=== PATIENT | female | born 1930 | race Caucasian/White ===

== ENCOUNTER 2016-07-18 20:01 | Inpatient (IN) | payer OTHER ==
[~2016-07-18] VITALS: Ht 154.9 cm; Wt 77.8 kg
[~2016-07-18 20:01] MED LIST: ALBUAER2 INH; ALEN70TA4 PO; ALPR-411 PO; AMLO-110 PO; ASPI-435 PO; ATOR-26 PO; BENA40TA6 PO; BISA10SU38 PR; CALC1CAP36 PO; CHOLTAB3 PO; CLC100 PO; CLOB-65 TOP; CRG40 PO; EFFSR150 PO; EFFSR75 PO; FLVHFA110 INH; GARL1CAP6 PO; INSDGI SC; IPRA1AER2 INH; LEVO125T4 PO; LSX20 PO; MAGN400T6 PO; MECL1TAB42 PO; MIRT30TA3 PO; OMEGCAP2 PO; OMEP20CA9 PO; POLY1POW2 PO; ULT/50 PO; [UNRECOGNIZED DRUG - CODE] PO
[2016-07-18] MEDS ORDERED: NADOLOL 40 MG TAB PO ONE (20:30)
[2016-07-18 20:31] LABS: BASO % 0.1 %; BASO ABS # 0.01 K/uL (0-0.2); COMPLETE YES; HEMATOCRIT 38.1 % (37-47); IG% 0.2 %; LYMPH ABS # 1.41 K/uL (1.2-3.4); MEAN CELL VOLUME 90.9 fL (80-100); MEAN CORPUSCULAR HEMOGLOBIN 29.4 pg (25-34); MEAN CORPUSCULAR HGB CONC 32.3 g/dl (32-36); MEAN PLATELET VOLUME 8.8 fL (7.4-10.4); MONO % 8.1 %; NEUT % 79.6 %; PLATELET COUNT 278 K/uL (130-400); RED BLOOD COUNT 4.19 M/uL (4.2-5.4); WHITE BLOOD COUNT 11.72 K/uL (4.8-10.8)
--- NOTE | 2016-07-18 20:47 | DIAGNOSTIC IMAGING REPORT ---
CHEST ONE VIEW PORTABLE CLINICAL HISTORY: Altered mental status. Weakness. COMPARISON STUDY: Chest radiograph October 27, 2015. FINDINGS: Spinal fusion hardware is partially imaged. Mild to moderate cardiomegaly is unchanged. There is no pneumothorax or pleural effusion. A skin fold projects over the left hemithorax. There is pulmonary vascular congestion without overt pulmonary edema. No consolidation is identified to suggest pneumonia. 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 The patient is rotated. Deformity of the right humeral shaft is partially imaged and likely posttraumatic IMPRESSION: 1. Pulmonary vascular congestion. 2. No consolidation to suggest pneumonia. Electronically signed by: Stuart Haji M.D. 07/18/2016 8:46 PM Dictated Date/Time: 07/18/2016 8:43 PM
[2016-07-18 20:54] LABS: URINE APPEARANCE CLEAR (CLEAR); URINE BILIRUBIN NEG (NEG); URINE COLOR YELLOW; URINE NITRITE NEG (NEG); URINE PH 6.5 (4.5-7.5); URINE SPECIFIC GRAVITY 1.013 (1.000-1.030); UROBILINOGEN NEG (NEG); ZZUR CULT IF INDIC CLEAN CATCH NO
[2016-07-18 20:55] LABS: MANUAL MICROSCOPIC REQUIRED? NO; REVIEW REQ? NO
[2016-07-18 21:10] LABS: BUN/CREATININE RATIO 23.9 (10-20); CALCIUM 9.6 mg/dl (8.5-10.1); CKMB/CK RATIO 2.7 (0-3.0); CREATININE 1.1 mg/dl (0.60-1.20); MAGNESIUM 2.2 mg/dl (1.8-2.4); POTASSIUM 4.6 mmol/L (3.5-5.1); THYROID STIMULATING HORMONE 0.822 uIu/ml (0.300-4.500)
[2016-07-18] MEDS ORDERED: CLONIDINE HCL 0.1 MG TAB PO ONE (21:30)
[2016-07-18] MEDS ORDERED: ALBINS/ INH (21:55)
[2016-07-18] MEDS ORDERED: TRMCR130WC TOP (21:55)
[2016-07-18] MEDS ORDERED: HydrALAZINE HCL 20 MG/ML VIAL IV. STA (22:43)
[2016-07-18] MEDS ORDERED: LABETALOL HCL IV 5 MG/ML 20ML IV STA (22:56)
[2016-07-18] MEDS ORDERED: POLYETHYLENE (MIRALAX) 17 GM PACK PO PRN ×2 (23:00)
[2016-07-18] MEDS ORDERED: LABETALOL HCL IV 5 MG/ML 20ML IV PRN (23:00)
[2016-07-18] MEDS ORDERED: ONDANSETRON INJ 2 MG/ML 2 ML VIAL IV PRN (23:00)
[2016-07-18] MEDS ORDERED: NITROGLYCERIN 0.4 MG SL PER TAB CHARGE SL PRN (23:00)
[2016-07-18] MEDS ORDERED: ACETAMINOPHEN 325 MG TAB PO PRN (23:00)
[2016-07-18] MEDS ORDERED: TRAMADOL HCL 50 MG TAB PO PRN (23:00)
[2016-07-18] MEDS ORDERED: MAGNESIUM HYDROXIDE SUSP 30 ML UDC PO PRN (23:00)
[2016-07-18] MEDS ORDERED: BISACODYL 10 MG SUPP PR PRN (23:00)
[2016-07-18] MEDS ORDERED: ALUMINUM/MAGNESIUM/SIMETH (MAALOX MAX) 30 ML UDC PO PRN (23:00)
[2016-07-18] MEDS ORDERED: MECLIZINE HCL 12.5 MG TAB PO PRN (23:00)
--- NOTE | 2016-07-18 23:23 | History and Physical ---
History & Physical Date & Time of Service: Jul 18, 2016 at 23:24 Chief Complaint: Nausea, Diaphoretic Primary Care Physician: Giovanna Cote M.D. History of Present Illness Source: patient this is a 86 yo F presented to ED with complain of feeling nauseous , dizzy spell she thought her blood sugar was low , ate snack , BSG check was > 300 pt continued to feel tired , wiped out , felt dizzy lightheaded, developed transient chest tightness with SOB resolved spontaneously came to ED for evaluation , found to be in hypertensive urgency SBP > 200 pt has known hx of HTN , admits of taking her BP meds in a regular basis in the ED pt was given her home medication of Nadolol , IV Labetalol BP improved ,associated with relief of symptoms during my time of interview , denies of any chest pain or SOB no dizzy spell Past Medical/Surgical History Medical Problems: (1) 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 (2) Diab [place] Wo Compl, Type Ii Or Unspec Type, Not Uncntrld Status: Chronic (3) Diverticulosis Colon (W/O Ment Of Hemorrhage) Status: Chronic (4) Hypertension Nos Status: Chronic (5) Labyrinthine Dysfunc Nos Status: Resolved (6) Pure Hypercholesterolem Status: Chronic (7) Trans Cereb Ischemia Nos Status: Resolved (8) Urin Tract Infection Nos Status: Resolved (9) Vestibular Neuronitis Status: Resolved Family History Cancer Diabetes mellitus FH: heart disease FHx: lung disease Hypertension Social History Smoking Status: Never Smoker Drug Use: none Marital Status: Housing status: lives alone Occupational Status: retired Immunizations History of Influenza Vaccine: Yes History of Tetanus Vaccine?: Yes History of Pneumococcal: Yes History of Hepatitis B Vaccine: No Multi-Drug Resistant Organisms History of MDRO: No Allergies Coded Allergies: Warfarin (Verified Allergy, Mild, "Itchy", 07/18/16) Clopidogrel (Verified Allergy, Unknown, ITCHY, 07/18/16) Codeine (Verified Allergy, Unknown, 07/18/16) Meperidine (Verified Allergy, Unknown, 07/18/16) Home Medications Scheduled Alendronate Sodium (Fosamax), 70 MG PO WK Alprazolam (Alprazolam), 0.5 MG PO TID Amlodipine (Norvasc), 5 MG PO QAM Aspirin (Aspirin 81), 81 MG PO QAM Atorvastatin (Lipitor), 80 MG PO QAM Benazepril Hcl (Lotensin), 40 MG PO QAM Calcitriol (Calcitriol), 0.25 MCG PO DAILY Docusate Sodium (Docusate Sodium), 100 MG PO QAM Fluticasone Propionate (Flovent Hfa), 2 PUFFS INH BID Garlic (Garlic), 10 MG PO DAILY Insulin Glargine (Lantus), UNITS SC QPM Ipratropium-Albuterol (Combivent Respimat), 1 PUFF INH Q4-6HRS Levothyroxine Sodium (Levothyroxine Sodium), 62.5 MG PO QAM Magnesium Oxide (Mag-Ox), 400 MG PO BID Mirtazapine (Remeron), 45 MG PO HS Nadolol (Nadolol), 80 MG PO BID [place]-3 Fatty Acids (Fish Oil), 2 CAP PO QAM Omeprazole (Prilosec), 20 MG PO BID Triamcinolone Acet (Aristocort 0.1%), 1 APPLN TOP BID Venlafaxine Hcl (Effexor Extended Rel), 150 MG PO QAM Venlafaxine Hcl (Effexor Extended Rel), 75 MG PO QAM Vitamin E (Vitamin E Blend), 400 INTER.UNIT PO DAILY Scheduled PRN Albuterol Sulf (Proventil 0.083% 2.5MG/3ML), 2.5 MG INH Q4 PRN for Wheezing Bisacodyl (Dulcolax), 1 SUPP AR DAILY PRN for Constipation Meclizine Hcl (Meclizine Hcl), 25 MG PO TID PRN for Dizziness Polyethylene Glycol 3350 (Bulk (Polyethylene Glycol 3350), 17 GM PO DAILY PRN for Constipation Tramadol Hcl (Ultram), 50 MG PO Q6H PRN for Pain Review of Systems Constitutional: + fatigue, + weakness Respiratory: + shortness of breath Cardiovascular: + chest pain (transient chest heaviness ) Abdomen: No GI bleeding, No constipation, No diarrhea, No nausea, No pain, No problem reported, No vomiting Musculoskeletal: No calf pain, No joint pain, No muscle pain, No problem reported, No swelling Genitourinary - Female: No dysmenorrhea, No dysuria, No hematuria, No menorrhagia, No metrorrhagia, No , No problem reported, No rash, No urinary frequency, No urinary incontinence, No urinary retention, No urinary urgency, No vaginal bleeding, No vaginal discharge, No vaginal itching, No vulvodynia Neurologic: + vertigo, + weakness Psychiatric: + anxiety Endocrine: + fatigue Physical Exam Vital Signs Date Time Temp Pulse Resp B/P Pulse Ox O2 Delivery O2 Flow Rate FiO2 07/18/16 23:19 60 07/18/16 23:17 55 18 168/104 98 Room Air 07/18/16 22:48 83 18 214/127 92 07/18/16 22:25 191/89 07/18/16 21:14 205/145 07/18/16 20:15 36.5 83 18 241/105 97 Room Air General Appearance: no apparent distress Head: normocephalic, atraumatic Eyes: sclerae normal Neck: supple, no carotid bruits, trachea midline Respiratory/Chest: chest non-tender, lungs clear Cardiovascular: regular rate, rhythm Abdomen/GI: normal bowel sounds, non tender, soft Extremities/Musculoskelatal: no pedal edema Neurologic/Psych: no motor/sensory deficits, alert, oriented x 3 Diagnostics Laboratory Results Results Past 24 Hours Test 07/18/16 20:10 07/18/16 20:12 07/18/16 20:15 07/18/16 22:50 Range/Units Urine Color YELLOW Urine Appearance CLEAR CLEAR Urine pH 6.5 4.5-7.5 Urine Specific [place] 1.013 1.000-1.030 Urine Protein NEG NEG Urine Glucose (UA) 3+ NEG Urine Ketones NEG NEG Urine Occult Blood NEG NEG Urine Nitrite NEG NEG Urine Bilirubin NEG NEG Urine Urobilinogen NEG NEG Urine Leukocyte Esterase NEG NEG Urine WBC (Auto) 0 0-5 /hpf Urine RBC (Auto) 0-4 0-4 /hpf Urine Hyaline Casts (Auto) 0 0-5 /lpf Urine Epithelial Cells (Auto) 5-10 0-5 /lpf Urine Bacteria (Auto) NEG NEG Bedside Glucose 241 70-90 mg/dl White Blood Count 11.72 4.8-10.8 K/uL Red Blood Count 4.19 4.2-5.4 M/uL Hemoglobin 12.3 12.0-16.0 g/dL Hematocrit 38.1 37-47 % Mean Corpuscular Volume 90.9 80-100 fL Mean Corpuscular Hemoglobin 29.4 25-34 pg Mean Corpuscular Hemoglobin Concent 32.3 32-36 g/dl Platelet Count 278 130-400 K/uL Mean Platelet Volume 8.8 7.4-10.4 fL Neutrophils (%) (Auto) 79.6 % Lymphocytes (%) (Auto) 12.0 % Monocytes (%) (Auto) 8.1 % Eosinophils (%) (Auto) 0.0 % Basophils (%) (Auto) 0.1 % Neutrophils # (Auto) 9.33 1.4-6.5 K/uL Lymphocytes # (Auto) 1.41 1.2-3.4 K/uL Monocytes # (Auto) 0.95 0.11-0.59 K/uL Eosinophils # (Auto) 0.00 0-0.5 K/uL Basophils # (Auto) 0.01 0-0.2 K/uL RDW Standard Deviation 48.6 36.4-46.3 fL RDW Coefficient of Variation 14.6 11.5-14.5 % Immature Granulocyte % (Auto) 0.2 % Immature Granulocyte # (Auto) 0.02 0.00-0.02 K/uL Sodium Level 140 136-145 mmol/L Potassium Level 4.6 3.5-5.1 mmol/L Chloride Level 105 98-107 mmol/L Carbon Dioxide Level 24 21-32 mmol/L Anion Gap 11.0 3-11 mmol/L Blood Urea Nitrogen 26 7-18 mg/dl Creatinine 1.10 0.60-1.20 mg/dl Est Creatinine Clear Calc Drug Dose 36.7 ml/min Estimated GFR () 53.0 Estimated GFR (Non- 45.7 BUN/Creatinine Ratio 23.9 10-20 Random Glucose 263 70-99 mg/dl Calcium Level 9.6 8.5-10.1 mg/dl Magnesium Level 2.2 1.8-2.4 mg/dl Total Bilirubin 0.4 0.2-1 mg/dl Direct Bilirubin 0.1 0-0.2 mg/dl Aspartate Amino Transf (AST/SGOT) 50 15-37 U/L Alanine Aminotransferase (ALT/SGPT) 62 12-78 U/L Alkaline Phosphatase 168 45-117 U/L Total Creatine Kinase 132 26-192 U/L Creatine Kinase MB 3.5 0.5-3.6 ng/ml Creatine Kinase MB Ratio 2.7 0-3.0 Troponin I 0.020 0-0.045 ng/ml Total Protein 7.4 6.4-8.2 gm/dl Albumin 3.7 3.4-5.0 gm/dl Lipase 138 73-393 U/L Thyroid Stimulating Hormone (TSH) 0.822 0.300-4.500 uIu/ml Diagnostic Radiology CHEST ONE VIEW PORTABLE CLINICAL HISTORY: Altered mental status. Weakness. COMPARISON STUDY: Chest radiograph October 27, 2015. FINDINGS: Spinal fusion hardware is partially imaged. Mild to moderate cardiomegaly is unchanged. There is no pneumothorax or pleural effusion. A skin fold projects over the left hemithorax. There is pulmonary vascular congestion without overt pulmonary edema. No consolidation is identified to suggest pneumonia. 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 The patient is rotated. Deformity of the right humeral shaft is partially imaged and likely posttraumatic IMPRESSION: 1. Pulmonary vascular congestion. 2. No consolidation to suggest pneumonia. Impression Assessment and Plan HYPERTENSIVE URGENCY new diagnosis / presented with dizzy spell AMRIT 241/105 BP improved after multiple meds in ED : 10 IV Hydralazine , 0.2 mg of PO Clonidine nadolol 80 mg repeat SBP in 150's pt at present remains asymptomatic pt was recently seen at [facility] on 07/11/16 for hip pain Vitals shows BP well controlled 132/84 ; HR 64 pt was started on Prednisone taper for DJD of hip due to steroid induced ? 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 kidney HTN : presented with hypertensive urgency Antihypertensives adjusted as above cont monitor CHRONIC DJD OF HIP : cont Tramadol PT/OT avoid Steroids NSAID's -hypertensive urgency HYPOTHYROIDISM : cont Levothyroxine 125 mcg daily TSH wnl HYPERLIPIDEMIA : cont statin ANXIETY DISORDER cont out pt meds of Alprazolam Effexor Remeron at night FULL CODE DVT PROPHYLAXIS : sub q heparin DISPOSITION : to home when medically stable PT /OT eval prior to discharge will benefit form Home health visiting nurse for periodic monitoring of BP Social Service consulted for Discharge planning Level of Care Telemetry Resuscitation Status FULL RESUSCITATION VTE Prophylaxis VTE Risk Assessment Done? Y/N: Yes Risk Level: Moderate Given or contraindicated: Unfractionated heparin SQ
--- NOTE | 2016-07-18 23:24 | EMERGENCY ROOM VISIT NOTE ---
History Report prepared by Matheus: Tuyet Urbina Under the Supervision of: Dr. Charles Medina D.O. First contact with patient: 20:10 Chief Complaint: HYPERGLYCEMIA Stated Complaint: NAUSEA, DIAPHORETIC History of Present Illness The patient is an 86 year old female who presents to the Emergency Room via EMS with complaints of an episode of hyperglycemia with onset 3 hours. This evening , the patient states that she had just returned home from shopping when she went into room to change her clothes. While she was changing her clothes, she became very nauseous and felt a "warm" sweat come over her. Due to her history of diabetes, the patient thought that she was suffering from a bout of low blood sugar. She ate a piece of cake and some ice cream. She then took her blood sugar and noticed that her blood sugar was high. Her blood sugar was 341. The patient has had some shortness of breath recently, and she states that tonight she believes that some shortness of breath was due to being worked up about her high blood sugar. Her blood pressure was 278/121. The patient denies headaches, chest pain. Source of History: patient Onset: 3 hours ago Position: other (global ) Quality: other (hyperglycemia) Timing: other (episode ) Associated Symptoms: + SOB, + nausea, No chest pain, No headache Note: She felt a "hot" sweat come over her. Review of Systems See HPI for pertinent positives & negatives. A total of 10 systems reviewed and were otherwise negative. Past Medical & Surgical Medical Problems: (1) Coronary Atherosclerosis Of [place] Coronary Vessel (2) Diab [place] Wo Compl, Type Ii Or Unspec Type, Not Uncntrld (3) Diverticulosis Colon (W/O Ment Of Hemorrhage) (4) Hypertension Nos (5) Hypertensive urgency (6) Labyrinthine Dysfunc Nos (7) Pure Hypercholesterolem (8) Trans Cereb Ischemia Nos (9) Urin Tract Infection Nos (10) Vestibular Neuronitis Family History Cancer Diabetes mellitus FH: heart disease FHx: lung disease Hypertension Social History Smoking Status: Never Smoker Alcohol Use: none Drug Use: none Marital Status: Housing Status: lives with family Occupation Status: retired Current/Historical Medications Scheduled Alendronate Sodium (Fosamax), 70 MG PO WK Alprazolam (Alprazolam), 0.5 MG PO TID Amlodipine (Norvasc), 5 MG PO QAM Aspirin (Aspirin 81), 81 MG PO QAM Atorvastatin (Lipitor), 80 MG PO QAM Benazepril Hcl (Lotensin), 40 MG PO QAM Calcitriol (Calcitriol), 0.25 MCG PO DAILY Docusate Sodium (Docusate Sodium), 100 MG PO QAM Fluticasone Propionate (Flovent Hfa), 2 PUFFS INH BID Garlic (Garlic), 10 MG PO DAILY Insulin Glargine (Lantus), UNITS SC QPM Ipratropium-Albuterol (Combivent Respimat), 1 PUFF INH Q4-6HRS Levothyroxine Sodium (Levothyroxine Sodium), 62.5 MG PO QAM Magnesium Oxide (Mag-Ox), 400 MG PO BID Mirtazapine (Remeron), 45 MG PO HS Nadolol (Nadolol), 80 MG PO BID [place]-3 Fatty Acids (Fish Oil), 2 CAP PO QAM Omeprazole (Prilosec), 20 MG PO BID Triamcinolone Acet (Aristocort 0.1%), 1 APPLN TOP BID Venlafaxine Hcl (Effexor Extended Rel), 150 MG PO QAM Venlafaxine Hcl (Effexor Extended Rel), 75 MG PO QAM Vitamin E (Vitamin E Blend), 400 INTER.UNIT PO DAILY Scheduled PRN Albuterol Sulf (Proventil 0.083% 2.5MG/3ML), 2.5 MG INH Q4 PRN for Wheezing Bisacodyl (Dulcolax), 1 SUPP ME DAILY PRN for Constipation Meclizine Hcl (Meclizine Hcl), 25 MG PO TID PRN for Dizziness Polyethylene Glycol 3350 (Bulk (Polyethylene Glycol 3350), 17 GM PO DAILY PRN for Constipation Tramadol Hcl (Ultram), 50 MG PO Q6H PRN for Pain Allergies Coded Allergies: Warfarin (Verified Allergy, Mild, "Itchy", 07/18/16) Clopidogrel (Verified Allergy, Unknown, ITCHY, 07/18/16) Codeine (Verified Allergy, Unknown, 07/18/16) Meperidine (Verified Allergy, Unknown, 07/18/16) Physical Exam Vital Signs Date Time Temp Pulse Resp B/P Pulse Ox O2 Delivery O2 Flow Rate FiO2 07/18/16 23:19 60 07/18/16 23:17 55 18 168/104 98 Room Air 07/18/16 22:48 83 18 214/127 92 07/18/16 22:25 191/89 07/18/16 21:14 205/145 07/18/16 20:15 36.5 83 18 241/105 97 Room Air Physical Exam CONSTITUTIONAL/VITAL SIGNS: Reviewed / noted above. GENERAL: Non-toxic in appearance. INTEGUMENTARY: Warm, dry, and [place]. HEAD: Normocephalic. EYES: without scleral icterus or trauma. ENT/OROPHARYNX: clear and moist. LYMPHADENOPATHY/NECK: Is supple without lymphadenopathy or meningismus. RESPIRATORY: Lungs clear and equal. CARDIOVASCULAR: Regular rate and rhythm. GI/ABDOMEN: Soft and nontender. No organomegaly or pulsatile mass. No rebound or guarding. Normal bowel sounds. EXTREMITIES: Warm and well perfused. BACK: No CVA tenderness. NEUROLOGICAL: Intact without focal deficits. PSYCHIATRIC: normal affect. MUSCULOSKELETAL: Normally developed with good muscle tone. Medical Decision & Procedures ER Provider Diagnostic Interpretation: X ray results and stated below per my interpretation and radiology interpretation. EST ONE VIEW PORTABLE CLINICAL HISTORY: Altered mental status. Weakness. COMPARISON STUDY: Chest radiograph October 27, 2015. FINDINGS: Spinal fusion hardware is partially imaged. Mild to moderate cardiomegaly is unchanged. There is no pneumothorax or pleural effusion. A skin fold projects over the left hemithorax. There is pulmonary vascular congestion without overt pulmonary edema. No consolidation is identified to suggest pneumonia. 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 The patient is rotated. Deformity of the right humeral shaft is partially imaged and likely posttraumatic IMPRESSION: 1. Pulmonary vascular congestion. 2. No consolidation to suggest pneumonia. Electronically signed by: Stuart Haji M.D. 07/18/2016 8:46 PM Dictated Date/Time: 07/18/2016 8:43 PM Laboratory Results 07/18/16 20:15 Red Blood Count 4.19, Mean Corpuscular Volume 90.9, Mean Corpuscular Hemoglobin 29.4, Mean Corpuscular Hemoglobin Concent 32.3, Mean Platelet Volume 8.8, Neutrophils (%) (Auto) 79.6, Lymphocytes (%) (Auto) 12.0, Monocytes (%) (Auto) 8.1, Eosinophils (%) (Auto) 0.0, Basophils (%) (Auto) 0.1, Neutrophils # (Auto) 9.33, Lymphocytes # (Auto) 1.41, Monocytes # (Auto) 0.95, Eosinophils # (Auto) 0.00, Basophils # (Auto) 0.01 07/18/16 20:15 Test 07/18/16 20:10 07/18/16 20:12 07/18/16 20:15 07/18/16 22:50 Urine Color YELLOW Urine Appearance CLEAR (CLEAR) Urine pH 6.5 (4.5-7.5) Urine Specific [place] 1.013 (1.000-1.030) Urine Protein NEG (NEG) Urine Glucose (UA) 3+ (NEG) Urine Ketones NEG (NEG) Urine Occult Blood NEG (NEG) Urine Nitrite NEG (NEG) Urine Bilirubin NEG (NEG) Urine Urobilinogen NEG (NEG) Urine Leukocyte Esterase NEG (NEG) Urine WBC (Auto) 0 /hpf (0-5) Urine RBC (Auto) 0-4 /hpf (0-4) Urine Hyaline Casts (Auto) 0 /lpf (0-5) Urine Epithelial Cells (Auto) 5-10 /lpf (0-5) Urine Bacteria (Auto) NEG (NEG) Bedside Glucose 241 mg/dl (70-90) White Blood Count 11.72 K/uL (4.8-10.8) Red Blood Count 4.19 M/uL (4.2-5.4) Hemoglobin 12.3 g/dL (12.0-16.0) Hematocrit 38.1 % (37-47) Mean Corpuscular Volume 90.9 fL (80-100) Mean Corpuscular Hemoglobin 29.4 pg (25-34) Mean Corpuscular Hemoglobin Concent 32.3 g/dl (32-36) Platelet Count 278 K/uL (130-400) Mean Platelet Volume 8.8 fL (7.4-10.4) Neutrophils (%) (Auto) 79.6 % Lymphocytes (%) (Auto) 12.0 % Monocytes (%) (Auto) 8.1 % Eosinophils (%) (Auto) 0.0 % Basophils (%) (Auto) 0.1 % Neutrophils # (Auto) 9.33 K/uL (1.4-6.5) Lymphocytes # (Auto) 1.41 K/uL (1.2-3.4) Monocytes # (Auto) 0.95 K/uL (0.11-0.59) Eosinophils # (Auto) 0.00 K/uL (0-0.5) Basophils # (Auto) 0.01 K/uL (0-0.2) RDW Standard Deviation 48.6 fL (36.4-46.3) RDW Coefficient of Variation 14.6 % (11.5-14.5) Immature Granulocyte % (Auto) 0.2 % Immature Granulocyte # (Auto) 0.02 K/uL (0.00-0.02) Anion Gap 11.0 mmol/L (3-11) Est Creatinine Clear Calc Drug Dose 36.7 ml/min Estimated GFR () 53.0 Estimated GFR (Non- 45.7 BUN/Creatinine Ratio 23.9 (10-20) Calcium Level 9.6 mg/dl (8.5-10.1) Magnesium Level 2.2 mg/dl (1.8-2.4) Total Bilirubin 0.4 mg/dl (0.2-1) Direct Bilirubin 0.1 mg/dl (0-0.2) Aspartate Amino Transf (AST/SGOT) 50 U/L (15-37) Alanine Aminotransferase (ALT/SGPT) 62 U/L (12-78) Alkaline Phosphatase 168 U/L (45-117) Total Creatine Kinase 132 U/L (26-192) Creatine Kinase MB 3.5 ng/ml (0.5-3.6) Creatine Kinase MB Ratio 2.7 (0-3.0) Troponin I 0.020 ng/ml (0-0.045) Total Protein 7.4 gm/dl (6.4-8.2) Albumin 3.7 gm/dl (3.4-5.0) Lipase 138 U/L (73-393) Thyroid Stimulating Hormone (TSH) 0.822 uIu/ml (0.300-4.500) Laboratory results as stated above per my review. Medications Administered Medications (Trade) Dose Ordered Sig/Gill Route Start Time Stop Time Status Last Admin Dose Admin Nadolol (Corgard Tab) 80 mg ONE ONCE PO 07/18/16 20:30 07/18/16 20:31 DC 2/10/17 20:44 80 MG Clonidine HCl (Catapres Tab) 0.2 mg NOW ONCE PO 07/18/16 21:30 07/18/16 21:31 DC 07/18/16 21:45 0.2 MG Hydralazine HCl (HydrALAZINE INJ) 10 mg NOW STAT IV. 07/18/16 22:43 07/18/16 22:44 DC 07/18/16 22:53 10 MG ECG Indication: nausea Rate (beats per minute): 79 Rhythm: sinus rhythm Findings: 1st degree AV block, no acute ischemic change, no ectopy ED Course 2011: Previous medical records were reviewed. The patient was evaluated in room B7. A complete history and physical examination was performed. 2029: Nadolol 80 mg PO 2125: I reevaluated the patient and spoke with her family. The patient's blood pressure remains elevated. 2129: Clonidine HCl 0.2 mg PO 2239: On reevaluation, the patient is resting. I discussed the results and findings with the patient and her family. They verbalized agreement of the treatment plan. The patient will be evaluated for further management and care. 2242: Hydralazine HCl 10 mg IV 2246: I discussed the case with Dr. Mahan ([facility]); she will further evaluate the patient. Medical Decision The patient is an 86 year old female who presents to the ED with complaints of hyperglycemia. Differential diagnosis: Etiologies such as metabolic, infection, hypo/hyperglycemia, electrolyte abnormalities, cardiac sources, intracerebral event, toxicologic, neurologic, as well as others were entertained. This is an 86-year-old female who presents to the ED with a chief complaint of high blood pressure. The patient states that she developed some nausea around 5 PM. While she was attempting to vomit, she developed a warm sweat. She thought that her blood sugar might be low and ate some cake. Afterwards she checked her blood sugar and it was 270. Her [id number] came over to check on her. Her blood pressure was 278/121. The patient states that she currently feels fine. She has no symptoms. Initial blood pressure was 245/105. The patient states that she is feeling anxious. She did take her evening lorazepam just prior to coming. She is also due for blood pressure medication at this time. Exam was normal. EKG shows a sinus rhythm. Troponin was normal. CBC is unremarkable. Urine did not show infection. A chest x-ray was negative for acute disease. Radiologist reports some pulmonary vascular congestion although clinically there is no evidence of CHF. Complete metabolic panel was unremarkable. BSG was elevated as was the BUN. The patient had persistent hypertension despite the Corgard that was provided. She was given clonidine by mouth. The patient feels that her elevated blood pressure is related to the fact that she is here. She continues to remain asymptomatic. Her blood pressure was rechecked and was still over 200 systolic and 100 diastolic. She was given hydralazine 10 mg IV. At this point I spoke with the hospitalist about seeing the patient for inpatient hypertension control. Consults Time Called: 2244 Consulting Physician: Dr. Mahan ([facility]) Returned Call: [phone] I discussed the case with Dr. Mahan ([facility]); she will further evaluate the patient. Impression Primary Impression: Accelerated hypertension Scribe Attestation The scribe's documentation has been prepared under my direction and personally reviewed by me in its entirety. I confirm that the note above accurately reflects all work, treatment, procedures, and medical decision making performed by me. Departure Information Dispostion Being Evaluated By Hospitalist Referrals Giovanna Cote M.D. (PCP) Patient Instructions My [facility]
[2016-07-19] VITALS (10 sets, daily range): BP systolic 149–193; BP diastolic 60–84; PULSE 40–86; TEMP 36.4–36.8; O2SAT 92–97; Ht 154.9 cm; Wt 77.8 kg
[2016-07-19] MEDS ORDERED: ALPRAZOLAM 0.5 MG TAB PO STA (00:38)
[2016-07-19] MEDS: MIRTAZAPINE TAB 15 MG TAB PO SCH ×2 (01:02→21:14)
[2016-07-19] MEDS: IPRATROPIUM BROMIDE/ALBUTEROL respimat INH INH SCH ×7 (01:07→23:52)
[2016-07-19] MEDS ORDERED: GLUCOSE 10 TABS/TUBE PO PRN (02:00)
[2016-07-19] MEDS ORDERED: DEXTROSE 50% 50 ML SYR IV PRN (02:00)
[2016-07-19] MEDS ORDERED: GLUCOSE 40% GEL 15 GM TUBE PO PRN (02:00)
[2016-07-19] MEDS ORDERED: GLUCAGON FOR INJ 1 MG VIAL SQ PRN (02:00)
[2016-07-19] MEDS ORDERED: PHARMACY GLYCEMIC MGMT CONSULT PRN (02:07)
[2016-07-19] MEDS ORDERED: INSULIN HUMAN REGULAR SC SCH (04:00)
[2016-07-19] MEDS ORDERED: HydrALAZINE HCL 20 MG/ML VIAL IV. PRN (04:45)
[2016-07-19 04:57] LABS: HEMATOCRIT 33.7 % (37-47); MEAN CELL VOLUME 90.3 fL (80-100); PLATELET COUNT 202 K/uL (130-400); RED BLOOD COUNT 3.73 M/uL (4.2-5.4); WHITE BLOOD COUNT 7.95 K/uL (4.8-10.8)
[2016-07-19] MEDS: LEVOTHYROXINE 125 MCG TAB PO SCH (05:20)
[2016-07-19 05:22] LABS: BUN/CREATININE RATIO 24.6 (10-20); CHOLESTEROL/HDL RATIO 2.6; CKMB/CK RATIO 4.2 (0-3.0); CREATININE 0.95 mg/dl (0.60-1.20); MAGNESIUM 2.1 mg/dl (1.8-2.4)
[2016-07-19 06:42] LABS: POTASSIUM 3.5 mmol/L (3.5-5.1)
[2016-07-19] MEDS: INSULIN HUMAN REGULAR SC SCH ×4 (07:00→21:20)
--- NOTE | 2016-07-19 07:43 | DIAGNOSTIC IMAGING REPORT ---
SINGLE VIEW CHEST CLINICAL HISTORY: Follow-up CHF. FINDINGS: An AP, portable, upright chest radiograph is compared to study dated 07/18/16. Correlation is made with chest CT dated 08/15/2008. The examination is degraded by portable technique and patient rotation. The heart is enlarged and there is atherosclerotic calcification of the thoracic aorta. There is mild pulmonary basilar congestion. This has not significantly changed yesterday. No large pleural effusion is identified. There is chronic elevation of the right hemidiaphragm with associated bibasilar atelectasis. No pneumothorax is seen. The skeletal structures are osteopenic. The bony thorax is grossly intact. IMPRESSION: 1. Cardiomegaly with mild pulmonary vascular congestion. This is similar to yesterday. 2. No focal airspace consolidation or large pleural effusion is seen. Electronically signed by: Giles Veliz M.D. 07/19/2016 7:42 AM Dictated Date/Time: 07/19/2016 7:40 AM
[2016-07-19] MEDS: CALCITRIOL 0.25 MCG CAP PO SCH (07:47)
[2016-07-19] MEDS: OMEGA-3 (PURIFIED FISH OIL) 1 GM CAP PO SCH (07:47)
[2016-07-19] MEDS: TOCOPHERYL, DL-ALPHA 400 INTER.UNIT CAP PO SCH (07:48)
[2016-07-19] MEDS: VENLAFAXINE HCL XR 75 MG CAPXR PO SCH (07:48)
[2016-07-19] MEDS: DOCUSATE SODIUM 100 MG CAP PO SCH (07:49)
[2016-07-19] MEDS: PANTOprazole SOD 40 MG TAB PO SCH ×2 (07:49→21:14)
[2016-07-19] MEDS: MAGNESIUM OXIDE 400 MG TAB PO SCH ×2 (07:49→21:14)
[2016-07-19] MEDS: ASPIRIN 81 MG ECTAB PO SCH (07:49)
[2016-07-19] MEDS: ENALAPRIL MALEATE 10 MG TAB PO SCH (07:52)
[2016-07-19] MEDS: TRIAMCINOLONE ACET 0.1% CR 15 GM TUBE EXT SCH ×2 (07:53→21:13)
[2016-07-19] MEDS: FLUTICASONE HFA 110MCG INHALER INH SCH ×2 (07:53→21:12)
[2016-07-19] MEDS: AMLODIPINE BESYLATE 5 MG TAB PO SCH (07:53)
[2016-07-19] MEDS: ALPRAZOLAM 0.5 MG TAB PO SCH ×3 (08:35→21:13)
[2016-07-19] MEDS ORDERED: INSULIN GLARGINE SOLOSTAR 100 UNITS/ML 3 ML PEN SC SCH ×2 (09:00)
[2016-07-19] MEDS ORDERED: GARLIC PO SCH (09:00)
[2016-07-19] MEDS ORDERED: NADOLOL 40 MG TAB PO SCH (09:00)
[2016-07-19] MEDS ORDERED: VENLAFAXINE HCL XR 150 MG CAPXR PO SCH (09:00)
[2016-07-19] MEDS ORDERED: AMLODIPINE BESYLATE 5 MG TAB PO SCH (09:00)
[2016-07-19] MEDS ORDERED: ATORVASTATIN 40 MG TAB PO SCH (09:00)
--- NOTE | 2016-07-19 10:08 | CARDIOLOGY CONSULTATION ---
DATE OF CONSULTATION: 07/19/2016 DATE OF CONSULTATION: 07/19/2016. REASON FOR CONSULTATION: Bradycardia. HISTORY OF PRESENT ILLNESS: This is an 86-year-old female who was admitted through the Emergency Department with a history of nausea and not feeling well. The patient is a diabetic and thought that she was hypoglycemic at home and ate cake and ice cream and then took her blood sugar which at that point was 341. She then decided to come to the Emergency Department where she was found to be markedly hypertensive and diagnosed with hypertensive urgency. The patient is normally on Corgard 80 mg b.i.d. She was then given an intravenous bolus of labetalol, which brought her blood pressure down, but also her heart rate and through the night she has mostly been in the 30s and 40 beat per minute range. Her heart rate at this time is between 45 and 50 beats per minute. She has no complaints today. 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 She has a history of hypertension, diabetes and hyperlipidemia. 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 ALLERGIES: WARFARIN, CLOPIDOGREL, CODEINE AND MEPERIDINE. PAST MEDICAL HISTORY: As outlined above, the patient has no significant cardiac history. She is followed by her primary care who treats her for diabetes, hypertension and hyperlipidemia. SOCIAL HISTORY: She is a lifelong nonsmoker. She is and lives alone. FAMILY MEDICAL HISTORY: Significant for diabetes. REVIEW OF SYSTEMS: A 10-point review of systems is negative except for the history of chief complaint. PHYSICAL EXAMINATION: GENERAL: She is alert and oriented in no acute distress. VITAL SIGNS: Blood pressure is 180/70, pulse is regular at 50 beats per minute. She is afebrile. HEAD, EYES, EARS, NOSE, AND THROAT: She is normocephalic. Pupils are equal and reactive to light. Mucous membranes are moist. NECK: The neck veins are flat. Carotids have good upstrokes bilaterally without bruits. Thyroid is nonpalpable. RESPIRATORY: Breath sounds equal bilaterally and clear to auscultation. CARDIOVASCULAR: Heart has a regular rhythm. Normal S1, S2. No S3, S4. No cardiac rubs or murmurs. GASTROINTESTINAL: Abdomen is soft, nontender without organomegaly. EXTREMITIES: Free of edema, digit clubbing, or cyanosis. NEUROLOGIC: Grossly intact. SKIN: Warm to touch. LYMPH NODES: Negative to palpation. LABORATORY DATA: Potassium is 1.1, potassium is 4.6, creatinine is 1.1. Troponin is 0.043. TSH is 0.822. EKG reveals a sinus bradycardia with first degree AV block and no acute changes. IMPRESSION: 1. Medication induced bradycardia. 2. Hypertensive urgency. 3. Diabetes mellitus. 4. Elevated troponins due to demand ischemia from hypertension. RECOMMENDATIONS: I would continue to hold the patient's Corgard until her heart rates improve. I would also not give her any more labetalol for hypertension. As mentioned above, her minor elevation in her troponin is most likely due to demand ischemia and I did not believe any additional cardiac workup is indicated at this time. We will follow along with you during her hospital stay.
--- NOTE | 2016-07-19 11:08 | DIAGNOSTIC IMAGING REPORT ---
ULTRASOUND BILATERAL LOWER EXTREMITY VENOUS CLINICAL HISTORY: Hypertensive urgency. Clinical concern for deep venous thrombosis. COMPARISON STUDY: No priors. TECHNIQUE: Real-time, grayscale, and color Doppler sonography of the deep veins of the right and left lower extremity was performed from the inguinal crease to the calf. Compression and augmentation were utilized. FINDINGS: There is no sonographic evidence of deep venous thrombosis identified in the right or left lower extremity. The common femoral, superficial femoral, and popliteal veins are patent and normally compressible bilaterally. The greater saphenous vein and the profunda femoris vein at the junction with the common femoral vein are clear in both legs. The visualized calf veins are patent bilaterally. IMPRESSION: There is no sonographic evidence of deep venous thrombosis identified in the right or left lower extremity. Electronically signed by: Giles Veliz M.D. 07/19/2016 11:06 AM Dictated Date/Time: 07/19/2016 11:06 AM
--- NOTE | 2016-07-19 11:17 | Progress Note ---
Internal Med Progress Note Date of Service: Jul 19, 2016. Provider Documentation: SUBJECTIVE: Patient c/o feeling tired as has not been able to sleep the whole night and wants a rest a little. Denies any chest pain, headaches, SOB, cough, nausea, vomiting, localized weakness, fever, chills. No dizziness, syncope BP down to 140s Tele- HR down to high 30s-40s , asymptomatic OBJECTIVE: Vital Signs-as noted below Exam: General Appearance: no apparent distress Neck: supple, no carotid bruits Respiratory/Chest: chest non-tender, lungs clear Cardiovascular: regular rate, rhythm Abdomen/GI: normal bowel sounds, non tender, soft Extremities/Musculoskelatal: no pedal edema Neurologic/Psych: no motor/sensory deficits, alert, oriented x 3 Lab data as noted below. Diagnostic Radiology CHEST ONE VIEW PORTABLE CLINICAL HISTORY: Altered mental status. Weakness. COMPARISON STUDY: Chest radiograph October 27, 2015. FINDINGS: Spinal fusion hardware is partially imaged. Mild to moderate cardiomegaly is unchanged. There is no pneumothorax or pleural effusion. A skin fold projects over the left hemithorax. There is pulmonary vascular congestion without overt pulmonary edema. No consolidation is identified to suggest pneumonia. 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 The patient is rotated. Deformity of the right humeral shaft is partially imaged and likely posttraumatic IMPRESSION: 1. Pulmonary vascular congestion. 2. No consolidation to suggest pneumonia. ASSESSMENT & PLAN: Assessment and Plan : HYPERTENSIVE URGENCY : Presented with vague complaints of not feeling good, nausea, dizzy spell with Blood sugar fluctuations and BP as high as 241/105 BP improved after multiple meds in ED : 10 IV Hydralazine , 0.2 mg of PO Clonidine ,Nadolol 80 mg PO -BP now 140s -Discontinued Nadolol, labetalol. Continue with Benazepril --> changed to enalapril 40 mg PO daily while in hospital, Norvasc increased to 10 mg from 5 mg. -IV Hydralazine PRN -Work up- Echo ordered, Trop x 2 negative, EKG- no acute ischemic changes. -Monitor BP closely SINUS BRADYCARDIA, ASYMPTOMATIC Likely secondary to medication Secondary to Nadolol, Clonidine received in ED. -Discontinued beta blockers, Clonidine, IV Labetalol PRN -Monitor HR. Appreciate Cardiology inputs. 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 : -cont Tramadol -PT/OT -avoid Steroids , NSAID's -hypertensive urgency HYPOTHYROIDISM : -cont Levothyroxine 125 mcg daily -TSH wnl HYPERLIPIDEMIA : -cont statin ANXIETY DISORDER -cont out pt meds of Alprazolam -Effexor -Remeron at night FULL CODE DVT PROPHYLAXIS : sub q heparin DISPOSITION : Home when medically stable PT /OT eval prior to discharge will benefit form Home health visiting nurse for periodic monitoring of BP Social Service consulted for Discharge planning Vital Signs: Date Time Temp Pulse Resp B/P Pulse Ox O2 Delivery O2 Flow Rate FiO2 07/19/16 08:30 149/68 07/19/16 08:05 36.7 49 20 180/73 95 Room Air 07/19/16 08:00 Room Air 07/19/16 04:00 93 Room Air 07/19/16 03:05 36.7 41 16 151/60 93 Room Air 07/19/16 00:55 42 153/65 07/19/16 00:37 36.6 75 18 193/80 95 Room Air 07/19/16 00:00 36.5 54 18 168/104 98 07/18/16 23:19 60 07/18/16 23:17 55 18 168/104 98 Room Air 07/18/16 22:48 83 18 214/127 92 07/18/16 22:25 191/89 07/18/16 21:14 205/145 07/18/16 20:15 36.5 83 18 241/105 97 Room Air Lab Results: Results Past 24 Hours Test 07/18/16 20:10 07/18/16 20:12 07/18/16 20:15 07/19/16 03:54 Range/Units Urine Color YELLOW Urine Appearance CLEAR CLEAR Urine pH 6.5 4.5-7.5 Urine Specific [place] 1.013 1.000-1.030 Urine Protein NEG NEG Urine Glucose (UA) 3+ NEG Urine Ketones NEG NEG Urine Occult Blood NEG NEG Urine Nitrite NEG NEG Urine Bilirubin NEG NEG Urine Urobilinogen NEG NEG Urine Leukocyte Esterase NEG NEG Urine WBC (Auto) 0 0-5 /hpf Urine RBC (Auto) 0-4 0-4 /hpf Urine Hyaline Casts (Auto) 0 0-5 /lpf Urine Epithelial Cells (Auto) 5-10 0-5 /lpf Urine Bacteria (Auto) NEG NEG Bedside Glucose 241 123 70-90 mg/dl White Blood Count 11.72 4.8-10.8 K/uL Red Blood Count 4.19 4.2-5.4 M/uL Hemoglobin 12.3 12.0-16.0 g/dL Hematocrit 38.1 37-47 % Mean Corpuscular Volume 90.9 80-100 fL Mean Corpuscular Hemoglobin 29.4 25-34 pg Mean Corpuscular Hemoglobin Concent 32.3 32-36 g/dl Platelet Count 278 130-400 K/uL Mean Platelet Volume 8.8 7.4-10.4 fL Neutrophils (%) (Auto) 79.6 % Lymphocytes (%) (Auto) 12.0 % Monocytes (%) (Auto) 8.1 % Eosinophils (%) (Auto) 0.0 % Basophils (%) (Auto) 0.1 % Neutrophils # (Auto) 9.33 1.4-6.5 K/uL Lymphocytes # (Auto) 1.41 1.2-3.4 K/uL Monocytes # (Auto) 0.95 0.11-0.59 K/uL Eosinophils # (Auto) 0.00 0-0.5 K/uL Basophils # (Auto) 0.01 0-0.2 K/uL RDW Standard Deviation 48.6 36.4-46.3 fL RDW Coefficient of Variation 14.6 11.5-14.5 % Immature Granulocyte % (Auto) 0.2 % Immature Granulocyte # (Auto) 0.02 0.00-0.02 K/uL Erythrocyte Sedimentation Rate 14 0-21 mm/hr D-Dimer 720 0-500 ug/L FEU Sodium Level 140 136-145 mmol/L Potassium Level 4.6 3.5-5.1 mmol/L Chloride Level 105 98-107 mmol/L Carbon Dioxide Level 24 21-32 mmol/L Anion Gap 11.0 3-11 mmol/L Blood Urea Nitrogen 26 7-18 mg/dl Creatinine 1.10 0.60-1.20 mg/dl Est Creatinine Clear Calc Drug Dose 36.7 ml/min Estimated GFR () 53.0 Estimated GFR (Non- 45.7 BUN/Creatinine Ratio 23.9 10-20 Random Glucose 263 70-99 mg/dl Calcium Level 9.6 8.5-10.1 mg/dl Magnesium Level 2.2 1.8-2.4 mg/dl Total Bilirubin 0.4 0.2-1 mg/dl Direct Bilirubin 0.1 0-0.2 mg/dl Aspartate Amino Transf (AST/SGOT) 50 15-37 U/L Alanine Aminotransferase (ALT/SGPT) 62 12-78 U/L Alkaline Phosphatase 168 45-117 U/L Total Creatine Kinase 132 26-192 U/L Creatine Kinase MB 3.5 0.5-3.6 ng/ml Creatine Kinase MB Ratio 2.7 0-3.0 Troponin I 0.020 0-0.045 ng/ml Pro-B-Type Natriuretic Peptide 2019 0-1800 pg/ml Total Protein 7.4 6.4-8.2 gm/dl Albumin 3.7 3.4-5.0 gm/dl Lipase 138 73-393 U/L Thyroid Stimulating Hormone (TSH) 0.822 0.300-4.500 uIu/ml Test 07/19/16 04:36 07/19/16 06:44 Range/Units White Blood Count 7.95 4.8-10.8 K/uL Red Blood Count 3.73 4.2-5.4 M/uL Hemoglobin 10.8 12.0-16.0 g/dL Hematocrit 33.7 37-47 % Mean Corpuscular Volume 90.3 80-100 fL Mean Corpuscular Hemoglobin 29.0 25-34 pg Mean Corpuscular Hemoglobin Concent 32.0 32-36 g/dl RDW Standard Deviation 48.1 36.4-46.3 fL RDW Coefficient of Variation 14.6 11.5-14.5 % Platelet Count 202 130-400 K/uL Mean Platelet Volume 9.0 7.4-10.4 fL Sodium Level 144 136-145 mmol/L Potassium Level 3.5 3.5-5.1 mmol/L Chloride Level 108 98-107 mmol/L Carbon Dioxide Level 29 21-32 mmol/L Anion Gap 7.0 3-11 mmol/L Blood Urea Nitrogen 23 7-18 mg/dl Creatinine 0.95 0.60-1.20 mg/dl Est Creatinine Clear Calc Drug Dose 41.6 ml/min Estimated GFR () 63.3 Estimated GFR (Non- 54.6 BUN/Creatinine Ratio 24.6 10-20 Random Glucose 105 70-99 mg/dl Calcium Level 9.0 8.5-10.1 mg/dl Magnesium Level 2.1 1.8-2.4 mg/dl Total Creatine Kinase 62 26-192 U/L Creatine Kinase MB 2.6 0.5-3.6 ng/ml Creatine Kinase MB Ratio 4.2 0-3.0 Troponin I 0.043 0-0.045 ng/ml Triglycerides Level 107 0-150 mg/dl Cholesterol Level 119 0-200 mg/dl HDL Cholesterol 45 mg/dl LDL Cholesterol, Calculated 53 mg/dl VLDL Cholesterol, Calculated 21 mg/dl Cholesterol/HDL Ratio 2.6 Bedside Glucose 84 70-90 mg/dl
[2016-07-19 14:01] LABS: CKMB/CK RATIO 4.3 (0-3.0)
--- NOTE | 2016-07-19 14:37 | Pharmacy Progress Note ---
Glycemic Control: Progress Nt Date of Service Jul 19, 2016. Scope Glycemic Pharmacist consulted by Dr Mahan on 07/19/16 for glycemic control and to write orders per [facility] inpatient glycemic control protocol. Objective Accuchecks BSG (last 24hrs): Test 07/18/16 20:12 07/18/16 20:15 07/19/16 03:54 07/19/16 04:36 Bedside Glucose 241 mg/dl (70-90) 123 mg/dl (70-90) Random Glucose 263 mg/dl (70-99) 105 mg/dl (70-99) Test 07/19/16 06:44 07/19/16 11:14 Bedside Glucose 84 mg/dl (70-90) 106 mg/dl (70-90) Laboratory Data (last 24hrs) Test 07/18/16 20:15 07/19/16 04:36 Anion Gap 11.0 mmol/L 7.0 mmol/L BUN/Creatinine Ratio 23.9 24.6 Blood Urea Nitrogen 26 mg/dl 23 mg/dl Creatinine 1.10 mg/dl 0.95 mg/dl Potassium Level 4.6 mmol/L 3.5 mmol/L Sodium Level 140 mmol/L 144 mmol/L White Blood Count 11.72 K/uL 7.95 K/uL Red Blood Count 4.19 M/uL Hemoglobin 12.3 g/dL Hematocrit 38.1 % Mean Corpuscular Volume 90.9 fL Mean Corpuscular Hemoglobin 29.4 pg Mean Corpuscular Hemoglobin Concent 32.3 g/dl Platelet Count 278 K/uL Mean Platelet Volume 8.8 fL Neutrophils (%) (Auto) 79.6 % Lymphocytes (%) (Auto) 12.0 % Monocytes (%) (Auto) 8.1 % Eosinophils (%) (Auto) 0.0 % Basophils (%) (Auto) 0.1 % Neutrophils # (Auto) 9.33 K/uL Lymphocytes # (Auto) 1.41 K/uL Monocytes # (Auto) 0.95 K/uL Eosinophils # (Auto) 0.00 K/uL Basophils # (Auto) 0.01 K/uL Recent Pertinent Medications Outpatient Anti-diabetic Regimen: * Lantus SQ each evening per sliding scale; Service Seeking [facility] reports most recent dose 36 units Q HS, but may increase up to 38-40 units Q HS) * A1c = ? The patient is currently receiving: * Basal insulin: Lantus 18 units every 12 hours ---> currently on hold (received 18units x 1 this AM) * Correctional Insulin: Novolog Correction per scale ACHS Goal Range: Low 100 mg/dL - High 140 mg/dL Correction Factor: 30 mg/dL/unit * Prandial insulin: Per carb ratio of 1 unit per -- grams CHO consumed * Oral Agents: None currently Risk Factors for Insulin Resistance: * Diet: ordered T2DM / AHA diet Assessment & Plan ASSESSMENT: * Type 2 diabetic admitted with hypertensive urgency last evening * BSGs were reported to be up to 300 at home prior to admission, however BSG down to 84 this AM with no insulin given here per documentation * Patient states she did not give herself a dose of Lantus last evening prior to presenting * Fasting BSG 84 this AM, with no basal insulin given last evening -- will place basal insulin on hold as she already received 18 units this AM; reassess basal needs tomorrow * She consumed 100% of her breakfast this AM, pre-lunch BSG 106, not much of a rise despite consuming a meal and not receiving prandial insulin. Will avoid prandial insulin coverage for remainder of the day as I feel she is prone to hypoglycemia today PLAN FOR INPATIENT GLYCEMIC CONTROL: * Placing Lantus on hold at this time; reassess basal needs tomorrow AM * Continuing correction factor of 30 mg/dl/unit * Avoid prandial insulin coverage today; reassess tomorrow * Changing goal range to Low 120 mg/dL - High 150 mg/dL to allow for a buffer against hypoglycemia * Check A1c with next lab draw * Please note that the plan above was derived based on current level of insulin resistance and hospital stress. These recommendations are appropriate for inpatient admission only. Plan of care upon discharge will need to be reassessed to avoid potential outpatient hypo/hyperglycemia. Thank you.
[2016-07-19] MEDS: ATORVASTATIN 40 MG TAB PO SCH (21:13)
[2016-07-20] VITALS (11 sets, daily range): BP systolic 126–189; BP diastolic 47–92; PULSE 46–83; TEMP 36.4–36.9; O2SAT 91–93
[2016-07-20] MEDS: IPRATROPIUM BROMIDE/ALBUTEROL respimat INH INH SCH ×6 (03:48→23:23)
[2016-07-20] MEDS: LEVOTHYROXINE 125 MCG TAB PO SCH (05:37)
[2016-07-20 06:43] LABS: HEMATOCRIT 41.6 % (37-47); MEAN CELL VOLUME 89.5 fL (80-100); MEAN CORPUSCULAR HEMOGLOBIN 29.5 pg (25-34); MEAN CORPUSCULAR HGB CONC 32.9 g/dl (32-36); MEAN PLATELET VOLUME 8.6 fL (7.4-10.4); PLATELET COUNT 250 K/uL (130-400); RED BLOOD COUNT 4.65 M/uL (4.2-5.4); WHITE BLOOD COUNT 7.79 K/uL (4.8-10.8)
[2016-07-20] MEDS: INSULIN HUMAN REGULAR SC SCH ×4 (07:00→20:39)
[2016-07-20 07:02] LABS: BUN/CREATININE RATIO 19.4 (10-20); CALCIUM 10.1 mg/dl (8.5-10.1); MAGNESIUM 2.4 mg/dl (1.8-2.4)
[2016-07-20] MEDS: ALPRAZOLAM 0.5 MG TAB PO SCH ×3 (07:35→20:46)
[2016-07-20] MEDS: VENLAFAXINE HCL XR 75 MG CAPXR PO SCH (07:36)
[2016-07-20] MEDS: MAGNESIUM OXIDE 400 MG TAB PO SCH ×2 (07:36→20:43)
[2016-07-20] MEDS: AMLODIPINE BESYLATE 5 MG TAB PO SCH (07:37)
[2016-07-20] MEDS: ASPIRIN 81 MG ECTAB PO SCH (07:37)
[2016-07-20] MEDS: PANTOprazole SOD 40 MG TAB PO SCH ×2 (07:38→20:44)
[2016-07-20] MEDS: DOCUSATE SODIUM 100 MG CAP PO SCH (07:38)
[2016-07-20] MEDS: ENALAPRIL MALEATE 10 MG TAB PO SCH (07:38)
[2016-07-20] MEDS: CALCITRIOL 0.25 MCG CAP PO SCH (07:39)
[2016-07-20] MEDS: TOCOPHERYL, DL-ALPHA 400 INTER.UNIT CAP PO SCH (07:39)
[2016-07-20] MEDS: FLUTICASONE HFA 110MCG INHALER INH SCH ×2 (07:40→20:40)
[2016-07-20] MEDS: TRIAMCINOLONE ACET 0.1% CR 15 GM TUBE EXT SCH ×2 (07:40→20:40)
[2016-07-20] MEDS: OMEGA-3 (PURIFIED FISH OIL) 1 GM CAP PO SCH (07:59)
--- NOTE | 2016-07-20 09:05 | ECHOCARDIOGRAM REPORT ---
*NOTICE TO RECEIVING CONSTITUTION PARTY AGENCY This information is strictly Confidential and protected under [place] law. [place] law prohibits you from making any further disclosure of this information unless further disclosure is expressly permitted by the written consent of the person to whom it pertains or is authorized by law. A general authorization for the release of medical or other information is not sufficient for this purpose. Hospital accepts no responsibility if the information is made available to any other person, INCLUDING THE PATIENT. Interpretation Summary * Name: LIN THOMSON Study Date: 07/19/2016 02:54 PM BP: 151/60 mmHg * Patient Location: .2T\S\S241\S\1 HR: 73 * : 1930 (M/d/yyy) Gender: Female Height: 61 in * Age: 86 yrs Ethnicity: [place] Weight: 184 lb * Ordering Physician: Johanny Mahan * Referring Physician: Self, Referred * Performed By: Ruiz Winston RDCS * * Reason For Study: Malignant HTN * BSA: 1.8 m2 * -- Conclusions -- * The left ventricle is normal in size. * There is moderate concentric left ventricular hypertrophy. * Ejection Fraction = >70 %. * The left atrium is severely dilated. * The right ventricular systolic function is normal. * Right atrial size is normal. * There is mild mitral regurgitation. Procedure Details * A complete two-dimensional transthoracic echocardiogram was performed (2D, M-mode, Doppler and color flow Doppler). * The study was technically adequate. Left Ventricle * The left ventricle is normal in size. * There is moderate concentric left ventricular hypertrophy. * Ejection Fraction = >70 %. * The left ventricular wall motion is normal. Right Ventricle * The right ventricle is normal size. * The right ventricular systolic function is normal. Atria * The left atrium is severely dilated. * Right atrial size is normal. * The interatrial septum is intact with no evidence for an atrial septal defect. Mitral Valve * There is mild to moderate mitral annular calcification. * The mitral valve leaflets appear thickened, but open well. * There is mild mitral regurgitation. Tricuspid Valve * The tricuspid valve anatomy is normal. * Significant tricuspid regurgitation is absent. Aortic Valve * The aortic valve is tricuspid. The leaflet thickness if normal. There is no aortic stenosis, and no significant insufficiency. * The aortic valve opens well. * There is no significant aortic regurgitation. Pulmonic Valve * The pulmonic valve is not well visualized. Great Vessels * The aortic root and proximal ascending aorta are normal sized. Pericardium/Pleural * There is no pericardial effusion. MMode 2D Measurements and Calculations IVSd 2.0 cm IVSs 2.5 cm LVIDd 4.5 cm LVIDs 3.2 cm LVPWd 1.7 cm LVPWs 1.8 cm IVS/LVPW 1.2 FS 29.0 % EDV(Teich) 93.9 ml ESV(Teich) 41.4 ml EF(Teich) 55.9 % EDV(cubed) 92.9 ml ESV(cubed) 33.2 ml EF(cubed) 64.2 % % IVS thick 26.4 % % LVPW thick 9.9 % LV mass(C)d 384.4 grams LV mass(C)dI 210.8 grams/m\S\2 LV mass(C)s 337.6 grams LV mass(C)sI 185.2 grams/m\S\2 SV(Teich) 52.5 ml SI(Teich) 28.8 ml/m\S\2 SV(cubed) 59.7 ml SI(cubed) 32.7 ml/m\S\2 Ao root diam 3.4 cm Ao root area 9.0 cm\S\2 ACS 2.0 cm LA dimension 5.2 cm asc Aorta Diam 3.3 cm LA/Ao 1.6 LVOT diam 1.7 cm LVOT area 2.4 cm\S\2 LVAd ap4 20.2 cm\S\2 LVLd ap4 6.9 cm EDV(MOD-sp4) 48.0 ml LVAs ap4 9.1 cm\S\2 LVLs ap4 6.0 cm ESV(MOD-sp4) 12.0 ml EF(MOD-sp4) 75.0 % LVAd ap2 15.7 cm\S\2 LVLd ap2 6.6 cm EDV(MOD-sp2) 31.0 ml LVAs ap2 7.3 cm\S\2 LVLs ap2 5.6 cm ESV(MOD-sp2) 8.0 ml EF(MOD-sp2) 74.2 % SV(MOD-sp4) 36.0 ml SI(MOD-sp4) 19.7 ml/m\S\2 SV(MOD-sp2) 23.0 ml SI(MOD-sp2) 12.6 ml/m\S\2 Doppler Measurements and Calculations MV E max milli 126.5 cm/sec MV A max milli 97.5 cm/sec MV E/A 1.3 MV dec time 0.16 sec Ao V2 max 129.9 cm/sec Ao max PG 6.8 mmHg Ao max PG (full) 1.5 mmHg ROYA(V,A) 2.1 cm\S\2 ROYA(V,D) 2.1 cm\S\2 LV V1 max PG 5.2 mmHg LV V1 max 114.1 cm/sec PA V2 max 112.5 cm/sec PA max PG 5.1 mmHg TR max milli 314.3 cm/sec
[2016-07-20] MEDS: INSULIN GLARGINE SOLOSTAR 100 UNITS/ML 3 ML PEN SC SCH ×2 (09:34→20:47)
--- NOTE | 2016-07-20 10:55 | Progress Note ---
Internal Med Progress Note Date of Service: Jul 20, 2016. Provider Documentation: SUBJECTIVE: Patient c/o feeling tired . Rewey like food got stuck in throat today. No prior issues with it in past. Was able to finish her breakfast without issues. Denies any chest pain, headaches, SOB, cough, nausea, vomiting, localized weakness, fever, chills. No dizziness, syncope. BP still up Tele- NSR 70-80s, no more bradycardia OBJECTIVE: Vital Signs-as noted below Exam: General Appearance: no apparent distress Neck: supple, no carotid bruits Respiratory/Chest: chest non-tender, lungs clear Cardiovascular: regular rate, rhythm Abdomen/GI: normal bowel sounds, non tender, soft Extremities/Musculoskelatal: no pedal edema Neurologic/Psych: no motor/sensory deficits, alert, oriented x 3 Lab data as noted below. Diagnostic Radiology CHEST ONE VIEW PORTABLE CLINICAL HISTORY: Altered mental status. Weakness. COMPARISON STUDY: Chest radiograph October 27, 2015. FINDINGS: Spinal fusion hardware is partially imaged. Mild to moderate cardiomegaly is unchanged. There is no pneumothorax or pleural effusion. A skin fold projects over the left hemithorax. There is pulmonary vascular congestion without overt pulmonary edema. No consolidation is identified to suggest pneumonia. 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 The patient is rotated. Deformity of the right humeral shaft is partially imaged and likely posttraumatic IMPRESSION: 1. Pulmonary vascular congestion. 2. No consolidation to suggest pneumonia. ASSESSMENT & PLAN: Assessment and Plan : HYPERTENSIVE URGENCY : Improving, but BP still high Presented with vague complaints of not feeling good, nausea, dizzy spell with Blood sugar fluctuations and BP as high as 241/105 BP improved after multiple meds in ED : 10 IV Hydralazine , 0.2 mg of PO Clonidine ,Nadolol 80 mg PO -BP today 150s, but did go up to 180s -Discontinued Nadolol, labetalol. Continue with Benazepril --> changed to enalapril 40 mg PO daily while in hospital, Norvasc increased to 10 mg from 5 mg. Add Metoprolol 12.5 mg PO BID today as discontinued nadolol- per d/w Dr Ennis. -IV Hydralazine PRN -Work up- Echo - EF > 70%, Mild LVH, LA- Dilated, Trop x 2 negative, EKG - no acute ischemic changes. -Monitor BP closely SINUS BRADYCARDIA, ASYMPTOMATIC Likely secondary to medication - Resolved Secondary to Nadolol, Clonidine received in ED. -Discontinued Nadolol Clonidine, IV Labetalol PRN. Will start on Metoprolol 12.5 mg PO BID today as BP high, HR has normalized and likely was just secondary to Nadolol-high dose & clonidine received in ED. Discussed with cardiology. -Monitor HR. Appreciate Cardiology inputs. 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 : -cont Tramadol -PT/OT -avoid Steroids , NSAID's -hypertensive urgency HYPOTHYROIDISM : -cont Levothyroxine 125 mcg daily -TSH wnl HYPERLIPIDEMIA : -cont statin ANXIETY DISORDER -cont out pt meds of Alprazolam -Effexor -Remeron at night FULL CODE DVT PROPHYLAXIS : sub q heparin DISPOSITION : Home when medically stable- likely discharge tomorrow PT /OT eval pending Social Service consulted for Discharge planning Vital Signs: Date Time Temp Pulse Resp B/P Pulse Ox O2 Delivery O2 Flow Rate FiO2 07/20/16 08:15 151/84 07/20/16 08:00 Room Air 07/20/16 07:30 36.7 83 20 189/92 93 Room Air 07/20/16 05:51 178/91 07/20/16 04:00 Room Air 07/20/16 03:37 36.9 76 20 189/66 92 Room Air 07/19/16 23:59 Room Air 07/19/16 23:55 36.4 74 20 187/84 93 Room Air 07/19/16 20:00 Room Air 07/19/16 19:44 36.5 58 20 187/82 97 Room Air 07/19/16 16:00 Room Air 07/19/16 15:16 36.5 86 18 178/80 93 Room Air 07/19/16 12:00 Room Air 07/19/16 11:33 36.8 40 20 159/60 92 Room Air Lab Results: Results Past 24 Hours Test 07/19/16 11:14 07/19/16 13:01 07/19/16 15:56 07/19/16 20:31 Range/Units Bedside Glucose 106 102 153 70-90 mg/dl Total Creatine Kinase 51 26-192 U/L Creatine Kinase MB 2.2 0.5-3.6 ng/ml Creatine Kinase MB Ratio 4.3 0-3.0 Troponin I 0.033 0-0.045 ng/ml Test 07/20/16 06:00 07/20/16 06:57 Range/Units White Blood Count 7.79 4.8-10.8 K/uL Red Blood Count 4.65 4.2-5.4 M/uL Hemoglobin 13.7 12.0-16.0 g/dL Hematocrit 41.6 37-47 % Mean Corpuscular Volume 89.5 80-100 fL Mean Corpuscular Hemoglobin 29.5 25-34 pg Mean Corpuscular Hemoglobin Concent 32.9 32-36 g/dl RDW Standard Deviation 48.0 36.4-46.3 fL RDW Coefficient of Variation 14.7 11.5-14.5 % Platelet Count 250 130-400 K/uL Mean Platelet Volume 8.6 7.4-10.4 fL Sodium Level 142 136-145 mmol/L Potassium Level 4.0 3.5-5.1 mmol/L Chloride Level 104 98-107 mmol/L Carbon Dioxide Level 30 21-32 mmol/L Anion Gap 8.0 3-11 mmol/L Blood Urea Nitrogen 19 7-18 mg/dl Creatinine 1.00 0.60-1.20 mg/dl Est Creatinine Clear Calc Drug Dose 38.7 ml/min Estimated GFR () 59.5 Estimated GFR (Non- 51.3 BUN/Creatinine Ratio 19.4 10-20 Random Glucose 133 70-99 mg/dl Calcium Level 10.1 8.5-10.1 mg/dl Magnesium Level 2.4 1.8-2.4 mg/dl Bedside Glucose 128 70-90 mg/dl
[2016-07-20] MEDS: METOPROLOL TARTRATE 25 MG TAB PO SCH ×2 (11:42→20:41)
--- NOTE | 2016-07-20 12:16 | PROGRESS NOTE ---
DATE: 07/20/2016 This is a followup visit. SUBJECTIVE: The patient is an 86-year-old female admitted with hypertension and given labetalol in the Emergency Department. She had been on Corgard 80 mg b.i.d. After admission, she was bradycardic. Her Corgard was stopped and her heart rates have increased. Her hypertension is better controlled but is not optimal. She has no complaints today. OBJECTIVE: VITAL SIGNS: Blood pressure is 150/84, pulse is regular at 83 beats per minute. She is afebrile. GENERAL: She is alert and oriented. HEENT: She is normocephalic. Pupils are equal and reactive to light. Extraocular muscles are intact bilaterally. NECK: The neck veins are flat. Carotids have good upstrokes bilaterally without bruits. Thyroid is nonpalpable. RESPIRATORY: Breath sounds are equal bilaterally and clear to auscultation. CARDIAC: Heart has a regular rate and rhythm. Normal S1, S2. No S3, S4. No cardiac rubs or murmurs. GASTROINTESTINAL: Abdomen is soft, nontender, without organomegaly. EXTREMITIES: Free of edema, digital clubbing, cyanosis. NEUROLOGIC: Grossly intact. SKIN: Warm to touch. LYMPH NODES: Negative to palpation. LABORATORY DATA: Telemetry reveals a sinus rhythm with a first degree AV block. IMPRESSION: 1. Hypertensive crisis. 2. Diabetes mellitus. 3. Elevated troponins due to demand ischemia. RECOMMENDATIONS: The patient was on Corgard at a large dose for an extended period of time. I think that we should add back a beta sarbjit at low dose, so that she does not have rebound tachycardia. I would recommend we place her on Lopressor 12.5 mg b.i.d. If her heart rates remain adequate and her blood pressures improve, then I think she can be discharged to outpatient followup.
--- NOTE | 2016-07-20 15:53 | Pharmacy Progress Note ---
Glycemic Control: Progress Nt Date of Service Jul 20, 2016. Scope Glycemic Pharmacist consulted by Dr Mahan on 07/19/16 for glycemic control and to write orders per [facility] inpatient glycemic control protocol. Objective Accuchecks BSG (last 24hrs): Test 07/19/16 15:56 07/19/16 20:31 07/20/16 06:00 07/20/16 06:57 Bedside Glucose 102 mg/dl (70-90) 153 mg/dl (70-90) 128 mg/dl (70-90) Random Glucose 133 mg/dl (70-99) Test 07/20/16 11:19 Bedside Glucose 156 mg/dl (70-90) Laboratory Data (last 24hrs) Test 07/20/16 06:00 Anion Gap 8.0 mmol/L BUN/Creatinine Ratio 19.4 Blood Urea Nitrogen 19 mg/dl Creatinine 1.00 mg/dl Potassium Level 4.0 mmol/L Sodium Level 142 mmol/L White Blood Count 7.79 K/uL HbA1c: Test 07/20/16 06:00 Recent Pertinent Medications Outpatient Anti-diabetic Regimen: * Lantus SQ each evening per sliding scale; SWIIM System reports most recent dose 36 units Q HS, but may increase up to 38-40 units Q HS) * A1c = ? The patient is currently receiving: * Basal insulin: placed on hold yesterday after a dose of 18 units was given in the AM * Correctional Insulin: Novolog Correction per scale ACHS Goal Range: Low 120 mg/dL - High 150 mg/dL Correction Factor: 30 mg/dL/unit * Prandial insulin: Per carb ratio of 1 unit per -- grams CHO consumed * Oral Agents: None currently Risk Factors for Insulin Resistance: * Diet: ordered T2DM / AHA diet Assessment & Plan ASSESSMENT: 07/19/16 * Type 2 diabetic admitted with hypertensive urgency last evening * BSGs were reported to be up to 300 at home prior to admission, however BSG down to 84 this AM with no insulin given here per documentation * Patient states she did not give herself a dose of Lantus last evening prior to presenting * Fasting BSG 84 this AM, with no basal insulin given last evening -- will place basal insulin on hold as she already received 18 units this AM; reassess basal needs tomorrow * She consumed 100% of her breakfast this AM, pre-lunch BSG 106, not much of a rise despite consuming a meal and not receiving prandial insulin. Will avoid prandial insulin coverage for remainder of the day as I feel she is prone to hypoglycemia today 07/20/16 * Glycemic control remained acceptable over the last 24 hours; BSGs ranged 84- 156 * She only received 19 units of insulin yesterday, almost entirely in the form of basal insulin. * Fasting BSG 128 today w/ 18 units of Lantus on board. Will restart Lantus today in a reduced dose as I also plan to add prandial insulin. * Expect this patient's total daily insulin requirement to be 20-30 units per day when tolerating a diet. Perhaps she will require more based upon outpatient regimen (up to 40 units of basal insulin per day) * A1c result is still pending PLAN FOR INPATIENT GLYCEMIC CONTROL: * Resume Lantus in a reduced dose of 5 units SQ BID * Continuing correction factor of 30 mg/dl/unit * Adding carb ratio of 1 unit per 20 grams of carbs consumed * Continue goal range of Low 120 mg/dL - High 150 mg/dL to allow for a buffer against hypoglycemia * Please note that the plan above was derived based on current level of insulin resistance and hospital stress. These recommendations are appropriate for inpatient admission only. Plan of care upon discharge will need to be reassessed to avoid potential outpatient hypo/hyperglycemia. Thank you.
[2016-07-20] MEDS: ATORVASTATIN 40 MG TAB PO SCH (20:43)
[2016-07-20] MEDS: MIRTAZAPINE TAB 15 MG TAB PO SCH (20:43)
[2016-07-21] MEDS: IPRATROPIUM BROMIDE/ALBUTEROL respimat INH INH SCH ×3 (04:16→12:39)
[2016-07-21 04:49] VITALS: BP_SYST 196; BP_SYST 201; BP_DIAS 104; BP_DIAS 93; PULSE 78; TEMP 36.3; O2SAT 93
[2016-07-21 05:21] VITALS: BP 156/83
[2016-07-21 06:15] LABS: ESTIMATED AVERAGE GLUCOSE 140 mg/dl; HA1C FLAG Normal (Normal)
[2016-07-21] MEDS: LEVOTHYROXINE 125 MCG TAB PO SCH (06:31)
[2016-07-21 07:37] VITALS: BP 121/77; PULSE 69; TEMP 36.7; O2SAT 93
[2016-07-21] MEDS: CALCITRIOL 0.25 MCG CAP PO SCH (08:59)
[2016-07-21] MEDS: DOCUSATE SODIUM 100 MG CAP PO SCH (09:00)
[2016-07-21] MEDS: ENALAPRIL MALEATE 10 MG TAB PO SCH (09:00)
[2016-07-21] MEDS: METOPROLOL TARTRATE 25 MG TAB PO SCH (09:00)
[2016-07-21] MEDS: PANTOprazole SOD 40 MG TAB PO SCH (09:01)
[2016-07-21] MEDS: TRIAMCINOLONE ACET 0.1% CR 15 GM TUBE EXT SCH (09:01)
[2016-07-21] MEDS: AMLODIPINE BESYLATE 5 MG TAB PO SCH (09:01)
[2016-07-21] MEDS: ASPIRIN 81 MG ECTAB PO SCH (09:01)
[2016-07-21] MEDS: VENLAFAXINE HCL XR 75 MG CAPXR PO SCH (09:01)
[2016-07-21] MEDS: FLUTICASONE HFA 110MCG INHALER INH SCH (09:01)
[2016-07-21] MEDS: TOCOPHERYL, DL-ALPHA 400 INTER.UNIT CAP PO SCH (09:02)
[2016-07-21] MEDS: ALPRAZOLAM 0.5 MG TAB PO SCH ×2 (09:07→14:11)
[2016-07-21] MEDS: INSULIN HUMAN REGULAR SC SCH ×2 (09:13→12:38)
[2016-07-21] MEDS: INSULIN GLARGINE SOLOSTAR 100 UNITS/ML 3 ML PEN SC SCH (09:13)
[2016-07-21] MEDS: MAGNESIUM OXIDE 400 MG TAB PO SCH (09:29)
--- NOTE | 2016-07-21 09:44 | PROGRESS NOTE ---
DATE: 07/21/2016 FOLLOWUP VISIT SUBJECTIVE: Mrs. Manning had an uneventful night. She feels well. She is tolerating her medications and with the addition of metoprolol yesterday her blood pressure is now under control without significant bradycardia. OBJECTIVE: VITAL SIGNS: Blood pressure 120/70, pulse is regular at 70. She is afebrile. GENERAL: She is alert and oriented. HEENT: She is normocephalic. She wears corrective lenses. Mucous membranes are moist. NECK: The neck veins are flat. Carotids have good upstrokes bilaterally without bruits. Thyroid is nonpalpable. RESPIRATORY: Breath sounds equal bilaterally and clear to auscultation. CARDIOVASCULAR: Heart has a regular rhythm. Normal S1, S2. No S3, S4. No cardiac rubs or murmurs. GASTROINTESTINAL: Abdomen is soft, nontender without organomegaly. EXTREMITIES: Free of edema, digit clubbing, or cyanosis. NEUROLOGIC: Grossly intact. SKIN: Warm to touch. LYMPH NODES: Negative to palpation. LABORATORY DATA: Hemoglobin is 13.7, WBC count is 7.8. IMPRESSION: 1. Hypertensive crisis, now resolved. 2. Diabetes mellitus. 3. Elevated troponins due to demand ischemia. RECOMMENDATIONS: I believe the patient may be discharged to outpatient followup. Her primary care is Dr. Giovanna Cote, and I believe she can follow up with her after discharge. We will see her on an as needed basis.
--- NOTE | 2016-07-21 11:00 | Progress Note ---
Internal Med Progress Note Date of Service: Jul 21, 2016. Provider Documentation: SUBJECTIVE: Patient is feeling much better today and eager to be discharged. Denies any chest pain, headaches, SOB, cough, nausea, vomiting, localized weakness, fever, chills. No dizziness, syncope. BP better now Tele- NSR 70-80s, no more bradycardia OBJECTIVE: Vital Signs-as noted below Exam: General Appearance: no apparent distress Neck: supple, no carotid bruits Respiratory/Chest: chest non-tender, lungs clear Cardiovascular: regular rate, rhythm Abdomen/GI: normal bowel sounds, non tender, soft Extremities/Musculoskelatal: no pedal edema Neurologic/Psych: no motor/sensory deficits, alert, oriented x 3 Lab data as noted below. Diagnostic Radiology CHEST ONE VIEW PORTABLE CLINICAL HISTORY: Altered mental status. Weakness. COMPARISON STUDY: Chest radiograph October 27, 2015. FINDINGS: Spinal fusion hardware is partially imaged. Mild to moderate cardiomegaly is unchanged. There is no pneumothorax or pleural effusion. A skin fold projects over the left hemithorax. There is pulmonary vascular congestion without overt pulmonary edema. No consolidation is identified to suggest pneumonia. 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 The patient is rotated. Deformity of the right humeral shaft is partially imaged and likely posttraumatic IMPRESSION: 1. Pulmonary vascular congestion. 2. No consolidation to suggest pneumonia. ASSESSMENT & PLAN: Assessment and Plan : HYPERTENSIVE URGENCY : Resolved, BP improved Presented with vague complaints of not feeling good, nausea, dizzy spell with Blood sugar fluctuations and BP as high as 241/105 BP improved after multiple meds in ED : 10 IV Hydralazine , 0.2 mg of PO Clonidine ,Nadolol 80 mg PO -BP today 120s, did have some fluctuations -Discontinued Nadolol, labetalol. Continue with Benazepril --> changed to enalapril 40 mg PO daily while in hospital, Norvasc increased to 10 mg from 5 mg . Added Metoprolol 12.5 mg PO BID on 07/20/16 as discontinued nadolol- per d/w Dr Ennis. -IV Hydralazine PRN -Work up- Echo - EF > 70%, Mild LVH, LA- Dilated, Trop x 2 negative, EKG - no acute ischemic changes. -Monitor BP closely outpatient SINUS BRADYCARDIA, ASYMPTOMATIC Likely secondary to medication - Resolved Secondary to Nadolol, Clonidine received in ED. -Discontinued Nadolol Clonidine, IV Labetalol PRN. Started on Metoprolol 12.5 mg PO BID on 07/20/16 as BP high, HR has normalized and likely was just secondary to Nadolol-high dose & clonidine received in ED. Discussed with cardiology. -Monitor HR. Appreciate Cardiology inputs. 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 Cleared by cardiology as well PT /OT eval - recommends for return home Social Service consulted for Discharge planning Vital Signs: Date Time Temp Pulse Resp B/P Pulse Ox O2 Delivery O2 Flow Rate FiO2 07/21/16 08:00 Room Air 07/21/16 07:37 36.7 69 20 121/77 93 Room Air 07/21/16 05:21 156/83 07/21/16 04:49 36.3 78 18 196/93 93 Room Air 201/104 07/21/16 04:00 Room Air 07/20/16 23:59 Room Air 07/20/16 23:21 36.6 74 18 126/69 92 Room Air 07/20/16 20:41 76 07/20/16 20:00 Room Air 07/20/16 19:20 36.6 46 19 143/85 91 Room Air 07/20/16 16:00 Room Air 07/20/16 16:00 140/67 07/20/16 15:12 36.4 62 18 168/85 91 Room Air 07/20/16 14:55 62 91 07/20/16 12:30 36.7 59 20 130/47 93 Room Air 07/20/16 12:00 Room Air Lab Results: Results Past 24 Hours Test 07/20/16 11:19 07/20/16 15:40 07/20/16 20:22 07/21/16 06:46 Range/Units Bedside Glucose 156 113 148 156 70-90 mg/dl
[2016-07-21] MEDS ORDERED: LPR25 PO ×2 (11:06→14:30)
[2016-07-21] MEDS ORDERED: IPRA1AER2 INH (11:06)
[2016-07-21] MEDS ORDERED: AMLO-110 PO ×2 (11:06→14:30)
--- NOTE | 2016-07-21 11:10 | Discharge Summary ---
Discharge Summary Admission Date: Jul 18, 2016 at 22:56 Discharge Date: Jul 21, 2016 Discharge Disposition: Home Principal Diagnosis: 1. Hypertensive urgency 2. Sinus bradycardia, medication induced Secondary Diagnoses/Problems: 1. DM-2 2. CKD-3 3. Hyperlipidemia 4. Chronic DJD 5. Anxiety disorder Procedures: Tele monitoring Serial EKG Serial Troponin Echocardiogram CXR US duplex Consultations: Cardiology, Dr Ennis Pending Studies/Follow-Up: Instructions / Follow-Up Instructions / Follow-Up MEDICATION CHANGES: 1. Discontinued Nadolol 80 mg PO BID 2. New medication: Metoprolol 12.5 mg PO BID MONITOR BP outpatient due to changes in medications and fluctuations FOLLOW UP 1. Dr Giovanna Cote on 07/25/16 at 10:50 AM Medication Reconciliation New Medications: Metoprolol Tartrate (Lopressor) 25 Mg Tab 12.5 MG PO BID for 30 Days, #60 TAB Changed Medications: Amlodipine (Norvasc) 5 Mg Tab 10 MG PO QAM for 30 Days, #60 TAB (Changed from: 5 MG) Ipratropium-Albuterol (Combivent Respimat) 1 Aer Aer 1 PUFF INH Q4-6HRS PRN for sob/wheezing for 30 Days, INH (Medication details modified) Continued Medications: Albuterol Sulf (Proventil 0.083% 2.5MG/3ML) 2.5 Mg/3 Ml Nebu 2.5 MG INH Q4 PRN for Wheezing, EA Alendronate Sodium (Fosamax) 70 Mg Tab 70 MG PO WK Alprazolam (Alprazolam) 0.5 Mg Tab 0.5 MG PO TID Aspirin (Aspirin 81) 81 Mg Tab 81 MG PO QAM Atorvastatin (Lipitor) 80 Mg Tab 80 MG PO QAM Benazepril Hcl (Lotensin) 40 Mg Tab 40 MG PO QAM Bisacodyl (Dulcolax) 10 Mg Sup 1 SUPP NE DAILY PRN for Constipation, SUP DO NOT USE FOR MORE THAN ONE WEEK Calcitriol (Calcitriol) 0.25 Mcg Cap 0.25 MCG PO DAILY Docusate Sodium (Docusate Sodium) 100 Mg Cap 100 MG PO QAM Fluticasone Propionate (Flovent Hfa) 120 Puffs/15275 Mcg Aero 2 PUFFS INH BID Garlic (Garlic) 10 Mg Cap 10 MG PO DAILY Insulin Glargine (Lantus) 100 Unit/Ml Inj UNITS SC QPM SLIDING SCALE, PT TAKES PER HER SLIDING SCALE Levothyroxine Sodium (Levothyroxine Sodium) 125 Mcg Tab 62.5 MG PO QAM Magnesium Oxide (Mag-Ox) 400 Mg Tab 400 MG PO BID, TAB Meclizine Hcl (Meclizine Hcl) 25 Mg Tab 25 MG PO TID PRN for Dizziness, TAB Mirtazapine (Remeron) 30 Mg Tab 45 MG PO HS [place]-3 Fatty Acids (Fish Oil) 1 Cap Cap 2 CAP PO QAM Omeprazole (Prilosec) 20 Mg Cap 20 MG PO BID Polyethylene Glycol 3350 (Bulk (Polyethylene Glycol 3350) 1 Pow Pow 17 GM PO DAILY PRN for Constipation, GM Tramadol Hcl (Ultram) 50 Mg Tab 50 MG PO Q6H PRN for Pain Triamcinolone Acet (Aristocort 0.1%) 90 Appln/30 Gm Cr 1 APPLN TOP BID Venlafaxine Hcl (Effexor Extended Rel) 150 Mg Capcr 150 MG PO QAM Venlafaxine Hcl (Effexor Extended Rel) 75 Mg Capcr 75 MG PO QAM Vitamin E (Vitamin E Blend) 400 Unit Cap 400 INTER.UNIT PO DAILY Discontinued Medications: Nadolol (Nadolol) 40 Mg Tab 80 MG PO BID Admission Information HPI (per Admitting provider): this is a 86 yo F presented to ED with complain of feeling nauseous , dizzy spell she thought her blood sugar was low , ate snack , BSG check was > 300 pt continued to feel tired , wiped out , felt dizzy lightheaded, developed transient chest tightness with SOB resolved spontaneously came to ED for evaluation , found to be in hypertensive urgency SBP > 200 pt has known hx of HTN , admits of taking her BP meds in a regular basis in the ED pt was given her home medication of Nadolol , IV Labetalol BP improved ,associated with relief of symptoms during my time of interview , denies of any chest pain or SOB no dizzy spell Physical Exam (per Admitting): General Appearance: no apparent distress Head: normocephalic, atraumatic Eyes: sclerae normal Neck: supple, no carotid bruits, trachea midline Respiratory/Chest: chest non-tender, lungs clear Cardiovascular: regular rate, rhythm Abdomen/GI: normal bowel sounds, non tender, soft Extremities/Musculoskelatal: no pedal edema Neurologic/Psych: no motor/sensory deficits, alert, oriented x 3 Hospital Course Assessment and Plan : HYPERTENSIVE URGENCY : Resolved, BP improved Presented with vague complaints of not feeling good, nausea, dizzy spell with Blood sugar fluctuations and BP as high as 241/105 BP improved after multiple meds in ED : 10 IV Hydralazine , 0.2 mg of PO Clonidine ,Nadolol 80 mg PO -BP today 120s, did have some fluctuations -Discontinued Nadolol, labetalol. Continue with Benazepril --> changed to enalapril 40 mg PO daily while in hospital, Norvasc increased to 10 mg from 5 mg . Added Metoprolol 12.5 mg PO BID on 07/20/16 as discontinued nadolol- per d/w Dr Ennis. -IV Hydralazine PRN -Work up- Echo - EF > 70%, Mild LVH, LA- Dilated, Trop x 2 negative, EKG - no acute ischemic changes. -Monitor BP closely outpatient SINUS BRADYCARDIA, ASYMPTOMATIC Likely secondary to medication - Resolved Secondary to Nadolol, Clonidine received in ED. -Discontinued Nadolol Clonidine, IV Labetalol PRN. Started on Metoprolol 12.5 mg PO BID on 07/20/16 as BP high, HR has normalized and likely was just secondary to Nadolol-high dose & clonidine received in ED. Discussed with cardiology. -Monitor HR. Appreciate Cardiology inputs. 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 Cleared by cardiology as well PT /OT eval - recommends for return home Social Service consulted for Discharge planning Total time spent on discharge = 28 minutes This includes examination of the patient, discharge planning, medication reconciliation, and communication with other providers. Discharge Instructions Discharge Goals Goal(s): Improve disease control, Diagnostic testing, Therapeutic intervention , Prevent Disease Progression Activity Recommendations Activity Limitations: resume your previous activity (as tolerated prior to admission) . Instructions / Follow-Up Instructions / Follow-Up MEDICATION CHANGES: 1. Discontinued Nadolol 80 mg PO BID 2. New medication: Metoprolol 12.5 mg PO BID MONITOR BP outpatient due to changes in medications and fluctuations FOLLOW UP 1. Dr Giovanna Cote on 07/25/16 at 10:50 AM Current Hospital Diet Patient's current hospital diet: AHA Diet (Heart Healthy), Diabetes Type 2 Diet Discharge Diet Recommended Diet: AHA Diet (Heart Healthy), Low Sodium Diet (2gm Na), Anti diabetic diet Pending Studies Studies pending at discharge: no Laboratory Results Hemoglobin A1c Test 07/20/16 06:00 Range/Units Estimated Average Glucose 140 mg/dl Hemoglobin A1c 6.5 H 4.5-5.6 % Lipid Panel Test 07/19/16 04:36 Range/Units Triglycerides Level 107 0-150 mg/dl Cholesterol Level 119 0-200 mg/dl HDL Cholesterol 45 mg/dl Cholesterol/HDL Ratio 2.6 LDL Cholesterol, Calculated 53 mg/dl Medical Emergencies . Who to Call and When: Medical Emergencies: If at any time you feel your situation is an emergency, please call 911 immediately. . Non-Emergent Contact Non-Emergency issues call your: Primary Care Provider . . "Provider Documentation" section prepared by Tatyana Cote. VTE Core Measure Inpt VTE Proph given/why not?: Unfractionated heparin SQ
[2016-07-21 11:21] VITALS: BP 130/66; PULSE 50; TEMP 36.5; O2SAT 92
[2016-07-21] MEDS: OMEGA-3 (PURIFIED FISH OIL) 1 GM CAP PO SCH (12:38)
[2016-07-21 12:47] VITALS: BP 130/66; PULSE 50; TEMP 36.5; O2SAT 92
== END 2016-07-21 14:55 | disposition home health service (06) | DRG 305 ==
LOC: ENRESERVTM → ENRESERVDT → EDBD 20:01 → C.EDB 20:02 → C.2T 22:56
PROVIDERS: ADMIT Hospitalist; ATTEND Internal Medicine
DX: I16.0 Hypertensive urgency (principal); I24.8 Other forms of acute ischemic heart disease; Q60.0 Renal agenesis, unilateral; I25.10 Atherosclerotic heart disease of native coronary artery without angina pectoris; I12.9 Hypertensive chronic kidney disease with stage 1 through stage 4 chronic kidney disease, or unspecified chronic kidney disease; E11.22 Type 2 diabetes mellitus with diabetic chronic kidney disease; N18.3 Chronic kidney disease, stage 3 (moderate); E78.00 Pure hypercholesterolemia, unspecified; E78.5 Hyperlipidemia, unspecified; F41.9 Anxiety disorder, unspecified; E03.9 Hypothyroidism, unspecified; M16.9 Osteoarthritis of hip, unspecified; R00.1 Bradycardia, unspecified; T46.5X5A Adverse effect of other antihypertensive drugs, initial encounter; T44.7X5A Adverse effect of beta-adrenoreceptor antagonists, initial encounter; Z86.73 Personal history of transient ischemic attack (TIA), and cerebral infarction without residual deficits; Z87.440 Personal history of urinary (tract) infections; Z85.528 Personal history of other malignant neoplasm of kidney; Z90.5 Acquired absence of kidney; Z83.3 Family history of diabetes mellitus; Z82.49 Family history of ischemic heart disease and other diseases of the circulatory system; Z79.4 Long term (current) use of insulin; Z79.899 Other long term (current) drug therapy; T21.22XA Burn of second degree of abdominal wall, initial encounter; X19.XXXA Contact with other heat and hot substances, initial encounter

== ENCOUNTER → 2016-12-08 | Outpatient (CLI) | payer OTHER ==
[~2016-12-08] MED LIST changes: +ALBINS/ INH; -ALBUAER2 INH; -CHOLTAB3 PO; -CLOB-65 TOP; -CRG40 PO; +LPR25 PO; -LSX20 PO; +TRMCR130WC TOP
[2016-12-08 19:07] LABS: BLOOD UREA NITROGEN 26 mg/dl (7-18); BUN/CREATININE RATIO 19.9 (10-20)
== END | disposition home or self-care (01) ==
LOC: C.LAB 17:38
PROVIDERS: ATTEND Urology
DX: C65.9 Malignant neoplasm of unspecified renal pelvis (principal); E11.9 Type 2 diabetes mellitus without complications; R91.1 Solitary pulmonary nodule

== ENCOUNTER → 2016-12-15 | Outpatient (CLI) | payer OTHER ==
[~2016-12-15] MED LIST changes: +OPTIRAY 320 IV PRN
--- NOTE | 2016-12-15 11:36 | DIAGNOSTIC IMAGING REPORT ---
(CHEST) THORAX WITH CLINICAL HISTORY: 86 years-old Female presenting with Pulmonary nodule. TECHNIQUE: Multidetector CT angiography was performed after the administration of intravenous contrast. IV contrast: 70 mL of Optiray 320. COMPARISON: 04/10/[address] of the abdomen and pelvis from 09/08/2006. CT DOSE: The estimated cumulative dose is 529.06 mGy.cm. FINDINGS: Crozer Operator topogram: Thoracolumbar posterior spinal fusion hardware noted. On soft tissue windows, a hypodense 11 mm nodule may arise exophytically from the posterior aspect of the left thyroid lobe. An adjacent more anterior course calcification noted in the left thyroid lobe. There may also be a smaller hypoattenuating nodule at the inferior pole of the left thyroid lobe (series 2 image 11). No axillary, supraclavicular, or hilar lymphadenopathy. Scattered subcentimeter prominent mediastinal lymph nodes, the largest measuring up to 5 mm in the short axis, likely reactive. Atherosclerosis of the aortic arch. Main pulmonary artery mildly enlarged measuring 3.3 cm in maximal transverse dimension. Coronary artery calcification. Minimal aortic valve calcification. Mildly enlarged heart. No pericardial or pleural effusion. Chest wall normal. Upper abdomen demonstrates moderate parenchymal atrophy of the pancreas and few prominent portacaval lymph nodes. On lung windows, dependent opacities likely atelectasis. Few old calcified granulomas noted bilaterally. 3 mm solid nodule noted at the right apex (series 4 image 58). Airways patent. On bone windows, posterior bilateral intrapedicular jessy and screw fixation of T12 to the lumbar spine, incompletely visualized. Multilevel degenerative changes of the thoracic spine. Degenerative changes of the bilateral glenohumeral joints, severe on the right. Multiple subacute to chronic right rib fractures in various stages of healing. Benign hemangioma noted in the T4 vertebral body. IMPRESSION: 1. 3 mm solid nodule noted at the right apex. Follow-up per Fleischner Society criteria as below. 2. Multiple thyroid nodules. Dedicated nonemergent ultrasound of the thyroid to be considered. 3. Mildly enlarged main pulmonary artery can indicate pulmonary hypertension. 4. Cardiomegaly. 5. Multiple subacute to chronic right rib fractures in various stages of healing. Please refer to below summary of Fleischner criteria recommendations for follow-up of incidental CT nodules (Cholo Stinson, Guidelines for management of small pulmonary nodules detected on CT scans: A statement from the Fleischner Society, Radiology 237: [id number].) SOLID NODULES Solitary nodule size: <6 mm * Low risk patients: no follow-up needed * high risk patients: optional CT at 12 months Solitary nodule size: 6-8 mm * Low risk patients: follow-up at 6-12 months, then consider further follow-up at 18-24 months * high risk patients: initial follow-up CT at 6-12 months and then at 18-24 months if no change Solitary nodule size: >8 mm * either low or high risk patients - consider follow-up CT at 3 months, and/or CT-PET, and/or biopsy Multiple nodules size: <6 mm * Low risk patients: no routine follow-up * high risk patients: optional CT at 12 months Multiple nodules size: 6-8 mm * Low risk patients: follow-up at 3-6 months, then consider further follow-up at 18-24 months * high risk patients: follow-up at 3-6 months, then at 18-24 months if no change Multiple nodules size: >8 mm * Low risk patients: follow-up at 3-6 months, then consider further follow-up at 18-24 months * high risk patients: follow-up at 3-6 months, then at 18-24 months if no change Note: newly detected indeterminate nodule in persons 35 years of age or older. * Low risk patients: minimal or absent history of smoking and/or other known risk factors * high risk patients: history of smoking or of other known risk factors (e.g. first degree relative with lung cancer, or exposure to asbestos, radon, uranium) * if a nodule up to 8 mm is partly solid or is ground glass further follow-up is required after 24 months to exclude possible slow growing adenocarcinoma (MICHELLE) SUBSOLID NODULES Solitary pure ground-glass nodule * nodule size <6 mm - no CT follow-up required * nodule size >=6 mm - follow-up CT at 6-12 months, then every 2 years until 5 years Solitary part-solid nodule * nodule size <6 mm - no CT follow-up required * nodule size >=6 mm - follow-up CT at 3-6 months. If unchanged, and solid component remains <6 mm, then annual follow-up for 5 years Multiple subsolid nodules * nodule size <6 mm - follow-up CT at 3-6 months, consider further follow-up at 2 and 4 years if stable * nodule size >=6 mm - follow-up CT at 3-6 months, subsequent management based on the most suspicious nodule(s) Electronically signed by: Gigi Valdez 12/15/2016 11:34 AM Dictated Date/Time: 12/15/2016 11:20 AM
--- NOTE | 2016-12-15 14:04 | DIAGNOSTIC IMAGING REPORT ---
WHOLE-BODY NUCLEAR BONE SCAN CLINICAL HISTORY: Neoplasm of the renal pelvis. COMPARISON STUDY: Chest CT dated 12/15/2016. Abdominal CT dated 09/08/2016. TECHNIQUE: Three hours following the IV administration of 26.2 mCi of technetium 99m MDP, whole body nuclear bone scan was performed in the anterior and posterior projections. FINDINGS: There is intense abnormal tracer deposition identified in the right humeral shaft. This corresponds to a healing fracture when correlated with the monorail operator tomogram from today's CT scan. Underlying destructive bony lesion is not excluded. There is intense activity seen in the lower thoracic spine as well as the lower lumbar spine. This likely corresponds to degenerative change and compression fractures. No definite destructive bony lesions are seen on the recent CT scans. Activity in the lower cervical spine is also typical for degenerative change. There is intense abnormal tracer deposition identified in several anterior right-sided ribs, likely the second through fifth ribs. This likely corresponds to healing rib fractures when correlated with today's CT scan. Additional milder foci of rib activity likely correspond to older rib fractures. Typically degenerative uptake is identified shoulders, elbows, risks, ankles, and feet. There are photopenic defects identified in both knees consistent with bilateral knee arthroplasties. There is expected excreted activity within the right renal collecting system and bladder. No activity is seen in the left renal collecting system, and the left kidney is surgically absent as seen on the recent abdominal CT. IMPRESSION: 1. Extremely difficult study to interpret due to extensive degenerative, postoperative, and posttraumatic change. 2. There is intense abnormal activity identified in the right humeral shaft. There is a comminuted healing fracture at this site identified when correlated with the monorail operator tomogram from today's chest CT. The majority of the activity is likely on a posttraumatic basis. Underlying osseous lesion would be impossible to exclude. 3. Numerous foci of abnormal activity in the ribs corresponds to healing rib fractures when correlated with today's chest CT. Underlying bone lesion is considered unlikely but impossible to exclude. 4. Abnormal tracer activity within the lower cervical, lower thoracic, and lower lumbar spine is identified. This is nonspecific and likely related to degenerative, posttraumatic, and postoperative change. Again, underlying bone lesion with be impossible to entirely exclude. No concerning lesion is clearly seen on recent CT images. 5. Additional foci of typically degenerative activity as above. 6. The left kidney is surgically absent. Electronically signed by: Giles Veliz M.D. 12/15/2016 2:03 PM Dictated Date/Time: 12/15/2016 1:55 PM
== END | disposition home or self-care (01) ==
LOC: C.NUCL 09:32
PROVIDERS: ATTEND Urology
DX: C65.9 Malignant neoplasm of unspecified renal pelvis (principal); R91.1 Solitary pulmonary nodule; E04.1 Nontoxic single thyroid nodule

== ENCOUNTER → 2017-05-05 | Outpatient (CLI) | payer OTHER ==
[~2017-05-05] MED LIST changes: -LEVO125T4 PO; +LEVO125T5 PO; -OPTIRAY 320 IV PRN
--- NOTE | 2017-05-06 13:45 | MAMMOGRAPHY REPORT ---
BILATERAL DIGITAL SCREENING MAMMOGRAM WITH CAD: 05/05/2017 CLINICAL HISTORY: Routine screening. Patient has no complaints. TECHNIQUE: Bilateral CC and MLO views were obtained. Current study was also evaluated with a Compute r Aided Detection (CAD) system. COMPARISON: Comparison is made to exams dated: 03/14/2016 mammogram, 03/12/2015 mammogram, 03/09/2014 m ammogram, 03/07/2013 mammogram, 03/04/2012 mammogram, and 03/03/2011 mammogram - [facility] enter. BREAST COMPOSITION: There are scattered areas of fibroglandular density in both breasts. FINDINGS: There are mild vascular calcifications in the breasts. Scattered benign coarse calcificati ons and rodlike secretory calcifications. No new suspicious mass, architectural distortion or cluste r of microcalcifications is seen. IMPRESSION: ACR BI-RADS CATEGORY 1: NEGATIVE There is no mammographic evidence of malignancy. A 1 year screening mammogram is recommended. The pa tient will receive written notification of the results. Approximately 10% of breast cancers are not detected with mammography. A negative mammographic report should not delay biopsy if a clinically suggestive mass is present. Alayna Sams M.D. ay/:05/05/2017 15:06:17 Process Coach: Kimberley GUTHRIE(R)(Rico)(NASH), [facility] letter sent: Normal 1/2 BI-RADS Code: ACR BI-RADS Category 1: Negative
== END | disposition home or self-care (01) ==
LOC: C.MAMM 13:35
PROVIDERS: ATTEND Internal Medicine
DX: Z12.31 Encounter for screening mammogram for malignant neoplasm of breast (principal)

== ENCOUNTER 2019-01-07 14:15 | Observation (INO) ==
[2019-01-07] MEDS ORDERED: ONDANSETRON INJ 2 MG/ML 2 ML VIAL IV STA (14:43)
[2019-01-07] MEDS ORDERED: SODIUM CHLORIDE 0.9% 1000ML 1,000 ML IV SCH (14:45)
[2019-01-07 15:11] LABS: Basophils # (auto) 0.03 K/uL (0-0.2); Basophils % (auto) 0.4 %; Eosinophils # (auto) 0.12 K/uL (0-0.5); Eosinophils % (auto) 1.5 %; Hematocrit (blood only) 37.1 % (37-47); Immature Granulocytes # (auto) 0.02 K/uL (0.00-0.02); Immature Granulocytes % (auto) 0.3 %; Lymphocytes # (auto) 1.86 K/uL (1.2-3.4); Lymphocytes % (auto) 23.7 %; Mean Corpuscular Hgb Conc 32.3 g/dL (32-36); Mean Corpuscular Volume 90.5 fL (80-100); Mean Platelet Volume 8.7 fL (7.4-10.4); Monocytes # (auto) 0.72 K/uL (0.11-0.59); Monocytes % (auto) 9.2 %; Neutrophils # (auto) 5.11 K/uL (1.4-6.5); Neutrophils % (auto) 64.9 %; Platelet Count 233 K/uL (130-400); RDW Coefficient of Variation 15.2 % (11.5-14.5); RDW Standard Deviation 50.5 fL (36.4-46.3); White Blood Count 7.86 K/uL (4.8-10.8)
[2019-01-07 15:23] LABS: Appearance Urine Clear (Clear); Bilirubin Urine Negative (Negative); Blood Urine Negative (Negative); Color Urine Yellow; Glucose Urine UA Negative (Negative); Ketones Urine Negative (Negative); Leukocyte Esterase Urine Negative (Negative); Nitrite Urine Negative (Negative); Protein Urine Negative (Negative); Specific Gravity Urine 1.014 (1.000-1.030); Urobilinogen Urine Negative (Negative); pH Urine 7.5 (4.5-7.5)
[2019-01-07 15:31] LABS: Albumin Level 3.7 gm/dl (3.4-5.0); BUN Creatinine Ratio 20.4 (10-20); Calcium 9.7 mg/dl (8.5-10.1); Creatinine Clr Calc Pharmacy 32.6 ml/min; Est GFR (African American) 50.1; Est GFR (Non-African American) 43.2; Magnesium 2.5 mg/dl (1.8-2.4)
[2019-01-07 15:48] LABS: Bilirubin,Total 0.4 mg/dl (0.2-1); Globulin 3.6 gm/dl (2.5-4.0); Total Protein 7.3 gm/dl (6.4-8.2); Troponin I 0.052 ng/ml (0-0.045)
--- NOTE | 2019-01-07 17:36 | Emergency Department Note ---
Entered by Jax Carrero acting as a scribe for Giles Mcnair MD History of Present Illness General Chief complaint: Illness Time Seen by Provider: 01/07/19 14:34 Source: patient Mode of arrival: ambulatory History of Present Illness Provider complaint: Illness Onset (ago): day(s) 5 Location: head Pain Consistency: + other (better as day goes on) Maximum Pain Intensity: 0 Relieved By: + none Exacerbated By: + other (Lexapro) Associated symptoms: + loss of appetite, + nausea/vomiting, + weakness and + other (+insomnia, +shaking, +tired); no fever/chills The patient is an 88 year old female who presents to the Emergency Department via ambulance with complaints of feeling ill for the past five days after starting a new prescription of Lexapro. Per the nurse, the patient was taken off of Xanax five days ago and was put on Lexapro for anxiety. Since beginning the medication, the patient has been experiencing insomnia and has been shaking. The patient also had fallen due to weakness a few days ago. She denies any trauma from the fall. The patient denies any chills or fever. The patient takes the medication once a day and her symptoms worsen immediately after; as the day goes on she begins to feel better. Today, she did not take the medication and is s till feeling ill. The patient lives by herself. Home Medications Home Medications Medication Instructions Recorded Confirmed Type acetaminophen [Tylenol] 325 mg PO QID 06/16/18 01/07/19 History albuterol sulfate 1.25 mg INHALATION QID 06/16/18 01/07/19 History alendronate 70 mg PO WK 06/16/18 01/07/19 History amlodipine [Norvasc] 5 mg PO QAM 06/16/18 01/07/19 History aspirin [Aspir-81] 81 mg PO QAM 06/16/18 01/07/19 History atorvastatin [Lipitor] 80 mg PO PM 06/16/18 01/07/19 History benazepril [Lotensin] 40 mg PO QAM 06/16/18 01/07/19 History docusate sodium 100 mg PO BID PRN 06/16/18 01/07/19 History fluticasone propionate [Flonase 2 spray INTRANASAL QAM 06/16/18 01/07/19 History Allergy Relief] furosemide [Lasix] 20 mg PO DAILY 06/16/18 01/07/19 History garlic 10 mg PO QAM 06/16/18 01/07/19 History insulin glargine [Lantus U-100 30 unit SUBCUT DAILY MDD 40 units 06/16/18 01/07/19 History Insulin] ketoconazole 1 applic TOPICAL UD 06/16/18 01/07/19 History levothyroxine [Synthroid] 62.5 mg PO QAM 06/16/18 01/07/19 History lidocaine 1 applic TOPICAL BID PRN 06/16/18 01/07/19 History magnesium oxide 400 mg PO BID 06/16/18 01/07/19 History metoprolol tartrate 37.5 mg PO DAILY 06/16/18 01/07/19 History mirtazapine 45 mg PO HS 06/16/18 01/07/19 History omega 1-ldt-fng-fish oil [Fish Oil] 1 cap PO BID 06/16/18 01/07/19 History omeprazole 20 mg PO BID 06/16/18 01/07/19 History vitamin E 400 unit PO QAM 06/16/18 01/07/19 History fluocinonide 1 applic TOPICAL 2XWK 12/02/18 01/07/19 History venlafaxine 75 mg PO DAILY 12/02/18 01/07/19 History albuterol sulfate [Ventolin HFA] 2 puff INHALATION QID PRN 01/07/19 01/07/19 History escitalopram oxalate 10 mg PO QAM 01/07/19 01/07/19 History fluticasone propionate [Flovent 2 puff INHALATION BID 01/07/19 01/07/19 History HFA] metoprolol tartrate 25 mg PO PM 01/07/19 01/07/19 History venlafaxine 150 mg PO DAILY 01/07/19 01/07/19 History Allergies Allergy/AdvReac Type Severity Reaction Status Date / Time warfarin Allergy Mild "Itchy" Verified 01/07/19 14:56 clopidogrel Allergy Unknown ITCHY Verified 01/07/19 14:56 codeine Allergy Unknown Verified 01/07/19 14:56 meperidine Allergy Unknown Verified 01/07/19 14:56 Past Med/Surg History Medical History 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) Hypothyroidism (Chronic) GERD (gastroesophageal reflux disease) (Chronic) Dyslipidemia (Chronic) Diabetes mellitus, type II (Chronic) Renal cancer (Chronic) LVH (left ventricular hypertrophy) (Chronic) Osteoarthritis (Chronic) Chronic back pain (Chronic) Anxiety and depression (Chronic) Comminuted fracture of right humerus (Resolved) Hypertension (Chronic) Hypertensive urgency (Resolved) Surgical History History of lumbar surgery (Chronic) [facility] History of total knee arthroplasty (Chronic) bilateral - [facility] History of left nephrectomy (Chronic) Family History Other Diabetes Social History Preferred Language: Greek Current Living Situation: Alone Feels Safe at Home: Yes Smoking Status: Never smoker Hx Alcohol Use: No Hx Substance Use: No Review of Systems See HPI for pertinent positives & negatives. and A total of 10 systems reviewed and were otherwise negative Physical Exam Vital Signs Vital Signs - 24 hr 01/07/19 14:22 01/07/19 15:01 01/07/19 15:05 Temperature 36.7 C Temperature Source Oral Sepsis Recent Fever Within 48 Hours No Sepsis Action Taken by Nursing No Action Required Pulse Rate - Lying 70 Pulse Rate - Sitting 71 Pulse Rate - Standing 71 Pulse Rate 68 66 Pulse Rate from SpO2 Sensor Respiratory Rate 16 23 Blood Pressure - Lying 187/89 H Blood Pressure - Sitting 200/93 H Blood Pressure- Standing 190/68 H Blood Pressure 185/80 H 194/86 H 187/89 H Blood Pressure Mean 115 122 121 Pulse Oximetry 98 Oxygen Delivery Method Room Air 01/07/19 15:08 01/07/19 15:09 01/07/19 15:30 Temperature Temperature Source Sepsis Recent Fever Within 48 Hours Sepsis Action Taken by Nursing Pulse Rate - Lying Pulse Rate - Sitting Pulse Rate - Standing Pulse Rate 68 69 65 Pulse Rate from SpO2 Sensor 68 65 Respiratory Rate 19 21 23 Blood Pressure - Lying Blood Pressure - Sitting Blood Pressure- Standing Blood Pressure 216/93 H 190/68 H 182/71 H Blood Pressure Mean 134 108 108 Pulse Oximetry 92 94 Oxygen Delivery Method 01/07/19 16:00 01/07/19 16:30 01/07/19 17:00 Temperature Temperature Source Sepsis Recent Fever Within 48 Hours Sepsis Action Taken by Nursing Pulse Rate - Lying Pulse Rate - Sitting Pulse Rate - Standing Pulse Rate 63 64 66 Pulse Rate from SpO2 Sensor 63 65 Respiratory Rate 21 20 26 H Blood Pressure - Lying Blood Pressure - Sitting Blood Pressure- Standing Blood Pressure 157/78 H 177/71 H 181/72 H Blood Pressure Mean 104 106 108 Pulse Oximetry 96 96 Oxygen Delivery Method 01/07/19 17:30 01/07/19 18:00 Temperature Temperature Source Sepsis Recent Fever Within 48 Hours Sepsis Action Taken by Nursing Pulse Rate - Lying Pulse Rate - Sitting Pulse Rate - Standing Pulse Rate 64 66 Pulse Rate from SpO2 Sensor Respiratory Rate 21 19 Blood Pressure - Lying Blood Pressure - Sitting Blood Pressure- Standing Blood Pressure 169/73 H 171/97 H Blood Pressure Mean 105 121 Pulse Oximetry Oxygen Delivery Method GENERAL: Patient is in no acute distress. HEENT: No acute trauma, normocephalic atraumatic, mucous membranes moist, no nasal congestion, no scleral icterus. NECK: No stridor, no adenopathy, no meningismus, trachea is midline. LUNGS: Clear to auscultation bilaterally, no wheeze, no rhonchi, breath sounds equal. HEART: Without gallops or rubs, 2/6 systolic murmur, regular rate and rhythm. ABDOMEN: Soft, nontender, bowel sounds positive, no hernias, no peritonitis. EXTREMITIES: No cyanosis or edema, full range of motion of all the joints without pain or difficulty, no signs for acute trauma. NEUROLOGIC: Oriented x 3, no acute motor or sensory deficits, no focal weakness. No slurred speech, no facial droop. SKIN: No rash, no jaundice, no diaphoresis. Course 1434: Past medical records reviewed. The patient was evaluated in room C3. A complete history and physical examination was performed. 1647: Orthostatic vitals negative. 1650: I checked on the patient and she is doing fine, I spoke with her about her lab results and further arrangements are being made for her to stay overnight. 1700: The patient was hospitalized. Administered Medications Discontinued Medications Sodium Chloride (Nss 1000ml) 1,000 mls @ 999 mls/hr IV .Q1H1M MAYDA Stop: 01/07/19 15:45 Last Infusion: 01/07/19 16:07 Dose: 0 mls/hr Documented by: [id number] Admin: 01/07/19 15:02 Dose: 999 mls/hr Documented by: [id number] Ondansetron HCl (Zofran) 4 mg IV NOW STA Stop: 01/07/19 14:44 Last Admin: 01/07/19 16:07 Dose: Not Given Documented by: [id number] Medical Decision Making Differential Diagnosis Differential Diagnosis: Dehydration, medication reaction, orthostasis, anemia, electrolyte imbalance, renal failure, stroke, UTI, generalized infection. Medical Records Attestation: I reviewed the patient's medical records. Home Medications Current Medication List: was personally reviewed by me Laboratory Data Attestation: I reviewed the patient's lab results. Result diagrams: 01/07/19 14:57 01/07/19 14:57 Lab Results 01/07/19 01/07/19 01/07/19 Range/Units 14:57 14:57 15:06 WBC 7.86 (4.8-10.8) K/uL RBC 4.10 L (4.2-5.4) M/uL Hgb 12.0 (12.0-16.0) g/dL Hct 37.1 (37-47) % MCV 90.5 (80-100) fL MCH 29.3 (25-34) pg MCHC 32.3 (32-36) g/dL RDW Std Deviation 50.5 H (36.4-46.3) fL RDW Coeff of Mary 15.2 H (11.5-14.5) % Plt Count 233 (130-400) K/uL MPV 8.7 (7.4-10.4) fL Immature Gran % (Auto) 0.3 % Neut % (Auto) 64.9 % Lymph % (Auto) 23.7 % [place] % (Auto) 9.2 % Eos % (Auto) 1.5 % Baso % (Auto) 0.4 % Immature Gran # (Auto) 0.02 (0.00-0.02) K/uL Neut # (Auto) 5.11 (1.4-6.5) K/uL Lymph # (Auto) 1.86 (1.2-3.4) K/uL [place] # (Auto) 0.72 H (0.11-0.59) K/uL Eos # (Auto) 0.12 (0-0.5) K/uL Baso # (Auto) 0.03 (0-0.2) K/uL Sodium 141 (136-145) mmol/L Potassium 4.0 (3.5-5.1) mmol/L Chloride 107 (98-107) mmol/L Carbon Dioxide 28 (21-32) mmol/L Anion Gap 6.0 (3-11) BUN 23 H (7-18) mg/dl Creatinine 1.14 (0.6-1.2) mg/dl Est Cr Clr Drug Dosing 32.6 ml/min Est GFR ( Amer) 50.1 Est GFR (Non-Af Amer) 43.2 BUN/Creatinine Ratio 20.4 H (10-20) Glucose 136 H (70-99) mg/dl Calcium 9.7 (8.5-10.1) mg/dl Magnesium 2.5 H (1.8-2.4) mg/dl Total Bilirubin 0.4 (0.2-1) mg/dl AST 23 (15-37) U/L ALT 33 (12-78) U/L Alkaline Phosphatase 162 H (45-117) U/L Troponin I 0.052 H* (0-0.045) ng/ml Total Protein 7.3 (6.4-8.2) gm/dl Albumin 3.7 (3.4-5.0) gm/dl Globulin 3.6 (2.5-4.0) gm/dl Albumin/Globulin Ratio 1.0 (0.9-2) TSH 2.590 (0.300-4.500) uIu/ml Urine Color Yellow Urine Appearance Clear (Clear) Urine pH 7.5 (4.5-7.5) Ur Specific [place] 1.014 (1.000-1.030) Urine Protein Negative (Negative) Urine Glucose (UA) Negative (Negative) Urine Ketones Negative (Negative) Urine Blood Negative (Negative) Urine Nitrite Negative (Negative) Urine Bilirubin Negative (Negative) Urine Urobilinogen Negative (Negative) Ur Leukocyte Esterase Negative (Negative) ECG Data Attestation: I personally reviewed and interpreted this ECG as follows: Indication: other (illness) Rate (beats per minute): 66 Rhythm: normal sinus Findings: + 1st degree AV block; no PVC and no ST elevation Blood Pressure Blood Pressure Findings: Elevated blood pressure Blood Pressure Disposition: further management by hospitalist ARUN Narrative There is no leukocytosis or concerning anemia. No significant electrolyte abnormality or kidney failure. Alk phos slightly elevated, the bilirubin was normal. The patient was in a euthyroid state. EKG showed a sinus rhythm, no acute ischemic change. Cardiac enzyme testing x1 does show a slight elevation. This elevation could be secondary to cardiac injury or possibly mismatch. There were no signs of a urinary infection. On exam, the patient had no focal neurologic deficits. There was no speech slur. The patient presents with some weakness. She feels that her symptoms are from h er Lexapro. Certainly, the medication could be part of her issue. She has been having some dyspnea on exertion and was recently seen by cardiology. As per the patient, the cardiology team felt that her dyspnea was from her lungs, not her heart. With her presentation today, with the troponin elevation, I do think a further cardiac work-up would be warranted. I talked to the patient, I spoke with the welfare case worker. The on-call hospitalist was counseled. Patient is currently resting comfortably. Of note, during the ED stay, the patient was given IV Zofran for nausea, she received 1 L of IV saline for hydration. No additional aspirin was given as she takes this daily. Impression & Plan Weakness, SOB (shortness of breath), Elevated troponin Discharge Plan Visit Data Chief Complaint: Illness ED Provider: Giles Mcnair Discharge Problem: Weakness, SOB (shortness of breath), Elevated troponin Patient Disposition: Being Evaluated by Hospitalist Discharge Instructions Interventions: ED Discharge Assessment Last Done: 01/07/19 18:40 Forms Stand Alone Forms: My [facility] [employer] Prescriptions Prescriptions: No Action atorvastatin [Lipitor] 80 mg tablet 80 mg PO PM RF: 0 ketoconazole 2 % Shampoo 1 applic topical UD RF: 0 Lantus U-100 Insulin 100 unit/mL Solution 30 unit SUBCUT DAILY MDD 40 units RF: 0 albuterol sulfate 2.5 mg /3 mL (0.083 %) Solution For Nebulization 1.25 mg INHALATION QID RF: 0 amlodipine [Norvasc] 5 mg tablet 5 mg PO QAM RF: 0 aspirin [Aspir-81] 81 mg Tablet,Delayed Release (Dr/Ec) 81 mg PO QAM RF: 0 garlic 1,000 mg Capsule 10 mg PO QAM RF: 0 levothyroxine [Synthroid] 125 mcg tablet 62.5 mg PO QAM RF: 0 omeprazole 20 mg capsule,delayed release(DR/EC) 20 mg PO BID RF: 0 mirtazapine 45 mg tablet 45 mg PO HS RF: 0 furosemide [Lasix] 20 mg tablet 20 mg PO DAILY RF: 0 benazepril [Lotensin] 40 mg tablet 40 mg PO QAM RF: 0 fluticasone propionate [Flonase Allergy Relief] 50 mcg/actuation [place] ,Suspension 2 spray INTRANASAL QAM RF: 0 docusate sodium 100 mg Tablet 100 mg PO BID PRN (Reason: Constipation) RF: 0 vitamin E 400 unit Capsule 400 unit PO QAM RF: 0 metoprolol tartrate 25 mg tablet 37.5 mg PO DAILY RF: 0 acetaminophen [Tylenol] 325 mg Capsule 325 mg PO QID RF: 0 omega 2-hsj-vqs-fish oil [Fish Oil] 1,000 mg (120 mg-180 mg) Capsule 1 cap PO BID RF: 0 lidocaine 5 % ointment 1 applic topical BID PRN (Reason: Pain) RF: 0 magnesium oxide 400 mg Capsule 400 mg PO BID RF: 0 alendronate 70 mg Tablet, Effervescent 70 mg PO WK RF: 0 albuterol sulfate [Ventolin HFA] 90 mcg/actuation Hfa Aerosol Inhaler 2 puff inhalation QID PRN (Reason: Shortness Of Breath Or Wheezing) RF: 0 Flovent HFA 110 mcg/actuation Hfa Aerosol Inhaler 2 puff inhalation BID RF: 0 escitalopram oxalate 10 mg Tablet 10 mg PO QAM RF: 0 metoprolol tartrate 25 mg Tablet 25 mg PO PM RF: 0 venlafaxine 150 mg capsule,extended release 24hr 150 mg PO DAILY RF: 0 venlafaxine 75 mg capsule,extended release 24hr 75 mg PO DAILY RF: 0 fluocinonide 0.05 % Solution 1 applic topical 2XWK RF: 0 Referrals Referrals: Giovanna Cote MD [Primary Care Provider] - The scribe's documentation has been prepared under my direction and personally reviewed by me in its entirety. I confirm that the note above accurately reflects all work, treatment, procedures, and medical decision making performed by me.
--- NOTE | 2019-01-07 18:37 | History & Physical Report ---
Date of Service January 07, 2019 Assessment & Plan (1) Weakness: Patient presented with c/o weakness, jittery, shakiness, decreased appetite x 4 days after starting Lexapro. Of note patient is also on Effexor 225 mg daily, Remeron 45 mg at bedtime. Denies fever/chills, N/V, palpitations In ER pt afebrile, P: 68, R: 16, BP: 185/80, 169/73, 98% on RA. No leukocytosis. H/H: 12/37, glucose: 136. TSH: 2.5. UA negative. In ER given 1L NSS, zofran Probable med side effect, combination of SSRI, SNRI. DDX: Serotonin Syndrome, however no clonus noted on exam -Hold Lexapro as pt also on Effexor -Monitor QTc -Monitor CBC, BMP -PT/OT Eval (2) Fall: Pt reports mechanical fall today onto buttocks when trying to maneuver from sink. Denies dizziness, CP, LOC, hitting head, or any injury. Uses walker to ambulate. -PT/OT eval (3) Elevated troponin: Troponin: 0.05. EKG: without acute ST changes. Pt without CP or increased SOB. Hx CKD. No known CAD history Low suspicion for ACS History echo 09/2018: EF> 70%, severely concentric LVH, mild mitral regurgitation, mild tricuspid regurgitation -Monitor Vitals -Repeat EKG in am -Will repeat troponin -Continue statin, ASA & beta sarbjit -If troponin increasing consider cardiology consult (4) SOB (shortness of breath): (5) Chronic nonspecific lung disease: Reported SOB with exertion for approx 1 month, worse with humid weather and relieved with albuterol inhaler -No increased symptoms and no current SOB at rest -Continue Flovent, albuterol -Recommend out patient pulmonology follow up (6) Anxiety and depression: Has been following with psychiatry-Dr. Payne for anxiety and depression. Has been tapered off of Xanax. On Effexor to 225 mg daily, Remeron 45 mg at bedtime. Pt was also started on Lexapro 10mg by PCP which she started 4 days ago. -Hold Lexapro -Continue Effexor as pt reports felt well with stable moods -Continue Remeron -Monitor QTc (7) Hypertension: In ER BP: 185/80, 169/73 Monitor -Continue metoprolol, amlodipine, benazepril, lasix (8) Diabetes mellitus, type II: A1c: 6.7 on 09/01/2018 -Continue Lantus -NovoLog sliding scale per protocol (9) Hypothyroidism: TSH: 2.5 -Continue levothyroxine (10) CKD (chronic kidney disease), stage III: Cr: 1.14 (baseline ~1.2-1.6) -Monitor renal functions -Avoid nephrotoxic agents and possible (11) History of left nephrectomy: History renal CA S/P left nephrectomy in 2010 -Monitor renal functions (12) Dyslipidemia: -Continue atorvastatin (13) GERD (gastroesophageal reflux disease): -Continue PPI DVT Prophylaxis -Heparin SQ DNR/DNI as per discussion with pt Follows with Dr Giovanna Cote for routine care Pt was seen and care coordinated with Dr Alejo. 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 Patient reports started taking Lexapro 4 days ago and since she has started with decreased appetite, shakiness, genera lized weakness, feeling jittery. Patient states symptoms started soon after taking the Lexapro and decreased throughout the day. She reports waking up in the morning feeling well and then symptoms occur after taking Lexapro again. Of note patient is also on Effexor 225 mg daily, Remeron 45 mg at bedtime. Patient has been following with psychiatry-Dr. Payne for anxiety and depression. Last seen on 12/07/2018. Patient has been tapered off of Xanax. Patient also has been weaned off tramadol and instead has been using topical lidocaine gel for low back pain. Patient seen by PCP 12/17/2018 and Lexapro was started however patient did not start taking until 4 days ago. Patient with history of shortness of breath with exertion for approximately 1 month which improves with taking her albuterol and is worse with humid weather. Patient followed with cardiology-Adrien Jara PA-C on 12/31/2018 as he was referred for her exertional shortness of breath and severely concentric LVH. Metoprolol tartrate was increased to 37.5 mg in a.m. and 25 mg in p.m. to help with possible angina and increased diastolic filling time and help alleviate midcavity gradient. It was recommended that patient follow-up with pulmonology. Patient denies any other medication changes recently. Patient denies any increased shortness of breath. She denies any dizziness, chest pain. Patient with history of recurrent falls and reports decreased falls since being tapered off of Xanax. Reports did have a fall this morning when she was trying to move from her sink and she fell backwards onto her buttocks. Denies hitting her head. Denies any LOC, denies dizziness, SOB, CP prior to fall. Patient denies any injuries. Patient uses walker to ambulate. Reports lives by herself. Denies fever/chills, diaphoresis, N/V/D/C, CARRERA, dizziness, syncope, vision changes, neck pain, CP, SOB, orthopnea, palpitations, cough, sore throat, choking, otalgia, rhinorrhea, abdominal pain, paresthesias, increased extremity edema, rashes, urinary symptoms. History echo 09/2018: EF> 70%, severely concentric LVH, mild mitral regurgitation, mild tricuspid regurgitation Allergies Allergy/AdvReac Type Severity Reaction Status Date / Time warfarin Allergy Mild "Itchy" Verified 01/07/19 14:56 clopidogrel Allergy Unknown ITCHY Verified 01/07/19 14:56 codeine Allergy Unknown Verified 01/07/19 14:56 meperidine Allergy Unknown Verified 01/07/19 14:56 Home Medications Home Medications Medication Instructions Recorded Confirmed Type acetaminophen [Tylenol] 325 mg PO QID 06/16/18 01/07/19 History albuterol sulfate 2.5 mg INHALATION QID 06/16/18 01/07/19 History alendronate 70 mg PO WK 06/16/18 01/07/19 History amlodipine [Norvasc] 5 mg PO QAM 06/16/18 01/07/19 History aspirin [Aspir-81] 81 mg PO QAM 06/16/18 01/07/19 History atorvastatin [Lipitor] 80 mg PO PM 06/16/18 01/07/19 History benazepril [Lotensin] 40 mg PO QAM 06/16/18 01/07/19 History docusate sodium 100 mg PO BID PRN 06/16/18 01/07/19 History fluticasone propionate [Flonase 2 spray INTRANASAL QAM 06/16/18 01/07/19 History Allergy Relief] furosemide [Lasix] 20 mg PO DAILY 06/16/18 01/07/19 History garlic 10 mg PO QAM 06/16/18 01/07/19 History insulin glargine [Lantus U-100 30 unit SUBCUT DAILY MDD 40 units 06/16/18 01/07/19 History Insulin] ketoconazole 1 applic TOPICAL UD 06/16/18 01/07/19 History levothyroxine [Synthroid] 62.5 mg PO QAM 06/16/18 01/07/19 History lidocaine 1 applic TOPICAL BID PRN 06/16/18 01/07/19 History magnesium oxide 400 mg PO BID 06/16/18 01/07/19 History metoprolol tartrate 37.5 mg PO DAILY 06/16/18 01/07/19 History mirtazapine 45 mg PO HS 06/16/18 01/07/19 History omega 8-bbm-mmo-fish oil [Fish Oil] 1 cap PO BID 06/16/18 01/07/19 History omeprazole 20 mg PO BID 06/16/18 01/07/19 History vitamin E 400 unit PO QAM 06/16/18 01/07/19 History fluocinonide 1 applic TOPICAL 2XWK 12/02/18 01/07/19 History venlafaxine 75 mg PO DAILY 12/02/18 01/07/19 History albuterol sulfate [Ventolin HFA] 2 puff INHALATION QID PRN 01/07/19 01/07/19 History escitalopram oxalate 10 mg PO QAM 01/07/19 01/07/19 History fluticasone propionate [Flovent 2 puff INHALATION BID 01/07/19 01/07/19 History HFA] metoprolol tartrate 25 mg PO PM 01/07/19 01/07/19 History venlafaxine 150 mg PO DAILY 01/07/19 01/07/19 History Past Med/Surg History Medical History Chronic nonspecific lung disease (Chronic) WPW (Icsgh-Swsxmvzxh-Reqao syndrome) (Chronic) Hypothyroidism (Chronic) GERD (gastroesophageal reflux disease) (Chronic) Dyslipidemia (Chronic) Diabetes mellitus, type II (Chronic) Renal cancer (Chronic) LVH (left ventricular hypertrophy) (Chronic) Osteoarthritis (Chronic) Chronic back pain (Chronic) Anxiety and depression (Chronic) Comminuted fracture of right humerus (Resolved) Hypertension (Chronic) Hypertensive urgency (Resolved) Surgical History History of lumbar surgery (Chronic) [facility] History of total knee arthroplasty (Chronic) bilateral - [facility] History of left nephrectomy (Chronic) Family History Other Diabetes Social History Preferred Language: [place] Communication Ability: Effective Furrier Designer Required: No Beliefs That Will Affect Care: None Current Living Situation: Alone Feels Safe at Home: Yes Safety Concerns: Feels Safe At This Time Smoking Status: Never smoker Hx Alcohol Use: No Hx Substance Use: No Review of Systems Review of Systems: All systems reviewed & are unremarkable except as noted in HPI & below Physical Exam Physical Exam: General: no acute distress, WDWN Head: normocephalic, atraumatic Eyes: PERRL, EOM's intact, conjunctiva non-injected, anicteric ENT: normal inspection external ears, nose, mucous membranes moist Neck: supple, trachea midline Lungs: clear, no respiratory distress, no wheezing/rhonchi/rales CV: RRR, systolic murmur, , 1+ pretibial edema Abd: normal BS, soft, non-tender Ext: BLE with brown skin discoloration, no calf tenderness, Neuro: A&O x 3, no focal deficits noted, mildly anxious affect Skin: warm, dry Results & Data Vital Signs (Past 12 Hours) Vital Signs Temp Pulse Resp BP Pulse Ox 01/07/19 18:00 66 19 171/97 H 01/07/19 17:30 64 21 169/73 H 01/07/19 17:00 66 26 H 181/72 H 01/07/19 16:30 64 20 177/71 H 96 01/07/19 16:00 63 21 157/78 H 96 01/07/19 15:30 65 23 182/71 H 94 01/07/19 15:09 69 21 190/68 H 92 01/07/19 15:08 68 19 216/93 H 01/07/19 15:05 66 23 187/89 H 01/07/19 15:01 194/86 H 01/07/19 14:22 36.7 C 68 16 185/80 H 98 Laboratory Results Short CBC 01/07/19 Range/Units 14:57 WBC 7.86 (4.8-10.8) K/uL Hgb 12.0 (12.0-16.0) g/dL Hct 37.1 (37-47) % Plt Count 233 (130-400) K/uL BMP 01/07/19 14:57 Sodium 141 Potassium 4.0 Chloride 107 Carbon Dioxide 28 BUN 23 H Creatinine 1.14 Glucose 136 H Calcium 9.7 Cardiac Enzymes 01/07/19 Range/Units 14:57 Troponin I 0.052 H* (0-0.045) ng/ml Liver Function 01/07/19 Range/Units 14:57 Total Bilirubin 0.4 (0.2-1) mg/dl AST 23 (15-37) U/L ALT 33 (12-78) U/L Alkaline Phosphatase 162 H (45-117) U/L Albumin 3.7 (3.4-5.0) gm/dl Urine 01/07/19 Range/Units 15:06 Urine Color Yellow Urine Appearance Clear (Clear) Urine pH 7.5 (4.5-7.5) Ur Specific [place] 1.014 (1.000-1.030) Urine Protein Negative (Negative) Urine Glucose (UA) Negative (Negative) ECG Rate (beats per minute): 66 Rhythm: sinus rhythm Findings: + 1st degree AV block and + T-wave inversion (Inferior) Additional Comments: Compared to EKG 06/2018. T wave inversion noted in III, no significant change Supervising Physician Co-Signing Physician Notes I have seen and examined the patient and have discussed the case with the provider above. I agree with the assessment and plan as stated. 88 yo female with weakness and feeling poporly since starting her Lexapro (10mg) 4 days ago. She denies taking it this morning, but did change her story a couple of times, and couldn't seem to remember if she took it or not. But reports that same feeling returning around 11am. She decided to come to the ER and was found to have a mild troponin bump on labwork. She denied chest pain, shortness of breath and is not having ACS, however, will trend one more troponin to ensure nothing is evolving related to her weakness. Physical exam reveals a hypertensive female with a normal heart rate who is oxygenating well on room air. Heart and lung exam is normal. She is oriented, but having difficulty recalling her pills. Symptoms appear to be connected to a medication interaction between her Mirtazapine 30mg HS, Effexor 75mg daily and the newly added Lexapro. Agree with holding the Lexapro and monitoring her overnight. She expressed a strong desire to have a pill to help her with her anxiety. She specifically wanted to take some Xanax, which she was recently weaned off of as outpatient. We discussed waiting to see if the anxiety passed first and she agreed. PT/OT evals and expect DC to home tomorrow. Melo, DO
[2019-01-07] MEDS ORDERED: CARBOHYDRATES FOR HYPOGLYCEMIA PO PRN (19:03)
[2019-01-07] MEDS ORDERED: GLUCOSE 40% GEL 15 GM TUBE PO PRN (19:03)
[2019-01-07] MEDS ORDERED: GLUCAGON FOR INJ 1 MG VIAL SQ PRN (19:03)
[2019-01-07] MEDS ORDERED: GLUCOSE 10 TABS/TUBE PO PRN (19:03)
[2019-01-07] MEDS ORDERED: DEXTROSE 50% 50 ML SYRINGE IV PRN (19:03)
[2019-01-07] MEDS ORDERED: DOCUSATE SODIUM 100 MG CAP PO PRN (19:03)
--- NOTE | 2019-01-07 19:43 | XRay Report ---
XR chest 1V portable HISTORY: 88 years-old Female weakness, r/o infiltrate acute weakness COMPARISON: Chest CT 12/02/2018, chest radiograph 07/19/2016 TECHNIQUE: Portable AP view of the chest FINDINGS: Cardiac silhouette is moderately enlarged, unchanged. Calcified plaque of the thoracic aorta. Unchang ed right hemidiaphragm elevation. No pneumothorax, pleural effusion or overt pulmonary edema. Degener ative changes of the shoulders and spine. Fusion hardware of the lumbar spine. IMPRESSION: No acute process. The above report was generated using voice recognition software. It may contain grammatical, syntax o r spelling errors. Electronically signed by: Bijan Medina M.D. 01/07/2019 7:41 PM
[2019-01-07] MEDS ORDERED: ALBUTEROL 0.083% NEBU SOLN 3 ML VIAL INH SCH (20:00)
[2019-01-07] MEDS ORDERED: ALBUTEROL 0.083% NEBU SOLN 3 ML VIAL INH PRN (20:40)
[2019-01-07 20:55] LABS: Partial Thromboplastin Ratio 0.8; Partial Thromboplastin Time 22.5 Seconds (21.0-31.0); Prothrombin Time 10.2 Seconds (9.0-12.0)
[2019-01-07] MEDS: INSULIN ASPART 100 UNITS/ML 3 ML PEN SC SCH (20:55)
[2019-01-07] MEDS: INSULIN GLARGINE SOLOSTAR 100 UNITS/ML 3 ML PEN SC SCH (20:57)
[2019-01-07] MEDS: FLUTICASONE HFA 110MCG INHALER INH SCH (20:59)
[2019-01-07] MEDS ORDERED: METOPROLOL TARTRATE 25 MG TAB PO SCH (21:00)
[2019-01-07] MEDS ORDERED: ATORVASTATIN 40 MG TAB PO SCH (21:00)
[2019-01-07] MEDS ORDERED: MIRTAZAPINE SOLTAB 15 MG PO SCH (21:00)
[2019-01-07] MEDS: PANTOprazole 40 MG TAB PO SCH (21:04)
[2019-01-07] MEDS: ACETAMINOPHEN 325 MG TAB PO SCH (21:08)
[2019-01-07] MEDS: HEPARIN SOD 5,000 UNIT/0.5 ML VIAL SQ SCH (21:10)
[2019-01-07] MEDS ORDERED: CALCIUM CARBONATE 500 MG CHEWABLE TAB PO STA (23:45)
[2019-01-08] MEDS: HEPARIN SOD 5,000 UNIT/0.5 ML VIAL SQ SCH ×2 (05:53→14:38)
[2019-01-08 06:12] LABS: Hematocrit (blood only) 35.1 % (37-47); Mean Corpuscular Hgb Conc 31.3 g/dL (32-36); Mean Corpuscular Volume 92.1 fL (80-100); Mean Platelet Volume 8.4 fL (7.4-10.4); Platelet Count 198 K/uL (130-400); RDW Coefficient of Variation 15.2 % (11.5-14.5); RDW Standard Deviation 51.4 fL (36.4-46.3); Red Blood Count 3.81 M/uL (4.2-5.4); White Blood Count 6.33 K/uL (4.8-10.8)
[2019-01-08] MEDS ORDERED: LEVOTHYROXINE SODIUM 125 MCG TABLET PO SCH (06:30)
[2019-01-08 06:48] LABS: BUN Creatinine Ratio 16.9 (10-20); Calcium 9.5 mg/dl (8.5-10.1); Creatinine Clr Calc Pharmacy 31.2 ml/min; Est GFR (African American) 47.5; Magnesium 2.4 mg/dl (1.8-2.4); Potassium 4.1 mmol/L (3.5-5.1)
[2019-01-08] MEDS: PANTOprazole 40 MG TAB PO SCH (08:28)
[2019-01-08] MEDS: FLUTICASONE HFA 110MCG INHALER INH SCH (08:30)
[2019-01-08] MEDS: INSULIN GLARGINE SOLOSTAR 100 UNITS/ML 3 ML PEN SC SCH (08:32)
[2019-01-08] MEDS: INSULIN ASPART 100 UNITS/ML 3 ML PEN SC SCH ×2 (08:36→12:31)
[2019-01-08] MEDS: ACETAMINOPHEN 325 MG TAB PO SCH ×2 (08:37→12:31)
[2019-01-08] MEDS ORDERED: ASPIRIN 81 MG ECTAB PO SCH (09:00)
[2019-01-08] MEDS ORDERED: BENAZEPRIL HCL 10 MG TAB PO SCH (09:00)
[2019-01-08] MEDS ORDERED: METOPROLOL TARTRATE 25 MG TAB PO SCH (09:00)
[2019-01-08] MEDS ORDERED: VENLAFAXINE HCL XR 75 MG CAPXR PO SCH (09:00)
[2019-01-08] MEDS ORDERED: FUROSEMIDE 20 MG TAB PO SCH (09:00)
[2019-01-08] MEDS ORDERED: FLUTICASONE PROPIONATE NA SPR 16 GM BTL NAE SCH (09:00)
[2019-01-08] MEDS ORDERED: VENLAFAXINE HCL XR 150 MG CAPXR PO SCH (09:00)
[2019-01-08] MEDS ORDERED: AMLODIPINE BESYLATE 5 MG TAB PO SCH (09:00)
--- NOTE | 2019-01-08 12:46 | Hospitalist Progress Note ---
Date of Service January 08, 2019 Assessment & Plan (1) Weakness: Patient is an 88-year-old female who presented with c/o weakness, jittery, shakiness, decreased appetite x 4 days after starting Lexapro. She is also on Effexor 225 mg daily, Remeron 45 mg at bedtime. Generalized weakness Anorexia, shakiness/jitteriness Likely secondary to Lexapro, possible serotonin syndrome (due to combination of SSRI, SNRI) Patient clinically improved after discontinuing Lexapro PT/OT (2) Fall: Mechanical Fall Denies any head trauma, loss of consciousness Ambulates with walker at baseline PT OT eval (3) Elevated troponin: Minimal Troponin which normalized Patient denies any chest pain, shortness of breath, dizziness Mild troponin elevation in setting of CKD ACS less likely Continue ASA, statin, beta sarbjit Advised patient to follow-up with cardiology as outpatient (4) SOB (shortness of breath): (5) Chronic nonspecific lung disease: Reported SOB with exertion for approx 1 month, worse with humid weather and relieved with albuterol inhaler No acute issues Continue Flovent, albuterol Advised to follow up with pulmonology as outpatient (6) Anxiety and depression: Has been following with psychiatry-Dr. Payne for anxiety and depression. Has been tapered off of Xanax. On Effexor to 225 mg daily, Remeron 45 mg at bedtime. Pt was also started on Lexapro 10mg by PCP which she started 4 days ago. Lexapro discontinued likely due to concern for serotonin syndrome Continue Effexor, Remeron Monitor QTc (7) Hypertension: Mildly elevated Asymptomatic Continue metoprolol, amlodipine, benazepril, lasix Monitor (8) Diabetes mellitus, type II: A1c: 6.7 on 09/01/2018 Continue Lantus NovoLog sliding scale per protocol (9) Hypothyroidism: TSH: 2.5 Continue levothyroxine (10) CKD (chronic kidney disease), stage III: Baseline Cr~1.2-1.6 Creatinine at baseline Monitor renal function Avoid nephrotoxic agents as able (11) History of left nephrectomy: History renal CA S/P left nephrectomy in 2010 Monitor renal function (12) Dyslipidemia: Continue atorvastatin (13) GERD (gastroesophageal reflux disease): Continue PPI DVT Px Heparin SQ CODE STATUS DNR/DNI Follows with Dr Giovanna Cote for routine care Disposition PT OT prior to discharge Expected discharge home when stable Subjective Patient is seen and examined at bedside Doing much better today Weakness, shakiness resolved after discontinuing Lexapro Offers no complaints Denies any chest pain, shortness of breath, dizziness, nausea, abdominal pain Eager to get discharged Review of Systems Review of Systems: All systems reviewed & are unremarkable except as noted in HPI & below Physical Exam Physical Exam: Physical Exam: Vitals signs as noted above General Appearance:Moderately built and nourished, no apparent distress Head: normocephalic, Atraumatic Eyes: normal inspection, EOMI Neck: supple, Trachea midline Respiratory/Chest: Normal breath sounds, CTA Cardiovascular: S1, S2, + systolic murmur Abdomen/GI:Soft, Non tender, Bowel sounds present Extremities/Musculoskelatal:normal inspection, 1+ B/L LE edema Neurologic/Psych:AAOX3, grossly no focal neurological deficits Skin: normal color, warm Results & Data Vital Signs (Past 12 Hours) Vital Signs Temp Pulse Resp BP BP Pulse Ox 01/08/19 11:32 54 L 182/70 H 01/08/19 11:18 36.8 C 61 18 196/74 H 201/76 H 95 01/08/19 07:00 37.2 C 82 18 174/76 H 92 01/08/19 04:56 36.9 C 62 18 178/77 H 96 Laboratory Results Short CBC 01/07/19 01/08/19 Range/Units 14:57 05:46 WBC 7.86 6.33 (4.8-10.8) K/uL Hgb 12.0 11.0 L (12.0-16.0) g/dL Hct 37.1 35.1 L (37-47) % Plt Count 233 198 (130-400) K/uL BMP 01/07/19 01/08/19 14:57 05:46 Sodium 141 143 Potassium 4.0 4.1 Chloride 107 111 H Carbon Dioxide 28 29 BUN 23 H 20 H Creatinine 1.14 1.19 Glucose 136 H 97 Calcium 9.7 9.5 Cardiac Enzymes 01/07/19 01/07/19 Range/Units 14:57 21:35 Troponin I 0.052 H* 0.040 (0-0.045) ng/ml Liver Function 01/07/19 Range/Units 14:57 Total Bilirubin 0.4 (0.2-1) mg/dl AST 23 (15-37) U/L ALT 33 (12-78) U/L Alkaline Phosphatase 162 H (45-117) U/L Albumin 3.7 (3.4-5.0) gm/dl Urine 01/07/19 Range/Units 15:06 Urine Color Yellow Urine Appearance Clear (Clear) Urine pH 7.5 (4.5-7.5) Ur Specific [place] 1.014 (1.000-1.030) Urine Protein Negative (Negative) Urine Glucose (UA) Negative (Negative)
--- NOTE | 2019-01-08 14:49 | Discharge Summary ---
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 Patient reports started taking Lexapro 4 days ago and since she has started with decreased appetite, shakiness, generalized weakness, feeling jittery. Patient states symptoms started soon after taking the Lexapro and decreased throughout the day. She reports waking up in the morning feeling well and then symptoms occur after taking Lexapro again. Of note patient is also on Effexor 225 mg daily, Remeron 45 mg at bedtime. Patient has been following with psychiatry-Dr. Payne for anxiety and depression. Last seen on 12/07/2018. Patient has been tapered off of Xanax. Patient also has been weaned off tramadol and instead has been using topical lidocaine gel for low back pain. Patient seen by PCP 12/17/2018 and Lexapro was started however patient did not start taking until 4 days ago. Patient with history of shortness of breath with exertion for approximately 1 month which improves with taking her albuterol and is worse with humid weather. Patient followed with cardiology-Adrien Jara PA-C on 12/31/2018 as he was referred for her exertional shortness of breath and severely concentric LVH. Metoprolol tartrate was increased to 37.5 mg in a.m. and 25 mg in p.m. to help with possible angina and increased diastolic filling time and help alleviate midcavi ty gradient. It was recommended that patient follow-up with pulmonology. Patient denies any other medication changes recently. Patient denies any increased shortness of breath. She denies any dizziness, chest pain. Patient with history of recurrent falls and reports decreased falls since being tapered off of Xanax. Reports did have a fall this morning when she was trying to move from her sink and she fell backwards onto her buttocks. Denies hitting her head. Denies any LOC, denies dizziness, SOB, CP prior to fall. Patient denies any injuries. Patient uses walker to ambulate. Reports lives by herself. Denies fever/chills, diaphoresis, N/V/D/C, CARRERA, dizziness, syncope, vision changes, neck pain, CP, SOB, orthopnea, palpitations, cough, sore throat, choking, otalgia, rhinorrhea, abdominal pain, paresthesias, increased extremity edema, rashes, urinary symptoms. History echo 09/2018: EF> 70%, severely concentric LVH, mild mitral regurgitation, mild tricuspid regurgitation Admission Exam Per Admitting Provider General: no acute distress, WDWN Head: normocephalic, atraumatic Eyes: PERRL, EOM's intact, conjunctiva non-injected, anicteric ENT: normal inspection external ears, nose, mucous membranes moist Neck: supple, trachea midline Lungs: clear, no respiratory distress, no wheezing/rhonchi/rales CV: RRR, systolic murmur, , 1+ pretibial edema Abd: normal BS, soft, non-tender Ext: BLE with brown skin discoloration, no calf tenderness, Neuro: A&O x 3, no focal deficits noted, mildly anxious affect Skin: warm, dry Principal Diagnosis Discharge Information Discharge Diagnosis Generalized weakness Discharge Goals Decrease discomfort,Improve function,Improve disease control Discharge Activity Limitations Resume your previous activity Discharge Data Allergies Allergy/AdvReac Type Severity Reaction Status Date / Time warfarin Allergy Mild "Itchy" Verified 01/07/19 14:56 clopidogrel Allergy Unknown ITCHY Verified 01/07/19 14:56 codeine Allergy Unknown Verified 01/07/19 14:56 meperidine Allergy Unknown Verified 01/07/19 14:56 Consultations 01/07/19 17:05 ED Decision to Admit Stat 01/07/19 19:03 Consult Case Management - Discharge Planning Routine Procedures Performed CXR: No acute process. Hospital Course (1) Weakness: Patient is an 88-year-old female who presented with c/o weakness, jittery, shakiness, decreased appetite x 4 days after starting Lexapro. She is also on Effexor 225 mg daily, Remeron 45 mg at bedtime. Generalized weakness Anorexia, shakiness/jitteriness Likely secondary to Lexapro, possible serotonin syndrome (due to combination of SSRI, SNRI) Patient clinically improved after discontinuing Lexapro PT/OT (2) Fall: Mechanical Fall Denies any head trauma, loss of consciousness Ambulates with walker at baseline PT OT eval (3) Elevated troponin: Minimal Troponin which normalized Patient denies any chest pain, shortness of breath, dizziness Mild troponin elevation in setting of CKD ACS less likely Continue ASA, statin, beta sarbjit Advised patient to follow-up with cardiology as outpatient (4) SOB (shortness of breath): (5) Chronic nonspecific lung disease: Reported SOB with exertion for approx 1 month, worse with humid weather and relieved with albuterol inhaler No acute issues Continue Flovent, albuterol Advised to follow up with pulmonology as outpatient (6) Anxiety and depression: Has been following with psychiatry-Dr. Payne for anxiety and depression. Has been tapered off of Xanax. On Effexor to 225 mg daily, Remeron 45 mg at bedtime. Pt was also started on Lexapro 10mg by PCP which she started 4 days ago. Lexapro discontinued likely due to concern for serotonin syndrome Continue Effexor, Remeron Monitor QTc (7) Hypertension: Mildly elevated Asymptomatic Continue metoprolol, amlodipine, benazepril, lasix Monitor (8) Diabetes mellitus, type II: A1c: 6.7 on 09/01/2018 Continue Lantus NovoLog sliding scale per protocol (9) Hypothyroidism: TSH: 2.5 Continue levothyroxine (10) CKD (chronic kidney disease), stage III: Baseline Cr~1.2-1.6 Creatinine at baseline Monitor renal function Avoid nephrotoxic agents as able (11) History of left nephrectomy: History renal CA S/P left nephrectomy in 2010 Monitor renal function (12) Dyslipidemia: Continue atorvastatin (13) GERD (gastroesophageal reflux disease): Continue PPI DVT Px Heparin SQ CODE STATUS DNR/DNI Follows with Dr Giovanna Cote for routine care Disposition PT OT prior to discharge Expected discharge home when stable Total Time Total Time Spent Total Time Spent (In Minutes): 35 minutes Total Time Includes: Examination of the Patient, Discharge Planning, Medication Reconciliation, Communication With Other Providers and Other Discharge Plan Discharge Items Patient Disposition: Home - Home Health Services Reason For Visit: WEAKNESS Discharge Diagnosis: Generalized weakness Discharge Goals: Decrease discomfort, Improve disease control and Improve function Activity: Resume your previous activity Exercise/Sports: Gradually increase as tolerated Non-emergency contact: Primary Care Provider Call non-emergency contact if: you have any medication questions, your symptoms worsen, your pain is not controlled, your pain is worsening, your pain is unusual for you, your pain is concerning for you and you have a fever Follow-up/Referrals: Giovanna Cote MD [Primary Care Provider] - Diet: Carb Consistent or DM2 and Heart Healthy Addtl Provider Instructions: Follow-up with your primary care physician Dr. Giovanna Cote in 1 week Follow-up with your psychiatrist in 2 to 4 weeks as advised Seek immediate medical attention if your symptoms reoccur or worsen Your Lexapro (Escitalopram) is discontinued due to possible drug interaction. Discussed with your psychiatrist for further recommendations. Prescriptions: Continued atorvastatin [Lipitor] 80 mg tablet 80 mg PO PM RF: 0 ketoconazole 2 % Shampoo 1 applic topical UD RF: 0 Lantus U-100 Insulin 100 unit/mL Solution 30 unit SUBCUT DAILY MDD 40 units RF: 0 albuterol sulfate 2.5 mg /3 mL (0.083 %) Solution For Nebulization 2.5 mg INHALATION QID RF: 0 amlodipine [Norvasc] 5 mg tablet 5 mg PO QAM RF: 0 aspirin [Aspir-81] 81 mg Tablet,Delayed Release (Dr/Ec) 81 mg PO QAM RF: 0 garlic 1,000 mg Capsule 10 mg PO QAM RF: 0 levothyroxine [Synthroid] 125 mcg tablet 62.5 mg PO QAM RF: 0 omeprazole 20 mg capsule,delayed release(DR/EC) 20 mg PO BID RF: 0 mirtazapine 45 mg tablet 45 mg PO HS RF: 0 furosemide [Lasix] 20 mg tablet 20 mg PO DAILY RF: 0 benazepril [Lotensin] 40 mg tablet 40 mg PO QAM RF: 0 fluticasone propionate [Flonase Allergy Relief] 50 mcg/actuation [place],Suspens ion 2 spray INTRANASAL QAM RF: 0 docusate sodium 100 mg Tablet 100 mg PO BID PRN (Reason: Constipation) RF: 0 vitamin E 400 unit Capsule 400 unit PO QAM RF: 0 metoprolol tartrate 25 mg tablet 37.5 mg PO DAILY RF: 0 acetaminophen [Tylenol] 325 mg Capsule 325 mg PO QID RF: 0 omega [id number] oil [Fish Oil] 1,000 mg (120 mg-180 mg) Capsule 1 cap PO BID RF: 0 lidocaine 5 % ointment 1 applic topical BID PRN (Reason: Pain) RF: 0 magnesium oxide 400 mg Capsule 400 mg PO BID RF: 0 alendronate 70 mg Tablet, Effervescent 70 mg PO WK RF: 0 albuterol sulfate [Ventolin HFA] 90 mcg/actuation Hfa Aerosol Inhaler 2 puff inhalation QID PRN (Reason: Shortness Of Breath Or Wheezing) RF: 0 Flovent HFA 110 mcg/actuation Hfa Aerosol Inhaler 2 puff inhalation BID RF: 0 metoprolol tartrate 25 mg Tablet 25 mg PO PM RF: 0 venlafaxine 150 mg capsule,extended release 24hr 150 mg PO DAILY RF: 0 venlafaxine 75 mg capsule,extended release 24hr 75 mg PO DAILY RF: 0 fluocinonide 0.05 % Solution 1 applic topical 2XWK RF: 0 Discontinued escitalopram oxalate 10 mg Tablet 10 mg PO QAM RF: 0 Stand-Alone Forms: [facility] Discharge Orders: Discharge Order (Routine); Ordered 01/08/19 Ordered By: Peter Roblero Admission Data Admit Date/Time: 01/07/19 18:27 Attending Provider: Peter Roblero Admit Provider: Margy Alejo Primary Care Provider: Giovanna Cote Other Providers: Margy Alejo Service: Telemetry Medical Other Interventions: Discharge Summary Assessment (RN) Last Done: 01/08/19 15:17 Pending Studies at Discharge: No DC Date/Time DO NOT enter until pt leaves facility: 01/08/19 15:39
--- NOTE | 2019-01-19 15:19 | Coding Query ---
A supporting diagnosis is required for the test/procedure performed on this patient in order for us to be reimbursed by the patient's insurance. Please provide a supporting diagnosis for the following test/procedure listed below next to the test name along with your signature. *If there is no additional diagnosis for this patient that would support the following test/procedure please document that below next to the test/procedure. Test(s)/Procedure(s) that require a supporting diagnosis: Initial Hydration Infusion DIAGNOSIS: Dehydration Provider Signature: Giles Mcniar MD Date: 01/20/19 Thank you Linn Guerin Health Information Management Once completed, please kindly fax back to [phone] For questions please call [phone] SUJIT
== END 2019-01-08 15:39 | disposition home health service (06) ==
LOC: 2N 14:15 → ED 14:15 → 2N 18:40

== ENCOUNTER 2020-02-15 20:01 | Inpatient (IN) ==
[2020-02-15] MEDS ORDERED: CLINDAMYCIN 600 MG/54 ML BAG IV ONE (20:24)
[2020-02-15] MEDS ORDERED: PIPERACILLIN/TAZOBACTAM 4.5 GM/120 ML BAG IV ONE (20:24)
[2020-02-15] MEDS ORDERED: PIPERACILL/TAZOBAC CONSULT ACTIVE PRN (20:24)
--- NOTE | 2020-02-15 20:56 | Emergency Department Note ---
Impression & Plan Cellulitis, Falls frequently ED Provider Note NAME: LIN THOMSON AGE: 89 SEX: F : 1930 ARRIVES VIA: Walk-In INFORMANT: Patient, ED PROVIDER(S): Roddy Lomas DO CHIEF COMPLAINT: Lower extremity swelling HPI: The patient is an 89-year-old female who presented to the emergency department with a family member for an evaluation of left lower extremity swelling and pain. The patient normally lives at home and utilizes visiting nursing for care. The patient has been having falls frequently. EMS has been to her facility multiple times for evaluation and for helping the patient off the floor. She was evaluated by home health this evening and was felt to be suffering from an infection in the leg. She was referred to the emergency department for further evaluation as well as possible admission for placement. The patient denies having any pain in the leg. She denies having any nausea or vomiting. It is unclear if the patient struck her head with 1 of her falls but her family member states that she appears to be confused more than usual. There is been no reported fever. There is been no reported exposures to COVID-19. ROS: See above HPI for pertinent positives & negatives. A total of 10 systems reviewed and were otherwise negative. PAST MEDICAL HISTORY: See Below PAST SURGICAL HISTORY: See Below FAMILY HISTORY: See Below SOCIAL HISTORY: See Below HOME MEDICATIONS: See Below ALLERGIES: See Below VITALS: See Below PHYSICAL EXAMINATION: GENERAL: The patient is awake and alert. She is somewhat anxious appearing but overall comfortable. EYES: The conjunctivae are clear. The pupils are round and reactive. EARS, NOSE, MOUTH AND THROAT: The nose is without any evidence of any deformity. NECK: The neck is nontender and supple. RESPIRATORY: Normal respiratory effort is noted there is no evidence of wheezing rhonchi or rales CARDIOVASCULAR: Regular rate and rhythm was noted to auscultation. Systolic murmur was suggested. GASTROINTESTINAL: The abdomen is soft. Abdomen is nontender. MUSCULOSKELETAL/EXTREMITIES: There is no evidence of gross deformity full range of motion is noted in the hips and shoulders. SKIN: Pedal edema was noted bilaterally. There was an ulceration in the left lateral leg which appears to be associated with some purulent drainage. There is also subcutaneous air noted with palpation around the area. NEUROLOGIC: Patient is awake alert and oriented to person place and situation. MEDICAL DECISION MAKING: The patient is an 89-year-old female who presented to the emergency department with family member for frequent falls. The patient has been having problems over the last few months. She injured her left lower extremity significantly recently. She was followed by home health and was recently sent to our emergency department this evening because of frequent falls but also because now they feel her left leg may be infected. There is a purulent area on the left leg. She was treated with IV antibiotics in the emergency department. I discussed the patient's laboratory and radiographic studies with her and her family member. Because of her findings I also discussed her case with the on- call [facility] hospitalist. They have agreed to evaluate the patient in the emergency department for further management and disposition. Triage Nursing notes reviewed. Prior medical records reviewed Vital Signs: reviewed and remarkable for no significant abnormalities Differential diagnosis: Cellulitis, abscess, MRSA infection, DVT, necrotizing fasciitis, dermatitis, drug eruption, allergic reaction, as well as other pathologies. ER treatment provided: See below Diagnostics interpreted by me: ECG: none Cardiac Monitoring: An order was placed for continuous cardiac monitoring. The monitor shows a rate of 95 bpm with sinus rhythm. Laboratory studies: As stated above and show below. Imaging studies: See below Consultation(s): I discussed this case with Dr. Bender ED COURSE: Procedures: none PDMP:reviewed and no issues Past Med/Surg History Medical History Anxiety and depression Chronic back pain Chronic nonspecific lung disease Comminuted fracture of right humerus Diabetes mellitus, type II Dyslipidemia GERD (gastroesophageal reflux disease) Hypertension Hypertensive urgency Hypothyroidism LVH (left ventricular hypertrophy) Osteoarthritis Renal cancer WPW (Noold-Sjnaffcba-Enqdw syndrome) Surgical History History of left nephrectomy History of lumbar surgery [facility] History of total knee arthroplasty bilateral - [facility] Family History Other Diabetes Family history of bone cancer Family history of cancer of larynx Family history of liver cancer Family history of rectal cancer Hypertension Social History Smoking Status: Never smoker Hx Alcohol Use: No Hx Substance Use: No Preferred Language: Yoruba Communication Ability: Effective Welt Sewer Required: No Beliefs That Will Affect Care: None marital status: / Current Living Situation: Alone current occupational status: retired Feels Safe at Home: Yes Allergies Allergies Allergy/AdvReac Type Severity Reaction Status Date / Time warfarin Allergy Mild "Itchy" Verified 02/15/20 21:16 clopidogrel Allergy Unknown ITCHY Verified 02/15/20 21:16 codeine Allergy Unknown Unknown Verified 02/15/20 21:16 meperidine Allergy Unknown Unknown Verified 02/15/20 21:16 Home Meds Home Medications Medication Instructions Recorded Confirmed Lantus U-100 Insulin 30 unit SUBCUT DAILY MDD 40 units 06/16/18 02/15/20 alendronate 70 mg PO WK 06/16/18 02/15/20 amlodipine [Norvasc] 5 mg PO QAM 06/16/18 02/15/20 aspirin [Aspir-81] 81 mg PO QAM 06/16/18 02/15/20 atorvastatin [Lipitor] 80 mg PO PM 06/16/18 02/15/20 benazepril [Lotensin] 40 mg PO QAM 06/16/18 02/15/20 fluticasone propionate [Flonase 2 spray INTRANASAL QAM 06/16/18 02/15/20 Allergy Relief] furosemide [Lasix] 20 mg PO DAILY 06/16/18 02/15/20 ketoconazole 1 applic TOPICAL UD 06/16/18 02/15/20 metoprolol tartrate 37.5 mg PO BID 06/16/18 02/15/20 mirtazapine 45 mg PO HS 06/16/18 02/15/20 omega 0-lkk-xkf-fish oil [Fish Oil] 1 cap PO BID 06/16/18 02/15/20 omeprazole 20 mg PO BID 06/16/18 02/15/20 venlafaxine 75 mg PO QAM 12/02/18 02/15/20 Flovent HFA 2 puff INHALATION BID 01/07/19 02/15/20 albuterol sulfate [Ventolin HFA] 2 puff INHALATION QID PRN 01/07/19 02/15/20 venlafaxine 150 mg PO QAM 01/07/19 02/15/20 alprazolam 0.25 mg PO BID PRN 02/23/19 02/15/20 calcium citrate-vitamin D3 315 1 tab PO DAILY 09/26/19 02/15/20 mg-200 unit tablet levothyroxine 125 mcg tablet 62.5 mcg PO QAM tab 10/11/19 02/15/20 A-C-E-zinc ox-selen AA-copper 1 tab PO DAILY 02/15/20 02/15/20 [Vision Formula(K-Q-B-Zn-Se-Cu)] fluocinonide 1 applic TOPICAL 2XWK 02/15/20 02/15/20 gabapentin 200 mg PO TID 02/15/20 02/15/20 garlic 100 mg PO DAILY 02/15/20 02/15/20 magnesium oxide 400 mg PO BID 02/15/20 02/15/20 meclizine 12.5 - 25 mg PO TID PRN 02/15/20 02/15/20 vitamin E 1,000 unit PO DAILY 02/15/20 02/15/20 Results & Data (ED) Vital Signs Vital Signs - 24 hr 02/15/20 20:06 02/15/20 21:37 Temperature 36.9 C Temperature Source Oral Pulse Rate 98 H Pulse Rate [Apical] 90 Respiratory Rate 18 21 Respiratory Effort / Characteristics Non-Labored Spontaneous Respiratory Depth Normal Blood Pressure 117/70 Blood Pressure [Right Arm] 137/86 Blood Pressure Mean 85 Blood Pressure Mean [Right Arm] 103 Pulse Oximetry 96 97 Oxygen Delivery Method Room Air Room Air Sepsis Recent Fever Within 48 Hours No Sepsis New/Unexplained Change in Mental Status No Sepsis Action Taken by Nursing No Action Required Home Medications Current Medication List: was personally reviewed by me Laboratory Data Attestation: I reviewed the patient's lab results. Result diagrams: 02/15/20 20:49 02/15/20 20:49 Lab Results 02/15/20 02/15/20 02/15/20 Range/Units 20:49 20:49 20:49 WBC 10.67 (4.8-10.8) K/uL RBC 4.63 (4.2-5.4) M/uL Hgb 13.5 (12.0-16.0) g/dL Hct 42.5 (37-47) % MCV 91.8 (80-100) fL MCH 29.2 (25-34) pg MCHC 31.8 L (32-36) g/dL RDW Std Deviation 50.6 H (36.4-46.3) fL RDW Coeff of Mary 15.0 H (11.5-14.5) % Plt Count 314 (130-400) K/uL MPV 9.1 (7.4-10.4) fL Immature Gran % (Auto) 0.1 % Neut % (Auto) 66.0 % Lymph % (Auto) 18.5 % Ransom % (Auto) 14.9 % Eos % (Auto) 0.4 % Baso % (Auto) 0.1 % Neut # (Auto) 7.05 H (1.4-6.5) K/uL Lymph # (Auto) 1.97 (1.2-3.4) K/uL Ransom # (Auto) 1.59 H (0.11-0.59) K/uL Eos # (Auto) 0.04 (0-0.5) K/uL Baso # (Auto) 0.01 (0-0.2) K/uL Immature Gran # (Auto) 0.01 (0.00-0.02) K/uL ESR 32 H (0-21) mm/hr PT 10.6 (9.0-12.0) Seconds INR 1.0 (0.9-1.1) APTT 22.2 (21.0-31.0) Seconds PTT Ratio 0.8 Sodium (136-145) mmol/L Potassium (3.5-5.1) mmol/L Chloride (98-107) mmol/L Carbon Dioxide (21-32) mmol/L Anion Gap (3-11) BUN (7-18) mg/dl Creatinine (0.6-1.2) mg/dl Est Cr Clr Drug Dosing Est GFR ( Amer) Est GFR (Non-Af Amer) BUN/Creatinine Ratio (10-20) Glucose (70-99) mg/dl Lactate (0.4-2.0) mmol/L Calcium (8.5-10.1) mg/dl Magnesium (1.8-2.4) mg/dl Total Bilirubin (0.2-1) mg/dl AST (15-37) U/L ALT (12-78) U/L Alkaline Phosphatase (45-117) U/L Total Creatine Kinase (26-192) U/L C-Reactive Protein (0-0.29) mg/dl Total Protein (6.4-8.2) gm/dl Albumin (3.4-5.0) gm/dl Globulin (2.5-4.0) gm/dl Albumin/Globulin Ratio (0.9-2) Lipase (73-393) U/L Procalcitonin (0-0.5) ng/ml 02/15/20 02/15/20 02/15/20 Range/Units 20:49 20:49 20:49 WBC (4.8-10.8) K/uL RBC (4.2-5.4) M/uL Hgb (12.0-16.0) g/dL Hct (37-47) % MCV (80-100) fL MCH (25-34) pg MCHC (32-36) g/dL RDW Std Deviation (36.4-46.3) fL RDW Coeff of Mary (11.5-14.5) % Plt Count (130-400) K/uL MPV (7.4-10.4) fL Immature Gran % (Auto) % Neut % (Auto) % Lymph % (Auto) % Ransom % (Auto) % Eos % (Auto) % Baso % (Auto) % Neut # (Auto) (1.4-6.5) K/uL Lymph # (Auto) (1.2-3.4) K/uL Ransom # (Auto) (0.11-0.59) K/uL Eos # (Auto) (0-0.5) K/uL Baso # (Auto) (0-0.2) K/uL Immature Gran # (Auto) (0.00-0.02) K/uL ESR (0-21) mm/hr PT (9.0-12.0) Seconds INR (0.9-1.1) APTT (21.0-31.0) Seconds PTT Ratio Sodium 138 (136-145) mmol/L Potassium 3.9 (3.5-5.1) mmol/L Chloride 103 (98-107) mmol/L Carbon Dioxide 26 (21-32) mmol/L Anion Gap 8.0 (3-11) BUN 49 H (7-18) mg/dl Creatinine 1.63 H (0.6-1.2) mg/dl Est Cr Clr Drug Dosing Not Reportable Est GFR ( Amer) 32.0 Est GFR (Non-Af Amer) 27.6 BUN/Creatinine Ratio 30.2 H (10-20) Glucose 193 H (70-99) mg/dl Lactate 2.3 H* (0.4-2.0) mmol/L Calcium 9.7 (8.5-10.1) mg/dl Magnesium (1.8-2.4) mg/dl Total Bilirubin 0.8 (0.2-1) mg/dl AST 113 H (15-37) U/L ALT 71 (12-78) U/L Alkaline Phosphatase 201 H (45-117) U/L Total Creatine Kinase (26-192) U/L C-Reactive Protein 4.82 H (0-0.29) mg/dl Total Protein 7.2 (6.4-8.2) gm/dl Albumin 3.3 L (3.4-5.0) gm/dl Globulin 3.9 (2.5-4.0) gm/dl Albumin/Globulin Ratio 0.8 L (0.9-2) Lipase (73-393) U/L Procalcitonin 0.18 (0-0.5) ng/ml 02/15/20 02/15/20 Range/Units 20:49 20:49 WBC (4.8-10.8) K/uL RBC (4.2-5.4) M/uL Hgb (12.0-16.0) g/dL Hct (37-47) % MCV (80-100) fL MCH (25-34) pg MCHC (32-36) g/dL RDW Std Deviation (36.4-46.3) fL RDW Coeff of Mary (11.5-14.5) % Plt Count (130-400) K/uL MPV (7.4-10.4) fL Immature Gran % (Auto) % Neut % (Auto) % Lymph % (Auto) % Ransom % (Auto) % Eos % (Auto) % Baso % (Auto) % Neut # (Auto) (1.4-6.5) K/uL Lymph # (Auto) (1.2-3.4) K/uL Ransom # (Auto) (0.11-0.59) K/uL Eos # (Auto) (0-0.5) K/uL Baso # (Auto) (0-0.2) K/uL Immature Gran # (Auto) (0.00-0.02) K/uL ESR (0-21) mm/hr PT (9.0-12.0) Seconds INR (0.9-1.1) APTT (21.0-31.0) Seconds PTT Ratio Sodium (136-145) mmol/L Potassium (3.5-5.1) mmol/L Chloride (98-107) mmol/L Carbon Dioxide (21-32) mmol/L Anion Gap (3-11) BUN (7-18) mg/dl Creatinine (0.6-1.2) mg/dl Est Cr Clr Drug Dosing Est GFR ( Amer) Est GFR (Non-Af Amer) BUN/Creatinine Ratio (10-20) Glucose (70-99) mg/dl Lactate (0.4-2.0) mmol/L Calcium (8.5-10.1) mg/dl Magnesium 2.2 (1.8-2.4) mg/dl Total Bilirubin (0.2-1) mg/dl AST (15-37) U/L ALT (12-78) U/L Alkaline Phosphatase (45-117) U/L Total Creatine Kinase 3517 H (26-192) U/L C-Reactive Protein (0-0.29) mg/dl Total Protein (6.4-8.2) gm/dl Albumin (3.4-5.0) gm/dl Globulin (2.5-4.0) gm/dl Albumin/Globulin Ratio (0.9-2) Lipase 101 (73-393) U/L Procalcitonin (0-0.5) ng/ml Administered Medications Discontinued Medications Piperacillin Sod/Tazobactam Sod (Zosyn) 4.5 gm in 120 mls @ 240 mls/hr IV NOW ONE Stop: 02/15/20 20:53 Last Infusion: 02/15/20 21:42 Dose: 0 mls/hr Documented by: [id number] Admin: 02/15/20 21:05 Dose: 240 mls/hr Documented by: [id number] Clindamycin Phosphate (Cleocin) 600 mg in 54 mls @ 100 mls/hr IV ONE ONE Stop: 02/15/20 20:56 Last Infusion: 02/15/20 21:42 Dose: 0 mls/hr Documented by: [id number] Admin: 02/15/20 21:05 Dose: 100 mls/hr Documented by: [id number] Sodium Chloride (Nss 1000ml) 1,000 mls @ 999 mls/hr IV .Q1H1M ONE Stop: 02/15/20 22:27 Last Infusion: 02/15/20 22:43 Dose: 0 mls/hr Documented by: [id number] Admin: 02/15/20 21:37 Dose: 999 mls/hr Documented by: [id number] Imaging Data Attestation: I personally reviewed and interpreted this imaging study as follows: My Impression: 1 view the chest was obtained in the emergency department. My interpretation is cardiomegaly with atelectasis at both bases. There is no definite infiltrate. Small left pleural effusion was suggested. Previous surgical intervention of the thoracolumbar spine was noted. X-ray of the tib-fib was obtained in the emergency department. My interpretation is no definite fracture knee replacement was noted. No definite free air. Soft tissue swelling was appreciated. Radiologist's Impression: CT head/brain wo con CLINICAL HISTORY: 89 years-old Female with fall, confusion. Acute head injury status post fall with confusion TECHNIQUE: Multiple axial CT images of the head were obtained without contrast. A dose lowering technique was utilized adhering to the principles of ALARA. CT DOSE: 537.48 mGy.cm COMPARISON: Head CT 12/02/2018 FINDINGS: No acute intracranial hemorrhage, midline shift, intra-axial mass, hydrocephalus, territorial ischemia or abnormal extra-axial collection. Age- related involutional changes. Extensive patchy white matter hypodensities suggest chronic microvascular ischemic disease. Senescent calcifications of the lentiform nuclei. Cerebral vascular calcifications. 8 mm calcified extra-axial focus adjacent to left frontal lobe near the vertex on image 24 series 2 is suggestive of a probable meningioma. 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 The calvarium is intact. Mastoid air cells are clear. There is marked bony wall thickening of the right maxillary sinus with right maxillary volume loss diffuse mucosal thickening. Peripherally calcified 8 mm polyploid focus of mucosal thickening involves the anteromedial wall right maxillary sinus. Prior bilateral lens replacement. Small left parietal scalp contusion. IMPRESSION: Small left parietal scalp contusion without acute intracranial abnormality or calvarial fracture. ACT 112: Negative or not required by law. The above report was generated using voice recognition software. It may contain grammatical, syntax or spelling errors. Electronically signed by: Bijan Medina M.D. 02/15/2020 9:04 PM Dictated: 02/15/202100 Transcribed: 02/15/202100 Blood Pressure Blood Pressure Findings: Normal blood pressure Discharge Plan Visit Data Chief Complaint: Infection, Wound Stated Complaint: POSSIBLE OPEN WOUND INFECTION ED Provider: Roddy Lomas Discharge Problem: Cellulitis, Falls frequently Forms Stand Alone Forms: [facility] [email or web address] [email or web address] Prescriptions Prescriptions: No Action calcium citrate-vitamin D3 315-200 mg-unit tablet 1 tab PO DAILY RF: 0 atorvastatin [Lipitor] 80 mg tablet 80 mg PO PM RF: 0 ketoconazole 2 % Shampoo 1 applic topical UD RF: 0 Lantus U-100 Insulin 100 unit/mL Solution 30 unit SUBCUT DAILY MDD 40 units RF: 0 amlodipine [Norvasc] 5 mg tablet 5 mg PO QAM RF: 0 aspirin [Aspir-81] 81 mg Tablet,Delayed Release (Dr/Ec) 81 mg PO QAM RF: 0 omeprazole 20 mg capsule,delayed release(DR/EC) 20 mg PO BID RF: 0 mirtazapine 45 mg tablet 45 mg PO HS RF: 0 furosemide [Lasix] 20 mg tablet 20 mg PO DAILY RF: 0 benazepril [Lotensin] 40 mg tablet 40 mg PO QAM RF: 0 fluticasone propionate [Flonase Allergy Relief] 50 mcg/actuation [place] hebert 2 spray INTRANASAL QAM RF: 0 metoprolol tartrate 25 mg tablet 37.5 mg PO BID RF: 0 omega 1-sky-rjf-fish oil [Fish Oil] 1,000 mg (120 mg-180 mg) Capsule 1 cap PO BID RF: 0 alendronate 70 mg Tablet, Effervescent 70 mg PO WK RF: 0 levothyroxine [Synthroid] 125 mcg tablet 62.5 mcg PO QAM RF: 0 albuterol sulfate [Ventolin HFA] 90 mcg/actuation Hfa Aerosol Inhaler 2 puff inhalation QID PRN (Reason: Shortness Of Breath Or Wheezing) RF: 0 Flovent HFA 110 mcg/actuation Hfa Aerosol Inhaler 2 puff inhalation BID RF: 0 venlafaxine 150 mg capsule,extended release 24hr 150 mg PO QAM RF: 0 vitamin E 1,000 unit Capsule 1,000 unit PO DAILY RF: 0 garlic 100 mg Tablet 100 mg PO DAILY RF: 0 meclizine 25 mg Tablet 12.5 - 25 mg PO TID PRN (Reason: Dizziness) RF: 0 gabapentin 100 mg capsule 200 mg PO TID RF: 0 fluocinonide 0.05 % Solution 1 applic TOPICAL 2XWK RF: 0 Vision Formula(G-F-D-Zn-Se-Cu) 1,000 unit-60 mg-30 unit Tablet 1 tab PO DAILY RF: 0 magnesium oxide 400 mg magnesium Tablet 400 mg PO BID RF: 0 venlafaxine 75 mg capsule,extended release 24hr 75 mg PO QAM RF: 0 alprazolam 0.25 mg tablet 0.25 mg PO BID PRN (Reason: Anxiety) RF: 0 Referrals Referrals: Giovanna Cote MD [Primary Care Provider] -
[2020-02-15 21:00] LABS: Basophils # (auto) 0.01 K/uL (0-0.2); Basophils % (auto) 0.1 %; Eosinophils # (auto) 0.04 K/uL (0-0.5); Eosinophils % (auto) 0.4 %; Hematocrit (blood only) 42.5 % (37-47); Hemoglobin 13.5 g/dL (12.0-16.0); Immature Granulocytes # (auto) 0.01 K/uL (0.00-0.02); Immature Granulocytes % (auto) 0.1 %; Lymphocytes # (auto) 1.97 K/uL (1.2-3.4); Lymphocytes % (auto) 18.5 %; Mean Corpuscular Hemoglobin 29.2 pg (25-34); Mean Corpuscular Hgb Conc 31.8 g/dL (32-36); Mean Corpuscular Volume 91.8 fL (80-100); Mean Platelet Volume 9.1 fL (7.4-10.4); Monocytes # (auto) 1.59 K/uL (0.11-0.59); Monocytes % (auto) 14.9 %; Neutrophils # (auto) 7.05 K/uL (1.4-6.5); Platelet Count 314 K/uL (130-400); RDW Standard Deviation 50.6 fL (36.4-46.3); Red Blood Count 4.63 M/uL (4.2-5.4); White Blood Count 10.67 K/uL (4.8-10.8)
--- NOTE | 2020-02-15 21:05 | CT Scan Report ---
CT head/brain wo con CLINICAL HISTORY: 89 years-old Female with fall, confusion. Acute head injury status post fall with confusion TECHNIQUE: Multiple axial CT images of the head were obtained without contrast. A dose lowering tech nique was utilized adhering to the principles of ALARA. CT DOSE: 537.48 mGy.cm COMPARISON: Head CT 12/02/2018 FINDINGS: No acute intracranial hemorrhage, midline shift, intra-axial mass, hydrocephalus, territorial ischemi a or abnormal extra-axial collection. Age-related involutional changes. Extensive patchy white matter hypodensities suggest chronic microvascular ischemic disease. Senescent calcifications of the lentif orm nuclei. Cerebral vascular calcifications. 8 mm calcified extra-axial focus adjacent to left front al lobe near the vertex on image 24 series 2 is suggestive of a probable meningioma. 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 The calvarium is intact. Mastoid air cells are clear. There is marked bony wall thickening of the ri ght maxillary sinus with right maxillary volume loss diffuse mucosal thickening. Peripherally calcifi ed 8 mm polyploid focus of mucosal thickening involves the anteromedial wall right maxillary sinus. P rior bilateral lens replacement. Small left parietal scalp contusion. IMPRESSION: Small left parietal scalp contusion without acute intracranial abnormality or calvarial fracture. ACT 112: Negative or not required by law. The above report was generated using voice recognition software. It may contain grammatical, syntax o r spelling errors. Electronically signed by: Bijan Medina M.D. 02/15/2020 9:04 PM
[2020-02-15 21:17] LABS: Alanine Aminotransferase 71 U/L (12-78); Albumin Level 3.3 gm/dl (3.4-5.0); Aspartate Aminotransferase 113 U/L (15-37); BUN Creatinine Ratio 30.2 (10-20); Blood Urea Nitrogen 49 mg/dl (7-18); C Reactive Protein 4.82 mg/dl (0-0.29); Calcium 9.7 mg/dl (8.5-10.1); Carbon Dioxide 26 mmol/L (21-32); Chloride 103 mmol/L (98-107); Est GFR (Non-African American) 27.6; Glucose 193 mg/dl (70-99); Partial Thromboplastin Ratio 0.8; Partial Thromboplastin Time 22.2 Seconds (21.0-31.0); Potassium 3.9 mmol/L (3.5-5.1); Prothrombin Time 10.6 Seconds (9.0-12.0); Sodium 138 mmol/L (136-145)
[2020-02-15 21:20] LABS: Albumin Globulin Ratio 0.8 (0.9-2); Alkaline Phosphatase 201 U/L (45-117); Bilirubin,Total 0.8 mg/dl (0.2-1); Globulin 3.9 gm/dl (2.5-4.0); Total Protein 7.2 gm/dl (6.4-8.2)
[2020-02-15] MEDS ORDERED: SODIUM CHLORIDE 0.9% 1000ML 1,000 ML IV ONE (21:27)
[2020-02-15 22:55] LABS: Magnesium 2.2 mg/dl (1.8-2.4)
--- NOTE | 2020-02-15 23:09 | History & Physical Report ---
Date of Service February 15, 2020 Assessment & Plan (1) ARF (acute renal failure): ARF on CKD Rhabdomyolysis secondary to recurrent falls Home medications contributory Infected left leg wound, no overt sepsis for now Diarrhea rule out C. difficile History antibiotic Rx hypertension, stable hyperlipidemia on statin Rx hx WPW as per records hx PVD as per records DM2 insulin requiring, well-controlled as of recent outpatient hemoglobin A1c of 6.08 November 2019 RCCA L sp surgery hypothyroidism, euthyroid as of recent outpatient TSH mild cognitive impairment as per records GMF Baseline UA Monitor CPK/creatinine response to IVF Appropriate to hold home diuretics, LIZZETH inhibitor for now until creatinine back to baseline Doxycycline, Cefepime for infected left leg wound Stool C. difficile Basal insulin, ISS BG goal 196110, carb count coverage PT OT eval Social service RE discharge planning, possible placement given recurrent falls (patient currently residing alone) DVT prophylaxis. Heparin subcu Full code Patient's family requesting updates from providers. Ms. Abbi Nevarez (granddaughter/POA), contact #[phone]. Ms. Wanda Nevarez (daughter), contact #[phone]. Text document was generated using [employer] voice recognition software. It may contain grammatical or spelling errors. Kindly contact undersigned for clarification of any documentation item in question. History of Present Illness Chief Complaint: Left leg wound, falling at home Primary Care Provider: Giovanna Cote MD History obtained from patient, family, and records. History somewhat limited from patient due to marked hearing impairment. Medical history significant for hypertension, hyperlipidemia, WPW as per records, PVD as per records, DM2 insulin requiring, RCCA L sp surgery, CRI (baseline creatinine 1.1), primary hyperparathyroidism as per records, hypothyroidism, mild cognitive impairment as per records. Last confinement January 2019 for generalized weakness and mechanical falls. Last ER visit November 2019 for skin tear on the left lower leg secondary to mechanical fall. Patient discharged on Keflex course. Left leg wound healed well as per patient. Patient had another unwitnessed mechanical fall at her home a few days ago which led to a new open wound on the left lower leg. No headache, no syncope, no chest pain, no S OB. Purulent drainage noted from left leg wound by family today. No fever, no chills. Patient complaining of lower abdominal discomfort with loose stools nonbloody. Patient brought to the ER for evaluation. Medical History as above Surgical History : Nephrectomy left Family History : Hypertension Personal/Social history : Non-smoker, no EtOH intake, maloney's in her younger years, currently lives alone Allergies Allergy/AdvReac Type Severity Reaction Status Date / Time warfarin Allergy Mild "Itchy" Verified 02/15/20 21:16 clopidogrel Allergy Unknown ITCHY Verified 02/15/20 21:16 codeine Allergy Unknown Unknown Verified 02/15/20 21:16 meperidine Allergy Unknown Unknown Verified 02/15/20 21:16 Home Medications Home Medications Medication Instructions Recorded Confirmed Type Lantus U-100 Insulin 30 unit SUBCUT DAILY MDD 40 units 06/16/18 02/15/20 History alendronate 70 mg PO WK 06/16/18 02/15/20 History amlodipine [Norvasc] 5 mg PO QAM 06/16/18 02/15/20 History aspirin [Aspir-81] 81 mg PO QAM 06/16/18 02/15/20 History atorvastatin [Lipitor] 80 mg PO PM 06/16/18 02/15/20 History benazepril [Lotensin] 40 mg PO QAM 06/16/18 02/15/20 History fluticasone propionate [Flonase 2 spray INTRANASAL QAM 06/16/18 02/15/20 History Allergy Relief] furosemide [Lasix] 20 mg PO DAILY 06/16/18 02/15/20 History ketoconazole 1 applic TOPICAL UD 06/16/18 02/15/20 History metoprolol tartrate 37.5 mg PO BID 06/16/18 02/15/20 History mirtazapine 45 mg PO HS 06/16/18 02/15/20 History omega 0-uih-kjr-fish oil [Fish Oil] 1 cap PO BID 06/16/18 02/15/20 History omeprazole 20 mg PO BID 06/16/18 02/15/20 History venlafaxine 75 mg PO QAM 12/02/18 02/15/20 History Flovent HFA 2 puff INHALATION BID 01/07/19 02/15/20 History albuterol sulfate [Ventolin HFA] 2 puff INHALATION QID PRN 01/07/19 02/15/20 History venlafaxine 150 mg PO QAM 01/07/19 02/15/20 History alprazolam 0.25 mg PO BID PRN 02/23/19 02/15/20 History calcium citrate-vitamin D3 315 1 tab PO DAILY 09/26/19 02/15/20 History mg-200 unit tablet levothyroxine 125 mcg tablet 62.5 mcg PO QAM tab 10/11/19 02/15/20 History A-C-E-zinc ox-selen AA-copper 1 tab PO DAILY 02/15/20 02/15/20 History [Vision Formula(D-U-Y-Zn-Se-Cu)] fluocinonide 1 applic TOPICAL 2XWK 02/15/20 02/15/20 History gabapentin 200 mg PO TID 02/15/20 02/15/20 History garlic 100 mg PO DAILY 02/15/20 02/15/20 History magnesium oxide 400 mg PO BID 02/15/20 02/15/20 History meclizine 12.5 - 25 mg PO TID PRN 02/15/20 02/15/20 History vitamin E 1,000 unit PO DAILY 02/15/20 02/15/20 History Past Med/Surg History Medical History Anxiety and depression Chronic back pain Chronic nonspecific lung disease Comminuted fracture of right humerus Diabetes mellitus, type II Dyslipidemia GERD (gastroesophageal reflux disease) Hypertension Hypertensive urgency Hypothyroidism LVH (left ventricular hypertrophy) Osteoarthritis Renal cancer WPW (Tpzvm-Jkdzbrfar-Ihzvy syndrome) Surgical History History of left nephrectomy History of lumbar surgery [facility] History of total knee arthroplasty bilateral - [facility] Family History Other Diabetes Family history of bone cancer Family history of cancer of larynx Family history of liver cancer Family history of rectal cancer Hypertension Social History Smoking Status: Never smoker Hx Alcohol Use: No Hx Substance Use: No Preferred Language: Italian Communication Ability: Impaired Global Project Manager Required: No Beliefs That Will Affect Care: None marital status: / Current Living Situation: Alone current occupational status: retired Other Information That Helps Us Care for You: No Feels Safe at Home: Yes Safety Concerns: Feels Safe At This Time Review of Systems Review of Systems: As per HPI, all 10 systems reviewed, all other ROS negative Physical Exam Physical Exam: GENERAL: Comfortable, hard of hearing, no respiratory distress SKIN: Normal color, warm HEENT: [place] palpebral conjunctivae, no ptosis, dry buccal mucosa NECK : Supple, no tenderness CHEST : CTA, no tenderness HEART : RRR, no obvious murmurs ABDOMEN: Some distention, nontender EXTREMITIES : LE swelling/venous stasis, ulcerated wound left lower leg with scant drainage, no other conspicuous deformities noted NEUROLOGIC : Coherent, no facial asymmetry, hard of hearing, gait and stance not assessed Results & Data Results & Data ([facility]) Vital Signs (Past 12 Hours) Vital Signs Temp Pulse Pulse Resp BP BP Pulse Ox 02/15/20 21:37 90 21 137/86 97 02/15/20 20:06 36.9 C 98 H 18 117/70 96 Laboratory Results Laboratory Results WBC 10.67 K/uL (4.8-10.8) 02/15/20 20:49 RBC 4.63 M/uL (4.2-5.4) 02/15/20 20:49 Hgb 13.5 g/dL (12.0-16.0) 02/15/20 20:49 Hct 42.5 % (37-47) 02/15/20 20:49 MCV 91.8 fL (80-100) 02/15/20 20:49 MCH 29.2 pg (25-34) 02/15/20 20:49 MCHC 31.8 g/dL (32-36) L 02/15/20 20:49 RDW Std Deviation 50.6 fL (36.4-46.3) H 02/15/20 20:49 RDW Coeff of Mary 15.0 % (11.5-14.5) H 02/15/20 20:49 Plt Count 314 K/uL (130-400) 02/15/20 20:49 MPV 9.1 fL (7.4-10.4) 02/15/20 20:49 Immature Gran % (Auto) 0.1 % 02/15/20 20:49 Neut % (Auto) 66.0 % 02/15/20 20:49 Lymph % (Auto) 18.5 % 02/15/20 20:49 Bent % (Auto) 14.9 % 02/15/20 20:49 Eos % (Auto) 0.4 % 02/15/20 20:49 Baso % (Auto) 0.1 % 02/15/20 20:49 Neut # (Auto) 7.05 K/uL (1.4-6.5) H 02/15/20 20:49 Lymph # (Auto) 1.97 K/uL (1.2-3.4) 02/15/20 20:49 Bent # (Auto) 1.59 K/uL (0.11-0.59) H 02/15/20 20:49 Eos # (Auto) 0.04 K/uL (0-0.5) 02/15/20 20:49 Baso # (Auto) 0.01 K/uL (0-0.2) 02/15/20 20:49 Immature Gran # (Auto) 0.01 K/uL (0.00-0.02) 02/15/20 20:49 ESR 32 mm/hr (0-21) H 02/15/20 20:49 PT 10.6 Seconds (9.0-12.0) 02/15/20 20:49 INR 1.0 (0.9-1.1) 02/15/20 20:49 APTT 22.2 Seconds (21.0-31.0) 02/15/20 20:49 PTT Ratio 0.8 02/15/20 20:49 Sodium 138 mmol/L (136-145) 02/15/20 20:49 Potassium 3.9 mmol/L (3.5-5.1) 02/15/20 20:49 Chloride 103 mmol/L (98-107) 02/15/20 20:49 Carbon Dioxide 26 mmol/L (21-32) 02/15/20 20:49 Anion Gap 8.0 (3-11) 02/15/20 20:49 BUN 49 mg/dl (7-18) H 02/15/20 20:49 Creatinine 1.63 mg/dl (0.6-1.2) H 02/15/20 20:49 Est Cr Clr Drug Dosing Not Reportable 02/15/20 20:49 Est GFR ( Amer) 32.0 02/15/20 20:49 Est GFR (Non-Af Amer) 27.6 02/15/20 20:49 BUN/Creatinine Ratio 30.2 (10-20) H 02/15/20 20:49 Glucose 193 mg/dl (70-99) H 02/15/20 20:49 Lactate 2.3 mmol/L (0.4-2.0) H* 02/15/20 20:49 Calcium 9.7 mg/dl (8.5-10.1) 02/15/20 20:49 Magnesium 2.2 mg/dl (1.8-2.4) 02/15/20 20:49 Total Bilirubin 0.8 mg/dl (0.2-1) 02/15/20 20:49 AST 113 U/L (15-37) H 02/15/20 20:49 ALT 71 U/L (12-78) 02/15/20 20:49 Alkaline Phosphatase 201 U/L (45-117) H 02/15/20 20:49 Total Creatine Kinase 3517 U/L (26-192) H 02/15/20 20:49 C-Reactive Protein 4.82 mg/dl (0-0.29) H 02/15/20 20:49 Total Protein 7.2 gm/dl (6.4-8.2) 02/15/20 20:49 Albumin 3.3 gm/dl (3.4-5.0) L 02/15/20 20:49 Globulin 3.9 gm/dl (2.5-4.0) 02/15/20 20:49 Albumin/Globulin Ratio 0.8 (0.9-2) L 02/15/20 20: Lipase 101 U/L (73-393) 02/15/20 20:49 Procalcitonin 0.18 ng/ml (0-0.5) 02/15/20 20:[address] head: Small left parietal scalp contusion without acute intracranial abnormality or calvarial fracture. CT of abdomen pelvis initial read: Previous left nephrectomy. Right kidney unremarkable. Urinary bladder partially distended. Liver gallbladder pancreas spleen and adrenal glands appear unremarkable. Bowel loops are nondilated. No pneumoperitoneum. Calcified aorta. Extensive surgical instrumentation and fusion T12 to the sacrum. CT left lower extremity initial read: Metallic artifact left knee arthroplasty. Small knee joint effusion. Superficial defect over the anterior calf soft tissues measuring 1 cm and 2 cm deep. No abscess or signs of osteomyelitis. Mild diffuse arterial calcifications present. LLE venous Dopplers initial read: Nonspecific fluid collection left inguinal measuring 1.1 x 5.2 x 1.6 cm. No DVT. Chest x-ray as per my interpretation atelectasis, cardiomegaly Code Status & VTE Plan VTE Prophylaxis Plan VTE Prophylaxis will be ordered: Yes
[2020-02-16] MEDS ORDERED: GLUCOSE 40% GEL 15 GM TUBE PO PRN (01:43)
[2020-02-16] MEDS ORDERED: ACETAMINOPHEN 325 MG TAB PO PRN (01:43)
[2020-02-16] MEDS ORDERED: GLUCOSE 10 TABS/TUBE PO PRN (01:43)
[2020-02-16] MEDS ORDERED: PROMETHAZINE HCL 12.5 MG in SODIUM CHLORIDE 0.9% 50 ML IV PRN (01:43)
[2020-02-16] MEDS ORDERED: CARBOHYDRATES FOR HYPOGLYCEMIA PO PRN (01:43)
[2020-02-16] MEDS ORDERED: ALPRAZolam 0.25 MG TABLET PO PRN (01:43)
[2020-02-16] MEDS ORDERED: TRAMADOL HCL 50 MG TABLET PO PRN (01:43)
[2020-02-16] MEDS ORDERED: INSULIN GLARGINE SOLOSTAR 100 UNITS/ML 3 ML PEN SC STA (01:43)
[2020-02-16] MEDS ORDERED: GLUCAGON FOR INJ 1 MG VIAL SQ PRN (01:43)
[2020-02-16] MEDS ORDERED: DEXTROSE 50% 50 ML SYRINGE IV PRN (01:43)
[2020-02-16] MEDS: INSULIN ASPART 100 UNITS/ML 3 ML PEN SC SCH ×5 (02:42→21:03)
[2020-02-16] MEDS ORDERED: DOXYCYCLINE HYCLATE 100 MG in DEXTROSE 5% 100 ML IV STA (03:28)
[2020-02-16] MEDS: NSS + 20MEQ KCL 20 MEQ/1,000 ML BAG IV SCH ×3 (03:51→23:16)
[2020-02-16] MEDS: PATIENT'S WEIGHT NEEDED SCH ×3 (05:35→06:24)
[2020-02-16] MEDS: LEVOTHYROXINE SODIUM 125 MCG TABLET PO SCH (05:36)
[2020-02-16] MEDS ORDERED: CEFEPIME CONSULT ACTIVE PRN (05:59)
[2020-02-16] MEDS ORDERED: HEPARIN SOD 5,000 UNIT/0.5 ML VIAL SQ SCH (06:00)
[2020-02-16 06:35] LABS: Basophils # (auto) 0.02 K/uL (0-0.2); Basophils % (auto) 0.2 %; Eosinophils % (auto) 1.1 %; Hematocrit (blood only) 37.1 % (37-47); Hemoglobin 11.8 g/dL (12.0-16.0); Immature Granulocytes # (auto) 0.03 K/uL (0.00-0.02); Immature Granulocytes % (auto) 0.3 %; Lymphocytes # (auto) 2.27 K/uL (1.2-3.4); Lymphocytes % (auto) 25.7 %; Mean Corpuscular Hemoglobin 29.3 pg (25-34); Mean Corpuscular Hgb Conc 31.8 g/dL (32-36); Mean Corpuscular Volume 92.1 fL (80-100); Mean Platelet Volume 8.9 fL (7.4-10.4); Monocytes # (auto) 1.34 K/uL (0.11-0.59); Monocytes % (auto) 15.2 %; Neutrophils # (auto) 5.08 K/uL (1.4-6.5); Neutrophils % (auto) 57.5 %; Platelet Count 258 K/uL (130-400); RDW Coefficient of Variation 15.1 % (11.5-14.5); RDW Standard Deviation 51.2 fL (36.4-46.3); Red Blood Count 4.03 M/uL (4.2-5.4); White Blood Count 8.84 K/uL (4.8-10.8)
--- NOTE | 2020-02-16 06:50 | Ultrasound Report ---
LEFT LOWER EXTREMITY VENOUS DOPPLER CLINICAL HISTORY: Left lower extremity swelling. COMPARISON STUDY: Bilateral lower extremity venous Doppler ultrasound July 19, 2010. TECHNIQUE: Sonography of the deep venous system of the left lower extremity was performed. Compressi on and augmentation were evaluated. FINDINGS: The left common femoral, superficial femoral and popliteal veins were compressible. Augmen tation was normal. Flow was shown within the deep calf vessels. Note is made of a 5.2 x 1.6 x 1.1 cm left groin fluid collection located posterior to the femoral vessels. IMPRESSION: 1. No evidence of deep venous thrombus within the left lower extremity. 2. 5.2 x 1.6 x 1.1 cm left groin fluid collection. Although nonspecific, this is relatively simple ap pearing and does not appear to represent an abscess. This may reflect a distended iliopsoas bursa. ACT 112: Negative or not required by law. Electronically signed by: Stuart Haji M.D. 02/16/2020 6:49 AM
[2020-02-16] MEDS: CEFEPIME 2,000 MG in SYRINGE 7.5 ML IV SCH (06:51)
[2020-02-16 06:57] LABS: Albumin Level 2.7 gm/dl (3.4-5.0); BUN Creatinine Ratio 34.9 (10-20); Calcium 9.5 mg/dl (8.5-10.1); Creatinine Clr Calc Pharmacy 24.7 ml/min; Est GFR (African American) 41.7; Potassium 3.6 mmol/L (3.5-5.1)
--- NOTE | 2020-02-16 07:07 | CT Scan Report ---
CT tib/fib LT wo con CLINICAL HISTORY: leg swelling ro abscess COMPARISON STUDY: Left tibia and fibula radiographs November 27, 2019 and February 15, 2020. TECHNIQUE: Axial images of the left lower leg were performed without IV contrast. Sagittal and winche[place] l reconstructions were viewed. Automated exposure control was utilized for the study. A dose lowerin g technique was utilized adhering to the principles of ALARA. FINDINGS: Left knee arthroplasty is noted. There is a small left knee joint effusion. There is no acu te fracture within the left tibia or fibula. There is no CT evidence for osteomyelitis of the left ti luis fernando or fibula. Note is made of a wound overlying the anterior mid shaft of the left tibia that measur es approximately 1.1 cm in transverse dimension. There is subcutaneous infiltration and fluid. This s uggests cellulitis. There is no fluid collection on this unenhanced exam to suggest an abscess. Under lying musculature is unremarkable by CT. Talar dome is intact. No suspicious osseous lesion is noted. There is no soft tissue gas. IMPRESSION: 1. Wound overlying the anterior mid shaft of the left tibia. Associated fluid and infiltration extend s to the underlying tibia without CT evidence for osteomyelitis. No abscess. 2. No acute fracture of the left tibia or fibula. 3. Status post total left knee arthroplasty. Small left knee joint effusion. ACT 112: Negative or not required by law. Electronically signed by: Stuart Haji M.D. 02/16/2020 7:06 AM
[2020-02-16 07:12] LABS: Albumin Globulin Ratio 0.8 (0.9-2); Bilirubin,Total 0.5 mg/dl (0.2-1); Globulin 3.5 gm/dl (2.5-4.0); Total Protein 6.2 gm/dl (6.4-8.2)
--- NOTE | 2020-02-16 08:09 | XRay Report ---
XR tibia fibula LT 2V HISTORY: 89 years-old Female infection acute pain and swelling of the left lower leg COMPARISON: CT left tibia and fibula of same day TECHNIQUE: 2 views of the left tibia and fibula FINDINGS: Left knee total joint arthroplasty appears unremarkable. Demineralized appearance of the bones withou t acute fracture, dislocation or osseous erosion. Multifocal osteoarthritis of the ankle and hindfoot . There is mild diffuse soft tissue prominence of the lower leg. Focal soft tissue swelling of the an terior mid pretibial tissues without opaque foreign body. IMPRESSION: Soft tissue swelling without acute fracture, dislocation or opaque foreign body. ACT 112: Negative or not required by law. The above report was generated using voice recognition software. It may contain grammatical, syntax o r spelling errors. Electronically signed by: Bijan Medina M.D. 02/16/2020 8:07 AM
--- NOTE | 2020-02-16 08:20 | CT Scan Report ---
CT SCAN OF THE ABDOMEN AND PELVIS WITHOUT IV CONTRAST CLINICAL HISTORY: Generalized abdominal pain. COMPARISON STUDY: Abdominal CT dated 12/02/2018. TECHNIQUE: CT scan of the abdomen and pelvis is performed from the lung bases to the proximal femora. Images are reviewed in the axial, sagittal, and coronal planes. IV contrast was not administered for this examination as per the referring clinician. Note that the examination was performed in suboptim al fashion without oral and IV contrast. A dose lowering technique was utilized adhering to the princ ipllinh of ARUNA. The examination is degraded by streak artifact from extensive metallic spinal hardwar e. FINDINGS: Lung bases: The heart is mildly enlarged noting trace pericardial effusion. The coronary arteries are densely calcified. There is a small hiatal hernia. There is bibasilar scarring/atelectasis. No airsp chavo consolidation or pleural effusion is seen at the lung bases. Scattered calcified granulomas are o bserved. Liver: The unenhanced liver is normal in size, contour, and attenuation. There is no intrahepatic dexter iary ductal dilatation. Gallbladder: Unremarkable. Spleen: Normal in size and attenuation. Pancreas: The unenhanced pancreas is moderately atrophic and grossly unremarkable. Adrenal glands: Unremarkable. Kidneys: The left kidney is not identified and presumed surgically absent. The unenhanced right kidne y demonstrates cortical atrophy and is without hydronephrosis. There are no renal calculi identified. There is no evidence of contour deforming renal mass lesion. Abdominal vasculature: The abdominal aorta is normal in course and caliber noting advanced atheroscle rotic calcification. Bowel: There is mild colonic diverticulosis without CT evidence of acute diverticulitis. No bowel obs truction is seen. The appendix is well-visualized and normal. Peritoneum: There is no intraperitoneal free air or abdominal ascites. There is a small fat-containin g umbilical hernia. Lymphadenopathy: None. Pelvic viscera: There are calcified uterine fibroids. The bladder is normal as imaged. No adnexal les ion is seen. Skeletal structures: The skeletal structures are osteopenic. There is postoperative change from madina ectomy and posterior fusion seen from T12-S1. There are mild chronic compression deformities of T11, T12, and L2. There are healed bilateral pubic ring fractures as well as healed bilateral rib fracture s. No lytic or blastic lesions are seen. There are bilateral hip joint effusions with surrounding inf lammation and iliopsoas bursitis. There is asymmetric enlargement of the left obturator internus is c ompared to the right. This represents a change from 12/02/2018. IMPRESSION: 1. Suboptimal examination without oral and IV contrast. 2. There are bilateral hip joint effusions with surrounding inflammation and iliopsoas bursitis. Anthony tionally, there is asymmetric enlargement of the left obturator internus muscle as compared to the ri ght. These findings represent a change from 12/02/2018. This could represent posttraumatic change or p ossibly an inflammatory arthropathy. Septic arthropathy is considered unlikely in the absence of leuk ocytosis. Clinical correlation will be essential. 3. Solitary right kidney. 4. Additional findings as above. Electronically signed by: Giles Veliz M.D. 02/16/2020 8:19 AM
--- NOTE | 2020-02-16 08:39 | XRay Report ---
XR chest 1V portable HISTORY: 89 years-old Female weaknbess acute weakness COMPARISON: CT abdomen and pelvis of same day, chest radiograph 01/07/2019 TECHNIQUE: Portable AP view of the chest FINDINGS: Cardiac silhouette is enlarged, unchanged. The patient is slightly rotated. Medial right lung apex is obscured by the patient's chin. No pneumothorax, pleural effusion, overt pulmonary edema or airspace consolidation typical for pneumonia. Mild subsegmental bibasilar densities favoring atelectasis. Deg enerative changes of the shoulders and spine. Multiple healed remote right-sided rib fractures. Parti ally imaged lumbar spinal fusion hardware. IMPRESSION: Cardiomegaly without acute process. ACT 112: Negative or not required by law. The above report was generated using voice recognition software. It may contain grammatical, syntax o r spelling errors. Electronically signed by: Bijan Medina M.D. 02/16/2020 8:37 AM
[2020-02-16] MEDS ORDERED: DOXYCYCLINE HYCLATE 100 MG CAP PO SCH (09:00)
[2020-02-16] MEDS: INSULIN GLARGINE SOLOSTAR 100 UNITS/ML 3 ML PEN SC SCH (09:39)
[2020-02-16] MEDS: METOPROLOL TARTRATE 25 MG TAB PO SCH ×2 (09:43→20:13)
[2020-02-16] MEDS: AMLODIPINE BESYLATE 5 MG TAB PO SCH (09:43)
[2020-02-16] MEDS: GABAPENTIN 100 MG CAP PO SCH ×3 (09:43→20:15)
[2020-02-16] MEDS: ASPIRIN 81 MG ECTAB PO SCH (09:43)
[2020-02-16] MEDS: PANTOprazole 40 MG TAB PO SCH ×2 (09:44→20:15)
[2020-02-16] MEDS: VENLAFAXINE HCL XR 75 MG CAPXR PO SCH (09:44)
[2020-02-16] MEDS: VENLAFAXINE HCL XR 150 MG CAPXR PO SCH (09:44)
--- NOTE | 2020-02-16 18:13 | Hospitalist Progress Note ---
Date of Service February 16, 2020 Assessment & Plan (1) ARF (acute renal failure): ARF on CKD 3 Rhabdomyolysis secondary to recurrent falls Home medications contributory --Creatinine improving CPK improving --Continue gentle IV fluids Monitor renal function Infected left leg wound, no overt sepsis for now --Wound cultures pending --Continue empiric cefepime plus doxycycline Wound care consult Diarrhea rule out C. difficile History antibiotic Rx --Resolved Bilateral hip joint effusion --Denies symptoms Patient presenting with four episodes of fall within 1 month --Orthopedic service Consult PT OT hypertension, stable hyperlipidemia on statin Rx hx WPW as per records hx PVD as per records DM2 insulin requiring, well-controlled as of recent outpatient hemoglobin A1c of 6.08 November 2019 RCCA L sp surgery hypothyroidism, euthyroid as of recent outpatient TSH mild cognitive impairment as per records Social service RE discharge planning, possible placement given recurrent falls (patient currently residing alone) DVT prophylaxis. Heparin subcu Full code Plan of care discussed with patient and patient's POA detail and at length All questions were answered They are understanding, agreeable, comfortable with plan of care Admission and Anticipated Discharge Date Admission Date: February 15, 2020 Subjective Follow-up for acute renal failure, rhabdomyolysis, status post fall, left wound infection Seen with patient's granddaughter at the bedside Patient is sitting up in bedside chair, awake, alert, oriented x3 Patient's granddaughter states the patient is mostly back to baseline mental status Patient answers all questions appropriately States she feels improved compared to yesterday Minimal pain over the left lower leg No problems urination Denies headache, dizziness, chest pain, shortness of breath, palpitations, dizziness No other symptoms Review of Systems Review of Systems: All systems reviewed & are unremarkable except as noted in HPI & below Physical Exam Physical Exam: General- oriented x 2, not in distress, speaks in sentences with no effort or accessory muscle use Head-positive mild erythema over the left maxillary area, bridge of the nose Moist no other obvious injuries Eyes- PERRL, EOMI, anicteric ENT-positive erythema over the bridge of the nose oropharynx clear Neck- supple, no JVD, no adenopathy, no thyromegaly; carotids +2/2, no bruits appreciated Lungs- clear to auscultation bilaterally, no rales/wheezes Positive mild erythema/small area of hematoma on the chest wall Heart- normal rate, regular rhythm; positive grade 3 out of 6 holosystolic murmur, no gallop, no rub appreciated Abdomen- normal bowel sounds, nondistended, soft, nontender, no masses or hepatosplenomegaly Extremities- Left lower extremity: Positive open wounds on the anterior aspect-with yellow- green tinge, mouth discharge, no bleeding Positive moderate erythema, edema, warmth, mild tenderness Right lower extremity: No open wounds noted, no edema no pretibial edema, no calf tenderness; peripheral pulses intact Neuro- alert, oriented x 3; CN 2-12 grossly intact; motor 5/5 bilaterally;sensation 100% on all extremities; no other gross focal neurologic deficits Skin- warm & dry Results & Data Results & Data ([facility]) Vital Signs (Past 12 Hours) Vital Signs Temp Pulse Resp BP Pulse Ox 02/16/20 15:02 36.9 C 82 18 152/67 H 95 02/16/20 07:22 37.4 C 90 18 129/68 92
[2020-02-16] MEDS: HEPARIN SOD 5,000 UNIT/0.5 ML VIAL SQ SCH (20:13)
[2020-02-16] MEDS: MIRTAZAPINE SOLTAB 15 MG PO SCH (20:15)
[2020-02-16] MEDS: DOXYCYCLINE HYCLATE 100 MG CAP PO SCH (20:16)
[2020-02-16] MEDS ORDERED: NSS + 20MEQ KCL 20 MEQ/1,000 ML BAG IV ONE (23:15)
[2020-02-17] MEDS: LEVOTHYROXINE SODIUM 125 MCG TABLET PO SCH (05:56)
[2020-02-17] MEDS: CEFEPIME 2,000 MG in SYRINGE 7.5 ML IV SCH (05:57)
[2020-02-17] MEDS: INSULIN ASPART 100 UNITS/ML 3 ML PEN SC SCH ×4 (08:50→20:51)
[2020-02-17] MEDS: ASPIRIN 81 MG ECTAB PO SCH (09:55)
[2020-02-17] MEDS: AMLODIPINE BESYLATE 5 MG TAB PO SCH (09:56)
[2020-02-17] MEDS: VENLAFAXINE HCL XR 150 MG CAPXR PO SCH (09:56)
[2020-02-17] MEDS: GABAPENTIN 100 MG CAP PO SCH ×3 (09:56→20:52)
[2020-02-17] MEDS: VENLAFAXINE HCL XR 75 MG CAPXR PO SCH (09:56)
[2020-02-17] MEDS: PANTOprazole 40 MG TAB PO SCH ×2 (09:56→20:53)
[2020-02-17] MEDS: HEPARIN SOD 5,000 UNIT/0.5 ML VIAL SQ SCH ×2 (09:57→20:56)
[2020-02-17] MEDS: INSULIN GLARGINE SOLOSTAR 100 UNITS/ML 3 ML PEN SC SCH (09:58)
[2020-02-17] MEDS: METOPROLOL TARTRATE 25 MG TAB PO SCH ×2 (09:59→20:50)
[2020-02-17] MEDS: DOXYCYCLINE HYCLATE 100 MG CAP PO SCH ×2 (09:59→20:56)
--- NOTE | 2020-02-17 10:05 | Orthopedic Progress Note ---
Date of Service February 17, 2020 Assessment & Plan (1) Effusion into joint: Discussed issues with Dr. Hillman and he will attempt to see/eval patient later today. Admission and Anticipated Discharge Date Admission Date: February 15, 2020 Subjective This 89 yo F recently admitted for acute renal failure had an orthopedic consult placed this AM for evaluation of ANUM knee and hip effusions. 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 I attempted to evaluate the patient but she would not allow the nurse or myself to get close to her or touch her. She said that "she didn't know us and we didn't know her." She would not answer any questions that were directed to her about her complaints. Review of Systems Review of Systems: Unobtainable due to mental health condition Physical Exam Physical Exam: No able to evaluate Results & Data ([facility]) Vital Signs (Past 12 Hours) Vital Signs Temp Pulse Resp BP Pulse Ox 02/17/20 07:33 37.0 C 86 18 164/85 H 94 02/17/20 04:09 36.9 C 74 18 118/70 96 02/16/20 23:28 36.6 C 64 18 176/80 H 92
[2020-02-17 11:40] LABS: Basophils # (auto) 0.02 K/uL (0-0.2); Basophils % (auto) 0.3 %; Eosinophils # (auto) 0.16 K/uL (0-0.5); Eosinophils % (auto) 2.1 %; Hematocrit (blood only) 39.4 % (37-47); Hemoglobin 12.4 g/dL (12.0-16.0); Immature Granulocytes # (auto) 0.01 K/uL (0.00-0.02); Immature Granulocytes % (auto) 0.1 %; Lymphocytes # (auto) 1.31 K/uL (1.2-3.4); Lymphocytes % (auto) 17.1 %; Mean Corpuscular Hemoglobin 29.3 pg (25-34); Mean Corpuscular Hgb Conc 31.5 g/dL (32-36); Mean Corpuscular Volume 93.1 fL (80-100); Monocytes # (auto) 0.88 K/uL (0.11-0.59); Monocytes % (auto) 11.5 %; Neutrophils # (auto) 5.29 K/uL (1.4-6.5); Neutrophils % (auto) 68.9 %; Platelet Count 253 K/uL (130-400); RDW Coefficient of Variation 15.1 % (11.5-14.5); RDW Standard Deviation 51.7 fL (36.4-46.3); Red Blood Count 4.23 M/uL (4.2-5.4); White Blood Count 7.67 K/uL (4.8-10.8)
[2020-02-17 11:59] LABS: BUN Creatinine Ratio 26.8 (10-20); Creatinine Clr Calc Pharmacy 42.7 ml/min; Est GFR (African American) 80.6; Est GFR (Non-African American) 69.5; Potassium 4.3 mmol/L (3.5-5.1)
--- NOTE | 2020-02-17 14:44 | Consultation Report ---
DATE OF CONSULTATION: 02/17/2020 We were consulted to see Mariella regarding bilateral hip joint effusions. She is an 89-year-old female who has a history of multiple falls. She has recently fallen and spent some time on the ground. She subsequently was brought to the hospital. She states that her lower back is a little bit sore, but she offers no complaint relative to her hips, knees, or legs. She did note that she had fallen a couple months ago and injured her left leg and had been trying to take care of this at home. Her health history is noted and reviewed. Her current medication list and allergies are reviewed and noted. She is a little bit confused as she thinks at one point she visited a horror house with doctors and nurses in it. She is afebrile. Her vital signs are stable. She can flex and extend her ankles with good strength and has palpable dorsalis pedis pulses. She can bend her knees to 90. Her knees do not have any tenderness or swelling. She can flex her hips to about 90 degrees and they can be rotated without any discomfort. She is able to move both of her upper extremities. She is otherwise awake and responsive to questions, although very hard of hearing. She does have several open wounds on the left lower extremity pretibial area. Several of these distally look like small skin tears. More proximally, there is some fibrinous exudate and some superficial necrotic tissue, which is manually debrided with a gauze sponge. There is no exposed bone. The left leg is swollen. There is no drainage noted. CT scan of the abdomen and pelvis shows hip arthritis in addition to some effusions noted by radiology. She does not have an acute fracture. There is evidence of prior surgery of the lumbar spine. Left tib-fib x-rays are negative for fracture. Reports are noted. IMPRESSION: Hip effusions and left leg wound. PLAN: Findings are discussed. We will obtain x-rays of the pelvis and both hips. I suspect that she has some arthritis. Despite the radiographic findings on the CT scan, she is not offering any significant complaints relative to the hips and has no pain with range of motion, and therefore, I do not think that she has any hip sepsis going on. She is status post bilateral total knee replacements, which seem to be doing well. I would recommend wound care for her left lower extremity wounds. PT and OT could be considered. She is at further risk for falling and harm. I think it is worthwhile to consider placement in a long-term care facility given her history of falls. She can follow up with me in my office as needed. We will follow up on her x-rays.
--- NOTE | 2020-02-17 15:21 | XRay Report ---
XR hip RT 1V, XR pelvis 1-2V routine, XR hip LT 1V HISTORY: 89 years-old Female effusion, lateral xray follow up study in a patient with left hip joint effusion COMPARISON: CT abdomen and pelvis 02/15/2020 TECHNIQUE: AP view of the pelvis with 2 views of the bilateral hips FINDINGS: PELVIS: Posterior body jessy and screw fusion with discectomy changes of the lower lumbar spine. Demineralized appearance of the bones. Moderate osteophyte is of the femoral acetabular joints. No acute fracture, dislocation, avascular necrosis or bony erosive changes. LEFT HIP: Moderate osteoarthritis of the femoral acetabular joint. No acute fracture or dislocation. RIGHT hip: Moderate osteoarthritis of the femoral acetabular joint. No acute fracture or dislocation. IMPRESSION: Moderate bilateral hip osteoarthritis. No acute fracture or dislocation. ACT 112: Negative or not required by law. The above report was generated using voice recognition software. It may contain grammatical, syntax o r spelling errors. Electronically signed by: Bijan Medina M.D. 02/17/2020 3:20 PM
--- NOTE | 2020-02-17 19:11 | Hospitalist Progress Note ---
Date of Service February 17, 2020 Assessment & Plan (1) ARF (acute renal failure): ARF on CKD 3 Rhabdomyolysis secondary to recurrent falls Home medications contributory --Creatinine improving CPK improving --DC IV fluids Monitor renal function Infected left leg wound --no overt sepsis --Wound cultures pending Blood cultures negative so far --Continue empiric cefepime plus doxycycline Wound care consult Diarrhea rule out C. difficile History antibiotic Rx --Resolved Bilateral hip joint effusion --Denies symptoms Patient presenting with four episodes of fall within 1 month --Orthopedic service consulted Consult PT OT hypertension, stable hyperlipidemia on statin Rx hx WPW as per records hx PVD as per records DM2 insulin requiring, well-controlled as of recent outpatient hemoglobin A1c of 6.08 November 2019 [facility] L sp surgery hypothyroidism, euthyroid as of recent outpatient TSH mild cognitive impairment as per records Social service RE discharge planning, possible placement given recurrent falls (patient currently residing alone) DVT prophylaxis. Heparin subcu Full code Admission and Anticipated Discharge Date Admission Date: February 15, 2020 Subjective Follow-up with lower extremity wound infection, renal failure, rhabdomyolysis, etc. Seen sitting up in bedside chair, awake and alert, oriented, answers all questions appropriately States she continues to feel better Left lower extremity pain is improving Denies headache, dizziness, chest pain, shortness of breath abdominal pain, nausea vomiting, problems with urination No other symptoms Review of Systems Review of Systems: All systems reviewed & are unremarkable except as noted in HPI & below Physical Exam Physical Exam: General- oriented x 2, not in distress, speaks in sentences with no effort or accessory muscle use Eyes- anicteric Neck- no JVD Lungs- clear breath sounds bilaterally, no rales/wheezes Heart- normal rate, regular rhythm; grade 2/6 to 3/6 holosystolic murmur Abdomen- normal bowel sounds, nondistended, soft, nontender Extremities- Left lower extremity: Less edema, less erythema, wound healing well, no active bleeding or discharge Right no pretibial edema no calf tenderness bilaterally Neuro- alert, oriented x 2; no gross focal neurologic deficits Skin- warm & dry Results & Data Results & Data ([facility]) Vital Signs (Past 12 Hours) Vital Signs Temp Pulse Resp BP Pulse Ox 02/17/20 19:02 37.0 C 85 18 158/77 H 98 02/17/20 15:40 36.5 C 83 16 167/67 H 97 09/11/20 07:33 37.0 C 86 18 164/85 H 94 Laboratory Results Laboratory Results - last 24 hr 02/16/20 02/17/20 02/17/20 20:31 07:49 11:22 WBC 7.67 RBC 4.23 Hgb 12.4 Hct 39.4 MCV 93.1 MCH 29.3 MCHC 31.5 L RDW Std Deviation 51.7 H RDW Coeff of Mary 15.1 H Plt Count 253 MPV 9.0 Immature Gran % (Auto) 0.1 Neut % (Auto) 68.9 Lymph % (Auto) 17.1 Miner % (Auto) 11.5 Eos % (Auto) 2.1 Baso % (Auto) 0.3 Neut # (Auto) 5.29 Lymph # (Auto) 1.31 Miner # (Auto) 0.88 H Eos # (Auto) 0.16 Baso # (Auto) 0.02 Immature Gran # (Auto) 0.01 Sodium Potassium Chloride Carbon Dioxide Anion Gap BUN Creatinine Est Cr Clr Drug Dosing Est GFR ( Amer) Est GFR (Non-Af Amer) BUN/Creatinine Ratio Glucose POC Glucose 105 H 99 Calcium 02/17/20 02/17/20 02/17/20 11:22 11:34 16:58 WBC RBC Hgb Hct MCV MCH MCHC RDW Std Deviation RDW Coeff of Mary Plt Count MPV Immature Gran % (Auto) Neut % (Auto) Lymph % (Auto) Miner % (Auto) Eos % (Auto) Baso % (Auto) Neut # (Auto) Lymph # (Auto) Miner # (Auto) Eos # (Auto) Baso # (Auto) Immature Gran # (Auto) Sodium 145 Potassium 4.3 D Chloride 116 H Carbon Dioxide 23 Anion Gap 6.0 BUN 20 H D Creatinine 0.76 D Est Cr Clr Drug Dosing 42.7 Est GFR ( Amer) 80.6 Est GFR (Non-Af Amer) 69.5 BUN/Creatinine Ratio 26.8 H Glucose 97 POC Glucose 90 112 H Calcium 10.0
[2020-02-17] MEDS: MIRTAZAPINE SOLTAB 15 MG PO SCH (20:54)
[2020-02-18] MEDS: LEVOTHYROXINE SODIUM 125 MCG TABLET PO SCH (06:27)
[2020-02-18] MEDS: CEFEPIME 2,000 MG in SYRINGE 7.5 ML IV SCH (06:31)
[2020-02-18 08:17] LABS: BUN Creatinine Ratio 24.5 (10-20); Calcium 10.8 mg/dl (8.5-10.1); Creatinine Clr Calc Pharmacy 42.1 ml/min; Est GFR (African American) 79.3; Est GFR (Non-African American) 68.5
[2020-02-18] MEDS: INSULIN ASPART 100 UNITS/ML 3 ML PEN SC SCH ×4 (09:44→20:33)
[2020-02-18] MEDS: AMLODIPINE BESYLATE 5 MG TAB PO SCH (09:45)
[2020-02-18] MEDS: VENLAFAXINE HCL XR 150 MG CAPXR PO SCH (09:45)
[2020-02-18] MEDS: PANTOprazole 40 MG TAB PO SCH ×2 (09:45→20:18)
[2020-02-18] MEDS: METOPROLOL TARTRATE 25 MG TAB PO SCH ×2 (09:45→20:16)
[2020-02-18] MEDS: HEPARIN SOD 5,000 UNIT/0.5 ML VIAL SQ SCH ×2 (09:45→20:15)
[2020-02-18] MEDS: VENLAFAXINE HCL XR 75 MG CAPXR PO SCH (09:45)
[2020-02-18] MEDS: GABAPENTIN 100 MG CAP PO SCH ×3 (09:45→20:18)
[2020-02-18] MEDS: DOXYCYCLINE HYCLATE 100 MG CAP PO SCH ×2 (09:45→20:20)
[2020-02-18] MEDS: ASPIRIN 81 MG ECTAB PO SCH (09:45)
[2020-02-18] MEDS: INSULIN GLARGINE SOLOSTAR 100 UNITS/ML 3 ML PEN SC SCH (09:46)
--- NOTE | 2020-02-18 10:40 | Progress Notes ---
DATE: 02/18/2020 X-rays of the hips are reviewed. The report is noted. She has some arthritis of both of her hips, which could account for her hip joint effusions. Continue PT, OT and present treatment plan.
[2020-02-18 15:57] LABS: Appearance Urine Cloudy (Clear); Bacteria Urine Automated Negative (Negative); Bilirubin Urine Negative (Negative); Blood Urine Negative (Negative); Cast Urine Automated 0 /lpf (0-5); Color Urine Yellow; Glucose Urine UA Negative (Negative); Ketones Urine Negative (Negative); Leukocyte Esterase Urine Negative (Negative); Nitrite Urine Negative (Negative); Protein Urine Negative (Negative); RBC Urine Automated 0-4 /hpf (0-4); Specific Gravity Urine 1.019 (1.000-1.030); Urobilinogen Urine Negative (Negative); WBC Urine Automated 0 /hpf (0-5); pH Urine 5.5 (4.5-7.5)
--- NOTE | 2020-02-18 17:18 | Hospitalist Progress Note ---
Date of Service February 18, 2020 Assessment & Plan (1) ARF (acute renal failure): Acute renal failure on CKD 3 Rhabdomyolysis secondary to recurrent falls -- Home medications contributory -- Renal function normalized CPK improving -- DC IV fluids Monitor renal function Infected left leg wound --no overt sepsis --Wound cultures negative Blood cultures negative so far --Continue empiric cefepime plus doxycycline Add probiotics Wound care consult Diarrhea rule out C. difficile History antibiotic Rx --Resolved Bilateral hip joint effusion --Denies symptoms Patient presenting with four episodes of fall within 1 month --Orthopedic service consulted--> no further intervention at this point Consult PT OT hypertension, stable hyperlipidemia on statin Rx hx WPW as per records hx PVD as per records DM2 insulin requiring, well-controlled as of recent outpatient hemoglobin A1c of 6.08 November 2019 [facility] L sp surgery hypothyroidism, euthyroid as of recent outpatient TSH mild cognitive impairment as per records Social service RE discharge planning--> will need to transition to long term facility DVT prophylaxis. Heparin subcu Full code Admission and Anticipated Discharge Date Admission Date: February 15, 2020 Subjective Follow-up for left foot infection, acute renal failure, rhabdomyolysis, etc. Seen resting in bed, comfortable, sleeping but easily awakened States she feels fine overall Minimal left lower leg discomfort, improving No other problems Review of Systems Review of Systems: All systems reviewed & are unremarkable except as noted in HPI & below Physical Exam Physical Exam: General- oriented x 3, not in distress, speaks in sentences with no effort or accessory muscle use Eyes- anicteric Neck- no JVD Lungs- clear breath sounds bilaterally, no rales/wheezes Heart- normal rate, regular rhythm; no murmurs Abdomen- normal bowel sounds, nondistended, soft, nontender Extremities- Left lower extremity: Wounds healing well, edema continues to improve, erythema almost resolved No tenderness no pretibial edema, no calf tenderness Neuro- alert, oriented x 3; no gross focal neurologic deficits Skin- warm & dry Results & Data Results & Data ([facility]) Vital Signs (Past 12 Hours) Vital Signs Temp Pulse Resp BP Pulse Ox 02/18/20 15:30 36.7 C 82 18 153/79 H 90 02/18/20 08:00 37.0 C 83 18 175/82 H 95 Laboratory Results Laboratory Results - last 24 hr 02/17/20 02/18/20 02/18/20 20:46 07:26 08:01 Sodium 143 Potassium 4.0 Chloride 112 H Carbon Dioxide 26 Anion Gap 5.0 BUN 19 H Creatinine 0.77 Est Cr Clr Drug Dosing 42.1 Est GFR ( Amer) 79.3 Est GFR (Non-Af Amer) 68.5 BUN/Creatinine Ratio 24.5 H Glucose 109 H POC Glucose 151 H 103 H Calcium 10.8 H Total Creatine Kinase 219 H Urine Color Urine Appearance Urine pH Ur Specific [place] Urine Protein Urine Glucose (UA) Urine Ketones Urine Blood Urine Nitrite Urine Bilirubin Urine Urobilinogen Ur Leukocyte Esterase Urine WBC (Auto) Urine RBC (Auto) U Hyaline Cast (Auto) U Epithel Cells (Auto) Urine Bacteria (Auto) 02/18/20 02/18/20 02/18/20 11:51 15:30 16:54 Sodium Potassium Chloride Carbon Dioxide Anion Gap BUN Creatinine Est Cr Clr Drug Dosing Est GFR ( Amer) Est GFR (Non-Af Amer) BUN/Creatinine Ratio Glucose POC Glucose 133 H 119 H Calcium Total Creatine Kinase Urine Color Yellow Urine Appearance Cloudy A Urine pH 5.5 Ur Specific [place] 1.019 Urine Protein Negative Urine Glucose (UA) Negative Urine Ketones Negative Urine Blood Negative Urine Nitrite Negative Urine Bilirubin Negative Urine Urobilinogen Negative Ur Leukocyte Esterase Negative Urine WBC (Auto) 0 Urine RBC (Auto) 0-4 U Hyaline Cast (Auto) 0 U Epithel Cells (Auto) 5-10 H Urine Bacteria (Auto) Negative
[2020-02-18] MEDS: MIRTAZAPINE SOLTAB 15 MG PO SCH (20:18)
[2020-02-19] MEDS: LEVOTHYROXINE SODIUM 125 MCG TABLET PO SCH (06:04)
[2020-02-19] MEDS: CEFEPIME 2,000 MG in SYRINGE 7.5 ML IV SCH (06:06)
[2020-02-19 07:56] LABS: Hemoglobin 12.7 g/dL (12.0-16.0); Mean Corpuscular Hgb Conc 32.6 g/dL (32-36); Mean Corpuscular Volume 92.2 fL (80-100); Mean Platelet Volume 9.1 fL (7.4-10.4); Platelet Count 274 K/uL (130-400); RDW Standard Deviation 50.7 fL (36.4-46.3); Red Blood Count 4.23 M/uL (4.2-5.4); White Blood Count 8.16 K/uL (4.8-10.8)
[2020-02-19 08:29] LABS: BUN Creatinine Ratio 22.7 (10-20); Calcium 10.4 mg/dl (8.5-10.1); Creatinine Clr Calc Pharmacy 39.1 ml/min; Est GFR (African American) 72.5; Est GFR (Non-African American) 62.5; Potassium 4.1 mmol/L (3.5-5.1)
[2020-02-19] MEDS: VENLAFAXINE HCL XR 150 MG CAPXR PO SCH (08:44)
[2020-02-19] MEDS: ASPIRIN 81 MG ECTAB PO SCH (08:44)
[2020-02-19] MEDS: VENLAFAXINE HCL XR 75 MG CAPXR PO SCH (08:44)
[2020-02-19] MEDS: GABAPENTIN 100 MG CAP PO SCH ×3 (08:44→21:39)
[2020-02-19] MEDS: METOPROLOL TARTRATE 25 MG TAB PO SCH ×2 (08:44→21:39)
[2020-02-19] MEDS: PANTOprazole 40 MG TAB PO SCH ×2 (08:44→21:39)
[2020-02-19] MEDS: DOXYCYCLINE HYCLATE 100 MG CAP PO SCH ×2 (08:44→21:40)
[2020-02-19] MEDS: AMLODIPINE BESYLATE 5 MG TAB PO SCH (08:44)
[2020-02-19] MEDS: HEPARIN SOD 5,000 UNIT/0.5 ML VIAL SQ SCH ×2 (08:45→21:40)
[2020-02-19] MEDS: INSULIN GLARGINE SOLOSTAR 100 UNITS/ML 3 ML PEN SC SCH (08:45)
[2020-02-19] MEDS: INSULIN ASPART 100 UNITS/ML 3 ML PEN SC SCH ×4 (08:46→21:40)
[2020-02-19] MEDS: ENALAPRIL MALEATE 10 MG TAB PO SCH (09:56)
--- NOTE | 2020-02-19 16:34 | Hospitalist Progress Note ---
Date of Service February 19, 2020 Assessment & Plan (1) ARF (acute renal failure): Acute renal failure on CKD 3 Rhabdomyolysis secondary to recurrent falls -- Home medications contributory -- Renal function normalized CPK markedly improved -- DC IV fluids Monitor renal function Infected left leg wound --no overt sepsis --Wound cultures negative Blood cultures negative so far --Continue on Ceftriaxone plus doxycycline with probiotics Wound care consult Diarrhea rule out C. difficile History antibiotic Rx --Resolved Bilateral hip joint effusion --Denies symptoms Patient presenting with four episodes of fall within 1 month --Orthopedic service consulted--> no further intervention at this point Consult PT OT Hypertension elevated restart Benazepril, Amlodipine Hyperlipidemia on statin Rx hx WPW as per records hx PVD as per records DM2 insulin requiring, well-controlled as of recent outpatient hemoglobin A1c of 6.08 November 2019 [facility] L sp surgery hypothyroidism, euthyroid as of recent outpatient TSH Mild cognitive impairment as per records (+) confusion episodes likely Delirium, in the setting of infection, early dementia discussed with RN Social service RE discharge planning--> will need to transition to detention facility DVT prophylaxis. Heparin subcu Full code Admission and Anticipated Discharge Date Admission Date: February 15, 2020 Subjective ff up for left leg wound seen resting in bedside chair comfortable somewhat disoriented, reoriented easily denies headache, dizziness, nausea, chest pain, dyspnea no leg pain no other symptoms Review of Systems Review of Systems: All systems reviewed & are unremarkable except as noted in HPI & below Physical Exam Physical Exam: General- oriented x 1, not in distress, speaks in sentences with no effort or accessory muscle use Eyes- anicteric Neck- no JVD Lungs- clear breath sounds bilaterally, no rales/wheezes Heart- normal rate, regular rhythm; no murmurs Abdomen- normal bowel sounds, nondistended, soft, nontender Extremities- Left lower leg: edema and erythema improved, wounds healing no tenderness R LE: essentially normal Neuro- alert, oriented x 1; no gross focal neurologic deficits Skin- warm & dry Results & Data Results & Data ([facility]) Vital Signs (Past 12 Hours) Vital Signs Temp Pulse Resp BP Pulse Ox 02/19/20 15:15 37.1 C 102 H 18 153/71 H 95 02/19/20 07:20 37.4 C 88 18 172/81 H 93
[2020-02-19] MEDS: cefTRIAXone SODIUM 1,000 MG in DEXTROSE 5% 50 ML IV SCH (18:01)
[2020-02-19] MEDS: LACTOBACILLUS ACIDOPHILUS (FLORANEX) TAB PO SCH ×2 (18:01→21:39)
[2020-02-19] MEDS: MIRTAZAPINE SOLTAB 15 MG PO SCH (21:40)
[2020-02-20] MEDS: LEVOTHYROXINE SODIUM 125 MCG TABLET PO SCH (06:16)
[2020-02-20 07:25] LABS: BUN Creatinine Ratio 27.2 (10-20); Calcium 10.2 mg/dl (8.5-10.1); Creatinine Clr Calc Pharmacy 36.5 ml/min; Est GFR (African American) 64.8; Est GFR (Non-African American) 55.9; Potassium 4.1 mmol/L (3.5-5.1)
[2020-02-20] MEDS: METOPROLOL TARTRATE 25 MG TAB PO SCH ×2 (08:13→20:50)
[2020-02-20] MEDS: GABAPENTIN 100 MG CAP PO SCH ×3 (08:14→20:50)
[2020-02-20] MEDS: LACTOBACILLUS ACIDOPHILUS (FLORANEX) TAB PO SCH ×4 (08:14→20:50)
[2020-02-20] MEDS: PANTOprazole 40 MG TAB PO SCH ×2 (08:14→20:50)
[2020-02-20] MEDS: VENLAFAXINE HCL XR 75 MG CAPXR PO SCH (08:14)
[2020-02-20] MEDS: ASPIRIN 81 MG ECTAB PO SCH (08:15)
[2020-02-20] MEDS: VENLAFAXINE HCL XR 150 MG CAPXR PO SCH (08:15)
[2020-02-20] MEDS: ENALAPRIL MALEATE 10 MG TAB PO SCH (08:15)
[2020-02-20] MEDS: AMLODIPINE BESYLATE 5 MG TAB PO SCH (08:15)
[2020-02-20] MEDS: INSULIN GLARGINE SOLOSTAR 100 UNITS/ML 3 ML PEN SC SCH (08:18)
[2020-02-20] MEDS: INSULIN ASPART 100 UNITS/ML 3 ML PEN SC SCH ×4 (08:19→20:50)
[2020-02-20] MEDS: HEPARIN SOD 5,000 UNIT/0.5 ML VIAL SQ SCH ×2 (08:20→20:50)
[2020-02-20] MEDS: DOXYCYCLINE HYCLATE 100 MG CAP PO SCH ×2 (08:28→20:50)
[2020-02-20] MEDS: cefTRIAXone SODIUM 1,000 MG in DEXTROSE 5% 50 ML IV SCH (17:21)
--- NOTE | 2020-02-20 18:30 | Hospitalist Progress Note ---
Date of Service February 20, 2020 Assessment & Plan (1) ARF (acute renal failure): Acute renal failure on CKD 3 Rhabdomyolysis secondary to recurrent falls -- Home medications contributory -- Renal function normalized CPK markedly improved -- DC IV fluids Monitor renal function Infected left leg wound --no overt sepsis --Wound cultures negative Blood cultures negative so far --Continue on Ceftriaxone plus doxycycline with probiotics Wound care consult Possible discharge on Augmentin plus doxycycline PO Diarrhea rule out C. difficile History antibiotic Rx --Resolved Bilateral hip joint effusion --Denies symptoms Patient presenting with four episodes of fall within 1 month --Orthopedic service consulted--> no further intervention at this point Consulted PT OT Hypertension improving continue Benazepril, Amlodipine Hyperlipidemia on statin Rx hx WPW as per records hx PVD as per records DM2 insulin requiring, well-controlled as of recent outpatient hemoglobin A1c of 6.08 November 2019 [facility] L sp surgery hypothyroidism, euthyroid as of recent outpatient TSH Mild cognitive impairment as per records (+) confusion episodes likely Delirium, in the setting of infection, early dementia discussed with RN continue to monitor Social service RE discharge planning--> awaiting acceptance to SNF DVT prophylaxis. Heparin subcu Full code Admission and Anticipated Discharge Date Admission Date: February 15, 2020 Subjective Follow-up for left lower wound infection Seen resting in bed side chair, comfortable, not in distress Presently confused, reoriented easily She feels fine overall Minimal pain on the left lower leg Denies other symptoms Review of Systems Review of Systems: All systems reviewed & are unremarkable except as noted in HPI & below Physical Exam Physical Exam: General- oriented x 1, not in distress, speaks in sentences with no effort or accessory muscle use Eyes- anicteric Neck- no JVD Lungs- clear breath sounds bilaterally Heart- normal rate, regular rhythm; no murmurs Abdomen- normal bowel sounds, nondistended, soft, nontender Extremities- Left lower extremity wounds are healing well, edema and erythema much improved no pretibial edema, no calf tenderness Neuro- alert, oriented x 1; no gross focal neurologic deficits Skin- warm & dry Results & Data Results & Data ([facility]) Vital Signs (Past 12 Hours) Vital Signs Temp Pulse Resp BP Pulse Ox 02/20/20 14:29 36.5 C 81 18 125/74 96 02/20/20 07:20 36.9 C 76 16 157/78 H 91 Laboratory Results Laboratory Results - last 24 hr 02/19/20 02/20/20 02/20/20 20:13 06:34 07:31 Sodium 141 Potassium 4.1 Chloride 108 H Carbon Dioxide 27 Anion Gap 6.0 BUN 25 H Creatinine 0.91 Est Cr Clr Drug Dosing 36.5 Est GFR ( Amer) 64.8 Est GFR (Non-Af Amer) 55.9 BUN/Creatinine Ratio 27.2 H Glucose 126 H POC Glucose 129 H 105 H Calcium 10.2 H 02/20/20 02/20/20 11:31 16:42 Sodium Potassium Chloride Carbon Dioxide Anion Gap BUN Creatinine Est Cr Clr Drug Dosing Est GFR ( Amer) Est GFR (Non-Af Amer) BUN/Creatinine Ratio Glucose POC Glucose 193 H 139 H Calcium
[2020-02-20] MEDS: MIRTAZAPINE SOLTAB 15 MG PO SCH (20:50)
[2020-02-21] MEDS: LEVOTHYROXINE SODIUM 125 MCG TABLET PO SCH (06:11)
[2020-02-21 07:45] LABS: BUN Creatinine Ratio 31.1 (10-20); Calcium 10.7 mg/dl (8.5-10.1); Creatinine Clr Calc Pharmacy 36.1 ml/min; Est GFR (Non-African American) 55.2; Potassium 3.7 mmol/L (3.5-5.1)
[2020-02-21] MEDS: METOPROLOL TARTRATE 25 MG TAB PO SCH ×2 (08:19→20:11)
[2020-02-21] MEDS: AMLODIPINE BESYLATE 5 MG TAB PO SCH (08:19)
[2020-02-21] MEDS: PANTOprazole 40 MG TAB PO SCH ×2 (08:19→20:10)
[2020-02-21] MEDS: LACTOBACILLUS ACIDOPHILUS (FLORANEX) TAB PO SCH ×4 (08:20→20:08)
[2020-02-21] MEDS: ASPIRIN 81 MG ECTAB PO SCH (08:20)
[2020-02-21] MEDS: ENALAPRIL MALEATE 10 MG TAB PO SCH (08:20)
[2020-02-21] MEDS: GABAPENTIN 100 MG CAP PO SCH ×3 (08:21→20:10)
[2020-02-21] MEDS: VENLAFAXINE HCL XR 75 MG CAPXR PO SCH (08:21)
[2020-02-21] MEDS: DOXYCYCLINE HYCLATE 100 MG CAP PO SCH ×2 (08:21→20:11)
[2020-02-21] MEDS: VENLAFAXINE HCL XR 150 MG CAPXR PO SCH (08:21)
[2020-02-21] MEDS: HEPARIN SOD 5,000 UNIT/0.5 ML VIAL SQ SCH ×2 (08:21→20:08)
[2020-02-21] MEDS: INSULIN GLARGINE SOLOSTAR 100 UNITS/ML 3 ML PEN SC SCH (08:22)
[2020-02-21] MEDS: INSULIN ASPART 100 UNITS/ML 3 ML PEN SC SCH ×4 (08:23→21:00)
[2020-02-21] MEDS: cefTRIAXone SODIUM 1,000 MG in DEXTROSE 5% 50 ML IV SCH (17:44)
[2020-02-21] MEDS: MIRTAZAPINE SOLTAB 15 MG PO SCH (20:11)
--- NOTE | 2020-02-21 20:15 | Hospitalist Progress Note ---
Date of Service February 21, 2020 Assessment & Plan (1) ARF (acute renal failure): Acute renal failure on CKD 3 Rhabdomyolysis secondary to recurrent falls -- Home medications contributory -- IV fluids given -- Renal function normalized CPK markedly improved Infected left leg wound --no overt sepsis --Wound cultures negative Blood cultures negative so far -- improving Continue on Ceftriaxone plus doxycycline with probiotics Wound care consult Possible discharge on Augmentin plus doxycycline PO to complete 14 day course probiotics on discharge Diarrhea rule out C. difficile History antibiotic Rx --Resolved Bilateral hip joint effusion --Denies symptoms Patient presenting with four episodes of fall within 1 month --Orthopedic service consulted--> no further intervention at this point Consulted PT OT Hypertension improving continue Benazepril, Amlodipine Hyperlipidemia on statin Rx hx WPW as per records hx PVD as per records DM2 insulin requiring, well-controlled as of recent outpatient hemoglobin A1c of 6.08 November 2019 [facility] L sp surgery hypothyroidism, euthyroid as of recent outpatient TSH Mild cognitive impairment as per records (+) confusion episodes likely Delirium, in the setting of infection, early dementia discussed with RN continue to monitor Social service RE discharge planning--> awaiting acceptance to SNF, likely DVT prophylaxis. Heparin subcu Full code Admission and Anticipated Discharge Date Admission Date: February 15, 2020 Subjective ff up for leg wound infection seen resting in bedside chair, confused but reoriented easily denies left leg pain no fever/chills no other new complaints Review of Systems Review of Systems: All systems reviewed & are unremarkable except as noted in Subjective Physical Exam Physical Exam: General- oriented x1, not in distress, speaks in sentences with no effort or accessory muscle use Eyes- anicteric Neck- no JVD Lungs- clear breath sounds bilaterally Heart- normal rate, regular rhythm; no murmurs Abdomen- normal bowel sounds, nondistended, soft, nontender Extremities- left leg wounds healing well less edema, erythema no calf tenderness Neuro- alert, oriented x 1; no gross focal neurologic deficits Skin- warm & dry Results & Data Results & Data ([facility]) Vital Signs (Past 12 Hours) Vital Signs Temp Pulse Resp BP Pulse Ox 02/21/20 15:07 36.8 C 92 H 19 115/70 94 Laboratory Results Laboratory Results - last 24 hr 02/21/20 02/21/20 02/21/20 06:54 07:26 11:25 Sodium 139 Potassium 3.7 Chloride 108 H Carbon Dioxide 26 Anion Gap 5.0 BUN 29 H Creatinine 0.92 Est Cr Clr Drug Dosing 36.1 Est GFR ( Amer) 64.0 Est GFR (Non-Af Amer) 55.2 BUN/Creatinine Ratio 31.1 H Glucose 155 H POC Glucose 144 H 141 H Calcium 10.7 H 02/21/20 02/21/20 16:42 20:05 Sodium Potassium Chloride Carbon Dioxide Anion Gap BUN Creatinine Est Cr Clr Drug Dosing Est GFR ( Amer) Est GFR (Non-Af Amer) BUN/Creatinine Ratio Glucose POC Glucose 166 H 91 Calcium
[2020-02-22] MEDS: LEVOTHYROXINE SODIUM 125 MCG TABLET PO SCH (05:52)
[2020-02-22 07:41] LABS: Hematocrit (blood only) 38.4 % (37-47); Hemoglobin 12.2 g/dL (12.0-16.0); Mean Corpuscular Hemoglobin 29.6 pg (25-34); Mean Corpuscular Hgb Conc 31.8 g/dL (32-36); Mean Corpuscular Volume 93.2 fL (80-100); Platelet Count 290 K/uL (130-400); RDW Coefficient of Variation 15.2 % (11.5-14.5); RDW Standard Deviation 51.6 fL (36.4-46.3); Red Blood Count 4.12 M/uL (4.2-5.4); White Blood Count 8.22 K/uL (4.8-10.8)
[2020-02-22 08:31] LABS: Albumin Level 2.6 gm/dl (3.4-5.0); BUN Creatinine Ratio 27.2 (10-20); Calcium 11.2 mg/dl (8.5-10.1); Creatinine Clr Calc Pharmacy 43.7 ml/min; Est GFR (African American) 80.6; Est GFR (Non-African American) 69.5
[2020-02-22 08:34] LABS: Albumin Globulin Ratio 0.8 (0.9-2); Bilirubin,Total 0.4 mg/dl (0.2-1); Globulin 3.4 gm/dl (2.5-4.0)
[2020-02-22] MEDS: GABAPENTIN 100 MG CAP PO SCH ×3 (09:31→20:37)
[2020-02-22] MEDS: VENLAFAXINE HCL XR 75 MG CAPXR PO SCH (09:31)
[2020-02-22] MEDS: ENALAPRIL MALEATE 10 MG TAB PO SCH (09:31)
[2020-02-22] MEDS: LACTOBACILLUS ACIDOPHILUS (FLORANEX) TAB PO SCH ×4 (09:32→20:30)
[2020-02-22] MEDS: METOPROLOL TARTRATE 25 MG TAB PO SCH ×2 (09:32→20:29)
[2020-02-22] MEDS: AMLODIPINE BESYLATE 5 MG TAB PO SCH (09:33)
[2020-02-22] MEDS: PANTOprazole 40 MG TAB PO SCH ×2 (09:33→20:31)
[2020-02-22] MEDS: DOXYCYCLINE HYCLATE 100 MG CAP PO SCH ×2 (09:33→20:31)
[2020-02-22] MEDS: VENLAFAXINE HCL XR 150 MG CAPXR PO SCH (09:33)
[2020-02-22] MEDS: ASPIRIN 81 MG ECTAB PO SCH (09:33)
[2020-02-22] MEDS: INSULIN ASPART 100 UNITS/ML 3 ML PEN SC SCH ×4 (09:39→20:35)
[2020-02-22] MEDS: HEPARIN SOD 5,000 UNIT/0.5 ML VIAL SQ SCH ×2 (09:39→20:28)
[2020-02-22] MEDS: INSULIN GLARGINE SOLOSTAR 100 UNITS/ML 3 ML PEN SC SCH (09:40)
--- NOTE | 2020-02-22 10:33 | Hospitalist Progress Note ---
Date of Service February 22, 2020 Assessment & Plan (1) Infected abrasion of left leg: -as per Emergency room notes "The patient is an 89-year-old female who presented to the emergency department with a family member for an evaluation of left lower extremity swelling and pain. The patient normally lives at home and utilizes visiting nursing for care. The patient has been having falls frequently. EMS has been to her facility multiple times for evaluation and for helping the patient off the floor. She was evaluated by home health this evening and was felt to be suffering from an infection in the leg. She was referred to the emergency department for further evaluation as well as possible admission for placement. " -no overt sepsis -Wound cultures negative. Blood cultures negative -patient has been on ceftriaxone and doxycycline with probiotics, likely can be switched to oral Augmentin and oral doxycycline when ready for discharge to finish total 14 day course of antibiotics Diarrhea -resolved (2) ARF (acute renal failure): Acute renal failure on CKD 3, renal osteodystrophy Rhabdomyolysis secondary to recurrent falls - Home medications contributory - IV fluids given on this admission and renal function and CPK improved Bilateral hip joint effusion -Denies symptoms -Orthopedic service consulted--> no further intervention at this point -PT/OT evaluations (3) Hypertension: -continue Benazepril, Amlodipine Hyperlipidemia -home dose atorvastatin has been held to minimize chance of recurrent r habdomyolysis Type 2 diabetes mellitus with stage 3 chronic kidney disease, -outpatient hemoglobin A1c of 6.08 November 2019 history of Nttma-Xkqnfqocw-Giuxw (WPW) syndrome as per records history of Peripheral vascular disease (PVD) as per records Hyperparathyroidism (HCC) Hypercalcemia -outpatient primary care notes that patient not interested to follow with endocrinology -inpatient labs with mildly elevated serum calcium above 10 and parathyroid related labs have been ordered on 02/22/2020 Hypothyroidism -euthyroid as of recent outpatient TSH Mild cognitive impairment as per records -cooperative and pleasant Social service on discharge planning for SNF DVT prophylaxis. Heparin subcu Full code Admission and Anticipated Discharge Date Admission Date: February 15, 2020 Subjective Patient seen and examined at bedside. No acute distress. Is pleasant and cooperative. able to eat breakfast for herself. she denies acute pain. no nausea. no vomiting. no chest or abdomen pain or discomforts Review of Systems Review of Systems: All systems reviewed & are unremarkable except as noted in Subjective Physical Exam Constitutional: comfortable Eyes: PERRL, conjunctivae normal, anicteric sclerae EOM intact bilaterally ENMT: external ear and nose normal, oropharynx normal Neck: trachea midline, no thyromegaly normal visual inspection Respiratory: normal respiratory effort, lungs clear to auscultation Cardiovascular: Rate/Rhythm: regular rate Gastrointestinal (Abdomen): normal bowel sounds, soft, nontender, no hepatosplenomegaly Musculoskeletal: Head/Neck/Chest: normocephalic and head atraumatic left leg abrasions in dressing Skin: left leg abrasions in dressing Neurologic: PERRL, EOMI, accommodation nl, no face palsy, no dysarthria Psychiatric: Orientation: alert and cooperative Results & Data Results & Data ([facility]) Vital Signs (Past 12 Hours) Vital Signs Temp Pulse Resp BP BP Pulse Ox 02/22/20 07:13 36.9 C 81 16 150/70 H 92 02/21/20 23:15 36.6 C 72 18 144/81 H 96
[2020-02-22] MEDS: CHOLECALCIFEROL 1,000 UNITS 25 MCG TAB PO SCH (12:50)
[2020-02-22] MEDS ORDERED: D5W AND 1/2NSS 1,000 ML IV SCH (18:00)
[2020-02-22] MEDS: cefTRIAXone SODIUM 1,000 MG in DEXTROSE 5% 50 ML IV SCH (18:29)
[2020-02-22] MEDS: MIRTAZAPINE SOLTAB 15 MG PO SCH (20:28)
[2020-02-23] MEDS: LEVOTHYROXINE SODIUM 125 MCG TABLET PO SCH (05:48)
[2020-02-23] MEDS: METOPROLOL TARTRATE 25 MG TAB PO SCH ×2 (08:05→20:53)
[2020-02-23] MEDS: ASPIRIN 81 MG ECTAB PO SCH (08:05)
[2020-02-23] MEDS: VENLAFAXINE HCL XR 75 MG CAPXR PO SCH (08:05)
[2020-02-23] MEDS: PANTOprazole 40 MG TAB PO SCH ×2 (08:05→20:52)
[2020-02-23] MEDS: AMLODIPINE BESYLATE 5 MG TAB PO SCH (08:06)
[2020-02-23] MEDS: CHOLECALCIFEROL 1,000 UNITS 25 MCG TAB PO SCH (08:09)
[2020-02-23] MEDS: LACTOBACILLUS ACIDOPHILUS (FLORANEX) TAB PO SCH ×4 (08:09→20:51)
[2020-02-23] MEDS: ENALAPRIL MALEATE 10 MG TAB PO SCH (08:10)
[2020-02-23] MEDS: DOXYCYCLINE HYCLATE 100 MG CAP PO SCH (08:10)
[2020-02-23] MEDS: VENLAFAXINE HCL XR 150 MG CAPXR PO SCH (08:10)
[2020-02-23] MEDS: INSULIN GLARGINE SOLOSTAR 100 UNITS/ML 3 ML PEN SC SCH (08:11)
[2020-02-23] MEDS: INSULIN ASPART 100 UNITS/ML 3 ML PEN SC SCH ×4 (08:12→20:54)
[2020-02-23] MEDS: HEPARIN SOD 5,000 UNIT/0.5 ML VIAL SQ SCH ×2 (08:39→20:55)
[2020-02-23] MEDS: GABAPENTIN 100 MG CAP PO SCH ×3 (08:40→20:58)
[2020-02-23 09:08] LABS: Albumin Level 2.5 gm/dl (3.4-5.0); BUN Creatinine Ratio 28.6 (10-20); Calcium 9.9 mg/dl (8.5-10.1); Creatinine Clr Calc Pharmacy 38.2 ml/min; Est GFR (African American) 68.5; Est GFR (Non-African American) 59.1; Potassium 4.2 mmol/L (3.5-5.1)
[2020-02-23 09:10] LABS: Albumin Globulin Ratio 0.7 (0.9-2); Bilirubin,Total 0.4 mg/dl (0.2-1); Globulin 3.4 gm/dl (2.5-4.0); Phosphorus 2.5 mg/dl (2.5-4.9); Total Protein 5.9 gm/dl (6.4-8.2)
--- NOTE | 2020-02-23 12:55 | Hospitalist Progress Note ---
Date of Service February 23, 2020 Assessment & Plan (1) Infected abrasion of left leg: -as per Emergency room notes "The patient is an 89-year-old female who presented to the emergency department with a family member for an evaluation of left lower extremity swelling and pain. The patient normally lives at home and utilizes visiting nursing for care. The patient has been having falls frequently. EMS has been to her facility multiple times for evaluation and for helping the patient off the floor. She was evaluated by home health this evening and was felt to be suffering from an infection in the leg. She was referred to the emergency department for further evaluation as well as possible admission for placement. " -no overt sepsis -Wound cultures negative. Blood cultures negative -patient has been on ceftriaxone and doxycycline with probiotics, likely can be switched to oral Augmentin and oral doxycycline when ready for discharge to finish total 14 day course of antibiotics Diarrhea -resolved (2) ARF (acute renal failure): Acute renal failure on CKD 3, renal osteodystrophy Rhabdomyolysis secondary to recurrent falls - Home medications contributory - IV fluids given on this admission and renal function and CPK improved Bilateral hip joint effusion -Denies symptoms -Orthopedic service consulted--> no further intervention at this point -PT/OT evaluations (3) Hypertension: -continue Benazepril, Amlodipine Hyperlipidemia -home dose atorvastatin has been held to minimize chance of recurrent rhabdomyolysis Type 2 diabetes mellitus with stage 3 chronic kidney disease, -outpatient hemoglobin A1c of 6.08 November 2019 history of Lsevw-Rpbanvdmo-Fajtg (WPW) syndrome as per records history of Peripheral vascular disease (PVD) as per records Hyperparathyroidism (HCC) Hypercalcemia Vitamin D deficiency -outpatient primary care notes that patient not interested to follow with endocrinology -inpatient labs with mildly elevated serum calcium above 10 and parathyroid related labs have been ordered on 02/22/2020. started on vitamin D for vitamin D deficiency and elevate PTH of 120 confirms hyperparathyroidism -some improvements of calcium labs on 02/23/2020 AM after IV fluids -endocrine consult 02/23/2020: "Discussed with Dr. Ramirez. Lack of activity (i.e. laying in the hospital) increases bone turn over leading to the more elevated calcium levels during the hospital stay. Recommended Sensipar 30 mg PO daily x 1 month (no refills) and increased activity (i.e. up and around bearing weight and being as active as possible). Calcium metabolism labs are going to need to be followed up on. Would definitely recommend out pt follow up with endocrinology and certainly with primary care if pt unwilling to see endo for more definitive care regarding hyperparathyroidism." -Sensipar is not available at [facility] and sample case porter to check if this medication can be provided at the nursing facility Hypothyroidism -euthyroid as of recent outpatient TSH Mild cognitive impairment as per records -cooperative and pleasant Social service on discharge planning for SNF DVT prophylaxis. Heparin subcu Full code Admission and Anticipated Discharge Date Admission Date: February 15, 2020 Subjective -inpatient labs with mildly elevated serum calcium above 10 and parathyroid related labs have been ordered on 02/22/2020. started on vitamin D for vitamin D deficiency and elevate PTH of 120 confirms hyperparathyroidism -some improvements of calcium labs on 02/23/2020 AM after IV fluids -endocrine consult 02/23/2020: "Discussed with Dr. Ramirez. Lack of activity (i.e. laying in the hospital) increases bone turn over leading to the more elevated calcium levels during the hospital stay. Recommended Sensipar 30 mg PO daily x 1 month (no refills) and increased activity (i.e. up and around bearing weight and being as active as possible). Calcium metabolism labs are going to need to be followed up on. Would definitely recommend out pt follow up with endocrinology and certainly with primary care if pt unwilling to see endo for more definitive care regarding hyperparathyroidism." -Sensipar is not available at [facility] and sample case porter to check if this medication can be provided at the nursing facility patient and her daughters are updated. patient is generally asymptomatic. she denies any symptoms and have no complaints Review of Systems Review of Systems: All systems reviewed & are unremarkable except as noted in Subjective Physical Exam Constitutional: comfortable Eyes: PERRL, conjunctivae normal, anicteric sclerae EOM intact bilaterally ENMT: external ear and nose normal, oropharynx normal Neck: trachea midline, no thyromegaly normal visual inspection Respiratory: normal respiratory effort, lungs clear to auscultation Cardiovascular: Rate/Rhythm: regular rate Gastrointestinal (Abdomen): normal bowel sounds, soft, nontender, no hepatosplenomegaly Musculoskeletal: Head/Neck/Chest: normocephalic and head atraumatic Neurologic: PERRL, EOMI, accommodation nl, no face palsy, no dysarthria Psychiatric: Orientation: alert and cooperative Results & Data Results & Data ([facility]) Vital Signs (Past 12 Hours) Vital Signs Temp Pulse Resp BP BP Pulse Ox 02/23/20 08:22 77 153/75 H 02/23/20 07:28 36.3 C L 75 18 180/83 H 96 02/23/20 03:54 36.7 C 81 20 152/87 H 93
[2020-02-23] MEDS: cefTRIAXone SODIUM 1,000 MG in DEXTROSE 5% 50 ML IV SCH (18:56)
[2020-02-23] MEDS: MIRTAZAPINE SOLTAB 15 MG PO SCH (20:52)
[2020-02-24] MEDS: LEVOTHYROXINE SODIUM 125 MCG TABLET PO SCH (06:15)
[2020-02-24] MEDS: GABAPENTIN 100 MG CAP PO SCH (08:21)
[2020-02-24] MEDS: ENALAPRIL MALEATE 10 MG TAB PO SCH (08:21)
[2020-02-24] MEDS: METOPROLOL TARTRATE 25 MG TAB PO SCH (08:21)
[2020-02-24] MEDS: ASPIRIN 81 MG ECTAB PO SCH (08:22)
[2020-02-24] MEDS: PANTOprazole 40 MG TAB PO SCH (08:22)
[2020-02-24] MEDS: VENLAFAXINE HCL XR 75 MG CAPXR PO SCH (08:22)
[2020-02-24] MEDS: CHOLECALCIFEROL 1,000 UNITS 25 MCG TAB PO SCH (08:22)
[2020-02-24] MEDS: AMLODIPINE BESYLATE 5 MG TAB PO SCH (08:22)
[2020-02-24] MEDS: LACTOBACILLUS ACIDOPHILUS (FLORANEX) TAB PO SCH ×2 (08:23→11:38)
[2020-02-24] MEDS: INSULIN GLARGINE SOLOSTAR 100 UNITS/ML 3 ML PEN SC SCH (08:25)
[2020-02-24] MEDS: VENLAFAXINE HCL XR 150 MG CAPXR PO SCH (08:28)
[2020-02-24] MEDS: HEPARIN SOD 5,000 UNIT/0.5 ML VIAL SQ SCH (08:30)
[2020-02-24] MEDS: INSULIN ASPART 100 UNITS/ML 3 ML PEN SC SCH ×2 (08:32→11:39)
--- NOTE | 2020-02-24 09:20 | Hospitalist Progress Note ---
Date of Service February 24, 2020 Assessment & Plan (1) Infected abrasion of left leg: -as per Emergency room notes "The patient is an 89-year-old female who presented to the emergency department with a family member for an evaluation of left lower extremity swelling and pain. The patient normally lives at home and utilizes visiting nursing for care. The patient has been having falls frequently. EMS has been to her facility multiple times for evaluation and for helping the patient off the floor. She was evaluated by home health this evening and was felt to be suffering from an infection in the leg. She was referred to the emergency department for further evaluation as well as possible admission for placement. " -no overt sepsis -Wound cultures negative. Blood cultures negative -patient has been on ceftriaxone and doxycycline with probiotics, likely can be switched to oral Augmentin and oral doxycycline when ready for discharge to finish total 14 day course of antibiotics discharge to [facility] for physical therapy Patient has medications sent electronically to [facility] preferred pharmacy for Augmentin 500 mg twice a day and Doxycycline 100 mg twice a day for 5 more days to finish total 14 day antibiotic course for the left leg abrasion/cellulitis. Patient also has Floranex 4 tabs QID to prevent C.difficile while on antibiotics for 5 days also sent electronically Diarrhea -resolved (2) ARF (acute renal failure): Acute renal failure on CKD 3, renal osteodystrophy Rhabdomyolysis secondary to recurrent falls - Home medications contributory - IV fluids given on this admission and renal function and CPK improved Bilateral hip joint effusion -Denies symptoms -Orthopedic service consulted--> no further intervention at this point -PT/OT evaluations (3) Hypertension: -continue Benazepril, Amlodipine Hyperlipidemia -home dose atorvastatin has been held to minimize chance of recurrent rhabdomyolysis. Atorvastatin held for now because of recent hospitalization with rhabdo. This can be re-assessed by outpatient primary care doctor Type 2 diabetes mellitus with stage 3 chronic kidney disease, -outpatient hemoglobin A1c of 6.08 November 2019 history of Eabgr-Jldpuokga-Uivcd (WPW) syndrome as per records history of Peripheral vascular disease (PVD) as per records Hyperparathyroidism (HCC) Hypercalcemia Vitamin D deficiency -outpatient primary care notes that patient not interested to follow with endocrinology -inpatient labs with mildly elevated serum calcium above 10 and parathyroid related labs have been ordered on 02/22/2020. started on vitamin D for vitamin D deficiency and elevate PTH of 120 confirms hyperparathyroidism -some improvements of calcium labs on 02/23/2020 AM after IV fluids -endocrine consult 02/23/2020: "Discussed with Dr. Ramirez. Lack of activity (i.e. laying in the hospital) increases bone turn over leading to the more elevated calcium levels during the hospital stay. Recommended Sensipar 30 mg PO daily x 1 month (no refills) and increased activity (i.e. up and around bearing weight and being as active as possible). Calcium metabolism labs are going to need to be followed up on. Would definitely recommend out pt follow up with endocrinology and certainly with primary care if pt unwilling to see endo for more definitive care regarding hyperparathyroidism." -Sensipar is not available at [facility] and case management rn to check if this m edication can be provided at the nursing facility -Patient also has medication sent for cinacalcet (trade name is Sensipar) of 30 mg daily for 30 trial trial as recommended by inpatient [facility] endocrine Dr. Ramirez. Note that patient has never established formally with an outpatient payroll specialist. Patient would benefit from once a week comprehensive metabolic panel to follow the serum calcium levels while on cinacalet Appointments 03/02/2020 10:20 AM Provider Cinthia Myrick MD Department General Internal Medicine [facility] (Patient should be referred to an payroll specialist either with [facility] or [facility] in regards to treatment of hyperparathyroidism) 03/07/2020 1:00 PM Provider Chantell Campuzano MD Department Dermatology [facility] 03/27/2020 1:20 PM Provider Giovanna Cote MD Department General Internal Medicine [facility] 04/04/2020 1:30 PM Provider Mechelle Givens MD Department Nephrology, [facility] 07/26/2020 10:30 AM Provider Adrien Jara PA-C Department Cardiology, [facility] Hypothyroidism -euthyroid as of recent outpatient TSH Mild cognitive impairment as per records -cooperative and pleasant Admission and Anticipated Discharge Date Admission Date: February 15, 2020 Subjective Patient permitted lab draws to follow calcium levels one more time before planned discharge to [facility]. Patient eager to go there to do physical therapy to help with ambulation. Patient eating her food. She denies any symptoms Review of Systems Review of Systems: All systems reviewed & are unremarkable except as noted in Subjective Physical Exam Constitutional: comfortable Eyes: PERRL, conjunctivae normal, anicteric sclerae EOM intact bilaterally ENMT: external ear and nose normal, oropharynx normal Neck: trachea midline, no thyromegaly normal visual inspection Respiratory: normal respiratory effort, lungs clear to auscultation Cardiovascular: Rate/Rhythm: regular rate Gastrointestinal (Abdomen): normal bowel sounds, soft, nontender, no hepat osplenomegaly Musculoskeletal: Head/Neck/Chest: normocephalic and head atraumatic Extremities: + lower leg abnormality (left leg in dressing) Neurologic: PERRL, EOMI, accommodation nl, no face palsy, no dysarthria Psychiatric: Orientation: alert and cooperative Results & Data Results & Data ([facility]) Vital Signs (Past 12 Hours) Vital Signs Temp Pulse Resp BP BP Pulse Ox 02/24/20 08:38 76 18 147/87 H 02/24/20 00:24 36.9 C 76 18 151/77 H 93
--- NOTE | 2020-02-24 09:21 | Discharge Summary ---
Date of Service February 24, 2020 Admission HPI Per Admitting Provider History obtained from patient, family, and records. History somewhat limited from patient due to marked hearing impairment. Medical history significant for hypertension, hyperlipidemia, WPW as per records, PVD as per records, DM2 insulin requiring, RCCA L sp surgery, CRI (baseline creatinine 1.1), primary hyperparathyroidism as per records, hypothyroidism, mild cognitive impairment as per records. Last confinement January 2019 for generalized weakness and mechanical falls. Last ER visit November 2019 for skin tear on the left lower leg secondary to mechanical fall. Patient discharged on Keflex course. Left leg wound healed well as per patient. Patient had another unwitnessed mechanical fall at her home a few days ago which led to a new open wound on the left lower leg. No headache, no syncope, no chest pain, no S OB. Purulent drainage noted from left leg wound by family today. No fever, no chills. Patient complaining of lower abdominal discomfort with loose stools nonbloody. Patient brought to the ER for evaluation. Medical History as above Surgical History : Nephrectomy left Family History : Hypertension Personal/Social history : Non-smoker, no EtOH intake, maloney's in her younger years, currently lives alone Principal Diagnosis Infected abrasion of left leg Acute renal failure on CKD 3 (Traumatic) Rhabdomyolysis secondary to recurrent falls Type 2 diabetes mellitus Hyperparathyroidism (HCC) Hypercalcemia Vitamin D deficiency Discharge Exam Constitutional comfortable Eyes PERRL, conjunctivae normal, anicteric sclerae EOM intact bilaterally ENMT external ear and nose normal, oropharynx normal Neck trachea midline, no thyromegaly normal visual inspection Respiratory normal respiratory effort, lungs clear to auscultation Cardiovascular Rate/Rhythm: regular rate Gastrointestinal (Abdomen) normal bowel sounds, soft, nontender, no hepatosplenomegaly Musculoskeletal Head/Neck/Chest: normocephalic and head atraumatic Extremities: + lower leg abnormality (left leg in dressing) Neurologic PERRL, EOMI, accommodation nl, no face palsy, no dysarthria Psychiatric Orientation: alert and cooperative Discharge Data Allergies Allergy/AdvReac Type Severity Reaction Status Date / Time warfarin Allergy Mild "Itchy" Verified 02/16/20 13:41 clopidogrel Allergy Unknown ITCHY Verified 02/16/20 13:41 codeine Allergy Unknown Unknown Verified 02/16/20 13:41 meperidine Allergy Unknown Unknown Verified 02/16/20 13:41 Consultations 09/09/20 21:47 ED Decision to Admit Stat 02/16/20 01:43 Consult Case Management - Discharge Planning Routine 02/17/20 08:50 Consult Orthopedic Surgery Routine 02/23/20 07:05 Consult Endocrinology Routine Ordered Studies 02/15/20 20:18 CT head/brain wo con Urgent 02/15/20 23:01 CT abd pelvis wo con Urgent CT tib/fib LT wo con Urgent 02/16/20 01:43 US venous doppler LE LT Urgent Hospital Course (1) Infected abrasion of left leg: -as per Emergency room notes "The patient is an 89-year-old female who presented to the emergency department with a family member for an evaluation of left lower extremity swelling and pain. The patient normally lives at home and utilizes visiting nursing for care. The patient has been having falls frequently. EMS has been to her facility multiple times for evaluation and for helping the patient off the floor. She was evaluated by home health this evening and was felt to be suffering from an infection in the leg. She was referred to the emergency department for further evaluation as well as possible admission for placement. " -no overt sepsis -Wound cultures negative. Blood cultures negative -patient has been on ceftriaxone and doxycycline with probiotics, likely can be switched to oral Augmentin and oral doxycycline when ready for discharge to finish total 14 day course of antibiotics discharge to [facility] for physical therapy Patient has medications sent electronically to [facility] preferred pharmacy for Augmentin 500 mg twice a day and Doxycycline 100 mg twice a day for 5 more days to finish total 14 day antibiotic course for the left leg abrasion/cellulitis. Patient also has Floranex 4 tabs QID to prevent C.difficile while on antibiotics for 5 days also sent electronically Diarrhea -resolved (2) ARF (acute renal failure): Acute renal failure on CKD 3, renal osteodystrophy Rhabdomyolysis secondary to recurrent falls - Home medications contributory - IV fluids given on this admission and renal function and CPK improved Bilateral hip joint effusion -Denies symptoms -Orthopedic service consulted--> no further intervention at this point -PT/OT evaluations (3) Hypertension: -continue Benazepril, Amlodipine Hyperlipidemia -home dose atorvastatin has been held to minimize chance of recurrent rhabdomyolysis. Atorvastatin held for now because of recent hospitalization with rhabdo. This can be re-assessed by outpatient primary care doctor Type 2 diabetes mellitus with stage 3 chronic kidney disease, -outpatient hemoglobin A1c of 6.08 November 2019 history of Eejih-Uavdephew-Pektg (WPW) syndrome as per records history of Peripheral vascular disease (PVD) as per records Hyperparathyroidism (HCC) Hypercalcemia Vitamin D deficiency -outpatient primary care notes that patient not interested to follow with endocrinology -inpatient labs with mildly elevated serum calcium above 10 and parathyroid related labs have been ordered on 02/22/2020. started on vitamin D for vitamin D deficiency and elevate PTH of 120 confirms hyperparathyroidism -some improvements of calcium labs on 02/23/2020 AM after IV fluids -endocrine consult 02/23/2020: "Discussed with Dr. Ramirez. Lack of activity (i.e. laying in the hospital) increases bone turn over leading to the more elevated calcium levels during the hospital stay. Recommended Sensipar 30 mg PO daily x 1 month (no refills) and increased activity (i.e. up and around bearing weight and being as active as possible). Calcium metabolism labs are going to need to be followed up on. Would definitely recommend out pt follow up with endocrinology and certainly with primary care if pt unwilling to see endo for more definitive care regarding hyperparathyroidism." -Sensipar is not available at [facility] and classification case manager to check if this medication can be provided at the nursing facility -Patient also has medication sent for cinacalcet (trade name is Sensipar) of 30 mg daily for 30 trial trial as recommended by inpatient [facility] endocrine Dr. Ramirez. Note that patient has never established formally with an outpatient set off press operator. Patient would benefit from once a week comprehensive metabolic panel to follow the serum calcium levels while on cinacalet Appointments 03/02/2020 10:20 AM Provider Cinthia Myrick MD Department General Internal Medicine [facility] (Patient should be referred to an set off press operator either with [facility] or [facility] in regards to treatment of hyperparathyroidism) 03/07/2020 1:00 PM Provider Chantell Campuzano MD Department Dermatology [facility] 03/27/2020 1:20 PM Provider Giovanna Cote MD Department General Internal Medicine [facility] 04/04/2020 1:30 PM Provider Mechelle Givens MD Department Nephrology, [facility] 07/26/2020 10:30 AM Provider Adrien Jara PA-C Department Cardiology, [facility] Hypothyroidism -euthyroid as of recent outpatient TSH Mild cognitive impairment as per records -cooperative and pleasant Total Time Total Time Spent Total Time Spent (In Minutes): 40 minutes Total Time Includes: Examination of the Patient, Discharge Planning, Medication Reconciliation and Communication With Other Providers Discharge Plan Discharge Items Patient Disposition: Transfer Inpatient Rehab Fac Reason For Visit: ARF, RHABDOMYOLYSIS Discharge Diagnosis: Infected abrasion of left leg Acute renal failure on CKD 3 (Traumatic) Rhabdomyolysis secondary to recurrent falls Type 2 diabetes mellitus Hyperparathyroidism (HCC) Hypercalcemia Vitamin D deficiency Condition on Discharge: Good Activity: Per Instructions section Non-emergency contact: Primary Care Provider and Specialist Call non-emergency contact if: you have any medication questions Follow-up/Referrals: Giovanna Cote MD [Primary Care Provider] - Diet: Carb Consistent or DM2 Addtl Attending Provider Instructions: discharge to [facility] for physical therapy Patient has medications sent electronically to [facility] preferred pharmacy for Augmentin 500 mg twice a day and Doxycycline 100 mg twice a day for 5 more days to finish total 14 day antibiotic course for the left leg abrasion/cellulitis. Patient also has Floranex 4 tabs QID to prevent C.difficile while on antibiotics for 5 days also sent electronically Patient also has medication sent for cinacalcet (trade name is Sensipar) of 30 mg daily for 30 trial trial as recommended by inpatient [facility] Dr. Ramirez. Note that patient has never established formally with an outpatient set off press operator. Patient would benefit from once a week comprehensive metabolic panel to follow the serum calcium levels while on cinacalet Atorvastatin held for now because of recent hospitalization with rhabdo. This can be re-assessed by outpatient primary care doctor Appointments 03/02/2020 10:20 AM Provider Cinthia Myrick MD Department General Internal Medicine [facility] (Patient [facility] be [facility] in regards to treatment of hyperparathyroidism) 03/07/2020 1:00 PM Provider Chantell Campuzano MD Department Dermatology [facility] 03/27/2020 1:20 PM Provider Giovanna Cote MD Department General Internal Medicine [facility] 04/04/2020 1:30 PM Provider Mechelle Givens MD Department Nephrology, [facility] 07/26/2020 10:30 AM Provider Adrien Jara PA-C Department Cardiology, [facility] Pending Studies at Discharge: No Stand-Alone Forms: My [facility] Skilled Items Patient informed of condition?: Yes DNR: No Discharge Level of Care: Acute rehab Communicable Disease: No Discharge Prognosis: Stable Lines: None Urinary Catheter: No Medications and DC Order Prescriptions: New doxycycline hyclate 100 mg Capsule 100 mg PO BID 5 Days Qty: 10 RF: 0 amoxicillin-pot clavulanate 500-125 mg Tablet 1 tab PO BIDM 5 Days Qty: 10 RF: 0 Lactobacillus acidoph-L.bulgar [Floranex] 1 million cell Tablet 4 tab PO QIDM 5 Days Qty: 80 RF: 0 cinacalcet 30 mg tablet 30 mg PO DAILY 30 Days Qty: 30 RF: 0 Continued calcium citrate-vitamin D3 315-200 mg-unit tablet 1 tab PO DAILY RF: 0 ketoconazole 2 % Shampoo 1 applic topical UD RF: 0 Lantus U-100 Insulin 100 unit/mL Solution 30 unit SUBCUT DAILY MDD 40 units RF: 0 amlodipine [Norvasc] 5 mg tablet 5 mg PO QAM RF: 0 aspirin [Aspir-81] 81 mg Tablet,Delayed Release (Dr/Ec) 81 mg PO QAM RF: 0 omeprazole 20 mg capsule,delayed release(DR/EC) 20 mg PO BID RF: 0 mirtazapine 45 mg tablet 45 mg PO HS RF: 0 furosemide [Lasix] 20 mg tablet 20 mg PO DAILY RF: 0 benazepril [Lotensin] 40 mg tablet 40 mg PO QAM RF: 0 fluticasone propionate [Flonase Allergy Relief] 50 mcg/actuation [place],Suspension 2 spray INTRANASAL QAM RF: 0 metoprolol tartrate 25 mg tablet 37.5 mg PO BID RF: 0 omega 8-mht-noy-fish oil [Fish Oil] 1,000 mg (120 mg-180 mg) Capsule 1 cap PO BID RF: 0 alendronate 70 mg Tablet, Effervescent 70 mg PO WK RF: 0 levothyroxine [Synthroid] 125 mcg tablet 62.5 mcg PO QAM RF: 0 albuterol sulfate [Ventolin HFA] 90 mcg/actuation Hfa Aerosol Inhaler 2 puff inhalation QID PRN (Reason: Shortness Of Breath Or Wheezing) RF: 0 Flovent HFA 110 mcg/actuation Hfa Aerosol Inhaler 2 puff inhalation BID RF: 0 venlafaxine 150 mg capsule,extended release 24hr 150 mg PO QAM RF: 0 vitamin E 1,000 unit Capsule 1,000 unit PO DAILY RF: 0 meclizine 25 mg Tablet 12.5 - 25 mg PO TID PRN (Reason: Dizziness) RF: 0 gabapentin 100 mg capsule 200 mg PO TID RF: 0 fluocinonide 0.05 % Solution 1 applic TOPICAL 2XWK RF: 0 Vision Formula(F-E-J-Zn-Se-Cu) 1,000 unit-60 mg-30 unit Tablet 1 tab PO DAILY RF: 0 magnesium oxide 400 mg magnesium Tablet 400 mg PO BID RF: 0 venlafaxine 75 mg capsule,extended release 24hr 75 mg PO QAM RF: 0 alprazolam 0.25 mg tablet 0.25 mg PO BID PRN (Reason: Anxiety) RF: 0 Discontinued atorvastatin [Lipitor] 80 mg tablet 80 mg PO PM RF: 0 garlic 100 mg Tablet 100 mg PO DAILY RF: 0 Discharge Orders: Discharge Order (Routine); Ordered 02/24/20 Ordered By: Jatin Walsh Admission Data Admit Date/Time: 02/15/20 23:01 Attending Provider: Jatin Walsh Admit Provider: Ruiz Ford Primary Care Provider: Giovanna Cote Other Providers: Ruiz Ford ; [facility] ; Gigi Hillman ; [facility] ; [facility] ; Leland Ramirez
[2020-02-24 09:22] LABS: Albumin Level 2.7 gm/dl (3.4-5.0); BUN Creatinine Ratio 26.6 (10-20); Calcium 10.6 mg/dl (8.5-10.1); Creatinine Clr Calc Pharmacy 35.3 ml/min; Est GFR (African American) 62.3; Est GFR (Non-African American) 53.8; Potassium 4.2 mmol/L (3.5-5.1)
[2020-02-24 09:25] LABS: Albumin Globulin Ratio 0.7 (0.9-2); Bilirubin,Total 0.3 mg/dl (0.2-1); Globulin 3.7 gm/dl (2.5-4.0); Total Protein 6.4 gm/dl (6.4-8.2)
[2020-02-24] MEDS ORDERED: AMOXICILLIN/CLAVULANATE 500 MG TAB PO SCH (17:00)
[2020-02-24] MEDS ORDERED: DOXYCYCLINE HYCLATE 100 MG CAP PO SCH (21:00)
== END 2020-02-24 12:44 | DRG 605 ==
LOC: ED 20:01 → SUATTDRO 23:01 → 2W 23:01

== ENCOUNTER 2020-03-17 18:00 | Inpatient (IN) ==
[2020-03-17] MEDS ORDERED: SODIUM CHLORIDE 0.9% 500 ML IV ONE ×2 (18:31→18:36)
[2020-03-17] MEDS ORDERED: DEXAMETHASONE SOD INJ 10 MG/ML VIAL IV ONE (18:36)
[2020-03-17] MEDS ORDERED: ALBUT/IPRATROP 3MG/0.5MG NEB 3 ML VIAL NEB ONE (18:36)
--- NOTE | 2020-03-17 19:07 | XRay Report ---
XR chest 1V portable CLINICAL HISTORY: Chest Pain COMPARISON STUDY: Chest CT December 03, 2011. Chest radiograph February 15, 2020. FINDINGS: Incidental note is made of severe osteoarthritis of the right glenohumeral joint. Spine fus ion hardware is partially imaged. There is no pneumothorax. There are small bilateral pleural effusio ns. Bibasilar opacities are noted. There is interstitial pulmonary edema. Skinfold projects over the left hemithorax. IMPRESSION: 1. Interval development of interstitial pulmonary edema. 2. Small bilateral pleural effusions with bibasilar opacities. ACT 112: Negative or not required by law. Electronically signed by: Stuart Haji M.D. 03/17/2020 7:06 PM
[2020-03-17 19:30] LABS: Basophils # (auto) 0.03 K/uL (0-0.2); Basophils % (auto) 0.4 %; Eosinophils # (auto) 0.18 K/uL (0-0.5); Eosinophils % (auto) 2.3 %; Hematocrit (blood only) 38.3 % (37-47); Hemoglobin 11.9 g/dL (12.0-16.0); Immature Granulocytes # (auto) 0.02 K/uL (0.00-0.02); Immature Granulocytes % (auto) 0.3 %; Lymphocytes # (auto) 1.76 K/uL (1.2-3.4); Lymphocytes % (auto) 22.3 %; Mean Corpuscular Hemoglobin 29.5 pg (25-34); Mean Corpuscular Hgb Conc 31.1 g/dL (32-36); Mean Platelet Volume 8.8 fL (7.4-10.4); Monocytes # (auto) 0.67 K/uL (0.11-0.59); Monocytes % (auto) 8.5 %; Neutrophils # (auto) 5.22 K/uL (1.4-6.5); Neutrophils % (auto) 66.2 %; Platelet Count 283 K/uL (130-400); RDW Coefficient of Variation 15.4 % (11.5-14.5); RDW Standard Deviation 53.9 fL (36.4-46.3); Red Blood Count 4.03 M/uL (4.2-5.4); White Blood Count 7.88 K/uL (4.8-10.8)
--- NOTE | 2020-03-17 19:32 | Emergency Department Note ---
Impression & Plan Pulmonary embolism, Elevated troponin, Pleural effusion, bilateral, Hypoxia ED Provider Note NAME: LIN THOMSON AGE: 89 SEX: F ARRIVES VIA: Ambulance INFORMANT: Patient, ED PROVIDER(S): Laron Montenegro MD CHIEF COMPLAINT: shortness of breath. PLAN: Disposition: Admit MEDICAL DECISION MAKING: The patient is a pleasant 89-year-old woman with a past medical history of hypertension, hyperlipidemia, WPW, PVD, insulin-dependent type 2 diabetes, CKD, primary hyperparathyroidism, hypothyroidism, mild cognitive impairment presents emergency department from her fpc facility at [facility] with worsening cough, congestion, shortness of breath with complaint of chest pain across her chest and abdomen which she reports has been going on for years. Patient is a poor historian. On arrival she is uncomfortable mildly dyspneic but no acute distress, afebrile with respiratory rate in the 30s and hypoxic to 87% on room air. Patient's work of breathing does improve with oxygen. She has scattered wheezes and is diminished at the bases. EKG without overt acute ischemia. Chest x-ray with bibasilar opacities with small pleural effusions as well as interstitial thickening that is suspicious for pulmonary edema. WBC and platelets within normal limits. H/H 11.9/30.3 similar to prior range of values. Chemistry without acidosis. BUN/creatinine > 20 consistent with the patient's clinically dry appearance. Lactate 1.1, within normal limits. Troponin is slightly elevated at 0.067 and BNP is elevated at 5400 without prior for comparison. Procalcitonin is unremarkable. COVID-19 PCR was negative. CTA of the chest did demonstrate nonocclusive pulmonary embolism of the distal segmental, subsegmental level the apical right upper lobe and anterior right upper lobe. Bilateral posterior pleural effusions with partial passive collapse. Additionally, there is a patchy opacity within the right middle lobe that could be atelectasis versus infiltrate. CT of the abdomen pelvis was negative for acute process. On reevaluation the patient did feel improved after initial treatment with dexamethasone and DuoNeb for her bronchospastic component to her symptoms. I did review her findings including her nonocclusive pulmonary embolism. She denies any history of GI bleeding that she is aware of. He is agreeable with plan for admission. Given component of overload on patient's imaging with pleural effusions and pu lmonary edema with additional apparent increased weight gain from her recent admission will give dose of Lasix. Heparin drip ordered without bolus in this elderly patient who is hemodynamically stable. Zosyn and Vancomycin for possible infectious component/pna. Case was discussed with [place]. Weber, [facility] [place], who will evaluate the patient for admission. Triage Nursing notes reviewed and agree them. Prior medical records reviewed Vital Signs: reviewed and remarkable for no significant abnormalities Differential diagnosis: Reactive airway disease, pneumonia, pneumothorax, COPD, CHF, infections, cardiac ischemia, pulmonary embolism, musculoskeletal, gastrointestinal, as well as other pathologies. ER treatment provided: See below Diagnostics interpreted by me: ECG: Sinus rhythm with first-degree AV block, 73 bpm, premature supraventricular complexes, no overt ST elevation or depression, QTC 436, QRS 88. Cardiac Monitoring: An order for continuous cardiac monitoring was placed and demonstrated sinus rhythm with first-degree AV block, 73 bpm, PSVC's Laboratory studies: See below Imaging studies: XR chest 1V portable CLINICAL HISTORY: Chest Pain COMPARISON STUDY: Chest CT December 03, 2011. Chest radiograph February 15, 2020. FINDINGS: Incidental note is made of severe osteoarthritis of the right glenohumeral joint. Spine fusion hardware is partially imaged. There is no pneumothorax. There are small bilateral pleural effusions. Bibasilar opacities are noted. There is interstitial pulmonary edema. Skinfold projects over the left hemithorax. IMPRESSION: 1. Interval development of interstitial pulmonary edema. 2. Small bilateral pleural effusions with bibasilar opacities. STATRAD Preliminary Findings Only See Final Report For Complete Findings CTA CHEST: Motion artifact Findings are concerning for nonocclusive pulmonary embolism at the distal segmental, subsegmental level apical right upper lobe for example axial 190 of series 4 and anterior right upper lobe axial 129 series 4, sagittal 17 No large central or hilar pulmonary embolism The central airways are patent Moderate bilateral posterior layering pleural effusions with associated partial passive collapse, consolidation of the adjacent lower lobes Mild patchy opacity within the right middle lobe may represent atelectasis, cannot exclude developing infiltrate Ectatic thoracic aorta appears within limits Coronary calcifications No pericardial effusion Radiologist: Deshaun Castillo M.D. Study ready at 21:32 and initial results transmitted at 21:49 -- Preliminary Findings Only See Final Report For Complete Findings CT ABDOMEN & PELVIS With Contrast: Normal caliber appendix without secondary signs [place] artifact from spinal hardware Left kidney again is not identified Other abdominal solid organs, gallbladder and abdominal aorta appear within limits No bowel dilation or free air No free fluid Radiologist: Deshaun Castillo M.D. Study ready at 21:41 and initial results transmitted at 21:57 Consultation(s): Dr. Weber, [facility] [place], who will evaluate the patient for admission. HPI: The patient is a pleasant 89-year-old woman with a past medical history of hypertension, hyperlipidemia, WPW, PVD, insulin-dependent type 2 diabetes, CKD, primary hyperparathyroidism, hypothyroidism, mild cognitive impairment presents emergency department from her fpc facility at [facility] with worsening cough, congestion, shortness of breath with complaint of chest pain across her chest and abdomen which she reports has been going on for years. Patient is a poor historian. Denies nausea, vomiting, diarrhea, urinary sx. ROS: See above HPI for pertinent positives & negatives. A total of 10 systems reviewed and were otherwise negative. PAST MEDICAL HISTORY:See Below PAST SURGICAL HISTORY:See Below FAMILY HISTORY:See Below SOCIAL HISTORY:See Below HOME MEDICATIONS:See Below ALLERGIES:See Below VITALS:See Below PHYSICAL EXAMINATION: GENERAL: Awake, alert, uncomfortable-appearing, in no distress HENT: Normocephalic, atraumatic. Oropharynx with dry mucous membranes and otherwise unremarkable. EYES: Normal conjunctiva. Sclera non-icteric. NECK: Supple. No nuchal rigidity. FROM. No JVD. RESPIRATORY: Scattered wheezes and diminished breath sounds at the bases CARDIAC: Regular rate, normal rhythm. Extremities warm and well perfused. Pulses equal. ABDOMEN: Soft, non-distended. No tenderness to palpation. No rebound or guarding. No masses. RECTAL: Deferred. MUSCULOSKELETAL: Chest examination reveals no tenderness. The back is symmetrical on inspection without obvious abnormality. There is no CVA tenderness to palpation. No joint edema. LOWER EXTREMITIES: Calves are equal size bilaterally and non-tender. Scant BLE edema. No discoloration. Healing left lower leg pretibial ulcer. NEURO: Normal sensorium. No sensory or motor deficits noted. SKIN: No rash or jaundice noted. ED COURSE: Critical Care: I have personally spent greater than 45 minutes of critical care time in the direct management of this patient. This includes bedside care, interpretation of diagnostic studies, and testing, discussion with consultants, patient, and family members, and other required patient management activities. This 45 minutes is in excess of all separately billable procedures. Laron Montenegro MD Past Med/Surg History Medical History Anxiety and depression Chronic back pain Chronic nonspecific lung disease Comminuted fracture of right humerus Diabetes mellitus, type II Dyslipidemia GERD (gastroesophageal reflux disease) Hypertension Hypertensive urgency Hypothyroidism LVH (left ventricular hypertrophy) Osteoarthritis Renal cancer WPW (Bruvo-Fcuqdxklt-Uyjiv syndrome) Surgical History History of left nephrectomy History of lumbar surgery [facility] History of total knee arthroplasty bilateral - [facility] Family History Other Diabetes Family history of bone cancer Family history of cancer of larynx Family history of liver cancer Family history of rectal cancer Hypertension Social History Smoking Status: Never smoker Hx Alcohol Use: No Hx Substance Use: No Preferred Language: Zambian Communication Ability: Effective Flight Control Manager Required: No Beliefs That Will Affect Care: None marital status: / Current Living Situation: Alone current occupational status: retired How many Children do You have: 4 Feels Safe at Home: Yes Assistive Devices: None Allergies Allergies Allergy/AdvReac Type Severity Reaction Status Date / Time warfarin Allergy Mild "Itchy" Verified 03/17/20 21:06 clopidogrel Allergy Unknown ITCHY Verified 03/17/20 21:06 codeine Allergy Unknown Unknown Verified 03/17/20 21:06 meperidine Allergy Unknown Unknown Verified 03/17/20 21:06 Home Meds Home Medications Medication Instructions Recorded Confirmed Lantus U-100 Insulin 30 unit SUBCUT DAILY MDD 40 units 06/16/18 03/17/20 alendronate 70 mg PO WK 06/16/18 03/17/20 benazepril [Lotensin] 40 mg PO QAM 06/16/18 03/17/20 fluticasone propionate [Flonase 2 spray INTRANASAL QAM 06/16/18 03/17/20 Allergy Relief] furosemide [Lasix] 20 mg PO DAILY 06/16/18 03/17/20 metoprolol tartrate 37.5 mg PO BID 06/16/18 03/17/20 mirtazapine 45 mg PO HS 06/16/18 03/17/20 omega 5-vqa-njq-fish oil [Fish Oil] 1 cap PO BID 06/16/18 03/17/20 omeprazole 20 mg PO BID 06/16/18 03/17/20 Flovent HFA 2 puff INHALATION BID 01/07/19 03/17/20 albuterol sulfate [Ventolin HFA] 2 puff INHALATION QID PRN 01/07/19 03/17/20 levothyroxine 125 mcg tablet 62.5 mcg PO QAM tab 10/11/19 03/17/20 Vision Formula(J-O-B-Zn-Se-Cu) 1 tab PO DAILY 02/15/20 03/17/20 gabapentin 200 mg PO TID 02/15/20 03/17/20 magnesium oxide 400 mg PO BID 02/15/20 03/17/20 vitamin E 1,000 unit PO DAILY 02/15/20 03/17/20 aspirin 81 mg PO DAILY 03/17/20 03/17/20 docusate sodium 200 mg PO DAILY 03/17/20 03/17/20 ergocalciferol (vitamin D2) 1,250 mcg PO WK 03/17/20 03/17/20 melatonin 2 mg PO HS 03/17/20 03/17/20 menthol-zinc oxide [Calmoseptine] 1 applic TOPICAL QID PRN 03/17/20 03/17/20 venlafaxine 225 mg PO DAILY 03/17/20 03/17/20 Previous Rx's Medication Instructions Recorded cinacalcet 30 mg PO DAILY 30 Days #30 tab 02/24/20 Results & Data (ED) Vital Signs Vital Signs - 24 hr 03/17/20 18:03 03/17/20 18:21 03/17/20 18:56 Temperature 36.7 C Temperature Source Oral Pulse Rate 76 Pulse Rate [Left Finger] 71 Pulse Rate from SpO2 Sensor Pulse Rhythm Regular Pulse Strength Normal Respiratory Rate 30 H Respiratory Effort / Characteristics Labored Short of Breath Labored Non-Labored Spontaneous Respiratory Depth Normal Respiratory Pattern Tachypnea Blood Pressure 162/123 H Blood Pressure Mean 136 Blood Pressure Position Sitting Pulse Oximetry 87 L 100 Oxygen Delivery Method Room Air Nasal Cannula Nasal Cannula Oxygen Flow Rate 3 3 Sepsis Recent Fever Within 48 Hours No Sepsis New/Unexplained Change in Mental Status No Sepsis Action Taken by Nursing No Action Required 03/17/20 19:00 03/17/20 19:30 03/17/20 19:31 Temperature Temperature Source Pulse Rate 72 74 70 Pulse Rate [Left Finger] Pulse Rate from SpO2 Sensor 72 73 68 Pulse Rhythm Pulse Strength Respiratory Rate 26 H 25 H 23 Respiratory Effort / Characteristics Respiratory Depth Respiratory Pattern Blood Pressure 169/93 H Blood Pressure Mean 147 Blood Pressure Position Pulse Oximetry 100 100 100 Oxygen Delivery Method Oxygen Flow Rate Sepsis Recent Fever Within 48 Hours Sepsis New/Unexplained Change in Mental Status Sepsis Action Taken by Nursing 03/17/20 20:00 03/17/20 20:01 03/17/20 20:30 Temperature Temperature Source Pulse Rate 73 79 72 Pulse Rate [Left Finger] Pulse Rate from SpO2 Sensor 72 76 70 Pulse Rhythm Pulse Strength Respiratory Rate 22 21 21 Respiratory Effort / Characteristics Respiratory Depth Respiratory Pattern Blood Pressure 159/81 H 139/75 Blood Pressure Mean 99 82 Blood Pressure Position Pulse Oximetry 100 100 100 Oxygen Delivery Method Oxygen Flow Rate Sepsis Recent Fever Within 48 Hours Sepsis New/Unexplained Change in Mental Status Sepsis Action Taken by Nursing 03/17/20 20:31 03/17/20 21:00 03/17/20 21:01 Temperature Temperature Source Pulse Rate 74 78 72 Pulse Rate [Left Finger] Pulse Rate from SpO2 Sensor 74 78 73 Pulse Rhythm Pulse Strength Respiratory Rate 20 20 20 Respiratory Effort / Characteristics Respiratory Depth Respiratory Pattern Blood Pressure 160/67 H Blood Pressure Mean 68 Blood Pressure Position Pulse Oximetry 100 99 99 Oxygen Delivery Method Oxygen Flow Rate Sepsis Recent Fever Within 48 Hours Sepsis New/Unexplained Change in Mental Status Sepsis Action Taken by Nursing 03/17/20 21:30 03/17/20 21:31 03/17/20 22:00 Temperature Temperature Source Pulse Rate 71 75 72 Pulse Rate [Left Finger] Pulse Rate from SpO2 Sensor 72 76 74 Pulse Rhythm Pulse Strength Respiratory Rate 21 22 Respiratory Effort / Characteristics Respiratory Depth Respiratory Pattern Blood Pressure 170/76 H 174/96 H Blood Pressure Mean 112 150 Blood Pressure Position Pulse Oximetry 96 96 97 Oxygen Delivery Method Oxygen Flow Rate Sepsis Recent Fever Within 48 Hours Sepsis New/Unexplained Change in Mental Status Sepsis Action Taken by Nursing 03/17/20 22:01 03/17/20 23:00 03/17/20 23:30 Temperature Temperature Source Pulse Rate 67 74 103 H Pulse Rate [Left Finger] Pulse Rate from SpO2 Sensor 70 72 90 Pulse Rhythm Pulse Strength Respiratory Rate 24 Respiratory Effort / Characteristics Respiratory Depth Respiratory Pattern Blood Pressure 102/89 Blood Pressure Mean 95 Blood Pressure Position Pulse Oximetry 97 95 89 L Oxygen Delivery Method Nasal Cannula Oxygen Flow Rate 2 Sepsis Recent Fever Within 48 Hours Sepsis New/Unexplained Change in Mental Status Sepsis Action Taken by Nursing 03/17/20 23:31 Temperature Temperature Source Pulse Rate 90 Pulse Rate [Left Finger] Pulse Rate from SpO2 Sensor 80 Pulse Rhythm Pulse Strength Respiratory Rate 24 Respiratory Effort / Characteristics Respiratory Depth Respiratory Pattern Blood Pressure 172/83 H Blood Pressure Mean 140 Blood Pressure Position Pulse Oximetry 91 Oxygen Delivery Method Oxygen Flow Rate Sepsis Recent Fever Within 48 Hours Sepsis New/Unexplained Change in Mental Status Sepsis Action Taken by Nursing Laboratory Data Attestation: I reviewed the patient's lab results. Result diagrams: 03/17/20 19:17 03/17/20 19:17 Lab Results 03/17/20 03/17/20 03/17/20 Range/Units 19:15 19:15 19:17 WBC 7.88 (4.8-10.8) K/uL RBC 4.03 L (4.2-5.4) M/uL Hgb 11.9 L (12.0-16.0) g/dL Hct 38.3 (37-47) % MCV 95.0 (80-100) fL MCH 29.5 (25-34) pg MCHC 31.1 L (32-36) g/dL RDW Std Deviation 53.9 H (36.4-46.3) fL RDW Coeff of Mary 15.4 H (11.5-14.5) % Plt Count 283 (130-400) K/uL MPV 8.8 (7.4-10.4) fL Immature Gran % (Auto) 0.3 % Neut % (Auto) 66.2 % Lymph % (Auto) 22.3 % Amador % (Auto) 8.5 % Eos % (Auto) 2.3 % Baso % (Auto) 0.4 % Neut # (Auto) 5.22 (1.4-6.5) K/uL Lymph # (Auto) 1.76 (1.2-3.4) K/uL [place] # (Auto) 0.67 H (0.11-0.59) K/uL Eos # (Auto) 0.18 (0-0.5) K/uL Baso # (Auto) 0.03 (0-0.2) K/uL Immature Gran # (Auto) 0.02 (0.00-0.02) K/uL PT (9.0-12.0) Seconds INR (0.9-1.1) APTT (21.0-31.0) Seconds PTT Ratio Sodium (136-145) mmol/L Potassium (3.5-5.1) mmol/L Chloride (98-107) mmol/L Carbon Dioxide (21-32) mmol/L Anion Gap (3-11) BUN (7-18) mg/dl Creatinine (0.6-1.2) mg/dl Est Cr Clr Drug Dosing ml/min Est GFR ( Amer) Est GFR (Non-Af Amer) BUN/Creatinine Ratio (10-20) Glucose (70-99) mg/dl Lactate (0.4-2.0) mmol/L Calcium (8.5-10.1) mg/dl Phosphorus (2.5-4.9) mg/dl Magnesium (1.8-2.4) mg/dl Total Bilirubin (0.2-1) mg/dl Direct Bilirubin (0-0.2) mg/dl AST (15-37) U/L ALT (12-78) U/L Alkaline Phosphatase (45-117) U/L Troponin I (0-0.045) ng/ml NT-Pro-B Natriuret Pep (0-1800) pg/ml Total Protein (6.4-8.2) gm/dl Albumin (3.4-5.0) gm/dl Globulin (2.5-4.0) gm/dl Albumin/Globulin Ratio (0.9-2) Lipase (73-393) U/L Procalcitonin (0-0.5) ng/ml TSH (0.300-4.500) uIu/ml COVID-19 Eval Order Covid19 Done at [facility] COVID-19 PCR NEGATIVE (Negative) 03/17/20 03/17/20 03/17/20 Range/Units 19:17 19:17 19:17 WBC (4.8-10.8) K/uL RBC (4.2-5.4) M/uL Hgb (12.0-16.0) g/dL Hct (37-47) % MCV (80-100) fL MCH (25-34) pg MCHC (32-36) g/dL RDW Std Deviation (36.4-46.3) fL RDW Coeff of Mary (11.5-14.5) % Plt Count (130-400) K/uL MPV (7.4-10.4) fL Immature Gran % (Auto) % Neut % (Auto) % Lymph % (Auto) % [place] % (Auto) % Eos % (Auto) % Baso % (Auto) % Neut # (Auto) (1.4-6.5) K/uL Lymph # (Auto) (1.2-3.4) K/uL [place] # (Auto) (0.11-0.59) K/uL Eos # (Auto) (0-0.5) K/uL Baso # (Auto) (0-0.2) K/uL Immature Gran # (Auto) (0.00-0.02) K/uL PT 11.0 (9.0-12.0) Seconds INR 1.0 (0.9-1.1) APTT 20.8 L (21.0-31.0) Seconds PTT Ratio 0.7 Sodium 140 (136-145) mmol/L Potassium 4.6 (3.5-5.1) mmol/L Chloride 108 H (98-107) mmol/L Carbon Dioxide 31 (21-32) mmol/L Anion Gap 1.0 L (3-11) BUN 28 H (7-18) mg/dl Creatinine 1.11 (0.6-1.2) mg/dl Est Cr Clr Drug Dosing 30.5 ml/min Est GFR ( Amer) 51.0 Est GFR (Non-Af Amer) 44.0 BUN/Creatinine Ratio 25.5 H (10-20) Glucose 89 (70-99) mg/dl Lactate 1.1 (0.4-2.0) mmol/L Calcium 9.1 (8.5-10.1) mg/dl Phosphorus 3.2 (2.5-4.9) mg/dl Magnesium 2.3 (1.8-2.4) mg/dl Total Bilirubin 0.3 (0.2-1) mg/dl Direct Bilirubin < 0.1 (0-0.2) mg/dl AST 21 (15-37) U/L ALT 29 (12-78) U/L Alkaline Phosphatase 250 H (45-117) U/L Troponin I 0.067 H* (0-0.045) ng/ml NT-Pro-B Natriuret Pep 5473 H (0-1800) pg/ml Total Protein 7.2 (6.4-8.2) gm/dl Albumin 2.8 L (3.4-5.0) gm/dl Globulin 4.4 H (2.5-4.0) gm/dl Albumin/Globulin Ratio 0.6 L (0.9-2) Lipase 82 (73-393) U/L Procalcitonin (0-0.5) ng/ml TSH 3.240 (0.300-4.500) uIu/ml COVID-19 Eval Order COVID-19 PCR (Negative) 03/17/20 Range/Units 19:17 WBC (4.8-10.8) K/uL RBC (4.2-5.4) M/uL Hgb (12.0-16.0) g/dL Hct (37-47) % MCV (80-100) fL MCH (25-34) pg MCHC (32-36) g/dL RDW Std Deviation (36.4-46.3) fL RDW Coeff of Mary (11.5-14.5) % Plt Count (130-400) K/uL MPV (7.4-10.4) fL Immature Gran % (Auto) % Neut % (Auto) % Lymph % (Auto) % [place] % (Auto) % Eos % (Auto) % Baso % (Auto) % Neut # (Auto) (1.4-6.5) K/uL Lymph # (Auto) (1.2-3.4) K/uL [place] # (Auto) (0.11-0.59) K/uL Eos # (Auto) (0-0.5) K/uL Baso # (Auto) (0-0.2) K/uL Immature Gran # (Auto) (0.00-0.02) K/uL PT (9.0-12.0) Seconds INR (0.9-1.1) APTT (21.0-31.0) Seconds PTT Ratio Sodium (136-145) mmol/L Potassium (3.5-5.1) mmol/L Chloride (98-107) mmol/L Carbon Dioxide (21-32) mmol/L Anion Gap (3-11) BUN (7-18) mg/dl Creatinine (0.6-1.2) mg/dl Est Cr Clr Drug Dosing ml/min Est GFR ( Amer) Est GFR (Non-Af Amer) BUN/Creatinine Ratio (10-20) Glucose (70-99) mg/dl Lactate (0.4-2.0) mmol/L Calcium (8.5-10.1) mg/dl Phosphorus (2.5-4.9) mg/dl Magnesium (1.8-2.4) mg/dl Total Bilirubin (0.2-1) mg/dl Direct Bilirubin (0-0.2) mg/dl AST (15-37) U/L ALT (12-78) U/L Alkaline Phosphatase (45-117) U/L Troponin I (0-0.045) ng/ml NT-Pro-B Natriuret Pep (0-1800) pg/ml Total Protein (6.4-8.2) gm/dl Albumin (3.4-5.0) gm/dl Globulin (2.5-4.0) gm/dl Albumin/Globulin Ratio (0.9-2) Lipase (73-393) U/L Procalcitonin < 0.05 (0-0.5) ng/ml TSH (0.300-4.500) uIu/ml COVID-19 Eval Order COVID-19 PCR (Negative) Administered Medications Heparin Sodium/Dextrose (Heparin Sodium/Dextrose) 25,000 units in 500 mls @ 0.02 mls/hr IV .Q24H [facility]; Protocol Stop: 04/16/20 22:29 Last Admin: 03/17/20 23:13 Dose: 1,000 units/hr, 20 mls/hr Documented by: [id number] Cosigned by: [id number] Vancomycin HCl 1,250 mg/ (Sodium Chloride) 525 mls @ 200 mls/hr IV NOW ONE Stop: 03/18/20 01:58 Last Admin: 03/18/20 00:51 Dose: 200 mls/hr Documented by: [id number] Discontinued Medications Albuterol (Albut/Ipratrop 3mg/0.5mg Neb 3 Ml Vial) 12 ml NEB ONE ONE Stop: 03/17/20 18:37 Last Admin: 03/17/20 18:56 Dose: 12 ml Documented by: [id number] Dexamethasone (Dexamethasone Sod Inj 10 Mg/Ml Vial) 10 mg IV NOW ONE Stop: 03/17/20 18:37 Last Admin: 03/17/20 20:15 Dose: 10 mg Documented by: [id number] Furosemide (Furosemide 40 Mg/4 Ml Vial) 20 mg IV NOW STA Stop: 03/17/20 22:26 Last Admin: 03/17/20 23:14 Dose: 20 mg Documented by: [id number] Sodium Chloride (Nss) 500 mls @ 999 mls/hr IV .Q31M ONE Stop: 03/17/20 19:01 Last Infusion: 03/17/20 21:19 Dose: 0 mls/hr Documented by: [id number] Admin: 03/17/20 20:15 Dose: 999 mls/hr Documented by: [id number] Sodium Chloride (Nss) 500 mls @ 999 mls/hr IV .Q31M ONE Stop: 03/17/20 19:06 Last Infusion: 03/17/20 21:19 Dose: 0 mls/hr Documented by: [id number] Admin: 03/17/20 20:15 Dose: 999 mls/hr Documented by: [id number] Piperacillin Sod/Tazobactam Sod (Zosyn) 4.5 gm in 120 mls @ 240 mls/hr IV NOW ONE Stop: 03/17/20 23:50 Last Admin: 03/18/20 00:18 Dose: 240 mls/hr Documented by: [id number] Ioversol (Optiray 320 125ml) 119 ml IV ONCE ONE Stop: 03/17/20 21:18 Last Admin: 03/17/20 21:18 Dose: 119 ml Documented by: [id number] Discharge Plan Visit Data Chief Complaint: Chest Pain Stated Complaint: CHEST PAIN ED Provider: Laron Montenegro Discharge Problem: Pulmonary embolism, Elevated troponin, Pleural effusion, bilateral, Hypoxia Discharge Instructions Interventions: ED Discharge Assessment Last Done: 03/18/20 00:47
[2020-03-17 19:45] LABS: Partial Thromboplastin Ratio 0.7; Partial Thromboplastin Time 20.8 Seconds (21.0-31.0)
[2020-03-17 19:51] LABS: Alanine Aminotransferase 29 U/L (12-78); Albumin Level 2.8 gm/dl (3.4-5.0); Aspartate Aminotransferase 21 U/L (15-37); BUN Creatinine Ratio 25.5 (10-20); Bilirubin Direct < 0.1 mg/dl (0-0.2); Blood Urea Nitrogen 28 mg/dl (7-18); Calcium 9.1 mg/dl (8.5-10.1); Carbon Dioxide 31 mmol/L (21-32); Chloride 108 mmol/L (98-107); Creatinine Clr Calc Pharmacy 30.5 ml/min; Glucose 89 mg/dl (70-99); Lipase 82 U/L (73-393); Magnesium 2.3 mg/dl (1.8-2.4); Potassium 4.6 mmol/L (3.5-5.1); Sodium 140 mmol/L (136-145)
[2020-03-17 20:14] LABS: Albumin Globulin Ratio 0.6 (0.9-2); Alkaline Phosphatase 250 U/L (45-117); Bilirubin,Total 0.3 mg/dl (0.2-1); Globulin 4.4 gm/dl (2.5-4.0); NT Pro B Type Natriuretic Pept 5473 pg/ml (0-1800); Phosphorus 3.2 mg/dl (2.5-4.9); Total Protein 7.2 gm/dl (6.4-8.2); Troponin I 0.067 ng/ml (0-0.045)
[2020-03-17] MEDS ORDERED: OPTIRAY 320 125ml IV ONE (21:17)
[2020-03-17] MEDS ORDERED: Heparin IV Standard *NO* Bolus IV ONE (22:25)
[2020-03-17] MEDS ORDERED: FUROSEMIDE 40 MG/4 ML VIAL IV STA (22:25)
[2020-03-17] MEDS: HEPARIN SODIUM/DEXTROSE 25,000 UNITS/500 ML BAG IV SCH (23:13)
[2020-03-17] MEDS ORDERED: VANCOMYCIN HCL 1,250 MG in SODIUM CHLORIDE 0.9% 500 ML IV ONE (23:21)
[2020-03-17] MEDS ORDERED: PIPERACILL/TAZOBAC CONSULT ACTIVE PRN (23:21)
[2020-03-17] MEDS ORDERED: PIPERACILLIN/TAZOBACTAM 4.5 GM/120 ML BAG IV ONE (23:21)
[2020-03-17] MEDS ORDERED: VANCOMYCIN CONSULT ACTIVE PRN (23:21)
--- NOTE | 2020-03-17 23:52 | History & Physical Report ---
Date of Service March 17, 2020 Assessment & Plan (1) Acute respiratory failure with hypoxia: Acute respiratory failure with hypoxia/bilateral pneumonia/acute CHF/right upper lobe pulmonary embolism Present on Admission?: Yes (2) Bilateral pneumonia: Vancomycin IV and Zosyn IV per pharmacokinetic monitoring. Duonebs every 4 hours while awake and every 2 hours when necessary. Methylprednisolone 40 mg IV every 8 hours Present on Admission?: Yes (3) Pulmonary embolism: Right upper lobe pulmonary embolism/lower extremity DVT- Continue heparin standard drip per protocol. We will discuss conversion to oral anticoagulation in the a.m. Present on Admission?: Yes (4) DVT of lower extremity (deep venous thrombosis): See above Present on Admission?: Yes (5) Elevated troponin I level: The patient will be admitted to telemetry for serial cardiac enzymes, serial EKG's, cardiac rhythm monitoring and a 2-D echocardiogram with Dopplers. Elevated troponin/CAD/hypertension/WPW- Continue aspirin 81 mg daily, mag oxide 40 mg p.o. twice daily, metoprolol tartrate 37.5 mg p.o. twice daily. Hold benazepril. Given Lasix 20 mg IV in ED. Place on Lasix 40 mg IV every morning Present on Admission?: Yes (6) Acute CHF: See above Present on Admission?: Yes (7) Coronary atherosclerosis of [place] coronary vessel: See above Present on Admission?: Yes (8) WPW (Axwbl-Gtntyrvxc-Tcaep syndrome): See above Present on Admission?: Yes (9) Diabetes mellitus: Reduce Lantus from 30 units to 20 of subcu daily. Placed on Accu-Cheks before meals and at bedtime with NovoLog coverage per scale Present on Admission?: Yes (10) GERD (gastroesophageal reflux disease): Continue omeprazole 20 mg p.o. twice daily Present on Admission?: Yes (11) Renal cancer: Renal cancer/status post left nephrectomy/CKD stage III- Creatinine 1.11 upon admission, with normal range 0.76-1.07. Estimated GFR 44.0. Follow labs serially Present on Admission?: Yes (12) CKD (chronic kidney disease), stage III: See above Present on Admission?: Yes (13) History of left nephrectomy: See above Present on Admission?: Yes (14) Hypothyroidism: Continue levothyroxine 62.5 mcg daily Present on Admission?: Yes History of Present Illness Chief Complaint: The patient was referred from [facility] with worsening cough, congestion, shortness of breath and pain across her chest and abdomen. The patient herself is a poor historian, however, her daughter is present who helps to clarify the HPI and ROS Primary Care Provider: [facility] The patient is an 89-year-old female resident of [facility], with a past medical history including frequent falls, asthma, CAD, diabetes mellitus, colonic diverticulosis, hypercholesterolemia, laryngeal pharyngeal reflux, malignant tumor of renal pelvis, pulmonary nodule, rib fractures, TIA, urinary tract infection, vestibular neuronitis, CKD stage III, status post lumbar surgery, status post total knee arthroplasty, WPW, hypothyroidism, GERD, dyslipidemia, diabetes mellitus type 2, history of left nephrectomy, renal cancer, comminuted fracture of right humerus, hypertension and history of hypertensive urgency. Patient was referred to the emergency department from [facility] due to worsening shortness of breath, complaints of chest pain, worsening cough and dyspnea on exertion. In the emergency department, work-up included the following abnormal laboratories: Troponin 0 0.067, BNP 5473 and albumin 2.8. Of note, the patient was COVID 1019- while in the ED. Imaging studies include CT angiography of the chest which showed right upper lobe subsegmental PEs, bilateral posterior pleural effusions with associated consolidations. In the emergency department, patient received the following treatments: Zosyn 4.5 g IV, vancomycin 1250 mg IV, furosemide 20 mg IV, Decadron 10 mg IV, DuoNeb, normal saline 500 mls x2, and was started on heparin drip standard concentration without bolus Allergies Allergy/AdvReac Type Severity Reaction Status Date / Time warfarin Allergy Mild "Itchy" Verified 03/17/20 21:06 clopidogrel Allergy Unknown ITCHY Verified 03/17/20 21:06 codeine Allergy Unknown Unknown Verified 03/17/20 21:06 meperidine Allergy Unknown Unknown Verified 03/17/20 21:06 Home Medications Home Medications Medication Instructions Recorded Confirmed Type Lantus U-100 Insulin 30 unit SUBCUT DAILY MDD 40 units 06/16/18 03/17/20 History alendronate 70 mg PO WK 06/16/18 03/17/20 History benazepril [Lotensin] 40 mg PO QAM 06/16/18 03/17/20 History fluticasone propionate [Flonase 2 spray INTRANASAL QAM 06/16/18 03/17/20 History Allergy Relief] furosemide [Lasix] 20 mg PO DAILY 06/16/18 03/17/20 History metoprolol tartrate 37.5 mg PO BID 06/16/18 03/17/20 History mirtazapine 45 mg PO HS 06/16/18 03/17/20 History omega 7-dxm-qnk-fish oil [Fish Oil] 1 cap PO BID 06/16/18 03/17/20 History omeprazole 20 mg PO BID 06/16/18 03/17/20 History Flovent HFA 2 puff INHALATION BID 01/07/19 03/17/20 History albuterol sulfate [Ventolin HFA] 2 puff INHALATION QID PRN 01/07/19 03/17/20 Hi story levothyroxine 125 mcg tablet 62.5 mcg PO QAM tab 10/11/19 03/17/20 History Vision Formula(D-D-E-Zn-Se-Cu) 1 tab PO DAILY 02/15/20 03/17/20 History gabapentin 200 mg PO TID 02/15/20 03/17/20 History magnesium oxide 400 mg PO BID 02/15/20 03/17/20 History vitamin E 1,000 unit PO DAILY 02/15/20 03/17/20 History cinacalcet 30 mg PO DAILY 30 Days #30 tab 02/24/20 03/17/20 Rx aspirin 81 mg PO DAILY 03/17/20 03/17/20 History docusate sodium 200 mg PO DAILY 03/17/20 03/17/20 History ergocalciferol (vitamin D2) 1,250 mcg PO WK 03/17/20 03/17/20 History melatonin 2 mg PO HS 03/17/20 03/17/20 History menthol-zinc oxide [Calmoseptine] 1 applic TOPICAL QID PRN 03/17/20 03/17/20 History venlafaxine 225 mg PO DAILY 03/17/20 03/17/20 History Past Med/Surg History Medical History Anxiety and depression Chronic back pain Chronic nonspecific lung disease Comminuted fracture of right humerus Diabetes mellitus, type II Dyslipidemia GERD (gastroesophageal reflux disease) Hypertension Hypertensive urgency Hypothyroidism LVH (left ventricular hypertrophy) Osteoarthritis Renal cancer WPW (Yviqo-Hwxhqgjfz-Tlxgo syndrome) Surgical History History of left nephrectomy History of lumbar surgery [facility] History of total knee arthroplasty bilateral - [facility] Family History Other Diabetes Family history of bone cancer Family history of cancer of larynx Family history of liver cancer Family history of rectal cancer Hypertension Social History Smoking Status: Never smoker Hx Alcohol Use: No Hx Substance Use: No Preferred Language: Indonesian Communication Ability: Effective Manufacturers Agent Required: No Beliefs That Will Affect Care: None marital status: / Current Living Situation: Care Home current occupational status: retired How many Children do You have: 4 Other Information That Helps Us Care for You: No Feels Safe at Home: Yes Safety Concerns: Feels Safe At This Time Assistive Devices: Glasses, Hearing Aid - Bilateral, Walker and Wheelchair Review of Systems 2 Review of Systems: Unobtainable due to mental health condition Physical Exam Physical Exam: The patient is awake, alert , normocephalic and atraumatic, lying in bed with grossly audible congestion but no overt respiratory distress. HEENT--PERRL, EOMI, mucous membranes and oropharynx dry. Neck--supple. No JVD. No bruits. Thyroid normal, trachea midline, no adenopathy. Heart--normal S1 and S2. No murmurs, rubs or gallops. Lungs--coarse breath sounds bilaterally. No respiratory distress, no accessory muscle use. Abdomen--normal bowel sounds and soft. Nontender. Nondistended. Extremities--no cyanosis or clubbing. No edema. Dermatologic--normal skin turgor, normal color, no abnormal lymph nodes, no rash. Neurologic--cranial nerves II through XII grossly intact. Rheumatologic--normal range of motion. Psychiatric--normal affect. Results & Data Results & Data ([facility]) Vital Signs (Past 12 Hours) Vital Signs Temp Pulse Pulse Resp BP Pulse Ox 03/17/20 22:01 67 97 03/17/20 22:00 72 174/96 H 97 03/17/20 21:31 75 22 96 03/17/20 21:30 71 21 170/76 H 96 03/17/20 21:01 72 20 160/67 H 99 03/17/20 21:00 78 20 99 03/17/20 20:31 74 20 100 03/17/20 20:30 72 21 139/75 100 03/17/20 20:01 79 21 100 03/17/20 20:00 73 22 159/81 H 100 03/17/20 19:31 70 23 100 03/17/20 19:30 74 25 H 169/93 H 100 03/17/20 19:00 72 26 H 100 03/17/20 18:56 71 100 03/17/20 18:03 98.1 F 76 30 H 162/123 H 87 L Laboratory Results Laboratory Results WBC 7.88 K/uL (4.8-10.8) 03/17/20 19:17 RBC 4.03 M/uL (4.2-5.4) L 03/17/20 19:17 Hgb 11.9 g/dL (12.0-16.0) L 03/17/20 19:17 Hct 38.3 % (37-47) 03/17/20 19:17 MCV 95.0 fL (80-100) 03/17/20 19:17 MCH 29.5 pg (25-34) 03/17/20 19:17 MCHC 31.1 g/dL (32-36) L 03/17/20 19:17 RDW Std Deviation 53.9 fL (36.4-46.3) H 03/17/20 19:17 RDW Coeff of Mary 15.4 % (11.5-14.5) H 03/17/20 19:17 Plt Count 283 K/uL (130-400) 03/17/20 19:17 MPV 8.8 fL (7.4-10.4) 03/17/20 19:17 Immature Gran % (Auto) 0.3 % 03/17/20 19:17 Neut % (Auto) 66.2 % 03/17/20 19:17 Lymph % (Auto) 22.3 % 03/17/20 19:17 [place] % (Auto) 8.5 % 03/17/20 19:17 Eos % (Auto) 2.3 % 03/17/20 19:17 Baso % (Auto) 0.4 % 03/17/20 19:17 Neut # (Auto) 5.22 K/uL (1.4-6.5) 03/17/20 19:17 Lymph # (Auto) 1.76 K/uL (1.2-3.4) 03/17/20 19:17 [place] # (Auto) 0.67 K/uL (0.11-0.59) H 03/17/20 19:17 Eos # (Auto) 0.18 K/uL (0-0.5) 03/17/20 19:17 Baso # (Auto) 0.03 K/uL (0-0.2) 03/17/20 19:17 Immature Gran # (Auto) 0.02 K/uL (0.00-0.02) 03/17/20 19:17 PT 11.0 Seconds (9.0-12.0) 03/17/20 19:17 INR 1.0 (0.9-1.1) 03/17/20 19:17 APTT 20.8 Seconds (21.0-31.0) L 03/17/20 19:17 PTT Ratio 0.7 03/17/20 19:17 Sodium 140 mmol/L (136-145) 03/17/20 19:17 Potassium 4.6 mmol/L (3.5-5.1) 03/17/20 19:17 Chloride 108 mmol/L (98-107) H 03/17/20 19:17 Carbon Dioxide 31 mmol/L (21-32) 03/17/20 19:17 Anion Gap 1.0 (3-11) L 03/17/20 19:17 BUN 28 mg/dl (7-18) H 03/17/20 19:17 Creatinine 1.11 mg/dl (0.6-1.2) 03/17/20 19:17 Est Cr Clr Drug Dosing 30.5 ml/min 03/17/20 19:17 Est GFR ( Amer) 51.0 03/17/20 19:17 Est GFR (Non-Af Amer) 44.0 03/17/20 19:17 BUN/Creatinine Ratio 25.5 (10-20) H 03/17/20 19:17 Glucose 89 mg/dl (70-99) 03/17/20 19:17 Lactate 1.1 mmol/L (0.4-2.0) 03/17/20 19:17 Calcium 9.1 mg/dl (8.5-10.1) 03/17/20 19:17 Phosphorus 3.2 mg/dl (2.5-4.9) 03/17/20 19:17 Magnesium 2.3 mg/dl (1.8-2.4) 03/17/20 19:17 Total Bilirubin 0.3 mg/dl (0.2-1) 03/17/20 19:17 Direct Bilirubin < 0.1 mg/dl (0-0.2) 03/17/20 19:17 AST 21 U/L (15-37) 03/17/20 19:17 ALT 29 U/L (12-78) 03/17/20 19:17 Alkaline Phosphatase 250 U/L (45-117) H 03/17/20 19:17 Troponin I 0.067 ng/ml (0-0.045) H* 03/17/20 19:17 NT-Pro-B Natriuret Pep 5473 pg/ml (0-1800) H 03/17/20 19:17 Total Protein 7.2 gm/dl (6.4-8.2) 03/17/20 19:17 Albumin 2.8 gm/dl (3.4-5.0) L 03/17/20 19:17 Globulin 4.4 gm/dl (2.5-4.0) H 03/17/20 19:17 Albumin/Globulin Ratio 0.6 (0.9-2) L 03/17/20 19:17 Lipase 82 U/L (73-393) 03/17/20 19:17 Procalcitonin < 0.05 ng/ml (0-0.5) 03/17/20 19:17 TSH 3.240 uIu/ml (0.300-4.500) 03/17/20 19:17 Urine Color Yellow 03/18/20 00:18 Urine Appearance Clear (Clear) 03/18/20 00:18 Urine pH 6.0 (4.5-7.5) 03/18/20 00:18 Ur Specific [place] 1.023 (1.000-1.030) 03/18/20 00:18 Urine Protein Negative (Negative) 03/18/20 00:18 Urine Glucose (UA) Negative (Negative) 03/18/20 00:18 Urine Ketones Negative (Negative) 03/18/20 00:18 Urine Blood Negative (Negative) 03/18/20 00:18 Urine Nitrite Negative (Negative) 03/18/20 00:18 Urine Bilirubin Negative (Negative) 03/18/20 00:18 Urine Urobilinogen Negative (Negative) 03/18/20 00:18 Ur Leukocyte Esterase Negative (Negative) 03/18/20 00:18 Nasal Screen MRSA (PCR) Negative (Negative) 03/18/20 01:10 COVID-19 Eval Order Covid19 Done at [facility] 03/17/20 19:15 COVID-19 PCR NEGATIVE (Negative) 03/17/20 19:15 Diagnostic Findings [place], [place] [phone] XRay Report Patient: LIN THOMSONAdmit Date: 03/17/20 MR#: [id number]: Magdy E MATEO PATTON Acct ID:[id number]: [facility] Date: 1930[facility] Zip: [place] [address] Age: 89Location: ED Sex: FRoom/Bed: Att Phy:Diagnosis: CHEST PAIN [place] [facility]: [facility] Fam Phy:Interpreting Phy: Stuart Haji MD Admit Phy: Ordering Phy: Laron Montenegro M.D. cc: ~ XR chest 1V portable CLINICAL HISTORY: Chest Pain COMPARISON STUDY: Chest CT December 03, 2011. Chest radiograph February 15, 2020. FINDINGS: Incidental note is made of severe osteoarthritis of the right glenohumeral joint. Spine fusion hardware is partially imaged. There is no pneumothorax. There are small bilateral pleural effusions. Bibasilar opacities are noted. There is interstitial pulmonary edema. Skinfold projects over the left hemithorax. IMPRESSION: 1. Interval development of interstitial pulmonary edema. 2. Small bilateral pleural effusions with bibasilar opacities. ACT 112: Negative or not required by law. Electronically signed by: Stuart Haji M.D. 03/17/2020 7:06 PM Dictated: 03/17/201903 Transcribed: 03/17/201903 [facility] Patient: LIN THOMSON (Female) : 32 Status: ER Date: 03/17/20 21:27 Room #: History: worsening shortness of breath and chest pains today Slices: [phone] Priors: Tech: Jackelyn Johnson @ [phone] Exams: CTA CHEST Contrast: IV Amt: 119ml of optiray 320 Accession Numbers: [id number] Preliminary Findings Only See Final Report For Complete Findings CTA CHEST: Motion artifact Findings are concerning for nonocclusive pulmonary embolism at the distal segmental, subsegmental level apical right upper lobe for example axial 190 of series 4 and anterior right upper lobe axial 129 series 4, sagittal 17 No large central or hilar pulmonary embolism The central airways are patent Moderate bilateral posterior layering pleural effusions with associated partial passive collapse, consolidation of the adjacent lower lobes Mild patchy opacity within the right middle lobe may represent atelectasis, cannot exclude developing infiltrate Ectatic thoracic aorta appears within limits Coronary calcifications No pericardial effusion Radiologist: Deshaun Castillo M.D. Study ready at 21:32 and initial results transmitted at 21:49 Communications: Clear Time Type Notes 03/17/20 21:52 Call Doctor Regarding Pulmonary Embolism, called Dr. Montenegro on 03/17 21:52 (-04:00) *This report constitutes a preliminary interpretation only. Non-acute findings felt to be unrelated to the clinical presentation may not be discussed in this report. The study will be interpreted and a final report will be generated by the local Radiologist the following shift. To reach the hospital radiology department call [phone]. If a discrepancy is found between the preliminary and final interpretations of this study, please notify us via our Client Portal at [email or web address].You can also fax this report with a description of the discrepancy, or include the final report, to our daytime fax number [phone].If faxing, please indicate the severity of discrepancy using one of the following categories: [ ] 1 - Agree/Informational [ ] 2 - Unlikely to Affect Management [ ] 3 - Possible Eventual Change of Management [ ] 4 - Probable Immediate Change of Management For all other patient related information, please fax us at [phone]. [id number] [facility] Patient: LIN THOMSON (Female) : 32 Status: ER Date: 03/17/20 21:30 Room #: History: abdominal pains, shortness of breath and chest pains today appendix present Slices: [phone] Priors: Tech: Alex Jackelyn @ [phone] Exams: CT ABDOMEN & PELVIS With Contrast Contrast: IV Amt: 119ml of optiray 320 Accession Numbers: [id number] Preliminary Findings Only See Final Report For Complete Findings CT ABDOMEN & PELVIS With Contrast: Normal caliber appendix without secondary signs [place] artifact from spinal hardware Left kidney again is not identified Other abdominal solid organs, gallbladder and abdominal aorta appear within limits No bowel dilation or free air No free fluid Radiologist: Deshaun Castillo M.D. Study ready at 21:41 and initial results transmitted at 21:57 *This report constitutes a preliminary interpretation only. Non-acute findings felt to be unrelated to the clinical presentation may not be discussed in this report. The study will be interpreted and a final report will be generated by the local Radiologist the following shift. To reach the hospital radiology department call [phone]. If a discrepancy is found between the preliminary and final interpretations of this study, please notify us via our Client Portal at [email or web address].You can also fax this report with a description of the discrepancy, or include the final report, to our [facility] fax number [phone].If faxing, please indicate the severity of discrepancy using one of the following categories: [ ] 1 - Agree/Informational [ ] 2 - Unlikely to Affect Management [ ] 3 - Possible Eventual Change of Management [ ] 4 - Probable Immediate Change of Management For all other patient related information, please fax us at [phone]. [id number] [facility] Patient: LIN THOMSON (Female) : 32 Status: IP Date: 03/18/20 03:10 Room #: 229-2 History: PE Slices: 42 Priors: Tech: Leslie Loomis @ [phone] Exams: US VENOUS BILATERAL LOWER EXTREMITIES Contrast: Accession Numbers: [id number] Preliminary Findings Only See Final Report For Complete Findings US VENOUS BILATERAL LOWER EXTREMITIES: There appears to be occlusive thrombus within the left peroneal vein in the left calf. This is new since the prior study of February 16, 2020. No DVT is seen in the left common femoral, superficial femoral or popliteal veins. No DVT is seen within the right lower extremity. Radiologist: Deshaun Jimenez MD Study ready at 03:13 and initial results transmitted at 03:27 Communications: Clear Time Type Notes 03/18/20 03:43 Call Doctor Regarding Acute DVT, called Dr. Koehler on 03/18 03:42 (-04:00) *This report constitutes a preliminary interpretation only. Non-acute findings felt to be unrelated to the clinical presentation may not be discussed in this report. The study will be interpreted and a final report will be generated by the local Radiologist the following shift. To reach the hospital radiology department call [phone]. If a discrepancy is found between the preliminary and final interpretations of this study, please notify us via our Client Portal at [email or web address].You can also fax this report with a description of the discrepancy, or include the final report, to our daytime fax number [phone].If faxing, please indicate the severity of discrepancy using one of the following categories: [ ] 1 - Agree/Informational [ ] 2 - Unlikely to Affect Management [ ] 3 - Possible Eventual Change of Management [ ] 4 - Probable Immediate Change of Management For all other patient related information, please fax us at [phone]. [id number] Code Status & VTE Plan Code Status Full code VTE Prophylaxis Plan VTE Prophylaxis will be ordered: Yes PG Care Time/CCT Total # of Minutes Spent Total Time Spent with Patient: Total time spent is greater than 50% in coordination of care (as documented) at patient's floor/unit and/or counseling patient: Coding Level of Care Code 30016 Initial Inpt Care Lvl 3 Diagnoses Acute respiratory failure with hypoxia J96.01 Bilateral pneumonia J18.9 Pulmonary embolism I26.99 DVT of lower extremity (deep venous thrombosis) I82.409 Elevated troponin I level R77.8 Acute CHF I50.9 Coronary atherosclerosis of [place] coronary vessel I25.10 WPW (Fvuzt-Xduwebmqz-Mfrpa syndrome) I45.6 Diabetes mellitus E11.9 GERD (gastroesophageal reflux disease) K21.9 Renal cancer C64.9 CKD (chronic kidney disease), stage III N18.3 History of left nephrectomy Z90.5 Hypothyroidism E03.9
[2020-03-18 00:27] LABS: Appearance Urine Clear (Clear); Bilirubin Urine Negative (Negative); Blood Urine Negative (Negative); Color Urine Yellow; Glucose Urine UA Negative (Negative); Ketones Urine Negative (Negative); Leukocyte Esterase Urine Negative (Negative); Nitrite Urine Negative (Negative); Protein Urine Negative (Negative); Specific Gravity Urine 1.023 (1.000-1.030); Urobilinogen Urine Negative (Negative)
[2020-03-18] MEDS ORDERED: MENTHOL-ZINC OXIDE 360 APPLN/120 GM TUBE EXT PRN (01:32)
[2020-03-18] MEDS ORDERED: ACETAMINOPHEN 325 MG TAB PO PRN (01:32)
[2020-03-18] MEDS ORDERED: MAGNESIUM HYDROXIDE SUSP 30 ML UDC PO PRN (01:32)
[2020-03-18] MEDS ORDERED: ONDANSETRON INJ 2 MG/ML 2 ML VIAL IV PRN (01:32)
[2020-03-18] MEDS ORDERED: VANCOMYCIN CONSULT ACTIVE PRN (01:32)
[2020-03-18] MEDS ORDERED: ALUMINUM/MAGNESIUM SUSP 30 ML UDC PO PRN (01:32)
[2020-03-18] MEDS ORDERED: NITROGLYCERIN SL 0.4 MG/TAB TAB SL PRN (01:32)
[2020-03-18] MEDS ORDERED: PIPERACILL/TAZOBAC CONSULT ACTIVE PRN (01:32)
[2020-03-18] MEDS ORDERED: ALBUT/IPRATROP 3MG/0.5MG NEB 3 ML VIAL NEB STA (01:36)
[2020-03-18] MEDS ORDERED: DEXTROSE 50% 50 ML SYRINGE IV PRN ×2 (02:15→19:44)
[2020-03-18] MEDS ORDERED: GLUCAGON FOR INJ 1 MG VIAL IM PRN (02:15)
[2020-03-18] MEDS ORDERED: GLUCOSE 10 TABS/TUBE PO PRN ×2 (02:15→19:44)
[2020-03-18] MEDS ORDERED: GLUCOSE 40% GEL 15 GM TUBE PO PRN ×2 (02:15→19:44)
[2020-03-18] MEDS ORDERED: CARBOHYDRATES FOR HYPOGLYCEMIA PO PRN ×2 (02:15→19:44)
[2020-03-18] MEDS: PANTOprazole 40 MG TAB PO SCH ×3 (03:03→21:34)
[2020-03-18] MEDS: METOPROLOL TARTRATE 25 MG TAB PO SCH ×3 (03:03→21:32)
[2020-03-18] MEDS: MAGNESIUM OXIDE 400 MG TAB PO SCH ×3 (03:04→21:33)
[2020-03-18] MEDS ORDERED: methylPREDNISolone 40 MG in SYRINGE 0 ML IV SCH (05:00)
[2020-03-18 05:51] LABS: Basophils # (auto) 0.01 K/uL (0-0.2); Basophils % (auto) 0.1 %; Eosinophils # (auto) 0.01 K/uL (0-0.5); Eosinophils % (auto) 0.1 %; Hematocrit (blood only) 35.1 % (37-47); Immature Granulocytes # (auto) 0.01 K/uL (0.00-0.02); Immature Granulocytes % (auto) 0.1 %; Lymphocytes # (auto) 0.71 K/uL (1.2-3.4); Lymphocytes % (auto) 8.7 %; Mean Corpuscular Hemoglobin 29.7 pg (25-34); Mean Corpuscular Hgb Conc 31.3 g/dL (32-36); Mean Corpuscular Volume 94.9 fL (80-100); Monocytes # (auto) 0.25 K/uL (0.11-0.59); Monocytes % (auto) 3.1 %; Neutrophils # (auto) 7.13 K/uL (1.4-6.5); Neutrophils % (auto) 87.9 %; Platelet Count 300 K/uL (130-400); RDW Coefficient of Variation 15.4 % (11.5-14.5); RDW Standard Deviation 53.6 fL (36.4-46.3); White Blood Count 8.12 K/uL (4.8-10.8)
[2020-03-18] MEDS: LEVOTHYROXINE SODIUM 125 MCG TABLET PO SCH (05:54)
[2020-03-18] MEDS ORDERED: PIPERACILLIN/TAZOBACTAM 3.375 GM in DEXTROSE 5% 100 ML IV SCH (06:00)
[2020-03-18 06:09] LABS: INR 1.1 (0.9-1.1); Partial Thromboplastin Ratio 1.7; Prothrombin Time 11.1 Seconds (9.0-12.0)
[2020-03-18 06:10] LABS: Partial Thromboplastin Time 47.6 Seconds (21.0-31.0)
[2020-03-18 06:20] LABS: Albumin Level 2.5 gm/dl (3.4-5.0); BUN Creatinine Ratio 25.1 (10-20); Calcium 8.5 mg/dl (8.5-10.1); Est GFR (African American) 45.9; Est GFR (Non-African American) 39.6; Potassium 4.9 mmol/L (3.5-5.1)
[2020-03-18 06:28] LABS: Phosphorus 3.4 mg/dl (2.5-4.9); Troponin I 0.062 ng/ml (0-0.045)
[2020-03-18] MEDS ORDERED: ALBUT/IPRATROP 3MG/0.5MG NEB 3 ML VIAL NEB SCH (07:00)
[2020-03-18] MEDS: GABAPENTIN 100 MG CAP PO SCH ×3 (07:38→21:33)
[2020-03-18] MEDS: ASPIRIN 81 MG CHEW PO SCH (07:39)
[2020-03-18] MEDS: VENLAFAXINE HCL XR 75 MG CAPXR PO SCH (07:41)
[2020-03-18] MEDS: OMEGA-3 (PURIFIED FISH OIL) 1 GM CAP PO SCH ×2 (07:41→21:34)
[2020-03-18] MEDS: TOCOPHERYL, DL-ALPHA 100 UNITS CAP PO SCH (07:42)
[2020-03-18] MEDS: CEROVITE ADV FORMULA TAB PO SCH (07:42)
[2020-03-18] MEDS: TOCOPHERYL, DL-ALPHA 400 UNITS CAP PO SCH (07:42)
[2020-03-18] MEDS: ENALAPRIL MALEATE 10 MG TAB PO SCH (07:43)
[2020-03-18] MEDS: DOCUSATE SODIUM 100 MG CAP PO SCH (07:43)
[2020-03-18] MEDS: FLUTICASONE PROPIONATE NA SPR 16 GM BTL NAE SCH (07:43)
[2020-03-18] MEDS: FLUTICASONE FUROATE 200MCG 14 PUFFS/INHALER INH SCH (07:44)
--- NOTE | 2020-03-18 07:56 | CT Scan Report ---
CT ANGIOGRAM OF THE CHEST; CT SCAN OF THE ABDOMEN AND PELVIS WITH IV CONTRAST CLINICAL HISTORY: Dyspnea. Atypical chest pain. Generalized abdominal pain. COMPARISON STUDY: Chest CT scans dated 12/02/2018 and 12/15/2016. Abdominal CT dated 02/15/2020. TECHNIQUE: Following the IV administration of 119 of Optiray 320, CT angiogram of the chest is perfor med from the upper abdomen to the thoracic inlet utilizing the pulmonary embolus protocol. Images are reviewed in the axial, sagittal, coronal planes. 3-D MIPS images are created and assessed. Subsequen tly, CT scan of the abdomen and pelvis was performed from the lung bases to the proximal femora. Imag es are reviewed in the axial, sagittal, and coronal planes. IV contrast was administered without comp lication. A dose lowering technique was utilized adhering to the principles of ALARA. The examination is degraded by motion artifact and by streak artifact from extensive metallic spinal hardware. CT DOSE: 754.04 mGy.cm FINDINGS: CHEST: Thyroid: Imaged portions of the thyroid gland are normal in size and attenuation. A 12 mm low-attenua tion nodule and an 11 mm calcification are noted in the left lobe. Thoracic aorta: There is atherosclerotic calcification of the thoracic aorta, which is normal in elieser nayana and demonstrates 3-vessel variant arch anatomy. There is a bovine arch, and the left vertebral ar juanita arises directly from the arch. The thoracic aorta is not well opacified by IV contrast. Pulmonary vasculature: The main pulmonary arteries are dilated indicating pulmonary artery hypertensi on. There are no filling defects identified in the main, lobar, or proximal segmental pulmonary arter ies to indicate pulmonary embolus. Evaluation of the peripheral branches is degraded by motion artifa ct. Heart: The heart is enlarged and without pericardial effusion. The coronary arteries are densely calc ified. Lungs and pleural spaces: Evaluation of the lung parenchyma is significantly degraded by motion artif act. Emphysematous change is noted. There are moderate pleural effusions with bibasilar consolidation . There is mild intralobular septal thickening which suggests a component of congestive failure. Mild patchy airspace consolidation is seen in the right middle lobe. There are scattered calcified granul omas. A 3 mm pulmonary nodule at the right apex seen on image #210 is unchanged dating back to 2017 a nd of doubtful significance. The trachea and central airways are clear. Mediastinum: There is no mediastinal lymphadenopathy. Shannon: Clear. Axillae: There is no axillary lymphadenopathy. Bony thorax: The skeletal structures are osteopenic. Advanced arthritic change is seen in the shoulde rs. There are mild compression deformities of T1, T2, T3, T4, T6, and T12. Degenerative change and hy perkyphosis are noted in the thoracic spine. A large hemangioma is noted in the body of T4. There are numerous healed right-sided rib fractures. No lytic or blastic lesions are identified. ABDOMEN AND PELVIS: Liver: The contrast-enhanced liver is normal in size and heterogeneous in attenuation. There is nodul arity of the hepatic surface contour. Fatty infiltration is seen adjacent to falciform ligament. Ther e is no intrahepatic or ductal dilatation. The hepatic veins and portal veins are patent. Gallbladder: Unremarkable. Spleen: Normal in size and attenuation. Pancreas: Moderately atrophic and grossly unremarkable. Adrenal glands: Unremarkable. Kidneys: The left kidney is not identified and presumed surgically absent. The contrast enhanced righ t kidney demonstrate mild cortical atrophy and is without hydronephrosis. The right kidney enhances c ontinuously. Abdominal vasculature: The abdominal aorta is normal in course and caliber noting advanced atheroscle rotic calcification. Bowel: There is mild colonic diverticulosis without CT evidence of acute diverticulitis. No bowel obs truction is identified. Mild fecal retention is noted in the colon. The appendix is well-visualized and normal. Peritoneum: There is no intraperitoneal free air or abdominal ascites. There are fat-containing umbil ical and supraumbilical hernias. Lymphadenopathy: None. Pelvic viscera: The bladder is normal as visualized. Uterine fibroids are suggested. Calcified uterin e fibroids are noted. No adnexal lesion is seen. Skeletal structures: The skeletal structures are osteopenic. There is lumbosacral spondylosis with ex tensive postlaminectomy change throughout the lumbar spine. There has been spinal fusion from T12-S1. No lytic or blastic lesions are seen. Again seen are bilateral hip joint effusions with surrounding inflammation and iliopsoas bursitis. There is a chronic superior endplate compression deformity of L2 . There are healed bilateral pubic ring fractures. IMPRESSION: 1. Streak and motion compromised examination. 2. There is no evidence of pulmonary embolus in the main, lobar, or proximal segmental pulmonary malia gini. The peripheral vessels not well assessed due to significant motion artifact. 3. Cardiomegaly and emphysema with evidence of pulmonary artery hypertension. Intralobular septal thi ckening suggests congestive failure and clinical correlation will be required. 4. Moderate pleural effusions with bibasilar consolidation. 5. Patchy airspace consolidation is seen in the right middle lobe. This could represent a component o f interstitial edema or possibly an infectious/inflammatory pneumonitis. Clinical correlation will be required. 6. There are no acute infectious or inflammatory findings in the abdomen or pelvis. 7. The appearance of the liver suggests early changes of cirrhosis. 8. Colonic diverticulosis without CT evidence of acute diverticulitis. 9. Additional findings as above. ACT 112: Negative or not required by law. Electronically signed by: Giles Veliz M.D. 03/18/2020 7:55 AM
--- NOTE | 2020-03-18 08:10 | Ultrasound Report ---
BILATERAL LOWER EXTREMITY VENOUS DOPPLER CLINICAL HISTORY: PE COMPARISON STUDY: Left lower extremity venous Doppler ultrasound February 16, 2020. Bilateral lower extremity venous Doppler ultrasound July 19, 2016. TECHNIQUE: Sonography of the deep venous system of the bilateral lower extremities was performed. Co mpression and augmentation were evaluated. FINDINGS: The bilateral common femoral, superficial femoral and popliteal veins were compressible. A ugmentation was normal. There is probable thrombus within the left peroneal vein. This was not eviden t on prior ultrasound. IMPRESSION: Probable deep venous thrombus within the left peroneal vein. No additional sites of deep venous thrombus within the lower extremities. ACT 112: Negative or not required by law. Electronically signed by: Stuart Haji M.D. 03/18/2020 8:08 AM
[2020-03-18] MEDS: FUROSEMIDE 40 MG in SYRINGE 0 ML IV SCH (08:16)
[2020-03-18] MEDS: INSULIN GLARGINE SOLOSTAR 100 UNITS/ML 3 ML PEN SQ SCH (08:16)
--- NOTE | 2020-03-18 08:22 | Pulmonary Consultation ---
Date of Consultation March 18, 2020 Assessment & Plan (1) Acute respiratory failure with hypoxia: Impression: 89-year-old female admitted with what appears to be heart failure with bilateral pleural effusions, lower extremity edema, and elevated BNP level. She was incidentally found to have filling defects in the upper lobes which are small and subsegmental and not hemodynamically significant. She was given steroids and antibiotics but I see no evidence of obstructive lung disease or infection and her procalcitonin was negative. Recommendations: 1. Pleural effusions: These are bilateral. Suspect fluid overload. Diastolic dysfunction would be on the differential as well. PE unlikely to be contributing but the patient is fully anticoagulated. No indication for thoracentesis currently. Would continue diuresis although her creatinine has slightly increased. Await echocardiogram 2. Subsegmental PE: This is presents a difficult situation as the patient has had admissions with frequent falls. She is not a great candidate for anticoagulation. Would continue heparin for now. Would have discussion with patient and family members regarding consequences of anticoagulation and potential risk of severe bleeding especially associated with gait instability and falls in this 89-year-old patient. The PE definitely could have contributed to the elevated troponin and BNP however other work-up is appropriate per the hospitalist. Doppler showed clot within the left peroneal vein so holding anticoagulation would also be risky. IVC filter in this patient would require long-term anticoagulation at some point or the filter would increase her risk of DVT in the long run, so that may not be a good option either. 3. No indication for obstructive lung disease and steroids will be discontinued 4. Hypoxemia: Secondary to compressive atelectasis, pleural effusion, PE. Continue to wean oxygen as tolerated We will follow with results of echocardiogram and try to make some additional recommendations based on the data. (2) Acute CHF: (3) Pulmonary embolism: (4) Pleural effusion, bilateral: History of Present Illness Attending Physician: Richi Christine MD History of Present Illness Asked by hospitalist to evaluate this patient with PE, pleural effusion, possible pneumonia. Patient is very hard of hearing. History is obtained from review electronic medical record as well as interview the patient. Patient is an 89-year-old female who resides in a custodial. She was brought to the emergency room with shortness of breath last evening. She was noted to be wheezing. She was given antibiotics and steroids. A CT angiogram was performed which revealed small subsegmental filling defects in the bilateral upper lobes. She was initiated on heparin. She also received broad-spectrum antibiotics. She does not report fevers but has had a cough and feeling of some chest congestion as well as chest and abdominal pain. She had a longstanding history of chest discomfort. Coronavirus testing was negative. BNP was elevated as well as troponin. Echocardiogram is currently pending. She is hemodynamically stable. She does have a history of renal cell carcinoma status post nephrectomy. She was hospitalized about a month ago after a fall with a leg abrasion. Allergies Allergy/AdvReac Type Severity Reaction Status Date / Time warfarin Allergy Mild "Itchy" Verified 03/17/20 21:06 clopidogrel Allergy Unknown ITCHY Verified 03/17/20 21:06 codeine Allergy Unknown Unknown Verified 03/17/20 21:06 meperidine Allergy Unknown Unknown Verified 03/17/20 21:06 Home Medications Home Medications Medication Instructions Recorded Confirmed Type Lantus U-100 Insulin 30 unit SUBCUT DAILY MDD 40 units 06/16/18 03/17/20 History alendronate 70 mg PO WK 06/16/18 03/17/20 History benazepril [Lotensin] 40 mg PO QAM 06/16/18 03/17/20 History fluticasone propionate [Flonase 2 spray INTRANASAL QAM 06/16/18 03/17/20 History Allergy Relief] furosemide [Lasix] 20 mg PO DAILY 06/16/18 03/17/20 History metoprolol tartrate 37.5 mg PO BID 06/16/18 03/17/20 History mirtazapine 45 mg PO HS 06/16/18 03/17/20 History omega 8-mdr-txe-fish oil [Fish Oil] 1 cap PO BID 06/16/18 03/17/20 History omeprazole 20 mg PO BID 06/16/18 03/17/20 History Flovent HFA 2 puff INHALATION BID 01/07/19 03/17/20 History albuterol sulfate [Ventolin HFA] 2 puff INHALATION QID PRN 01/07/19 03/17/20 History levothyroxine 125 mcg tablet 62.5 mcg PO QAM tab 10/11/19 03/17/20 History Vision Formula(O-F-R-Zn-Se-Cu) 1 tab PO DAILY 02/15/20 03/17/20 History gabapentin 200 mg PO TID 02/15/20 03/17/20 History magnesium oxide 400 mg PO BID 02/15/20 03/17/20 History vitamin E 1,000 unit PO DAILY 02/15/20 03/17/20 History cinacalcet 30 mg PO DAILY 30 Days #30 tab 02/24/20 03/17/20 Rx aspirin 81 mg PO DAILY 03/17/20 03/17/20 History docusate sodium 200 mg PO DAILY 03/17/20 03/17/20 History ergocalciferol (vitamin D2) 1,250 mcg PO WK 03/17/20 03/17/20 History melatonin 2 mg PO HS 03/17/20 03/17/20 History menthol-zinc oxide [Calmoseptine] 1 applic TOPICAL QID PRN 03/17/20 03/17/20 History venlafaxine 225 mg PO DAILY 03/17/20 03/17/20 History Patient History Medical History Anxiety and depression Chronic back pain Chronic nonspecific lung disease Comminuted fracture of right humerus Diabetes mellitus, type II Dyslipidemia GERD (gastroesophageal reflux disease) Hypertension Hypertensive urgency Hypothyroidism LVH (left ventricular hypertrophy) Osteoarthritis Renal cancer WPW (Nrepe-Oluwqffpu-Pipca syndrome) Surgical History History of left nephrectomy History of lumbar surgery [facility] History of total knee arthroplasty bilateral - [facility] Family History Other Diabetes Family history of bone cancer Family history of cancer of larynx Family history of liver cancer Family history of rectal cancer Hypertension Social History Smoking Status: Never smoker Hx Alcohol Use: No Hx Substance Use: No Preferred Language: Korean Communication Ability: Effective Photographer Model Required: No Beliefs That Will Affect Care: None marital status: / Current Living Situation: [facility] current occupational status: retired How many Children do You have: 4 Other Information That Helps Us Care for You: No Feels Safe at Home: Yes Safety Concerns: Feels Safe At This Time Assistive Devices: Glasses, Hearing Aid - Bilateral, Walker and Wheelchair Review of Systems Review of Systems: Please refer to admission H&P. No additions or deletions Physical Exam Constitutional: + frail appearing; not ill appearing and not in distress Neck: trachea midline, no thyromegaly Respiratory: normal respiratory effort Decreased breath sounds in the bilateral bases with few crackles. No wheezing Cardiovascular: Rate/Rhythm: + irregularly irregular; not tachycardic Heart Sounds: normal S1 and normal S2; no murmur Extremities: + edema Gastrointestinal (Abdomen): normal bowel sounds, soft, nontender, no hepatosplenomegaly Musculoskeletal: Extremities: extremities normal to inspection Skin: no rashes, warm and dry Neurologic: Nonfocal exam Lymphatic: no cervical lymphadenopathy Results & Data Results & Data ([facility]) Vital Signs (Past 12 Hours) Vital Signs Temp Pulse Pulse Resp BP BP Pulse Ox 03/18/20 07:35 36.5 C 71 20 158/78 H 97 03/18/20 07:05 70 18 98 03/18/20 03:48 36.5 C 65 18 159/79 H 97 03/18/20 01:47 72 20 95 03/18/20 01:15 36.4 C L 92 H 22 182/72 H 88 L 03/18/20 00:01 71 23 94 03/18/20 00:00 70 23 195/89 H 94 03/17/20 23:31 90 24 172/83 H 91 03/17/20 23:30 103 H 89 L 03/17/20 23:00 74 24 102/89 95 03/17/20 22:01 67 97 03/17/20 22:00 72 174/96 H 97 03/17/20 21:31 75 22 96 03/17/20 21:30 71 21 170/76 H 96 03/17/20 21:01 72 20 160/67 H 99 03/17/20 21:00 78 20 99 03/17/20 20:31 74 20 100 03/17/20 20:30 72 21 139/75 100 Laboratory Results 03/18/20 05:15 03/18/20 05:15 BNP over 5000 Troponin minimally elevated Procalcitonin negative Diagnostic Findings CTA independently reviewed. Small subsegmental filling defects in the bilateral upper lobes. Bilateral effusions with cardiomegaly noted. Some compressive atelectasis at the base. PG Care Time/CCT Total # of Minutes Spent Total Time Spent with Patient: Total time spent is greater than 50% in coordination of care (as documented) at patient's floor/unit and/or counseling patient: Coding Level of Care Code 46664 Initial Inpt Care Lvl 3 Diagnoses Acute respiratory failure with hypoxia J96.01 Acute CHF I50.9 Pulmonary embolism I26.99 Pleural effusion, bilateral J90
[2020-03-18] MEDS ORDERED: INSULIN GLARGINE SOLOSTAR 100 UNITS/ML 3 ML PEN SQ SCH (09:00)
[2020-03-18] MEDS ORDERED: FUROSEMIDE 20 MG TAB PO SCH (09:00)
[2020-03-18] MEDS ORDERED: ALBUT/IPRATROP 3MG/0.5MG NEB 3 ML VIAL NEB PRN (10:28)
--- NOTE | 2020-03-18 11:20 | XCELERA ---
[id number]
--- NOTE | 2020-03-18 12:22 | Electrocardiogram Report ---
Test Reason : Blood Pressure : / mmHG Vent. Rate : 073 BPM Atrial Rate : 073 BPM P-R Int : 222 ms QRS Dur : 088 ms QT Int : 396 ms P-R-T Axes : 090 -09 015 degrees QTc Int : 436 ms Sinus rhythm with 1st degree A-V block with Premature supraventricular complexes Otherwise normal ECG When compared with ECG of 27-NOV-2019 23:30, Premature supraventricular complexes are now Present Confirmed by Roddy Andersen ([id number]) on 03/18/2020 12:21:25 PM Referred By: [facility] Confirmed By:Roddy Andersen
--- NOTE | 2020-03-18 12:27 | Electrocardiogram Report ---
Test Reason : Blood Pressure : / mmHG Vent. Rate : 068 BPM Atrial Rate : 065 BPM P-R Int : 000 ms QRS Dur : 084 ms QT Int : 454 ms P-R-T Axes : 000 -40 016 degrees QTc Int : 482 ms Atrial fibrillation Left axis deviation Abnormal ECG When compared with ECG of 17-MAR-2020 20:20, (unconfirmed) Atrial fibrillation has replaced Atrial flutter QRS axis Shifted left Confirmed by Roddy Andersen ([id number]) on 03/18/2020 12:27:13 PM Referred By: [facility] Confirmed By:Roddy Andersen
--- NOTE | 2020-03-18 19:42 | Hospitalist Progress Note ---
Date of Service March 18, 2020 Assessment & Plan (1) Acute respiratory failure with hypoxia: (1) Acute respiratory failure with hypoxia: Acute respiratory failure with hypoxia/bilateral pneumonia/acute CHF/right upper lobe pulmonary embolism Pleural effusion Echocardiogram: Pending Continue Lasix IV Evaluated by pulmonary service, thoracentesis not recommended at this point Monitor Pulmonary embolism: Right upper lobe pulmonary embolism/left lower extremity DVT-peroneal vein Continue heparin standard drip per protocol. Patient not a good candidate for IVC filter per pulmonary service Will discuss with family regarding long-term anticoagulation Bilateral pneumonia: Unlikely Patient denies productive cough, fevers or chills Afebrile, no leukocytosis, procalcitonin normal Discontinue antibiotics at this time Continue to monitor (4) DVT of lower extremity (deep venous thrombosis): See above Present on Admission?: Yes (5) Elevated troponin I level: Likely secondary to demand ischemia, type II Troponin 0.6, 0.6, 0.5 Denies chest pain EKG no signs of acute ischemia or infarct Continue aspirin 81 mg daily, mag oxide 40 mg p.o. twice daily, metoprolol tartrate 37.5 mg p.o. twice daily. Hold benazepril. 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 Placed on Accu-Cheks before meals and at bedtime with NovoLog coverage per scale (10) GERD (gastroesophageal reflux disease): Continue omeprazole 20 mg p.o. twice daily (11) Renal cancer: Renal cancer/status post left nephrectomy/CKD stage III- Creatinine 1.11 upon admission, with normal range 0.76-1.07. Estimated GFR 44.0. Creatinine 1.2, monitor (12) CKD (chronic kidney disease), stage III: Stable (13) History of left nephrectomy: (14) Hypothyroidism: Continue levothyroxine 62.5 mcg daily Present on Admission?: Yes Disposition Pending Admission and Anticipated Discharge Date Admission Date: March 17, 2020 Subjective Follow-up for acute hypoxic respiratory failure, pleural effusion, pulmonary embolism Seen resting in bed, comfortable, not in distress, on 2 L of oxygen via nasal cannula Dates that she feels improved compared to yesterday Has intermittent dry cough No chest pain No bleeding Denies other symptoms Review of Systems Review of Systems: All systems reviewed & are unremarkable except as noted in Subjective Physical Exam Physical Exam: General- oriented x 2, not in distress, speaks in sentences with no effort or accessory muscle use Head- atraumatic Eyes- PERRL, EOMI, anicteric ENT- oropharynx clear Neck- supple, no JVD, no adenopathy, no thyromegaly; carotids +2/2, no bruits appreciated Lungs-decreased breath sounds bilaterally, no wheezing Heart- normal rate, regular rhythm; no murmur, no gallop, no rub appreciated Abdomen- normal bowel sounds, nondistended, soft, nontender, no masses or hepatosplenomegaly Extremities- no pretibial edema, no calf tenderness; peripheral pulses intact Neuro- alert, oriented x 2; CN 2-12 grossly intact; motor 5/5 bilaterally;sensation 100% on all extremities; no other gross focal neurologic deficits Skin- warm & dry Results & Data Results & Data ([facility]) Vital Signs (Past 12 Hours) Vital Signs Temp Pulse Pulse Pulse Resp BP BP 03/18/20 19:15 36.5 C 75 18 170/98 H 03/18/20 16:00 71 03/18/20 15:48 37.4 C 75 22 143/74 H 03/18/20 12:45 37.5 C 69 20 197/83 H 03/18/20 08:00 71 Pulse Ox 03/18/20 19:15 95 03/18/20 16:00 03/18/20 15:48 95 03/18/20 12:45 95 03/18/20 08:00 Laboratory Results Laboratory Results - last 24 hr 03/17/20 03/17/20 03/17/20 19:15 19:17 19:17 WBC RBC Hgb Hct MCV MCH MCHC RDW Std Deviation RDW Coeff of Mary Plt Count MPV Immature Gran % (Auto) Neut % (Auto) Lymph % (Auto) [place] % (Auto) Eos % (Auto) Baso % (Auto) Neut # (Auto) Lymph # (Auto) [place] # (Auto) Eos # (Auto) Baso # (Auto) Immature Gran # (Auto) PT 11.0 INR 1.0 APTT 20.8 L PTT Ratio 0.7 Sodium 140 Potassium 4.6 Chloride 108 H Carbon Dioxide 31 Anion Gap 1.0 L BUN 28 H Creatinine 1.11 Est Cr Clr Drug Dosing 30.5 Est GFR ( Amer) 51.0 Est GFR (Non-Af Amer) 44.0 BUN/Creatinine Ratio 25.5 H Glucose 89 Lactate Calcium 9.1 Phosphorus 3.2 Magnesium 2.3 Total Bilirubin 0.3 Direct Bilirubin < 0.1 AST 21 ALT 29 Alkaline Phosphatase 250 H Troponin I 0.067 H* NT-Pro-B Natriuret Pep 5473 H Total Protein 7.2 Albumin 2.8 L Globulin 4.4 H Albumin/Globulin Ratio 0.6 L Lipase 82 Procalcitonin TSH 3.240 Urine Color Urine Appearance Urine pH Ur Specific [place] Urine Protein Urine Glucose (UA) Urine Ketones Urine Blood Urine Nitrite Urine Bilirubin Urine Urobilinogen Ur Leukocyte Esterase Nasal Screen MRSA (PCR) COVID-19 PCR NEGATIVE 03/17/20 03/17/20 03/18/20 19:17 19:17 00:18 WBC RBC Hgb Hct MCV MCH MCHC RDW Std Deviation RDW Coeff of Mary Plt Count MPV Immature Gran % (Auto) Neut % (Auto) Lymph % (Auto) [place] % (Auto) Eos % (Auto) Baso % (Auto) Neut # (Auto) Lymph # (Auto) [place] # (Auto) Eos # (Auto) Baso # (Auto) Immature Gran # (Auto) PT INR APTT PTT Ratio Sodium Potassium Chloride Carbon Dioxide Anion Gap BUN Creatinine Est Cr Clr Drug Dosing Est GFR ( Amer) Est GFR (Non-Af Amer) BUN/Creatinine Ratio Glucose Lactate 1.1 Calcium Phosphorus Magnesium Total Bilirubin Direct Bilirubin AST ALT Alkaline Phosphatase Troponin I NT-Pro-B Natriuret Pep Total Protein Albumin Globulin Albumin/Globulin Ratio Lipase Procalcitonin < 0.05 TSH Urine Color Yellow Urine Appearance Clear Urine pH 6.0 Ur Specific [place] 1.023 Urine Protein Negative Urine Glucose (UA) Negative Urine Ketones Negative Urine Blood Negative Urine Nitrite Negative Urine Bilirubin Negative Urine Urobilinogen Negative Ur Leukocyte Esterase Negative Nasal Screen MRSA (PCR) COVID-19 PCR 03/18/20 03/18/20 03/18/20 01:10 05:15 05:15 WBC 8.12 RBC 3.70 L Hgb 11.0 L Hct 35.1 L MCV 94.9 MCH 29.7 MCHC 31.3 L RDW Std Deviation 53.6 H RDW Coeff of Mary 15.4 H Plt Count 300 MPV 9.0 Immature Gran % (Auto) 0.1 Neut % (Auto) 87.9 Lymph % (Auto) 8.7 [place] % (Auto) 3.1 Eos % (Auto) 0.1 Baso % (Auto) 0.1 Neut # (Auto) 7.13 H Lymph # (Auto) 0.71 L [place] # (Auto) 0.25 Eos # (Auto) 0.01 Baso # (Auto) 0.01 Immature Gran # (Auto) 0.01 PT 11.1 INR 1.1 APTT 47.6 H* PTT Ratio 1.7 Sodium Potassium Chloride Carbon Dioxide Anion Gap BUN Creatinine Est Cr Clr Drug Dosing Est GFR ( Amer) Est GFR (Non-Af Amer) BUN/Creatinine Ratio Glucose Lactate Calcium Phosphorus Magnesium Total Bilirubin Direct Bilirubin AST ALT Alkaline Phosphatase Troponin I NT-Pro-B Natriuret Pep Total Protein Albumin Globulin Albumin/Globulin Ratio Lipase Procalcitonin TSH Urine Color Urine Appearance Urine pH Ur Specific [place] Urine Protein Urine Glucose (UA) Urine Ketones Urine Blood Urine Nitrite Urine Bilirubin Urine Urobilinogen Ur Leukocyte Esterase Nasal Screen MRSA (PCR) Negative COVID-19 PCR 03/18/20 03/18/20 03/18/20 05:15 05:15 12:46 WBC RBC Hgb Hct MCV MCH MCHC RDW Std Deviation RDW Coeff of Mary Plt Count MPV Immature Gran % (Auto) Neut % (Auto) Lymph % (Auto) [place] % (Auto) Eos % (Auto) Baso % (Auto) Neut # (Auto) Lymph # (Auto) [place] # (Auto) Eos # (Auto) Baso # (Auto) Immature Gran # (Auto) PT INR APTT Cancelled PTT Ratio Cancelled Sodium 139 Potassium 4.9 Chloride 107 Carbon Dioxide 29 Anion Gap 3.0 BUN 30 H Creatinine 1.21 H Est Cr Clr Drug Dosing 28.0 Est GFR ( Amer) 45.9 Est GFR (Non-Af Amer) 39.6 BUN/Creatinine Ratio 25.1 H Glucose 296 H Lactate Calcium 8.5 Phosphorus 3.4 Magnesium 2.0 Total Bilirubin Direct Bilirubin AST ALT Alkaline Phosphatase Troponin I 0.062 H* 0.059 H* NT-Pro-B Natriuret Pep Total Protein Albumin 2.5 L Globulin Albumin/Globulin Ratio Lipase Procalcitonin TSH Urine Color Urine Appearance Urine pH Ur Specific [place] Urine Protein Urine Glucose (UA) Urine Ketones Urine Blood Urine Nitrite Urine Bilirubin Urine Urobilinogen Ur Leukocyte Esterase Nasal Screen MRSA (PCR) COVID-19 PCR
[2020-03-18] MEDS ORDERED: GLUCAGON FOR INJ 1 MG VIAL SQ PRN (19:44)
[2020-03-18] MEDS ORDERED: PHARMACY GLYCEMIC MGMT CONSULT PRN (19:58)
[2020-03-18] MEDS ORDERED: VANCOMYCIN HCL 1,000 MG in SODIUM CHLORIDE 0.9% 250 ML IV SCH (20:00)
[2020-03-18] MEDS: INSULIN ASPART 100 UNITS/ML 3 ML PEN SC SCH (21:30)
[2020-03-18] MEDS: MIRTAZAPINE SOLTAB 15 MG PO SCH (21:33)
[2020-03-18] MEDS: HEPARIN SODIUM/DEXTROSE 25,000 UNITS/500 ML BAG IV SCH (21:42)
[2020-03-18] MEDS: MELATONIN 3 MG TAB PO SCH (21:47)
[2020-03-19] MEDS: LEVOTHYROXINE SODIUM 125 MCG TABLET PO SCH (05:45)
[2020-03-19 07:43] LABS: Basophils # (auto) 0.02 K/uL (0-0.2); Basophils % (auto) 0.2 %; Eosinophils # (auto) 0.19 K/uL (0-0.5); Eosinophils % (auto) 1.8 %; Hematocrit (blood only) 36.3 % (37-47); Hemoglobin 11.2 g/dL (12.0-16.0); Immature Granulocytes # (auto) 0.02 K/uL (0.00-0.02); Immature Granulocytes % (auto) 0.2 %; Lymphocytes # (auto) 2.42 K/uL (1.2-3.4); Lymphocytes % (auto) 23.3 %; Mean Corpuscular Hemoglobin 29.3 pg (25-34); Mean Corpuscular Hgb Conc 30.9 g/dL (32-36); Mean Platelet Volume 8.7 fL (7.4-10.4); Monocytes % (auto) 8.7 %; Neutrophils # (auto) 6.85 K/uL (1.4-6.5); Neutrophils % (auto) 65.8 %; Platelet Count 307 K/uL (130-400); RDW Coefficient of Variation 15.4 % (11.5-14.5); RDW Standard Deviation 53.9 fL (36.4-46.3); Red Blood Count 3.82 M/uL (4.2-5.4)
[2020-03-19 08:06] LABS: Partial Thromboplastin Ratio 1.9
[2020-03-19 08:07] LABS: Partial Thromboplastin Time 52.7 Seconds (21.0-31.0)
[2020-03-19] MEDS: INSULIN ASPART 100 UNITS/ML 3 ML PEN SC SCH ×4 (08:07→21:54)
[2020-03-19] MEDS: ENALAPRIL MALEATE 10 MG TAB PO SCH (08:08)
[2020-03-19] MEDS: CEROVITE ADV FORMULA TAB PO SCH (08:08)
[2020-03-19] MEDS: FLUTICASONE FUROATE 200MCG 14 PUFFS/INHALER INH SCH (08:08)
[2020-03-19] MEDS: PANTOprazole 40 MG TAB PO SCH ×2 (08:08→21:32)
[2020-03-19] MEDS: TOCOPHERYL, DL-ALPHA 100 UNITS CAP PO SCH (08:08)
[2020-03-19] MEDS: GABAPENTIN 100 MG CAP PO SCH ×3 (08:09→21:32)
[2020-03-19] MEDS: ERGOCALCIFEROL 50,000 UNITS CAP PO SCH (08:09)
[2020-03-19] MEDS: VENLAFAXINE HCL XR 75 MG CAPXR PO SCH (08:09)
[2020-03-19] MEDS: DOCUSATE SODIUM 100 MG CAP PO SCH (08:09)
[2020-03-19] MEDS: ASPIRIN 81 MG CHEW PO SCH (08:09)
[2020-03-19] MEDS: INSULIN GLARGINE SOLOSTAR 100 UNITS/ML 3 ML PEN SQ SCH (08:10)
[2020-03-19] MEDS: METOPROLOL TARTRATE 25 MG TAB PO SCH ×2 (08:10→21:33)
[2020-03-19] MEDS: FLUTICASONE PROPIONATE NA SPR 16 GM BTL NAE SCH (08:10)
[2020-03-19] MEDS: MAGNESIUM OXIDE 400 MG TAB PO SCH ×2 (08:11→21:33)
[2020-03-19] MEDS: TOCOPHERYL, DL-ALPHA 400 UNITS CAP PO SCH (08:11)
[2020-03-19 08:12] LABS: Albumin Level 2.5 gm/dl (3.4-5.0); BUN Creatinine Ratio 29.7 (10-20); Calcium 9.2 mg/dl (8.5-10.1); Est GFR (African American) 53.9; Est GFR (Non-African American) 46.5; Magnesium 2.3 mg/dl (1.8-2.4); Potassium 3.8 mmol/L (3.5-5.1)
[2020-03-19] MEDS: FUROSEMIDE 40 MG in SYRINGE 0 ML IV SCH ×2 (08:12→21:32)
[2020-03-19] MEDS: OMEGA-3 (PURIFIED FISH OIL) 1 GM CAP PO SCH ×2 (08:13→21:33)
[2020-03-19 08:20] LABS: Troponin I 0.062 ng/ml (0-0.045)
--- NOTE | 2020-03-19 08:51 | XRay Report ---
XR chest 1V portable CLINICAL HISTORY: Respiratory difficulty COMPARISON STUDY: 03/17/2020 FINDINGS: The heart remains enlarged. There is worsening pulmonary edema with enlarging bilateral ple ural effusions. There are associated basilar airspace opacities likely atelectatic although a superim posed pneumonia cannot be excluded.[ IMPRESSION: Worsening congestive failure and interstitial pulmonary edema with enlarging bilateral pl eural effusions. ACT 112: Negative or not required by law. Electronically signed by: Amor Paniting M.D. 03/19/2020 8:50 AM
--- NOTE | 2020-03-19 12:25 | Pulmonology Progress Note ---
Date of Service March 19, 2020 Assessment & Plan (1) Pulmonary embolism: CTA 03/17/2020 personally reviewed: Moderate to large bilateral pleural effusion, bilateral lower lobe atelectasis, no clear pulmonary embolism appreciated. --Bilateral pleural effusion 2D echo 03/18/2020 showed good ejection fraction. No comment on diastolic dysfunction With bilateral lower lobe atelectasis Procalcitonin negative. Bilateral pleural effusions usually are from cardiac origin. Diastolic dysfunct ion is playing a role. Patient is in no acute distress. She is diuresing. --Acute hypoxic respiratory failure Secondary to diastolic CHF with pleural effusions Plan as above Plan: Chest x-ray 03/19/2020: Portable film, again bilateral pleural effusions are appreciated. CTA done 03/17/2020 was personally reviewed as well as discussed with radiologist. There was no pulmonary embolism identified. Patient did have peroneal vein thrombosis. This could be monitored with repeat ultrasound. There was no deep vein thrombosis on the ultrasound. Given the significant history of fall and high risk of bleeding. It is okay to discontinue heparin drip from pulmonary perspective. I will increase the Lasix to 40 mg every 12 hours. Patient's blood pressure has been in the high 160s to 180s systolic. Needs better control. I discussed the possibility of thoracentesis with the patient. She is not very keen to have it done and would like it to be taken care of by medications. Continue aggressive diuresis. Add incentive spirometry Case was discussed with hospitalist Dr Christine. Please note the above document was generated using voice recognition software. It may contain grammatical, syntax or spelling errors.Any formal questions or concerns about the content, text or information contained within the body of this dictation should be directly addressed to the provider for clarification. (2) Pleural effusion, bilateral: (3) Hypoxia: Admission and Anticipated Discharge Date Admission Date: March 17, 2020 Subjective Patient seen and examined at bedside. No acute distress, no adverse events overnight. Patient was sleeping prior to examination. Patient states that she is feeling better since coming to the hospital. She is urinating well. Denies any chest pain, no dizziness, no nausea or vomiting. No chest pain. Review of Systems Review of Systems: All systems reviewed & are unremarkable except as noted in Subjective Physical Exam Physical Exam: Constitutional: No acute distress HEENT: EOMI, PERRLA, arcus anulus bilaterally Respiratory system: Decreased air entry bilaterally, positive crackles bilateral lower lobes, no wheeze, no rhonchi CVS: S1-S2 positive, distant heart sounds Abdomen: Soft, nontender, nondistended, positive bowel sounds x4 Extremities: +2 pulses bilaterally radialis/ dorsalis pedis, no cyanosis, +1 edema bilateral lower extremity, chronic dermatitis appreciated bilateral Neuro: Awake alert oriented x3 Psych: Normal mood and affect G/U: No Bailey Results & Data Results & Data ([facility]) Vital Signs (Past 12 Hours) Vital Signs Temp Pulse Pulse Resp BP Pulse Ox 03/19/20 11:49 36.5 C 74 18 187/85 H 94 03/19/20 08:00 55 L 03/19/20 06:45 36.5 C 74 18 180/83 H 95 03/19/20 04:15 36.4 C L 66 16 168/69 H 96 03/19/20 07:23 03/19/20 07:23 PG Care Time/CCT Total # of Minutes Spent Total Time Spent with Patient: Total time spent is greater than 50% in coordination of care (as documented) at patient's floor/unit and/or counseling patient: Coding Level of Care Code 07441 Subseq Hosp Care Lvl 3 Diagnoses Pulmonary embolism I26.99 Pleural effusion, bilateral J90 Hypoxia R09.02
--- NOTE | 2020-03-19 14:24 | Pharmacy Report ---
Pharmacy Glycemic Short Note 2 - Date of Service March 19, 2020 - Glycemic Short BSG Results (Last 24 hours): 03/18/20 03/19/20 03/19/20 20:44 07:10 07:23 Glucose 80 POC Glucose 106 H 92 03/19/20 11:31 Glucose POC Glucose 95 OUTPATIENT ANTIDIABETIC REGIMEN: * 6.3% 02/27/20 * Lantus 30 units daily ASSESSMENT: * MS is admitted with PE and acute respiratory failure. Patient did receive a dose of dexamethasone in the ED on 03/17 and solumedrol on 03/18- steroids have since been discontinued. * Initiated on 20 units of lantus daily and weight based stress of 2 novolog. * BSGs today 92-95 mg/dL. Will continue current parameters. PLAN FOR INPATIENT GLYCEMIC CONTROL: * Hold outpatient oral diabetes medications * Basal insulin * Lantus 20 units SQ daily * Bolus insulin * NovoLog per scale ACHS or Q6hrs while NPO * Goal Range: Low 140 mg/dL - High 180 mg/dL * Correction Factor: 35 mg/dL/unit * Nutritional / Prandial insulin per carb ratio of 1 unit per 11 grams CHO consumed PLAN FOR DISCHARGE: * A1c 6.3% on outpatient regimen. Anticipate patient will be able to resume once discharged.
[2020-03-19] MEDS ORDERED: hydrALAZINE HCL 20 MG/ML VIAL IV PRN (14:35)
[2020-03-19] MEDS ORDERED: amLODIPine BESYLATE 5 MG TAB PO ONE (14:35)
--- NOTE | 2020-03-19 15:31 | Hospitalist Progress Note ---
Date of Service delayed entry date of Service below March 19, 2020 Assessment & Plan (1) Acute respiratory failure with hypoxia: (1) Acute respiratory failure with hypoxia: Secondary to bilateral pleural effusion, Pleural effusion Echocardiogram: EF 65 to 70%, moderate concentric LVH Continue Lasix IV Evaluated by pulmonary service, thoracentesis not recommended at this point Pulmonary embolism, left peroneal vein DVT Based on initial CT angiogram interpretation, right upper lobe pulmonary embolism Doppler ultrasound: Left lower extremity DVT-peroneal vein Case discussed with pulmonology Dr. Fermin--> no PE Stop heparin drip For the peroneal vein DVT, repeat Doppler ultrasound in 1 week Bilateral pneumonia, unlikely Patient denies productive cough, fevers or chills Afebrile, no leukocytosis, procalcitonin normal Discontinue antibiotics at this time Continue to monitor (4) DVT of lower extremity (deep venous thrombosis): See above Present on Admission?: Yes (5) Elevated troponin I level: Likely secondary to demand ischemia, type II Troponin 0.6, 0.6, 0.5 Denies chest pain EKG no signs of acute ischemia or infarct Continue aspirin 81 mg daily, mag oxide 40 mg p.o. twice daily, metoprolol tartrate 37.5 mg p.o. twice daily. 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 Placed on Accu-Cheks before meals and at bedtime with NovoLog coverage per scale (10) GERD (gastroesophageal reflux disease): Continue omeprazole 20 mg p.o. twice daily (11) Renal cancer: Renal cancer/status post left nephrectomy/CKD stage III- Creatinine 1.11 upon admission, with normal range 0.76-1.07. Estimated GFR 44.0. Creatinine 1.2, monitor (12) CKD (chronic kidney disease), stage III: Stable (13) History of left nephrectomy: (14) Hypothyroidism: Continue levothyroxine 62.5 mcg daily Present on Admission?: Yes Disposition Patient is a resident of [facility] Anticipate return to [facility] when patient is medically stable Admission and Anticipated Discharge Date Admission Date: March 17, 2020 Subjective Follow-up for acute hypoxic respiratory failure, pleural effusions, etc. Seen resting in bed, comfortable, not in distress, in good spirits States she continues to feel improved Breathing improving No cough, fever chills, chest pain No bleeding No other symptom Review of Systems Review of Systems: All systems reviewed & are unremarkable except as noted in Subjective Physical Exam Physical Exam: General- oriented x 3, not in distress, speaks in sentences with no effort or accessory muscle use Eyes- anicteric Neck- no JVD Lungs-decreased breath sounds bilateral bases No wheezing Heart- normal rate, regular rhythm; no murmurs Abdomen- normal bowel sounds, nondistended, soft, nontender Extremities-trace lower leg edema, no calf tenderness Neuro- alert, oriented x 3; no gross focal neurologic deficits Skin- warm & dry Results & Data Results & Data ([facility]) Vital Signs (Past 12 Hours) Vital Signs Temp Pulse Pulse Resp BP Pulse Ox 03/19/20 15:26 36.8 C 72 18 171/65 H 96 03/19/20 11:49 36.5 C 74 18 187/85 H 94 03/19/20 08:00 55 L 03/19/20 06:45 36.5 C 74 18 180/83 H 95 03/19/20 04:15 36.4 C L 66 16 168/69 H 96 Laboratory Results Noted and reviewed
--- NOTE | 2020-03-19 16:05 | Electrocardiogram Report ---
Test Reason : Blood Pressure : / mmHG Vent. Rate : 054 BPM Atrial Rate : 000 BPM P-R Int : 000 ms QRS Dur : 086 ms QT Int : 470 ms P-R-T Axes : 000 -24 003 degrees QTc Int : 445 ms Possible Atrial flutter with variable A-V block Minimal voltage criteria for LVH, may be normal variant Abnormal ECG When compared with ECG of 18-MAR-2020 07:31, Non-specific change in ST segment in Anterior leads Confirmed by Roddy Andersen ([id number]) on 03/19/2020 4:05:08 PM Referred By: [facility] Confirmed By:Roddy Andersen
[2020-03-19] MEDS: MIRTAZAPINE SOLTAB 15 MG PO SCH (21:32)
[2020-03-19] MEDS: MELATONIN 3 MG TAB PO SCH (21:48)
[2020-03-19] MEDS ORDERED: SODIUM CHLORIDE 0.65% NA SOLN 45 ML (OCEAN) ONE (21:50)
[2020-03-20] MEDS: LEVOTHYROXINE SODIUM 125 MCG TABLET PO SCH (05:59)
[2020-03-20 06:03] LABS: Basophils # (auto) 0.03 K/uL (0-0.2); Basophils % (auto) 0.3 %; Eosinophils # (auto) 0.25 K/uL (0-0.5); Eosinophils % (auto) 2.5 %; Hematocrit (blood only) 39.1 % (37-47); Hemoglobin 12.1 g/dL (12.0-16.0); Immature Granulocytes # (auto) 0.03 K/uL (0.00-0.02); Immature Granulocytes % (auto) 0.3 %; Lymphocytes % (auto) 21.3 %; Mean Corpuscular Hemoglobin 29.4 pg (25-34); Mean Corpuscular Hgb Conc 30.9 g/dL (32-36); Mean Corpuscular Volume 95.1 fL (80-100); Mean Platelet Volume 8.8 fL (7.4-10.4); Monocytes # (auto) 0.89 K/uL (0.11-0.59); Neutrophils # (auto) 6.55 K/uL (1.4-6.5); Neutrophils % (auto) 66.6 %; Platelet Count 364 K/uL (130-400); RDW Coefficient of Variation 15.5 % (11.5-14.5); Red Blood Count 4.11 M/uL (4.2-5.4); White Blood Count 9.85 K/uL (4.8-10.8)
[2020-03-20 06:15] LABS: Partial Thromboplastin Ratio 0.8; Partial Thromboplastin Time 23.5 Seconds (21.0-31.0)
[2020-03-20 06:36] LABS: Albumin Level 2.7 gm/dl (3.4-5.0); Calcium 9.2 mg/dl (8.5-10.1); Creatinine Clr Calc Pharmacy 34.8 ml/min; Est GFR (African American) 61.5; Est GFR (Non-African American) 53.1; Magnesium 2.1 mg/dl (1.8-2.4); Phosphorus 3.2 mg/dl (2.5-4.9); Potassium 3.9 mmol/L (3.5-5.1)
[2020-03-20] MEDS: VENLAFAXINE HCL XR 75 MG CAPXR PO SCH (08:47)
[2020-03-20] MEDS: TOCOPHERYL, DL-ALPHA 100 UNITS CAP PO SCH (08:48)
[2020-03-20] MEDS: FUROSEMIDE 40 MG in SYRINGE 0 ML IV SCH ×2 (08:48→20:01)
[2020-03-20] MEDS: GABAPENTIN 100 MG CAP PO SCH ×3 (08:48→19:57)
[2020-03-20] MEDS: DOCUSATE SODIUM 100 MG CAP PO SCH (08:48)
[2020-03-20] MEDS: MAGNESIUM OXIDE 400 MG TAB PO SCH ×2 (08:49→19:57)
[2020-03-20] MEDS: PANTOprazole 40 MG TAB PO SCH ×2 (08:49→19:59)
[2020-03-20] MEDS: TOCOPHERYL, DL-ALPHA 400 UNITS CAP PO SCH (08:49)
[2020-03-20] MEDS: METOPROLOL TARTRATE 25 MG TAB PO SCH ×2 (08:49→19:56)
[2020-03-20] MEDS: OMEGA-3 (PURIFIED FISH OIL) 1 GM CAP PO SCH ×2 (08:49→19:59)
[2020-03-20] MEDS: CEROVITE ADV FORMULA TAB PO SCH (08:49)
[2020-03-20] MEDS: ENALAPRIL MALEATE 10 MG TAB PO SCH (08:50)
[2020-03-20] MEDS: INSULIN GLARGINE SOLOSTAR 100 UNITS/ML 3 ML PEN SC SCH (08:50)
[2020-03-20] MEDS: ASPIRIN 81 MG CHEW PO SCH (08:50)
[2020-03-20] MEDS: FLUTICASONE PROPIONATE NA SPR 16 GM BTL NAE SCH (08:51)
[2020-03-20] MEDS: FLUTICASONE FUROATE 200MCG 14 PUFFS/INHALER INH SCH (08:51)
[2020-03-20] MEDS: INSULIN ASPART 100 UNITS/ML 3 ML PEN SC SCH ×4 (08:52→21:00)
[2020-03-20] MEDS ORDERED: amLODIPine BESYLATE 5 MG TAB PO SCH (09:00)
--- NOTE | 2020-03-20 11:53 | Pulmonology Progress Note ---
Date of Service March 20, 2020 Assessment & Plan (1) Pulmonary embolism: CTA 03/17/2020 personally reviewed: Moderate to large bilateral pleural effusion, bilateral lower lobe atelectasis, no clear pulmonary embolism appreciated. Case discussed with radiologist who also agrees no significant filling defect in the pulmonary arteries appreciated. --Bilateral pleural effusion 2D echo 03/18/2020 showed good ejection fraction. No comment on diastolic dysfunction With bilateral lower lobe atelectasis Procalcitonin negative. Bilateral pleural effusions usually are from cardiac origin. Diastolic dysfunction is playing a role. Patient is in no acute distress. She is diuresing. --Acute hypoxic respiratory failure Secondary to diastolic CHF with pleural effusions Plan as above Plan: -1.3 L in the last 24 hours. Patient is diuresing well on Lasix 40 every 12hrs. Creatinine stable. We will continue with diuresis at the same rate. Keep the patient negative balance. Continue with oxygen. Needs better control of blood pressure especially given we are thinking about diastolic dysfunction the patient. I discussed with the patient again if there is no improvement in pleural effusion whether she will be willing for thoracentesis. And she said she would not like to have any invasive process done continue with medications. Continue with the above plan. Pulmonary will sign off. Please recall if needed. Please note the above document was generated using voice recognition software. It may contain grammatical, syntax or spelling errors.Any formal questions or concerns about the content, text or information contained within the body of this dictation should be directly addressed to the provider for clarification. (2) Pleural effusion, bilateral: (3) Hypoxia: Admission and Anticipated Discharge Date Admission Date: March 17, 2020 Subjective Patient seen and examined at bedside. No acute distress, no adverse events overnight. The time of examination patient states that she is feeling better compared to yesterday. She is still using the nasal cannula saturating well. Urinating well. -1.3 L in the last 24 hours Denies any chest pain, no headache, no dizziness, no palpitation Review of Systems Review of Systems: All systems reviewed & are unremarkable except as noted in Subjective Physical Exam Physical Exam: Constitutional: No acute distress HEENT: EOMI, PERRLA, arcus anulus bilaterally Respiratory system: Decreased air entry bilaterally, positive crackles bilateral lower lobes, no wheeze, no rhonchi CVS: S1-S2 positive, distant heart sounds Abdomen: Soft, nontender, nondistended, positive bowel sounds x4 Extremities: +2 pulses bilaterally radialis/ dorsalis pedis, no cyanosis, +1 edema bilateral lower extremity, chronic dermatitis appreciated bilateral Neuro: Awake alert oriented x3 Psych: Normal mood and affect G/U: No Bailey Results & Data Results & Data ([facility]) Vital Signs (Past 12 Hours) Vital Signs Temp Pulse Pulse Resp BP Pulse Ox 03/20/20 10:57 75 03/20/20 07:50 36.3 C L 51 L 20 174/80 H 92 03/20/20 03:20 37.0 C 77 18 169/72 H 91 03/20/20 05:31 03/20/20 05:31 PG Care Time/CCT Total # of Minutes Spent Total Time Spent with Patient: Total time spent is greater than 50% in coordination of care (as documented) at patient's floor/unit and/or counseling patient: Coding Level of Care Code 95846 Subseq Hosp Care Lvl 3 Diagnoses Pulmonary embolism I26.99 Pleural effusion, bilateral J90 Hypoxia R09.02
[2020-03-20] MEDS ORDERED: amLODIPine BESYLATE 5 MG TAB PO ONE (15:00)
--- NOTE | 2020-03-20 19:09 | Hospitalist Progress Note ---
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 Pittman--> no PE Stopped heparin drip For the peroneal vein DVT, repeat Doppler ultrasound in 1 week Bilateral pneumonia, unlikely Patient denies productive cough, fevers or chills Afebrile, no leukocytosis, procalcitonin normal Discontinue antibiotics at this time Continue to monitor Elevated troponin I level: Likely secondary to demand ischemia, type II History of CAD Troponin 0.6, 0.6, 0.5 Denies chest pain EKG no signs of acute ischemia or infarct Continue aspirin 81 mg daily, mag oxide 40 mg p.o. twice daily, metoprolol tartrate 37.5 mg p.o. twice daily. Hold benazepril in light of CKD, ongoing Lasix IV Hypertension Uncontrolled, likely contributing to pleural effusion Add amlodipine to regimen CKD (chronic kidney disease), stage III: History of left nephrectomy: -- stable monitor while on Lasix Renal cancer Renal cancer/status post left nephrectomy/CKD stage III Creatinine 1.11 upon admission, with normal range 0.76-1.07. Estimated GFR 44.0. Creatinine 1.2, monitor WPW (Kcfih-Utptjonrw-Tqzec syndrome): stable Diabetes mellitus: Reduce Lantus from 30 units to 20 of subcu daily. Placed on Accu-Cheks before meals and at bedtime with NovoLog coverage per scale GERD (gastroesophageal reflux disease): Continue omeprazole 20 mg p.o. twice daily Hypothyroidism Continue levothyroxine 62.5 mcg daily Disposition Patient is a resident of [facility] Anticipate return to [facility] when patient is medically stable Admission and Anticipated Discharge Date Admission Date: March 17, 2020 Subjective Follow-up for hypoxic respiratory failure, pleural effusion, etc. Seen resting in bed, comfortable, on 2 L of oxygen via nasal cannula Good spirits States breathing continues to improve, no coughing, no fevers or chills, no sputum No chest pain, abdominal pain, nausea vomiting No other symptom Review of Systems Review of Systems: All systems reviewed & are unremarkable except as noted in Subjective Physical Exam Physical Exam: General- oriented x 3, not in distress, speaks in sentences with no effort or accessory muscle use Eyes- anicteric Neck- no JVD Lungs- decreased breath sounds bilaterally no wheezing Heart- normal rate, regular rhythm; no murmurs Abdomen- normal bowel sounds, nondistended, soft, nontender Extremities- mild lower leg edema, no calf tenderness Neuro- alert, oriented x 3; no gross focal neurologic deficits Skin- warm & dry Results & Data Results & Data ([facility]) Vital Signs (Past 12 Hours) Vital Signs Temp Pulse Pulse Resp BP Pulse Ox 03/20/20 15:57 72 03/20/20 15:22 36.3 C L 71 16 151/88 H 98 03/20/20 11:52 36.5 C 68 18 193/98 H 95 03/20/20 10:57 75 03/20/20 07:50 36.3 C L 51 L 20 174/80 H 92 Laboratory Results Laboratory Results - last 24 hr 03/19/20 03/20/20 03/20/20 20:20 05:31 05:31 WBC 9.85 RBC 4.11 L Hgb 12.1 Hct 39.1 MCV 95.1 MCH 29.4 MCHC 30.9 L RDW Std Deviation 54.0 H RDW Coeff of Mary 15.5 H Plt Count 364 MPV 8.8 Immature Gran % (Auto) 0.3 Neut % (Auto) 66.6 Lymph % (Auto) 21.3 Mercer % (Auto) 9.0 Eos % (Auto) 2.5 Baso % (Auto) 0.3 Neut # (Auto) 6.55 H Lymph # (Auto) 2.10 Mercer # (Auto) 0.89 H Eos # (Auto) 0.25 Baso # (Auto) 0.03 Immature Gran # (Auto) 0.03 H PT 11.0 INR 1.0 APTT 23.5 PTT Ratio 0.8 Sodium Potassium Chloride Carbon Dioxide Anion Gap BUN Creatinine Est Cr Clr Drug Dosing Est GFR ( Amer) Est GFR (Non-Af Amer) BUN/Creatinine Ratio Glucose POC Glucose 88 Calcium Phosphorus Magnesium Albumin 03/20/20 03/20/20 03/20/20 05:31 07:17 11:26 WBC RBC Hgb Hct MCV MCH MCHC RDW Std Deviation RDW Coeff of Mary Plt Count MPV Immature Gran % (Auto) Neut % (Auto) Lymph % (Auto) Mercer % (Auto) Eos % (Auto) Baso % (Auto) Neut # (Auto) Lymph # (Auto) Mercer # (Auto) Eos # (Auto) Baso # (Auto) Immature Gran # (Auto) PT INR APTT PTT Ratio Sodium 142 Potassium 3.9 Chloride 106 Carbon Dioxide 32 Anion Gap 4.0 BUN 30 H Creatinine 0.95 Est Cr Clr Drug Dosing 34.8 Est GFR ( Amer) 61.5 Est GFR (Non-Af Amer) 53.1 BUN/Creatinine Ratio 32.0 H Glucose 66 L POC Glucose 91 113 H Calcium 9.2 Phosphorus 3.2 Magnesium 2.1 Albumin 2.7 L 03/20/20 16:14 WBC RBC Hgb Hct MCV MCH MCHC RDW Std Deviation RDW Coeff of Mary Plt Count MPV Immature Gran % (Auto) Neut % (Auto) Lymph % (Auto) Mercer % (Auto) Eos % (Auto) Baso % (Auto) Neut # (Auto) Lymph # (Auto) Mercer # (Auto) Eos # (Auto) Baso # (Auto) Immature Gran # (Auto) PT INR APTT PTT Ratio Sodium Potassium Chloride Carbon Dioxide Anion Gap BUN Creatinine Est Cr Clr Drug Dosing Est GFR ( Amer) Est GFR (Non-Af Amer) BUN/Creatinine Ratio Glucose POC Glucose 104 H Calcium Phosphorus Magnesium Albumin
[2020-03-20] MEDS: MIRTAZAPINE SOLTAB 15 MG PO SCH (19:59)
[2020-03-20] MEDS: MELATONIN 3 MG TAB PO SCH (20:11)
[2020-03-21] MEDS ORDERED: OLANZapine 10 MG/2.1 ML SDV IM PRN (02:30)
[2020-03-21 03:04] LABS: Basophils # (auto) 0.03 K/uL (0-0.2); Basophils % (auto) 0.3 %; Eosinophils % (auto) 2.2 %; Hemoglobin 12.5 g/dL (12.0-16.0); Immature Granulocytes # (auto) 0.01 K/uL (0.00-0.02); Immature Granulocytes % (auto) 0.1 %; Lymphocytes % (auto) 27.9 %; Mean Corpuscular Hemoglobin 29.8 pg (25-34); Mean Corpuscular Hgb Conc 31.3 g/dL (32-36); Mean Corpuscular Volume 95.5 fL (80-100); Mean Platelet Volume 8.8 fL (7.4-10.4); Monocytes % (auto) 11.2 %; Neutrophils # (auto) 5.21 K/uL (1.4-6.5); Neutrophils % (auto) 58.3 %; Platelet Count 377 K/uL (130-400); RDW Coefficient of Variation 15.3 % (11.5-14.5); RDW Standard Deviation 53.2 fL (36.4-46.3); Red Blood Count 4.19 M/uL (4.2-5.4); White Blood Count 8.95 K/uL (4.8-10.8)
[2020-03-21 03:24] LABS: BUN Creatinine Ratio 21.5 (10-20); Calcium 9.3 mg/dl (8.5-10.1); Creatinine Clr Calc Pharmacy 22.8 ml/min; Est GFR (African American) 36.9; Est GFR (Non-African American) 31.8; Magnesium 2.2 mg/dl (1.8-2.4); Potassium 4.4 mmol/L (3.5-5.1)
[2020-03-21] MEDS: LEVOTHYROXINE SODIUM 125 MCG TABLET PO SCH (05:09)
[2020-03-21] MEDS: ENALAPRIL MALEATE 10 MG TAB PO SCH (07:59)
[2020-03-21] MEDS: FUROSEMIDE 40 MG in SYRINGE 0 ML IV SCH (08:00)
[2020-03-21] MEDS: PANTOprazole 40 MG TAB PO SCH ×2 (08:00→20:51)
[2020-03-21] MEDS: OMEGA-3 (PURIFIED FISH OIL) 1 GM CAP PO SCH ×2 (08:00→20:52)
[2020-03-21] MEDS: GABAPENTIN 100 MG CAP PO SCH ×3 (08:01→20:51)
[2020-03-21] MEDS: METOPROLOL TARTRATE 25 MG TAB PO SCH ×2 (08:01→20:52)
[2020-03-21] MEDS: TOCOPHERYL, DL-ALPHA 400 UNITS CAP PO SCH (08:02)
[2020-03-21] MEDS: amLODIPine BESYLATE 5 MG TAB PO SCH (08:02)
[2020-03-21] MEDS: MAGNESIUM OXIDE 400 MG TAB PO SCH ×2 (08:02→20:52)
[2020-03-21] MEDS: DOCUSATE SODIUM 100 MG CAP PO SCH (08:03)
[2020-03-21] MEDS: TOCOPHERYL, DL-ALPHA 100 UNITS CAP PO SCH (08:03)
[2020-03-21] MEDS: VENLAFAXINE HCL XR 75 MG CAPXR PO SCH (08:03)
[2020-03-21] MEDS: CEROVITE ADV FORMULA TAB PO SCH (08:03)
[2020-03-21] MEDS: ASPIRIN 81 MG CHEW PO SCH (08:03)
[2020-03-21] MEDS: FLUTICASONE FUROATE 200MCG 14 PUFFS/INHALER INH SCH (08:04)
[2020-03-21] MEDS: FLUTICASONE PROPIONATE NA SPR 16 GM BTL NAE SCH (08:04)
[2020-03-21] MEDS: INSULIN GLARGINE SOLOSTAR 100 UNITS/ML 3 ML PEN SC SCH (08:09)
[2020-03-21] MEDS: INSULIN ASPART 100 UNITS/ML 3 ML PEN SC SCH ×4 (08:09→20:55)
--- NOTE | 2020-03-21 09:11 | Communication Note ---
Date of Service: March 21, 2020 Made aware by RN of agitation. Serum creatinine 1.45 from 0.95 AP Delirium ARF, possible overdiuresis Home neuropsychotropic meds contributory Rule out UTI Check UA Hold Lasix, LIZZETH inhibitor for now IV albumin Hold parameters for neuropsychotropic meds for sedation confusion. Zyprexa as needed Will relay to AM provider.
[2020-03-21] MEDS ORDERED: ALBUMIN 25% 50 ML IV ONE (09:30)
[2020-03-21 10:30] LABS: Appearance Urine Clear (Clear); Bacteria Urine Automated Negative (Negative); Bilirubin Urine Negative (Negative); Blood Urine Negative (Negative); Color Urine Yellow; Glucose Urine UA Negative (Negative); Ketones Urine Negative (Negative); Leukocyte Esterase Urine Trace (Negative); Nitrite Urine Negative (Negative); Protein Urine Negative (Negative); RBC Urine Automated 0-4 /hpf (0-4); Specific Gravity Urine 1.013 (1.000-1.030); Urobilinogen Urine Negative (Negative); pH Urine 7.5 (4.5-7.5)
--- NOTE | 2020-03-21 15:29 | Pharmacy Report ---
Pharmacy Glycemic Short Note 2 - Date of Service March 21, 2020 - Glycemic Short BSG Results (Last 24 hours): 03/20/20 03/20/20 03/21/20 16:14 20:55 02:40 Glucose 110 H POC Glucose 104 H 130 H 03/21/20 11:27 Glucose POC Glucose 218 H OUTPATIENT ANTIDIABETIC REGIMEN: * 6.3% 02/27/20 * Lantus 30 units daily ASSESSMENT: * Patient received total of 16 units of insulin yesterday: 10 units of basal + 6 units of bolus. * Fasting BSG this AM = 110 is improved compared to yesterday's (BSG of 66). * Post-prandial lunch BSG above 200. Goal range lowered and Novolog CF was slightly tightened with lunch today. PLAN FOR INPATIENT GLYCEMIC CONTROL: * Basal insulin: continue same as yesterday * Lantus 10 units SQ daily * Bolus insulin: Goal range lowered, CF tightened * NovoLog per scale ACHS or Q6hrs while NPO * Goal Range: Low 120 mg/dL - High 160 mg/dL * Correction Factor: 30 mg/dL/unit * Nutritional / Prandial insulin per carb ratio of 1 unit per 11 grams CHO consumed PLAN FOR DISCHARGE: * A1c 6.3% on outpatient regimen. Anticipate patient will be able to resume once discharged.
[2020-03-21] MEDS: MIRTAZAPINE SOLTAB 15 MG PO SCH (20:51)
--- NOTE | 2020-03-21 20:53 | Hospitalist Progress Note ---
Date of Service March 21, 2020 Assessment & Plan (1) Acute respiratory failure with hypoxia: Acute respiratory failure with hypoxia: Secondary to bilateral pleural effusion/acute decompensation of CHF with diastolic dysfunction HFpEF : symptoms has improved significantly with IV Lasix Echocardiogram: EF 65 to 70%, moderate concentric LVH appreciate input by pulm was ordered IV Lasix kept on hold now for acute renal failure cont to monitor vol status Pulmonary embolism, left peroneal vein DVT Based on initial CT angiogram interpretation, right upper lobe pulmonary embolism Doppler ultrasound: Left lower extremity -->peroneal vein DVT Case discussed with pulmonology Dr. Pittman--> no PE noted in CT chest scan Stopped heparin drip For the peroneal vein DVT, repeat Doppler ultrasound in 1 week Bilateral pneumonia, unlikely Patient denies productive cough, fevers or chills Afebrile, no leukocytosis, procalcitonin normal antibiotics discontinued Elevated troponin I level: Likely secondary to demand ischemia, type II History of CAD Troponin 0.6, 0.6, 0.5 Denies chest pain EKG no signs of acute ischemia or infarct Continue aspirin 81 mg daily, mag oxide 40 mg p.o. twice daily, metoprolol tartrate 37.5 mg p.o. twice daily. Hold benazepril in light of acute renal failure on CKD stage 3 Hypertension Uncontrolled, likely contributing to pleural effusion Add amlodipine to regimen Lasix and ACEI on hold for MARY CKD (chronic kidney disease), stage III: History of left nephrectomy/Renal cell ca -- acute renal failure with Cr elevaed > 1.4 hold Lasix and ACEI repeat labs WPW (Bpcsc-Isnhoknaa-Kjcyt syndrome): stable Diabetes mellitus: Lantus and insulin SSI GERD (gastroesophageal reflux disease): Continue omeprazole 20 mg p.o. twice daily Hypothyroidism Continue levothyroxine 62.5 mcg daily Disposition Patient is a resident of [facility] Anticipate return to [facility] when patient is medically stable PT/OT eval Admission and Anticipated Discharge Date Admission Date: March 17, 2020 Subjective pt reports of feeling comfortable no complain of SOB , chest heaviness orthopnea cough has improved significantly Review of Systems Review of Systems: All systems reviewed & are unremarkable except as noted in HPI & below Physical Exam Physical Exam: General- oriented x 3, not in distress, speaks in sentences with no effort or accessory muscle use Eyes- anicteric Neck- no JVD Lungs- no rales or wheeze Heart- normal rate, regular rhythm; no murmurs Abdomen- normal bowel sounds, nondistended, soft, nontender Extremities- mild lower leg edema, no calf tenderness Neuro- alert, oriented x 3; no gross focal neurologic deficits Skin- warm & dry Results & Data Results & Data ([facility]) Vital Signs (Past 12 Hours) Vital Signs Temp Pulse Resp BP Pulse Ox 03/21/20 19:56 36.4 C L 71 16 140/76 95 03/21/20 15:07 36.5 C 74 19 143/81 H 97 03/21/20 11:59 36.9 C 71 18 129/68 97
[2020-03-21] MEDS: MELATONIN 3 MG TAB PO SCH (20:56)
[2020-03-22] MEDS: LEVOTHYROXINE SODIUM 125 MCG TABLET PO SCH (06:24)
[2020-03-22] MEDS: OMEGA-3 (PURIFIED FISH OIL) 1 GM CAP PO SCH ×2 (08:51→20:27)
[2020-03-22] MEDS: METOPROLOL TARTRATE 25 MG TAB PO SCH ×2 (08:52→20:27)
[2020-03-22] MEDS: MAGNESIUM OXIDE 400 MG TAB PO SCH ×2 (08:53→20:27)
[2020-03-22] MEDS: VENLAFAXINE HCL XR 75 MG CAPXR PO SCH (08:53)
[2020-03-22] MEDS: GABAPENTIN 100 MG CAP PO SCH ×3 (08:53→20:26)
[2020-03-22] MEDS: TOCOPHERYL, DL-ALPHA 100 UNITS CAP PO SCH (08:53)
[2020-03-22] MEDS: PANTOprazole 40 MG TAB PO SCH ×2 (08:53→20:27)
[2020-03-22] MEDS: ASPIRIN 81 MG CHEW PO SCH (08:53)
[2020-03-22] MEDS: INSULIN ASPART 100 UNITS/ML 3 ML PEN SC SCH ×4 (08:54→20:32)
[2020-03-22] MEDS: CEROVITE ADV FORMULA TAB PO SCH (08:54)
[2020-03-22] MEDS: INSULIN GLARGINE SOLOSTAR 100 UNITS/ML 3 ML PEN SC SCH (08:54)
[2020-03-22] MEDS: amLODIPine BESYLATE 5 MG TAB PO SCH (08:59)
[2020-03-22] MEDS: TOCOPHERYL, DL-ALPHA 400 UNITS CAP PO SCH (08:59)
[2020-03-22] MEDS: FLUTICASONE PROPIONATE NA SPR 16 GM BTL NAE SCH (08:59)
[2020-03-22] MEDS: DOCUSATE SODIUM 100 MG CAP PO SCH (09:00)
[2020-03-22] MEDS: FLUTICASONE FUROATE 200MCG 14 PUFFS/INHALER INH SCH (09:01)
[2020-03-22 18:01] LABS: BUN Creatinine Ratio 35.2 (10-20); Calcium 10.5 mg/dl (8.5-10.1); Creatinine Clr Calc Pharmacy 30.5 ml/min; Est GFR (African American) 52.7; Est GFR (Non-African American) 45.5; Potassium 4.5 mmol/L (3.5-5.1)
--- NOTE | 2020-03-22 19:25 | Hospitalist Progress Note ---
Date of Service March 22, 2020 Assessment & Plan (1) Acute respiratory failure with hypoxia: Acute respiratory failure with hypoxia: Secondary to bilateral pleural effusion/acute decompensation of CHF with diastolic dysfunction HFpEF : symptoms has improved significantly with IV Lasix Echocardiogram: EF 65 to 70%, moderate concentric LVH appreciate input by pulm was ordered IV Lasix kept on hold for acute renal failure Miguel BMP in a.m., Lasix will be resumed if kidney function returns to baseline cont to monitor vol status Pulmonary embolism, left peroneal vein DVT Based on initial CT angiogram interpretation, right upper lobe pulmonary embolism Doppler ultrasound: Left lower extremity -->peroneal vein DVT CT angiogram evaluated by pulmonology Dr. Pittman--> no PE noted in CT chest scan Stopped heparin drip No anticoagulation needed for the peroneal vein DVT, repeat Doppler ultrasound in 1 week Does not have any pneumonia: Patient denies productive cough, fevers or chills Afebrile, no leukocytosis, procalcitonin normal antibiotics discontinued Elevated troponin I level: Likely secondary to demand ischemia, type II History of CAD Troponin 0.6, 0.6, 0.5 Denies chest pain EKG no signs of acute ischemia or infarct Continue aspirin 81 mg daily, mag oxide 40 mg p.o. twice daily, metoprolol tartrate 37.5 mg p.o. twice daily. Hold benazepril in light of acute renal failure on CKD stage 3 Will be resumed in a.m. if renal function improves to baseline Hypertension Uncontrolled, likely contributing to pleural effusion Add amlodipine to regimen Lasix and ACEI on hold for MARY CKD (chronic kidney disease), stage III: History of left nephrectomy/Renal cell ca -- acute renal failure with Cr elevaed > 1.4 hold Lasix and ACEI repeat labs WPW (Ueugx-Ehaczvxyc-Nlcmt syndrome): stable Diabetes mellitus: Lantus and insulin SSI GERD (gastroesophageal reflux disease): Continue omeprazole 20 mg p.o. twice daily Hypothyroidism Continue levothyroxine 62.5 mcg daily Disposition Patient is a resident of [facility] Anticipate return to [facility] when patient is medically stable PT/OT eval Admission and Anticipated Discharge Date Admission Date: March 17, 2020 Subjective Patient offers no new complaint, no orthopnea no cough no chest heaviness Physical Exam Physical Exam: General- oriented x 3, not in distress, speaks in sentences with no effort or accessory muscle use Eyes- anicteric Neck- no JVD Lungs- no rales or wheeze Heart- normal rate, regular rhythm; no murmurs Abdomen- normal bowel sounds, nondistended, soft, nontender Extremities- mild lower leg edema, no calf tenderness Neuro- alert, oriented x 3; no gross focal neurologic deficits Skin- warm & dry Results & Data Results & Data ([facility]) Vital Signs (Past 12 Hours) Vital Signs Temp Pulse Resp BP BP Pulse Ox 03/22/20 15:13 36.7 C 77 18 143/76 H 96 03/22/20 12:01 36.9 C 78 18 145/74 H 96 03/22/20 08:06 36.7 C 75 18 137/78 97
[2020-03-22] MEDS: MELATONIN 3 MG TAB PO SCH (20:26)
[2020-03-22] MEDS: MIRTAZAPINE SOLTAB 15 MG PO SCH (20:27)
[2020-03-23] MEDS: LEVOTHYROXINE SODIUM 125 MCG TABLET PO SCH (05:02)
[2020-03-23 06:43] LABS: BUN Creatinine Ratio 34.7 (10-20); Calcium 10.4 mg/dl (8.5-10.1); Creatinine Clr Calc Pharmacy 31.9 ml/min; Est GFR (African American) 55.8; Est GFR (Non-African American) 48.2; Potassium 4.4 mmol/L (3.5-5.1)
[2020-03-23] MEDS: GABAPENTIN 100 MG CAP PO SCH ×3 (08:15→21:13)
[2020-03-23] MEDS: PANTOprazole 40 MG TAB PO SCH ×2 (08:15→21:13)
[2020-03-23] MEDS: METOPROLOL TARTRATE 25 MG TAB PO SCH ×2 (08:16→21:14)
[2020-03-23] MEDS: MAGNESIUM OXIDE 400 MG TAB PO SCH ×2 (08:16→21:14)
[2020-03-23] MEDS: TOCOPHERYL, DL-ALPHA 100 UNITS CAP PO SCH (08:16)
[2020-03-23] MEDS: OMEGA-3 (PURIFIED FISH OIL) 1 GM CAP PO SCH ×2 (08:16→21:13)
[2020-03-23] MEDS: VENLAFAXINE HCL XR 75 MG CAPXR PO SCH (08:17)
[2020-03-23] MEDS: DOCUSATE SODIUM 100 MG CAP PO SCH (08:17)
[2020-03-23] MEDS: amLODIPine BESYLATE 5 MG TAB PO SCH (08:17)
[2020-03-23] MEDS: ASPIRIN 81 MG CHEW PO SCH (08:18)
[2020-03-23] MEDS: TOCOPHERYL, DL-ALPHA 400 UNITS CAP PO SCH (08:18)
[2020-03-23] MEDS: CEROVITE ADV FORMULA TAB PO SCH (08:18)
[2020-03-23] MEDS: FLUTICASONE FUROATE 200MCG 14 PUFFS/INHALER INH SCH (08:18)
[2020-03-23] MEDS: FLUTICASONE PROPIONATE NA SPR 16 GM BTL NAE SCH (08:19)
[2020-03-23] MEDS: INSULIN GLARGINE SOLOSTAR 100 UNITS/ML 3 ML PEN SC SCH (08:19)
[2020-03-23] MEDS: INSULIN ASPART 100 UNITS/ML 3 ML PEN SC SCH ×4 (08:21→21:10)
[2020-03-23] MEDS ORDERED: FUROSEMIDE 40 MG in SYRINGE 0 ML IV ONE (12:00)
[2020-03-23] MEDS: FUROSEMIDE 40 MG in SYRINGE 0 ML IV SCH (21:12)
[2020-03-23] MEDS: MELATONIN 3 MG TAB PO SCH (21:12)
[2020-03-23] MEDS: MIRTAZAPINE SOLTAB 15 MG PO SCH (21:13)
--- NOTE | 2020-03-23 21:13 | Hospitalist Progress Note ---
Date of Service March 23, 2020 Assessment & Plan (1) Acute respiratory failure with hypoxia: Acute respiratory failure with hypoxia: Secondary to bilateral pleural effusion/acute decompensation of CHF with diastolic dysfunction HFpEF : symptoms has improved significantly with IV Lasix Echocardiogram: EF 65 to 70%, moderate concentric LVH appreciate input by pulm renal function back to baseline Lasix resumed Pulmonary embolism, left peroneal vein DVT Based on initial CT angiogram interpretation, right upper lobe pulmonary embolism Doppler ultrasound: Left lower extremity -->peroneal vein DVT CT angiogram evaluated by pulmonology Dr. Pittman--> no PE noted in CT chest scan Stopped heparin drip No anticoagulation needed for the peroneal vein DVT, repeat Doppler ultrasound in 1 week Does not have any pneumonia: Patient denies productive cough, fevers or chills Afebrile, no leukocytosis, procalcitonin normal antibiotics discontinued Elevated troponin I level: Likely secondary to demand ischemia, type II History of CAD Troponin 0.6, 0.6, 0.5 Denies chest pain EKG no signs of acute ischemia or infarct Continue aspirin 81 mg daily, mag oxide 40 mg p.o. twice daily, metoprolol tartrate 37.5 mg p.o. twice daily. ACEI resumed as renal function back to baseline Hypertension amlodipine -added for better control Lasix and ACEI resumed CKD (chronic kidney disease), stage III: History of left nephrectomy/Renal cell ca -- resolved , cr back to baseline WPW (Rvnxy-Cryejpdwn-Voeiu syndrome): stable Diabetes mellitus: Lantus and insulin SSI GERD (gastroesophageal reflux disease): Continue omeprazole 20 mg p.o. twice daily Hypothyroidism Continue levothyroxine 62.5 mcg daily Disposition Patient is a resident of [facility] Anticipate return to [facility] when patient is medically stable PT/OT eval Admission and Anticipated Discharge Date Admission Date: March 17, 2020 Subjective Patient offers no new complaint, sitting on chair no complain of chest pain or SOB still requiring supplemental 02 was not on home 02 prior to admission no cough, no fever or chills Physical Exam Physical Exam: General- oriented x 3, not in distress, speaks in sentences with no effort or accessory muscle use Eyes- anicteric Neck- no JVD Lungs- no rales or wheeze Heart- normal rate, regular rhythm; no murmurs Abdomen- normal bowel sounds, nondistended, soft, nontender Extremities- mild lower leg edema, no calf tenderness Neuro- alert, oriented x 3; no gross focal neurologic deficits Skin- warm & dry Results & Data Results & Data ([facility]) Vital Signs (Past 12 Hours) Vital Signs Temp Pulse Pulse Resp BP BP Pulse Ox 03/23/20 16:07 59 L 03/23/20 15:15 96 03/23/20 15:14 36.5 C 78 16 121/69 95 03/23/20 12:04 36.7 C 75 19 115/72 99
[2020-03-24 06:23] LABS: BUN Creatinine Ratio 29.7 (10-20); Calcium 10.1 mg/dl (8.5-10.1); Creatinine Clr Calc Pharmacy 28.8 ml/min; Est GFR (African American) 49.4; Est GFR (Non-African American) 42.6; Potassium 4.3 mmol/L (3.5-5.1)
[2020-03-24] MEDS: LEVOTHYROXINE SODIUM 125 MCG TABLET PO SCH (06:23)
[2020-03-24] MEDS: INSULIN ASPART 100 UNITS/ML 3 ML PEN SC SCH ×4 (08:30→21:36)
[2020-03-24] MEDS: INSULIN GLARGINE SOLOSTAR 100 UNITS/ML 3 ML PEN SC SCH (08:35)
[2020-03-24] MEDS: ASPIRIN 81 MG CHEW PO SCH (08:42)
[2020-03-24] MEDS: VENLAFAXINE HCL XR 75 MG CAPXR PO SCH (08:42)
[2020-03-24] MEDS: FUROSEMIDE 40 MG in SYRINGE 0 ML IV SCH (08:42)
[2020-03-24] MEDS: CEROVITE ADV FORMULA TAB PO SCH (08:42)
[2020-03-24] MEDS: DOCUSATE SODIUM 100 MG CAP PO SCH (08:42)
[2020-03-24] MEDS: amLODIPine BESYLATE 5 MG TAB PO SCH ×2 (08:43→08:48)
[2020-03-24] MEDS: METOPROLOL TARTRATE 25 MG TAB PO SCH ×2 (08:43→21:06)
[2020-03-24] MEDS: MAGNESIUM OXIDE 400 MG TAB PO SCH ×2 (08:43→21:06)
[2020-03-24] MEDS: OMEGA-3 (PURIFIED FISH OIL) 1 GM CAP PO SCH ×2 (08:47→21:06)
[2020-03-24] MEDS: GABAPENTIN 100 MG CAP PO SCH ×3 (08:47→21:06)
[2020-03-24] MEDS: PANTOprazole 40 MG TAB PO SCH ×2 (08:51→21:06)
[2020-03-24] MEDS: FLUTICASONE FUROATE 200MCG 14 PUFFS/INHALER INH SCH (08:53)
[2020-03-24] MEDS: FLUTICASONE PROPIONATE NA SPR 16 GM BTL NAE SCH (08:54)
[2020-03-24] MEDS: TOCOPHERYL, DL-ALPHA 100 UNITS CAP PO SCH (08:55)
[2020-03-24] MEDS: TOCOPHERYL, DL-ALPHA 400 UNITS CAP PO SCH (08:58)
--- NOTE | 2020-03-24 10:27 | Pharmacy Report ---
Pharmacy Glycemic Short Note 2 - Date of Service March 24, 2020 - Glycemic Short BSG Results (Last 24 hours): 03/23/20 03/23/20 03/23/20 11:35 16:18 20:38 Glucose POC Glucose 182 H 132 H 167 H 03/24/20 03/24/20 05:24 07:28 Glucose 137 H POC Glucose 133 H OUTPATIENT ANTIDIABETIC REGIMEN: * 6.3% 02/27/20 * Lantus 30 units daily ASSESSMENT: 03/24/20 * Patient received total of 21 units of insulin yesterday: 10 units of basal + 11 units of bolus. * Fasting BSG this AM = 133mg/dl * No changes needed in insulin regimen at this time. 03/21/20 * Patient received total of 16 units of insulin yesterday: 10 units of basal + 6 units of bolus. * Fasting BSG this AM = 110 is improved compared to yesterday's (BSG of 66). * Post-prandial lunch BSG above 200. Goal range lowered and Novolog CF was slightly tightened with lunch today. PLAN FOR INPATIENT GLYCEMIC CONTROL: * Basal insulin: * Lantus 10 units SQ daily * Bolus insulin: * NovoLog per scale ACHS or Q6hrs while NPO * Goal Range: Low 120 mg/dL - High 160 mg/dL * Correction Factor: 30 mg/dL/unit * Nutritional / Prandial insulin per carb ratio of 1 unit per 11 grams CHO consumed PLAN FOR DISCHARGE: * A1c 6.3% on outpatient regimen. Anticipate patient will be able to resume once discharged as long as patient not experiencing significant hypoglycemia.
[2020-03-24] MEDS: ENALAPRIL MALEATE 10 MG TAB PO SCH (10:55)
--- NOTE | 2020-03-24 18:19 | Hospitalist Progress Note ---
Date of Service March 24, 2020 Assessment & Plan (1) Acute respiratory failure with hypoxia: Acute respiratory failure with hypoxia: Secondary to bilateral pleural effusion/acute decompensation of CHF with diastolic dysfunction HFpEF : symptoms has improved /vol status stable after diuresis Echocardiogram: EF 65 to 70%, moderate concentric LVH appreciate input by pulm renal function back to baseline Lasix resumed , renal faunction stable Left Perinoneal artery DVT Doppler ultrasound: Left lower extremity -->peroneal vein DVT CT angiogram of Chest evaluated by pulmonology Dr. Pittman--> no PE noted in CT chest scan No anticoagulation needed for the peroneal vein DVT, repeat Doppler ultrasound in 1 week Does not have any pneumonia: Patient denies productive cough, fevers or chills Afebrile, no leukocytosis, procalcitonin normal antibiotics discontinued Elevated troponin I level: Likely secondary to demand ischemia, type II History of CAD Troponin 0.6, 0.6, 0.5 Denies chest pain EKG no signs of acute ischemia or infarct Continue aspirin 81 mg daily, mag oxide 40 mg p.o. twice daily, metoprolol tartrate 37.5 mg p.o. twice daily. ACEI resumed as renal function back to baseline Hypertension amlodipine -added for better control Lasix and ACEI resumed CKD (chronic kidney disease), stage III: History of left nephrectomy/Renal cell ca -- resolved , cr back to baseline WPW (Afxrp-Suvyzjihq-Wkxzm syndrome): stable Diabetes mellitus: Lantus and insulin SSI GERD (gastroesophageal reflux disease): Continue omeprazole 20 mg p.o. twice daily Hypothyroidism Continue levothyroxine 62.5 mcg daily Disposition Patient is a resident of [facility] Anticipate return to [facility] when patient is medically stable PT/OT eval Admission and Anticipated Discharge Date Admission Date: March 17, 2020 Subjective continues to feel well no complain of SOB , no cough no fever or chills requiring supplemental 02 2L via NC Physical Exam Physical Exam: General- oriented x 3, not in distress, speaks in sentences with no effort or accessory muscle use Eyes- anicteric Neck- no JVD Lungs- no rales or wheeze Heart- normal rate, regular rhythm; no murmurs Abdomen- normal bowel sounds, nondistended, soft, nontender Extremities- mild lower leg edema, no calf tenderness Neuro- alert, oriented x 3; no gross focal neurologic deficits Skin- warm & dry Results & Data Results & Data ([facility]) Vital Signs (Past 12 Hours) Vital Signs Temp Pulse Pulse Resp BP Pulse Ox 03/24/20 15:30 36.4 C L 72 18 148/78 H 96 03/24/20 12:31 36.6 C 82 18 122/75 98 03/24/20 08:38 36.7 C 80 20 137/76 97
[2020-03-24] MEDS: MIRTAZAPINE SOLTAB 15 MG PO SCH (21:06)
[2020-03-24] MEDS: MELATONIN 3 MG TAB PO SCH (21:06)
[2020-03-25] MEDS: LEVOTHYROXINE SODIUM 125 MCG TABLET PO SCH (05:35)
[2020-03-25] MEDS: INSULIN ASPART 100 UNITS/ML 3 ML PEN SC SCH ×4 (08:35→20:41)
[2020-03-25] MEDS: CEROVITE ADV FORMULA TAB PO SCH (08:40)
[2020-03-25] MEDS: TOCOPHERYL, DL-ALPHA 400 UNITS CAP PO SCH ×2 (08:40→09:06)
[2020-03-25] MEDS: VENLAFAXINE HCL XR 75 MG CAPXR PO SCH (08:40)
[2020-03-25] MEDS: amLODIPine BESYLATE 5 MG TAB PO SCH (08:40)
[2020-03-25] MEDS: DOCUSATE SODIUM 100 MG CAP PO SCH (08:40)
[2020-03-25] MEDS: ENALAPRIL MALEATE 10 MG TAB PO SCH (08:40)
[2020-03-25] MEDS: ASPIRIN 81 MG CHEW PO SCH (08:40)
[2020-03-25] MEDS: MAGNESIUM OXIDE 400 MG TAB PO SCH ×2 (08:41→20:39)
[2020-03-25] MEDS: METOPROLOL TARTRATE 25 MG TAB PO SCH ×2 (08:41→20:39)
[2020-03-25] MEDS: GABAPENTIN 100 MG CAP PO SCH ×3 (08:42→20:37)
[2020-03-25] MEDS: PANTOprazole 40 MG TAB PO SCH ×2 (08:42→20:38)
[2020-03-25] MEDS: INSULIN GLARGINE SOLOSTAR 100 UNITS/ML 3 ML PEN SC SCH (09:04)
[2020-03-25] MEDS: FLUTICASONE PROPIONATE NA SPR 16 GM BTL NAE SCH (09:05)
[2020-03-25] MEDS: FLUTICASONE FUROATE 200MCG 14 PUFFS/INHALER INH SCH (09:05)
[2020-03-25] MEDS: TOCOPHERYL, DL-ALPHA 100 UNITS CAP PO SCH (09:06)
[2020-03-25] MEDS: OMEGA-3 (PURIFIED FISH OIL) 1 GM CAP PO SCH ×2 (09:06→20:41)
--- NOTE | 2020-03-25 18:14 | Hospitalist Progress Note ---
Date of Service March 25, 2020 Assessment & Plan (1) Acute respiratory failure with hypoxia: Acute respiratory failure with hypoxia: Secondary to bilateral pleural effusion/acute decompensation of CHF with diastolic dysfunction HFpEF : symptoms has improved /vol status stable after diuresis Echocardiogram: EF 65 to 70%, moderate concentric LVH appreciate input by pulm renal function back to baseline Lasix resumed , renal faunction remains stable Left Perinoneal artery DVT Doppler ultrasound: Left lower extremity -->peroneal vein DVT 03/18/20 CT angiogram of Chest evaluated by pulmonology Dr. Pittman--> no PE noted in CT chest scan per Pulm : No anticoagulation needed for the peroneal vein DVT, repeat Doppler ultrasound in 1 week ordered for lower ext USG in AM Elevated troponin I level: Likely secondary to demand ischemia, type II History of CAD Troponin 0.6, 0.6, 0.5 Denies chest pain EKG no signs of acute ischemia or infarct Continue aspirin 81 mg daily, metoprolol tartrate 37.5 mg p.o. twice daily. ACEI resumed as renal function back to baseline Hypertension amlodipine -added for better control Lasix and ACEI resumed CKD (chronic kidney disease), stage III: History of left nephrectomy/Renal cell ca -- resolved , cr back to baseline WPW (Jsfgt-Gxjgpjeir-Myqoz syndrome): stable Diabetes mellitus: Lantus and insulin SSI GERD (gastroesophageal reflux disease): Continue omeprazole 20 mg p.o. twice daily Hypothyroidism Continue levothyroxine 62.5 mcg daily Disposition Patient is a resident of [facility] Anticipate return to [facility] tomorrow Update given to Granddaughter Admission and Anticipated Discharge Date Admission Date: March 17, 2020 Subjective no new complain feels fine no cough ,no SOB Granddaughter present at bedside Physical Exam Physical Exam: General- oriented x 3, not in distress, speaks in sentences with no effort or accessory muscle use Eyes- anicteric Neck- no JVD Lungs- no rales or wheeze Heart- normal rate, regular rhythm; no murmurs Abdomen- normal bowel sounds, nondistended, soft, nontender Extremities- mild lower leg edema, no calf tenderness Neuro- alert, oriented x 3; no gross focal neurologic deficits Skin- warm & dry Results & Data Results & Data ([facility]) Vital Signs (Past 12 Hours) Vital Signs Temp Pulse Pulse Resp BP Pulse Ox 03/25/20 15:29 36.3 C L 75 18 113/75 94 03/25/20 07:26 36.9 C 74 16 107/76 96
[2020-03-25] MEDS: MELATONIN 3 MG TAB PO SCH (20:36)
[2020-03-25] MEDS: MIRTAZAPINE SOLTAB 15 MG PO SCH (20:37)
[2020-03-26] MEDS: LEVOTHYROXINE SODIUM 125 MCG TABLET PO SCH (05:52)
--- NOTE | 2020-03-26 08:17 | XRay Report ---
XR chest 1V portable CLINICAL HISTORY: CHF COMPARISON STUDY: 03/19/2020 FINDINGS: The cardiac and mediastinal contours remain stable. There is improving pulmonary edema. The re are small bilateral pleural effusions. There are associated basilar airspace opacities likely repr esenting compressive atelectasis. Arthritic changes are present within the shoulders.[ IMPRESSION: Persistent but improving pulmonary edema with bilateral pleural effusions ACT 112: Negative or not required by law. Electronically signed by: Amor Painting M.D. 03/26/2020 8:15 AM
--- NOTE | 2020-03-26 08:42 | Ultrasound Report ---
BILATERAL LOWER EXTREMITY VENOUS DOPPLER HISTORY: The left study in a patient with left peroneal vein DVT recent Peroneal vein thrombus COMPARISON STUDY: Duplex venous Doppler study 03/18/2020 FINDINGS: There is normal compressibility, flow, and augmentation within the bilateral lower extremit y deep venous systems. The calf veins are not well visualized on today's study. IMPRESSION: No DVT within the right or left lower extremity. Please note however that the calf veins were not wel l-visualized bilaterally. ACT 112: Negative or not required by law. Electronically signed by: Bijan Medina M.D. 03/26/2020 8:41 AM
[2020-03-26] MEDS: INSULIN GLARGINE SOLOSTAR 100 UNITS/ML 3 ML PEN SC SCH (09:07)
[2020-03-26] MEDS: INSULIN ASPART 100 UNITS/ML 3 ML PEN SC SCH ×2 (09:07→13:03)
[2020-03-26] MEDS: GABAPENTIN 100 MG CAP PO SCH ×2 (09:08→14:23)
[2020-03-26] MEDS: MAGNESIUM OXIDE 400 MG TAB PO SCH (09:08)
[2020-03-26] MEDS: CEROVITE ADV FORMULA TAB PO SCH (09:08)
[2020-03-26] MEDS: PANTOprazole 40 MG TAB PO SCH (09:08)
[2020-03-26] MEDS: OMEGA-3 (PURIFIED FISH OIL) 1 GM CAP PO SCH (09:08)
[2020-03-26] MEDS: FLUTICASONE FUROATE 200MCG 14 PUFFS/INHALER INH SCH (09:08)
[2020-03-26] MEDS: VENLAFAXINE HCL XR 75 MG CAPXR PO SCH (09:09)
[2020-03-26] MEDS: TOCOPHERYL, DL-ALPHA 100 UNITS CAP PO SCH (09:09)
[2020-03-26] MEDS: METOPROLOL TARTRATE 25 MG TAB PO SCH (09:09)
[2020-03-26] MEDS: FLUTICASONE PROPIONATE NA SPR 16 GM BTL NAE SCH (09:10)
[2020-03-26] MEDS: ENALAPRIL MALEATE 10 MG TAB PO SCH (09:10)
[2020-03-26] MEDS: ERGOCALCIFEROL 50,000 UNITS CAP PO SCH (09:10)
[2020-03-26] MEDS: ASPIRIN 81 MG CHEW PO SCH (10:32)
[2020-03-26] MEDS: DOCUSATE SODIUM 100 MG CAP PO SCH (10:32)
--- NOTE | 2020-03-26 14:27 | Discharge Summary ---
Date of Service March 26, 2020 Admission HPI Per Admitting Provider The patient is an 89-year-old female resident of [facility], with a past medical history including frequent falls, asthma, CAD, diabetes mellitus, colonic diverticulosis, hypercholesterolemia, laryngeal pharyngeal reflux, malignant tumor of renal pelvis, pulmonary nodule, rib fractures, TIA, urinary tract infection, vestibular neuronitis, CKD stage III, status post lumbar surgery, status post total knee arthroplasty, WPW, hypothyroidism, GERD, dyslipidemia, diabetes mellitus type 2, history of left nephrectomy, renal cancer, comminuted fracture of right humerus, hypertension and history of hyper tensive urgency. Patient was referred to the emergency department from [facility] due to worsening shortness of breath, complaints of chest pain, worsening cough and dyspnea on exertion. In the emergency department, work-up included the following abnormal laboratories: Troponin 0 0.067, BNP 5473 and albumin 2.8. Of note, the patient was COVID 1019- while in the ED. Imaging studies include CT angiography of the chest which showed right upper lobe subsegmental PEs, bilateral posterior pleural effusions with associated consolidations. In the emergency department, patient received the following treatments: Zosyn 4.5 g IV, vancomycin 1250 mg IV, furosemide 20 mg IV, Decadron 10 mg IV, DuoNeb, normal saline 500 mls x2, and was started on heparin drip standard concentration without bolus Principal Diagnosis DECOMPENSATED CHF WITH DIASTOLIC DYSFUNCTION Discharge Exam Constitutional + frail appearing; not ill appearing and not in distress Neck trachea midline, no thyromegaly Respiratory normal respiratory effort Cardiovascular Rate/Rhythm: + irregularly irregular; not tachycardic Heart Sounds: normal S1 and normal S2; no murmur Extremities: + edema Gastrointestinal (Abdomen) normal bowel sounds, soft, nontender, no hepatosplenomegaly Musculoskeletal Extremities: extremities normal to inspection Skin no rashes, warm and dry Lymphatic no cervical lymphadenopathy Discharge Data Allergies Allergy/AdvReac Type Severity Reaction Status Date / Time warfarin Allergy Mild "Itchy" Verified 03/17/20 21:06 clopidogrel Allergy Unknown ITCHY Verified 03/17/20 21:06 codeine Allergy Unknown Unknown Verified 03/17/20 21:06 meperidine Allergy Unknown Unknown Verified 03/17/20 21:06 Consultations 03/17/20 22:20 ED Decision to Admit Stat 03/18/20 01:32 Consult Case Management - Discharge Planning Routine Consult Pulmonology Routine Ordered Studies 03/17/20 18:21 CT angio chest PE protocol Urgent 03/17/20 18:26 CT abd pelvis IV con only Urgent 03/18/20 01:32 US venous doppler LE BI Urgent 03/26/20 08:00 US venous doppler LE BI Routine Hospital Course (1) Acute respiratory failure with hypoxia: Acute respiratory failure with hypoxia: Secondary to bilateral pleural effusion/acute decompensation of CHF with diastolic dysfunction HFpEF : symptoms has improved /vol status stable after diuresis Echocardiogram: EF 65 to 70%, moderate concentric LVH appreciate input by pulm renal function back to baseline Lasix resumed , renal faunction remains stable Left Perinoneal artery DVT Doppler ultrasound: Left lower extremity -->peroneal vein DVT 03/18/20 CT angiogram of Chest evaluated by pulmonology Dr. Pittman--> no PE noted in CT chest scan per Pulm : No anticoagulation needed for the peroneal vein DVT, Repeat Doppler ultrasound today: 03/26/2020: Shows no evidence of DVT either on right or left lower extremity Elevated troponin I level: Likely secondary to demand ischemia, type II History of CAD Troponin 0.6, 0.6, 0.5 Denies chest pain EKG no signs of acute ischemia or infarct Continue aspirin 81 mg daily, metoprolol tartrate 37.5 mg p.o. twice daily. ACEI resumed as renal function back to baseline Hypertension amlodipine -added for better control Lasix and ACEI resumed CKD (chronic kidney disease), stage III: History of left nephrectomy/Renal cell ca -- resolved , cr back to baseline WPW (Uzgud-Ockcvtbuj-Scnuu syndrome): stable Diabetes mellitus: Lantus and insulin SSI GERD (gastroesophageal reflux disease): Continue omeprazole 20 mg p.o. twice daily Hypothyroidism Continue levothyroxine 62.5 mcg daily Disposition Patient is a resident of [facility] Stable to return back to [facility] today Total Time Total Time Spent Total Time Spent (In Minutes): 35 minutes Total Time Includes: Discharge Planning and Medication Reconciliation Discharge Plan Discharge Items Patient Disposition: Transfer [facility] Reason For Visit: PNEUMONIA, PLEURAL EFFUSIONS, ELEVATED TROPONIN Discharge Diagnosis: DECOMPENSATED CHF WITH DIASTOLIC DYSFUNCTION Activity: Resume your previous activity Non-emergency contact: Primary Care Provider Call non-emergency contact if: you have any medication questions Follow-up/Referrals: LilliwaupGriselda [Primary Care Provider] - Diet: Heart Healthy and Low Sodium (2gm) Ambulatory Orders: Basic Metabolic Panel (Routine) Timeframe: 1 Week Location: Determined by Patient Ordered By: Johanny Eden Attending Provider Instructions: Call your Primary Care doctor if any of the following symptoms or problems start or get worse: * Shortness of breath or difficulty breathing * Wake up at night short of breath * Chest pain * Cough * Swelling of your hands, feet, or legs * More fatigued or tired with your normal activity * Palpitations - sudden fast heart beats WEIGHT * Weigh yourself every morning after using the bathroom. * Use the same scale. * Wear the same amount of clothing. * Write your weight down on a chart. * Call your Primary Care doctor if you gain more than 2-3 pounds in 1-2 days. MEDICATIONS * Use this discharge instruction sheet for medication instructions. * Take your medications at the time your doctor ordered. * Do not skip a dose of your medicines. * If you miss a dose of medicine, take it as soon as possible, but DO NOT DOUBLE A DOSE. * Read your medicine information when you get home. * Know all of the side effects of your medicine. If in doubt, ask your pharmacist * Call your Primary Care doctor's office if you have any side effects. * Be sure all of your doctors know what medicine and herbs you take (including cold, flu, and herbal medicine). Take the following with you to your follow-up doctor appointments: * Weight Chart * Medication List * List of questions Do not drink excessive alcohol, beer or wine. Pending Studies at Discharge: Yes Studies:: LAB : BASIC METABOLIC PANEL IN 1 WEEK Stand-Alone Forms: My [facility] Skilled Items Patient informed of condition?: Yes DNR: No Discharge Level of Care: Skilled Communicable Disease: No Discharge Prognosis: Stable Lines: None Urinary Catheter: No Medications and DC Order Prescriptions: Continued Lantus U-100 Insulin 100 unit/mL Solution 30 unit SUBCUT DAILY MDD 40 units RF: 0 omeprazole 20 mg capsule,delayed release(DR/EC) 20 mg PO BID RF: 0 mirtazapine 45 mg tablet 45 mg PO HS RF: 0 benazepril [Lotensin] 40 mg tablet 40 mg PO QAM RF: 0 fluticasone propionate [Flonase Allergy Relief] 50 mcg/actuation [place],Suspension 2 spray INTRANASAL QAM RF: 0 metoprolol tartrate 25 mg tablet 37.5 mg PO BID RF: 0 omega 9-rkx-[id number]-fish oil [Fish Oil] 1,000 mg (120 mg-180 mg) Capsule 1 cap PO BID RF: 0 alendronate 70 mg Tablet, Effervescent 70 mg PO WK RF: 0 levothyroxine [Synthroid] 125 mcg tablet 62.5 mcg PO QAM RF: 0 albuterol sulfate [Ventolin HFA] 90 mcg/actuation Hfa Aerosol Inhaler 2 puff inhalation QID PRN (Reason: Shortness Of Breath Or Wheezing) RF: 0 Flovent HFA 110 mcg/actuation Hfa Aerosol Inhaler 2 puff inhalation BID RF: 0 vitamin E 1,000 unit Capsule 1,000 unit PO DAILY RF: 0 gabapentin 100 mg capsule 200 mg PO TID RF: 0 Vision Formula(O-P-B-Zn-Se-Cu) 1,000 unit-60 mg-30 unit Tablet 1 tab PO DAILY RF: 0 magnesium oxide 400 mg magnesium Tablet 400 mg PO BID RF: 0 cinacalcet 30 mg tablet 30 mg PO DAILY 30 Days Qty: 30 RF: 0 aspirin 81 mg Tablet,Chewable 81 mg PO DAILY RF: 0 Calmoseptine 0.44-20.6 % Ointment 1 applic TOPICAL QID PRN (Reason: skin breakdown) RF: 0 docusate sodium 100 mg Capsule 200 mg PO DAILY RF: 0 ergocalciferol (vitamin D2) 1,250 mcg (50,000 unit) Capsule 1,250 mcg PO WK RF: 0 melatonin 1 mg Tablet 2 mg PO HS RF: 0 venlafaxine 225 mg Tablet Extended Release 24hr 225 mg PO DAILY RF: 0 Changed furosemide [Lasix] 20 mg tablet 40 mg PO DAILY Qty: 0 RF: 0 Discharge Orders: Discharge Order (Routine); Ordered 03/26/20 Ordered By: Johanny Mahan Admission Data Admit Date/Time: 03/17/20 23:51 Attending Provider: Johanny Mahan Admit Provider: Bimal Weber Primary Care Provider: Griselda Mauricio Other Providers: Griselda Mauricio ; Bimal Weber ; Pedro Luis Ruvalcaba Other Interventions: Discharge Summary Assessment (RN) Last Done: 03/26/20 14:11
== END 2020-03-26 15:09 | DRG 291 ==
LOC: ED 18:00 → 2S 23:51 → SUATTDRO 23:51 → 2S 03-18 00:47 → 3W 03-24 12:24

== ENCOUNTER 2020-04-11 11:06 | Inpatient (IN) ==
--- NOTE | 2020-04-11 11:56 | XRay Report ---
XR chest 1V portable CLINICAL HISTORY: SEPSIS COMPARISON STUDY: Chest CT March 17, 2020. Chest radiograph March 26, 2020 FINDINGS: Spine fusion hardware is partially imaged. 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 There is no pneumothorax. Pulmonary edema has slightly increased since exam of Octobe r 2019. There are persistent small bilateral pleural effusions with bibasilar opacities. IMPRESSION: 1. Mild interval increase in pulmonary edema since prior exam. 2. Persistent small bilateral pleural effusions and bibasilar opacities which may reflect atelectasis or consolidation. ACT 112: Negative or not required by law. Electronically signed by: Stuart Haji M.D. 04/11/2020 11:55 AM
[2020-04-11 12:35] LABS: Basophils # (auto) 0.02 K/uL (0-0.2); Basophils % (auto) 0.3 %; Eosinophils % (auto) 3.1 %; Hematocrit (blood only) 36.5 % (37-47); Hemoglobin 11.4 g/dL (12.0-16.0); Immature Granulocytes # (auto) 0.01 K/uL (0.00-0.02); Immature Granulocytes % (auto) 0.2 %; Lymphocytes # (auto) 0.77 K/uL (1.2-3.4); Lymphocytes % (auto) 11.9 %; Mean Corpuscular Hemoglobin 29.5 pg (25-34); Mean Corpuscular Hgb Conc 31.2 g/dL (32-36); Mean Corpuscular Volume 94.6 fL (80-100); Mean Platelet Volume 8.8 fL (7.4-10.4); Monocytes # (auto) 0.66 K/uL (0.11-0.59); Monocytes % (auto) 10.2 %; Neutrophils # (auto) 4.79 K/uL (1.4-6.5); Neutrophils % (auto) 74.3 %; Platelet Count 265 K/uL (130-400); RDW Coefficient of Variation 14.8 % (11.5-14.5); RDW Standard Deviation 51.8 fL (36.4-46.3); Red Blood Count 3.86 M/uL (4.2-5.4); White Blood Count 6.45 K/uL (4.8-10.8)
[2020-04-11 12:53] LABS: BUN Creatinine Ratio 23.5 (10-20); Calcium 9.2 mg/dl (8.5-10.1); Creatinine Clr Calc Pharmacy 38.3 ml/min; Est GFR (African American) 65.7; Est GFR (Non-African American) 56.7; Magnesium 2.4 mg/dl (1.8-2.4); Partial Thromboplastin Ratio 0.8; Partial Thromboplastin Time 23.1 Seconds (21.0-31.0); Potassium 3.8 mmol/L (3.5-5.1); Prothrombin Time 10.8 Seconds (9.0-12.0)
[2020-04-11 12:55] LABS: RBC Morphology Unremarkable
[2020-04-11 13:00] LABS: Albumin Globulin Ratio 0.8 (0.9-2); Bilirubin,Total 0.4 mg/dl (0.2-1); Troponin I 0.062 ng/ml (0-0.045)
--- NOTE | 2020-04-11 13:05 | Emergency Department Note ---
History of Present Illness General Chief complaint: Shortness of Breath/Dyspnea Source: patient Mode of arrival: EMS Limitations: no limitations History of Present Illness Provider complaint: Increased shortness of breath, weight gain Onset (ago): week(s) 3 Maximum Pain Intensity: 0 Current Pain Intensity: 0 Associated symptoms: + cough and + shortness of breath; no chest pain, no fever/chills, no headaches, no loss of appetite and no nausea/vomiting Treatments prior to arrival: none This is an 89-year-old female brought in via EMS from [facility] due to increased shortness of breath and weight gain noted by staff. Staff there contacted the nurse practitioner who evaluated the patient and felt she required additional evaluation in the emergency room. Patient was recently diagnosed with pneumonia, and was hospitalized at that time. Patient does have an underlying history of COPD. Patient has been wearing oxygen since her discharge from the hospital, however this was turned up as she was found to be hypoxic on her usual 2 L. Patient is also been weighed daily and between yesterday and today a 5 pound increase was noted. Due to concern for increased shortness of breath as well as weight gain, patient sent in for evaluation of possible CHF. Patient states she does feel slightly more short of breath than usual, denies any increase in pain, denies fevers or chills. Patient states she has not noted any lower extremity edema but was told by staff that some was present. Patient denies any abdominal pain, nausea vomiting, change in bowel or bladder function. Patient states she was tested for Covid and was positive. Pt seen during a time of high acuity and national emergency pandemic while wearing PPE. On review of EMR, patient was admitted with multiple etiology of her respiratory distress including pleural effusions, pneumonia, and possible PE on CT scan. Ultimately this was felt to be an over read by pulmonology and she was not discharged on any anticoagulation. Patient did receive antibiotics while here, and according to the snf notes took her last dose of azithromycin toda y. Patient does take Lasix daily, 40 mg, with an extra as needed dose also written for. Patient takes a baby aspirin daily. Of note her coronavirus testing while hospitalized 3 weeks ago was negative. Patient also underwent an echo at that time which was reassuring. Patient does have a history of CHF. Home Medications Home Medications Medication Instructions Recorded Confirmed Type Lantus U-100 Insulin 26 unit SUBCUT QAM MDD 40 units 06/16/18 04/11/20 History alendronate 70 mg PO WK 06/16/18 04/11/20 History benazepril [Lotensin] 40 mg PO QAM 06/16/18 04/11/20 History fluticasone propionate [Flonase 2 spray INTRANASAL QAM 06/16/18 04/11/20 History Allergy Relief] metoprolol tartrate 37.5 mg PO BID 06/16/18 04/11/20 History mirtazapine 45 mg PO HS 06/16/18 04/11/20 History omeprazole 20 mg PO BID 06/16/18 04/11/20 History Flovent HFA 2 puff INHALATION BID 01/07/19 04/11/20 History albuterol sulfate [Ventolin HFA] 2 puff INHALATION QID PRN 01/07/19 04/11/20 History levothyroxine 125 mcg tablet 62.5 mcg PO QAM tab 10/11/19 04/11/20 History Vision Formula(P-[id number]-Cu) 1 tab PO QAM 02/15/20 04/11/20 History gabapentin 200 mg PO TID 02/15/20 04/11/20 History magnesium oxide 400 mg PO BID 02/15/20 04/11/20 History vitamin E 1,000 unit PO QAM 02/15/20 04/11/20 History aspirin 81 mg PO QAM 03/17/20 04/11/20 History docusate sodium 200 mg PO QAM 03/17/20 04/11/20 History ergocalciferol (vitamin D2) 1,250 mcg PO WK 03/17/20 04/11/20 History melatonin 2 mg PO HS 03/17/20 04/11/20 History venlafaxine 225 mg PO QAM 03/17/20 04/11/20 History cinacalcet 30 mg tablet 30 mg PO QAM 04/02/20 04/11/20 History omega-3 fatty acids 500 mg capsule 500 mg PO BID 04/02/20 04/11/20 History furosemide [Lasix] 40 mg PO QAM 04/11/20 04/11/20 History Allergies Allergy/AdvReac Type Severity Reaction Status Date / Time warfarin Allergy Mild "Itchy" Verified 04/11/20 12:16 clopidogrel Allergy Unknown ITCHY Verified 04/11/20 12:16 codeine Allergy Unknown Unknown Verified 04/11/20 12:16 meperidine Allergy Unknown Unknown Verified 04/11/20 12:16 Past Med/Surg History Medical History (Updated 04/12/20 @ 19:27 by Paty Rice DO) Anxiety and depression CAD (coronary artery disease) Chronic back pain Chronic nonspecific lung disease Comminuted fracture of right humerus Diabetes mellitus, type II Dyslipidemia GERD (gastroesophageal reflux disease) Hx-TIA (transient ischemic attack) Hypertension Hypertensive urgency Hypothyroidism LVH (left ventricular hypertrophy) Osteoarthritis Renal cancer WPW (Mhdhp-Brugkrojp-Idruv syndrome) Surgical History History of left nephrectomy History of lumbar surgery [facility] History of total knee arthroplasty bilateral - [facility] Family History Son Diabetes Other Family history of bone cancer Family history of cancer of larynx Family history of liver cancer Family history of rectal cancer Hypertension Social History Smoking Status: Never smoker Do You Dip or Chew Tobacco: No; Hx Alcohol Use: No Hx Substance Use: No Preferred Language: Indonesian Communication Ability: Effective Instrument Assembler Required: No Beliefs That Will Affect Care: None marital status: / Current Living Situation: Senior Care current occupational status: retired How many Children do You have: 4 Other Information That Helps Us Care for You: No Feels Safe at Home: Yes Safety Concerns: Feels Safe At This Time Assistive Devices: Glasses, Hearing Aid - Right, Oxygen - Continuous and Walker Review of Systems See HPI for pertinent positives & negatives. and A total of 10 systems reviewed and were otherwise negative Physical Exam Vital Signs Vital Signs - 24 hr 04/11/20 11:05 04/11/20 11:13 04/11/20 11:19 Temperature Temperature Source Pulse Rate 73 77 Pulse Rate from SpO2 Sensor 74 Pulse Rhythm Regular Pulse Strength Respiratory Rate 24 26 H Respiratory Effort / Characteristics Non-Labored Spontaneous Respiratory Depth Normal Respiratory Pattern Regular Blood Pressure 186/81 H Blood Pressure Mean 121 Blood Pressure Position Pulse Oximetry 88 L 96 97 Oxygen Delivery Method Room Air Nasal Cannula Nasal Cannula Nasal Cannula Oxygen Flow Rate 0 2 2 Sepsis Recent Fever Within 48 Hours Sepsis New/Unexplained Change in Mental Status Sepsis Action Taken by Nursing Oxygen Flow Rate - Titration 2 Pulse Oximetry Post Tiitration 97 04/11/20 11:25 04/11/20 11:30 04/11/20 11:55 Temperature 36.9 C Temperature Source Oral Pulse Rate 77 74 Pulse Rate from SpO2 Sensor 73 Pulse Rhythm Regular Pulse Strength Normal Respiratory Rate 26 H 25 H 24 Respiratory Effort / Characteristics Non-Labored Spontaneous Non-Labored Spontaneous Respiratory Depth Normal Respiratory Pattern Regular Blood Pressure 186/81 H 186/89 H Blood Pressure Mean 116 109 Blood Pressure Position Lying Pulse Oximetry 88 L 94 93 Oxygen Delivery Method Room Air Nasal Cannula Nasal Cannula Oxygen Flow Rate 2 2 Sepsis Recent Fever Within 48 Hours No Sepsis New/Unexplained Change in Mental Status No Sepsis Action Taken by Nursing No Action Required Oxygen Flow Rate - Titration Pulse Oximetry Post Tiitration 04/11/20 12:00 04/11/20 12:31 04/11/20 13:01 Temperature Temperature Source Pulse Rate 80 81 79 Pulse Rate from SpO2 Sensor 79 83 81 Pulse Rhythm Pulse Strength Respiratory Rate 25 H 21 19 Respiratory Effort / Characteristics Respiratory Depth Respiratory Pattern Blood Pressure 204/121 H 202/145 H 211/146 H Blood Pressure Mean 155 173 169 Blood Pressure Position Pulse Oximetry 97 95 97 Oxygen Delivery Method Nasal Cannula Nasal Cannula Nasal Cannula Oxygen Flow Rate 2 2 2 Sepsis Recent Fever Within 48 Hours Sepsis New/Unexplained Change in Mental Status Sepsis Action Taken by Nursing Oxygen Flow Rate - Titration Pulse Oximetry Post Tiitration 04/11/20 13:30 04/11/20 14:00 Temperature Temperature Source Pulse Rate 87 83 Pulse Rate from SpO2 Sensor 84 83 Pulse Rhythm Pulse Strength Respiratory Rate 24 24 Respiratory Effort / Characteristics Non-Labored Spontaneous Non-Labored Spontaneous Respiratory Depth Respiratory Pattern Blood Pressure 183/107 H 183/86 H Blood Pressure Mean 133 111 Blood Pressure Position Pulse Oximetry 95 95 Oxygen Delivery Method Nasal Cannula Nasal Cannula Oxygen Flow Rate 2 2 Sepsis Recent Fever Within 48 Hours Sepsis New/Unexplained Change in Mental Status Sepsis Action Taken by Nursing Oxygen Flow Rate - Titration Pulse Oximetry Post Tiitration GENERAL: alert, well appearing, well nourished, no distress, non-toxic EYE EXAM: normal conjunctiva, PERRL and EOM's grossly intact OROPHARYNX: no exudate, no erythema, lips, buccal mucosa, and tongue normal and mucous membranes are moist NECK: supple, no nuchal rigidity, no adenopathy, non-tender LUNGS: Clear to auscultation. Normal chest wall mechanics, no w/r/r HEART: no murmurs, S1 normal and S2 normal ABDOMEN: abdomen soft, non-tender, normo-active bowel sounds, no masses, no rebound or guarding. BACK: Back is symmetrical on inspection and there is no deformity, no midline tenderness, no CVA tenderness. SKIN: no rashes and no bruising UPPER EXTREMITIES: upper extremities are grossly normal. FROM, nml pulses b/l. LOWER EXTREMITIES: 1+ pitting edema. FROM, nml pulses b/l. NEURO EXAM: Normal sensorium, cranial nerves II-XII grossly intact, normal speech, no gross weakness of arms, no gross weakness of legs. Gross sensation intact. Course Course 1452: [facility]: Discussed with Nataly, patient's nurse practitioner who saw her at [facility]. She was initially most concerned for failed outpt mgmt of pulm edema/CHF. Administered Medications Acetaminophen (Acetaminophen 325 Mg Tab) 650 mg PO Q4H PRN PRN Reason: Pain or Fever Stop: 05/11/20 17:35 Last Admin: 04/12/20 03:12 Dose: 650 mg Documented by: [id number] Aspirin (Aspirin 81 Mg Chew) 81 mg PO [facility] Stop: 05/12/20 08:59 Last Admin: 04/12/20 08:06 Dose: 81 mg Documented by: [id number] Dexamethasone (Dexamethasone 4 Mg Tab) 6 mg PO DAILY [facility] Stop: 05/12/20 08:59 Last Admin: 04/12/20 08:06 Dose: 6 mg Documented by: [id number] Docusate Sodium (Docusate Sodium 100 Mg Cap) 200 mg PO [facility] Stop: 05/12/20 08:59 Last Admin: 04/12/20 08:08 Dose: 200 mg Documented by: [id number] Doxycycline Hyclate (Doxycycline Hyclate 100 Mg Cap) 100 mg PO BID [facility]; Protocol Stop: 04/18/20 20:59 Last Admin: 04/12/20 08:04 Dose: 100 mg Documented by: [id number] Admin: 04/11/20 20:37 Dose: 100 mg Documented by: [id number] Enalapril Maleate (Enalapril Maleate 10 Mg Tab) 40 mg PO [facility]; Protocol Stop: 05/12/20 08:59 Last Admin: 04/12/20 08:07 Dose: 40 mg Documented by: [id number] Fluticasone Furoate (Fluticasone Furoate 200mcg 14 Puffs/Inhaler) 1 puffs INH QAM MAYDA; Protocol Stop: 05/12/20 08:59 Last Admin: 04/12/20 08:11 Dose: 1 puffs Documented by: [id number] Gabapentin (Gabapentin 100 Mg Cap) 200 mg PO TID MAYDA Stop: 05/11/20 20:59 Last Admin: 04/12/20 13:56 Dose: 200 mg Documented by: [id number] Admin: 04/12/20 08:05 Dose: 200 mg Documented by: [id number] Admin: 04/11/20 20:35 Dose: 200 mg Documented by: [id number] Ceftriaxone Sodium 1,000 mg/ (Dextrose) 50 mls @ 100 mls/hr IV Q24H MAYDA; Protocol Stop: 04/18/20 17:59 Last Admin: 04/12/20 17:26 Dose: 100 mls/hr Documented by: [id number] Infusion: 04/11/20 21:09 Dose: 0 mls/hr Documented by: [id number] Admin: 04/11/20 20:30 Dose: 100 mls/hr Documented by: [id number] Heparin Sodium/Dextrose (Heparin Sodium/Dextrose) 25,000 units in 500 mls @ 25 mls/hr IV .Q20H MAYDA; Protocol Stop: 05/11/20 17:35 Last Titration: 04/12/20 15:48 Dose: 1,250 units/hr, 25 mls/hr Documented by: [id number] Cosigned by: [id number] Titration: 04/12/20 11:33 Dose: 1,250 units/hr, 25 mls/hr Documented by: [id number] Cosigned by: [id number] Titration: 04/12/20 07:07 Dose: 0 units/hr, 0 mls/hr Documented by: [id number] Cosigned by: [id number] Titration: 04/12/20 01:37 Dose: 1,250 units/hr, 25 mls/hr Documented by: [id number] Cosigned by: [id number] Titration: 04/11/20 18:58 Dose: 1,000 units/hr, 20 mls/hr Documented by: [id number] Cosigned by: [id number] Admin: 04/11/20 18:28 Dose: 1,000 units/hr, 20 mls/hr Documented by: [id number] Cosigned by: [id number] Furosemide 40 mg/ Syringe 4 mls @ 4 mls/min IV BID MAYDA Stop: 05/11/20 20:59 Last Admin: 04/12/20 08:11 Dose: 4 mls/min Documented by: [id number] Admin: 04/11/20 20:31 Dose: 4 mls/min Documented by: [id number] Insulin Aspart (Insulin Aspart 100 Units/Ml 3 Ml Pen) 0 units SC ACHS MAYDA Stop: 05/11/20 17:59 Last Admin: 04/12/20 18:10 Dose: 1 units Documented by: [id number] Cosigned by: [id number] Admin: 04/12/20 12:28 Dose: 1 units Documented by: [id number] Cosigned by: [id number] Admin: 04/12/20 08:05 Dose: Not Given Documented by: [id number] Cosigned by: [id number] Admin: 04/11/20 21:14 Dose: 6 units Documented by: [id number] Cosigned by: [id number] Admin: 04/11/20 18:47 Dose: Not Given Documented by: [id number] Cosigned by: [id number] Levothyroxine Sodium (Levothyroxine Sodium 125 Mcg Tablet) 62.5 mcg PO DAILYBB [facility] Stop: 05/12/20 06:29 Last Admin: 04/12/20 05:26 Dose: 62.5 mcg Documented by: [id number] Magnesium Oxide (Magnesium Oxide 400 Mg Tab) 400 mg PO BID@0700,1900 MAYDA Stop: 05/11/20 18:59 Last Admin: 04/12/20 08:03 Dose: 400 mg Documented by: [id number] Admin: 04/11/20 18:28 Dose: 400 mg Documented by: [id number] Metoprolol Tartrate (Metoprolol Tartrate 25 Mg Tab) 37.5 mg PO BID MAYDA Stop: 05/11/20 20:59 Last Admin: 04/12/20 08:07 Dose: 37.5 mg Documented by: [id number] Admin: 04/11/20 20:33 Dose: 37.5 mg Documented by: [id number] Mirtazapine (Mirtazapine Soltab 15 Mg) 45 mg PO HS MAYDA Stop: 05/11/20 20:59 Last Admin: 04/11/20 20:36 Dose: 45 mg Documented by: [id number] Miscellaneous (*Sensipar*Order Awaiting Action) 1 ea N/A QS MAYDA Stop: 05/12/20 00:00 Last Admin: 04/12/20 17:26 Dose: Not Given Documented by: [id number] Admin: 04/12/20 08:53 Dose: Not Given Documented by: [id number] Admin: 04/12/20 01:34 Dose: Not Given Documented by: [id number] Pantoprazole Sodium (Pantoprazole 40 Mg Tab) 40 mg PO BID [facility]; Protocol Stop: 05/11/20 20:59 Last Admin: 04/12/20 08:09 Dose: 40 mg Documented by: [id number] Admin: 04/11/20 20:34 Dose: 40 mg Documented by: [id number] Sennosides (Senna 8.6 Mg Tab) 8.6 [facility] [place] Stop: 05/12/20 10:29 Last Admin: 04/12/20 11:55 Dose: 8.6 mg Documented by: [id number] Venlafaxine HCl (Venlafaxine Hcl Xr 75 Mg Capxr) 225 mg PO [facility] Stop: 05/12/20 08:59 Last Admin: 04/12/20 08:05 Dose: 225 mg Documented by: [id number] Discontinued Medications Dexamethasone (Dexamethasone Sod Inj 10 Mg/Ml Vial) 10 mg IV NOW ONE Stop: 04/11/20 14:50 Last Admin: 04/11/20 16:35 Dose: 10 mg Documented by: [id number] Enoxaparin Sodium (Enoxaparin Inj 40 Mg/0.4 Ml Syr) 40 mg SQ Q24H MAYDA Stop: 05/11/20 17:59 Last Admin: 04/11/20 18:28 Dose: Not Given Documented by: [id number] Furosemide (Furosemide 40 Mg/4 Ml Vial) 40 mg IV NOW STA Stop: 04/11/20 13:09 Last Admin: 04/11/20 14:45 Dose: Not Given Documented by: [id number] Heparin Sodium/Dextrose (Heparin Iv Standard With Bolus) 1 ea IV NOW STA; Protocol Stop: 04/11/20 17:37 Last Admin: 04/11/20 18:52 Dose: Not Given Documented by: [id number] Heparin Sodium (Porcine) 5,000 (units/ Syringe) 5 mls @ 10 mls/min IV NOW STA Stop: 04/11/20 18:03 Last Admin: 04/11/20 18:28 Dose: 10 mls/min Documented by: [id number] Cosigned by: [id number] Heparin Sodium (Porcine) 5,000 (units/ Syringe) 5 mls @ 10 mls/min IV ONE ONE Stop: 04/12/20 02:16 Last Admin: 04/12/20 03:00 Dose: 10 mls/min Documented by: [id number] Cosigned by: [id number] Insulin Glargine (Insulin Glargine Solostar 100 Units/Ml 3 Ml Pen) 20 units SC BID MAYDA Stop: 05/12/20 01:54 Last Admin: 04/12/20 08:05 Dose: 20 units Documented by: [id number] Cosigned by: [id number] Admin: 04/12/20 03:27 Dose: 20 units Documented by: [id number] Cosigned by: [id number] Polyethylene Glycol (Polyethylene (Miralax) 17 Gm Pack) 17 gm PO ONE ONE Stop: 04/12/20 10:26 Last Admin: 04/12/20 11:55 Dose: 17 gm Documented by: [id number] Medical Decision Making Differential Diagnosis Differential diagnoses includes but is not limited to pneumonia, bronchitis, COPD/Asthma exacerbation, pneumothorax, pulmonary embolism, congestive heart failure, acute coronary syndrome Medical Records Attestation: I reviewed the patient's medical records. Home Medications Current Medication List: was personally reviewed by me Laboratory Data Attestation: I reviewed the patient's lab results. Result diagrams: 04/12/20 05:22 04/12/20 05:22 Lab Results 04/11/20 04/11/20 04/11/20 Range/Units 12:02 12:02 12:02 WBC 6.45 (4.8-10.8) K/uL RBC 3.86 L (4.2-5.4) M/uL Hgb 11.4 L (12.0-16.0) g/dL Hct 36.5 L (37-47) % MCV 94.6 (80-100) fL MCH 29.5 (25-34) pg MCHC 31.2 L (32-36) g/dL RDW Std Deviation 51.8 H (36.4-46.3) fL RDW Coeff of Mary 14.8 H (11.5-14.5) % Plt Count 265 (130-400) K/uL MPV 8.8 (7.4-10.4) fL Immature Gran % (Auto) 0.2 % Neut % (Auto) 74.3 % Lymph % (Auto) 11.9 % [place] % (Auto) 10.2 % Eos % (Auto) 3.1 % Baso % (Auto) 0.3 % Neut # (Auto) 4.79 (1.4-6.5) K/uL Lymph # (Auto) 0.77 L (1.2-3.4) K/uL [place] # (Auto) 0.66 H (0.11-0.59) K/uL Eos # (Auto) 0.20 (0-0.5) K/uL Baso # (Auto) 0.02 (0-0.2) K/uL Immature Gran # (Auto) 0.01 (0.00-0.02) K/uL RBC Morphology Unremarkable PT 10.8 (9.0-12.0) Seconds INR 1.0 (0.9-1.1) APTT 23.1 (21.0-31.0) Seconds PTT Ratio 0.8 Sodium 142 (136-145) mmol/L Potassium 3.8 (3.5-5.1) mmol/L Chloride 105 (98-107) mmol/L Carbon Dioxide 35 H (21-32) mmol/L Anion Gap 2.0 L (3-11) BUN 21 H (7-18) mg/dl Creatinine 0.90 (0.6-1.2) mg/dl Est Cr Clr Drug Dosing 38.3 ml/min Est GFR ( Amer) 65.7 Est GFR (Non-Af Amer) 56.7 BUN/Creatinine Ratio 23.5 H (10-20) Glucose 64 L (70-99) mg/dl Lactate (0.4-2.0) mmol/L Calcium 9.2 (8.5-10.1) mg/dl Magnesium 2.4 (1.8-2.4) mg/dl Total Bilirubin 0.4 (0.2-1) mg/dl AST 13 L (15-37) U/L ALT 16 (12-78) U/L Alkaline Phosphatase 197 H (45-117) U/L Troponin I 0.062 H* (0-0.045) ng/ml Total Protein 7.0 (6.4-8.2) gm/dl Albumin 3.0 L (3.4-5.0) gm/dl Globulin 4.0 (2.5-4.0) gm/dl Albumin/Globulin Ratio 0.8 L (0.9-2) Procalcitonin (0-0.5) ng/ml Urine Color Urine Appearance (Clear) Urine pH (4.5-7.5) Ur Specific [place] (1.000-1.030) Urine Protein (Negative) Urine Glucose (UA) (Negative) Urine Ketones (Negative) Urine Blood (Negative) Urine Nitrite (Negative) Urine Bilirubin (Negative) Urine Urobilinogen (Negative) Ur Leukocyte Esterase (Negative) COVID-19 Eval Order COVID-19 PCR (Negative) 04/11/20 04/11/20 04/11/20 Range/Units 12:02 12:12 12:30 WBC (4.8-10.8) K/uL RBC (4.2-5.4) M/uL Hgb (12.0-16.0) g/dL Hct (37-47) % MCV (80-100) fL MCH (25-34) pg MCHC (32-36) g/dL RDW Std Deviation (36.4-46.3) fL RDW Coeff of Mary (11.5-14.5) % Plt Count (130-400) K/uL MPV (7.4-10.4) fL Immature Gran % (Auto) % Neut % (Auto) % Lymph % (Auto) % [place] % (Auto) % Eos % (Auto) % Baso % (Auto) % Neut # (Auto) (1.4-6.5) K/uL Lymph # (Auto) (1.2-3.4) K/uL [place] # (Auto) (0.11-0.59) K/uL Eos # (Auto) (0-0.5) K/uL Baso # (Auto) (0-0.2) K/uL Immature Gran # (Auto) (0.00-0.02) K/uL RBC Morphology PT (9.0-12.0) Seconds INR (0.9-1.1) APTT (21.0-31.0) Seconds PTT Ratio Sodium (136-145) mmol/L Potassium (3.5-5.1) mmol/L Chloride (98-107) mmol/L Carbon Dioxide (21-32) mmol/L Anion Gap (3-11) BUN (7-18) mg/dl Creatinine (0.6-1.2) mg/dl Est Cr Clr Drug Dosing ml/min Est GFR ( Amer) Est GFR (Non-Af Amer) BUN/Creatinine Ratio (10-20) Glucose (70-99) mg/dl Lactate 1.0 (0.4-2.0) mmol/L Calcium (8.5-10.1) mg/dl Magnesium (1.8-2.4) mg/dl Total Bilirubin (0.2-1) mg/dl AST (15-37) U/L ALT (12-78) U/L Alkaline Phosphatase (45-117) U/L Troponin I (0-0.045) ng/ml Total Protein (6.4-8.2) gm/dl Albumin (3.4-5.0) gm/dl Globulin (2.5-4.0) gm/dl Albumin/Globulin Ratio (0.9-2) Procalcitonin < 0.05 (0-0.5) ng/ml Urine Color Yellow Urine Appearance Clear (Clear) Urine pH 8.0 H (4.5-7.5) Ur Specific [place] 1.009 (1.000-1.030) Urine Protein Negative (Negative) Urine Glucose (UA) Negative (Negative) Urine Ketones Negative (Negative) Urine Blood Negative (Negative) Urine Nitrite Negative (Negative) Urine Bilirubin Negative (Negative) Urine Urobilinogen Negative (Negative) Ur Leukocyte Esterase Negative (Negative) COVID-19 Eval Order COVID-19 PCR (Negative) 04/11/20 04/11/20 Range/Units 12:30 12:30 WBC (4.8-10.8) K/uL RBC (4.2-5.4) M/uL Hgb (12.0-16.0) g/dL Hct (37-47) % MCV (80-100) fL MCH (25-34) pg MCHC (32-36) g/dL RDW Std Deviation (36.4-46.3) fL RDW Coeff of Mary (11.5-14.5) % Plt Count (130-400) K/uL MPV (7.4-10.4) fL Immature Gran % (Auto) % Neut % (Auto) % Lymph % (Auto) % [place] % (Auto) % Eos % (Auto) % Baso % (Auto) % Neut # (Auto) (1.4-6.5) K/uL Lymph # (Auto) (1.2-3.4) K/uL [place] # (Auto) (0.11-0.59) K/uL Eos # (Auto) (0-0.5) K/uL Baso # (Auto) (0-0.2) K/uL Immature Gran # (Auto) (0.00-0.02) K/uL RBC Morphology PT (9.0-12.0) Seconds INR (0.9-1.1) APTT (21.0-31.0) Seconds PTT Ratio Sodium (136-145) mmol/L Potassium (3.5-5.1) mmol/L Chloride (98-107) mmol/L Carbon Dioxide (21-32) mmol/L Anion Gap (3-11) BUN (7-18) mg/dl Creatinine (0.6-1.2) mg/dl Est Cr Clr Drug Dosing ml/min Est GFR ( Amer) Est GFR (Non-Af Amer) BUN/Creatinine Ratio (10-20) Glucose (70-99) mg/dl Lactate (0.4-2.0) mmol/L Calcium (8.5-10.1) mg/dl Magnesium (1.8-2.4) mg/dl Total Bilirubin (0.2-1) mg/dl AST (15-37) U/L ALT (12-78) U/L Alkaline Phosphatase (45-117) U/L Troponin I (0-0.045) ng/ml Total Protein (6.4-8.2) gm/dl Albumin (3.4-5.0) gm/dl Globulin (2.5-4.0) gm/dl Albumin/Globulin Ratio (0.9-2) Procalcitonin (0-0.5) ng/ml Urine Color Urine Appearance (Clear) Urine pH (4.5-7.5) Ur Specific [place] (1.000-1.030) Urine Protein (Negative) Urine Glucose (UA) (Negative) Urine Ketones (Negative) Urine Blood (Negative) Urine Nitrite (Negative) Urine Bilirubin (Negative) Urine Urobilinogen (Negative) Ur Leukocyte Esterase (Negative) COVID-19 Eval Order Covid19 Done at [facility] COVID-19 PCR POSITIVE A* (Negative) Imaging Data Radiologist's Impression: XR chest 1V portable CLINICAL HISTORY: SEPSIS COMPARISON STUDY: Chest CT March 17, 2020. Chest radiograph March 26, 2020 FINDINGS: Spine fusion hardware is partially imaged. There is severe osteoarthritis of the right glenohumeral joint. There is no pneumothorax. Pulmonary edema has slightly increased since exam of March 26, 2020. There are persistent small bilateral pleural effusions with bibasilar opacities. IMPRESSION: 1. Mild interval increase in pulmonary edema since prior exam. 2. Persistent small bilateral pleural effusions and bibasilar opacities which may reflect atelectasis or consolidation. ACT 112: Negative or not required by law. Electronically signed by: Stuart Haji M.D. 04/11/2020 11:55 AM ECG Data Attestation: I personally reviewed and interpreted this ECG as follows: Indication: + SOB/dyspnea Rate (beats per minute): 74 Rhythm: + atrial fibrillation ECG Intervals/blocks: + Normal QRS and + Normal QT ECG [place]: + Left axis deviation ECG ST segments: + Nonspecific ST abnormalities Blood Pressure Blood Pressure Findings: Elevated blood pressure Blood Pressure Disposition: further management by hospitalist MDM Narrative Pt here with increased WOB and hypoxia noted by staff at [facility]. Pt with recent pneumonia and pleural effusions. Initial thought for PE but this was then felt unlikely. Pt found to have increased weight gain at [place] despite use of furosemide daily and given increased WOB and hypoxia on her usual NC, concern for pulmonary edema. Pt here with pulmonary edema and LE edema. Pt tested for COVID and found to be positive. Discussed with her all results and case discussed with hospitalist service for additional monitoring. No evidence at this time for sepsis. Pleural effusion appear stable. Pt just finished anti biotics today per [place] AUG. Pt had no complaints of cp, abd pain. Pt trop elevated however appears chronically elevated. An order was placed for continuous cardiac monitoring. The monitor shows a rate of _88_ with _atrial fibrillation_ rhythm. Impression & Plan SOB (shortness of breath), Pleural effusion, bilateral, Hypoxia, Acute CHF, Elevated troponin I level Discharge Plan Visit Data Chief Complaint: Shortness of Breath/Dyspnea ED Provider: Paty Rice Discharge Problem: SOB (shortness of breath), Pleural effusion, bilateral, Hypoxia, Acute CHF, Elevated troponin I level Patient Disposition: Admitted As Inpatient Discharge Instructions Interventions: ED Discharge Assessment Last Done: 04/11/20 16:50 Discharge Problem: Acute CHF Qualifiers: Heart failure type: combined systolic and diastolic Qualified Code(s): I50.41 - Acute combined systolic (congestive) and diastolic (congestive) heart failure
[2020-04-11] MEDS ORDERED: FUROSEMIDE 40 MG/4 ML VIAL IV STA (13:08)
[2020-04-11 13:11] LABS: Appearance Urine Clear (Clear); Bilirubin Urine Negative (Negative); Blood Urine Negative (Negative); Color Urine Yellow; Glucose Urine UA Negative (Negative); Ketones Urine Negative (Negative); Leukocyte Esterase Urine Negative (Negative); Nitrite Urine Negative (Negative); Protein Urine Negative (Negative); Specific Gravity Urine 1.009 (1.000-1.030); Urobilinogen Urine Negative (Negative)
[2020-04-11] MEDS ORDERED: DEXAMETHASONE SOD INJ 10 MG/ML VIAL IV ONE (14:49)
--- NOTE | 2020-04-11 16:58 | Electrocardiogram Report ---
Test Reason : Blood Pressure : / mmHG Vent. Rate : 074 BPM Atrial Rate : 150 BPM P-R Int : 000 ms QRS Dur : 098 ms QT Int : 414 ms P-R-T Axes : 000 -29 059 degrees QTc Int : 459 ms Atrial fibrillation Abnormal ECG When compared with ECG of 19-MAR-2020 06:31, Atrial fibrillation has replaced Atrial flutter Nonspecific T wave abnormality no longer evident in Inferior leads Confirmed by Jose Nevarez ([id number]) on 04/11/2020 4:58:09 PM Referred By: REFERRED SELF Confirmed By:Neeraj Nevarez
[2020-04-11] MEDS ORDERED: CARBOHYDRATES FOR HYPOGLYCEMIA PO PRN (17:36)
[2020-04-11] MEDS ORDERED: GLUCAGON FOR INJ 1 MG VIAL SQ PRN (17:36)
[2020-04-11] MEDS ORDERED: DEXTROSE 50% 50 ML SYRINGE IV PRN (17:36)
[2020-04-11] MEDS ORDERED: GLUCOSE 40% GEL 15 GM TUBE PO PRN (17:36)
[2020-04-11] MEDS ORDERED: ACETAMINOPHEN 325 MG TAB PO PRN (17:36)
[2020-04-11] MEDS ORDERED: GLUCOSE 10 TABS/TUBE PO PRN (17:36)
--- NOTE | 2020-04-11 17:46 | History & Physical Report ---
Date of Service April 11, 2020 Assessment & Plan (1) Pleural effusion, bilateral: (2) SOB (shortness of breath): Present on admission with worsening SOB associated with increased weight gain Possible related to acute diastolic heart failure CXR showed mild interval increase in pulmonary edema since prior exam. Persistent small bilateral pleural effusions and bibasilar opacities which may reflect atelectasis or consolidation. Received Lasix 40mg IVx 1 in ER, Pt is diuresis well in the ER Procalcitonin negative and no leukocytosis Blood cx collected in the ER pending Will repeat CXR in am to assess for the bibasilar opacities Will start on IV rocephin and Doxycycline for now, then discontinued if repeat chest XR showed improvement in the opacities Will start on Lasix IV BID Continue oxygen supplement COVID 19 Positive COVID 19 on admission Case discussed with pulmonology Dr. Rousseau about to start on Remdesivir Since pt has been on oxygen supplement since discharge from last admission and her oxygen supplement has been stable, we will hold on Remdesivir Received IV dexamethasone 10mg x1 in the ER Will start on Dexamethasone 6mg daily Consider Pulm consult if pt decompensates Elevated troponin Chronic elevated troponin Likely secondary to demand ischemia, type II due to CHF EKG on admission showed no ischemic changes Troponin on admission 0.062 Denies any chest pain ECHO on 03/27 showed left ventricular systolic function is normal. No regional wall motion abnormalities. Moderate concentric LVH hypertrophy with EF 65- 70% Continue aspirin and metoprolol Atrial fibrillation Reviewed EKG in the last admission showed pt was in afib/fluter in last admission Rate controlled with Metoprolol [id number] -VASc score above 6 Case discussed with cardiology and agreed to start on anticoagulant while in the hospital Will start on heparin drip Cardiology consult Hypertension BP elevated possible related to hospital setting Continue metoprolol, Enalapril and on Lasix IV Continue monitor BP CKD (chronic kidney disease), stage III: History of left nephrectomy/Renal cell ca Stable WPW (Jgbfs-Ojroxnfty-Pdtzf syndrome): stable Diabetes mellitus: Continue lantus and insulin sliding scale Continue monitor BS GERD (gastroesophageal reflux disease): Continue omeprazole 20 mg p.o. twice daily Hypothyroidism Continue levothyroxine 62.5 mcg daily DVT px on Heparin drip CODE STATUS DNR Disposition Patient is a resident of [facility] Anticipate return to [facility] when patient is medically stable Admission and Anticipated Discharge Date Admission Date: April 11, 2020 History of Present Illness Chief Complaint: Worsening SOB Primary Care Provider: [facility] 89-year-old female with PMH with PMH of CKD stage 3, Dyslipidemia, Diabetes type 2, WPW , Hypothyroidism, CHF was sent from [facility] due to worsening SOB. She was admitted few weeks ago for Acute respiratory failure with hypoxia secondary to bilateral pleural effusion/acute decompensation of CHF with diastolic dysfunction. She has been on oxygen supplement since discharged. Pt said that this morning she felt her breathing was worsening with exertion. as per ER document staff at the assisted noted an increased of 5 lbs in her weight from yesterday and today. She said that she does not have any cough, palpitation, fever, chills and chest pain. Last week she was testing negative for COVID 19 at the assisted. She just completed a course of Zithromax today at the assisted. In the ER she tested positive for COVID 19. Lasix 40mg IV given in the ER. Currently pt said that her breathing feels much better and denies any symptoms now. Allergies Allergy/AdvReac Type Severity Reaction Status Date / Time warfarin Allergy Mild "Itchy" Verified 04/11/20 12:16 clopidogrel Allergy Unknown ITCHY Verified 04/11/20 12:16 codeine Allergy Unknown Unknown Verified 04/11/20 12:16 meperidine Allergy Unknown Unknown Verified 04/11/20 12:16 Home Medications Home Medications Medication Instructions Recorded Confirmed Type Lantus U-100 Insulin 26 unit SUBCUT QAM MDD 40 units 06/16/18 04/11/20 History alendronate 70 mg PO WK 06/16/18 04/11/20 History benazepril [Lotensin] 40 mg PO QAM 06/16/18 04/11/20 History fluticasone propionate [Flonase 2 spray INTRANASAL QAM 06/16/18 04/11/20 History Allergy Relief] metoprolol tartrate 37.5 mg PO BID 06/16/18 04/11/20 History mirtazapine 45 mg PO HS 06/16/18 04/11/20 History omeprazole 20 mg PO BID 06/16/18 04/11/20 History Flovent HFA 2 puff INHALATION BID 01/07/19 04/11/20 History albuterol sulfate [Ventolin HFA] 2 puff INHALATION QID PRN 01/07/19 04/11/20 History levothyroxine 125 mcg tablet 62.5 mcg PO QAM tab 10/11/19 04/11/20 History Vision Formula(Y-F-M-Zn-[id number]-Cu) 1 tab PO QAM 02/15/20 04/11/20 History gabapentin 200 mg PO TID 02/15/20 04/11/20 History magnesium oxide 400 mg PO BID 02/15/20 04/11/20 History vitamin E 1,000 unit PO QAM 02/15/20 04/11/20 History aspirin 81 mg PO QAM 03/17/20 04/11/20 History docusate sodium 200 mg PO QAM 03/17/20 04/11/20 History ergocalciferol (vitamin D2) 1,250 mcg PO WK 03/17/20 04/11/20 History melatonin 2 mg PO HS 03/17/20 04/11/20 History venlafaxine 225 mg PO QAM 03/17/20 04/11/20 History cinacalcet 30 mg tablet 30 mg PO QAM 04/02/20 04/11/20 History omega-3 fatty acids 500 mg capsule 500 mg PO BID 04/02/20 04/11/20 History furosemide [Lasix] 40 mg PO QAM 04/11/20 04/11/20 History Past Med/Surg History Medical History Anxiety and depression CAD (coronary artery disease) Chronic back pain Chronic nonspecific lung disease Comminuted fracture of right humerus Diabetes mellitus, type II Dyslipidemia GERD (gastroesophageal reflux disease) Hx-TIA (transient ischemic attack) Hypertension Hypertensive urgency Hypothyroidism LVH (left ventricular hypertrophy) Osteoarthritis Renal cancer WPW (Zlakz-Tzqsxrxlk-Ekkcy syndrome) Surgical History History of left nephrectomy History of lumbar surgery [facility] History of total knee arthroplasty bilateral - [facility] Family History Son Diabetes Other Family history of bone cancer Family history of cancer of larynx Family history of liver cancer Family history of rectal cancer Hypertension Social History Smoking Status: Never smoker Do You Dip or Chew Tobacco: No; Hx Alcohol Use: No Hx Substance Use: No Preferred Language: [place] Communication Ability: Effective Microfilmer Required: No Beliefs That Will Affect Care: None marital status: / Current 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 How many Children do You have: 4 Other Information That Helps Us Care for You: No Feels Safe at Home: Yes Safety Concerns: Feels Safe At This Time Assistive Devices: Glasses, Hearing Aid - Right, Walker and Wheelchair Review of Systems Review of Systems: All systems reviewed & are unremarkable except as noted in HPI & below Physical Exam Physical Exam: General- No acute distress Head- atraumatic Eyes- PERRL, EOMI, ENT- Hearing aid, decreased hearing function Neck- supple, no JVD Lungs- No wheezing Heart- no murmur Abdomen- normal bowel sounds, soft, nontender Extremities- no calf tenderness, +trace edema Neuro- alert, oriented x 3; PERRL, EOMI; no facial palsy; no dysarthria Skin- warm & dry Results & Data Results & Data ([facility]) Vital Signs (Past 12 Hours) Vital Signs Temp Pulse Pulse Resp BP BP Pulse Ox 04/11/20 17:21 36.8 C 83 18 169/90 H 95 04/11/20 16:31 81 25 H 189/102 H 94 04/11/20 16:00 95 04/11/20 15:31 84 25 H 188/97 H 93 04/11/20 15:30 27 H 93 04/11/20 15:00 83 18 181/105 H 91 04/11/20 14:31 83 27 H 162/94 H 94 04/11/20 14:30 80 25 H 95 04/11/20 14:00 83 24 183/86 H 95 04/11/20 13:30 87 24 183/107 H 95 04/11/20 13:01 79 19 211/146 H 97 04/11/20 12:31 81 21 202/145 H 95 04/11/20 12:00 80 25 H 204/121 H 97 04/11/20 11:55 24 93 04/11/20 11:30 74 25 H 186/89 H 94 04/11/20 11:25 36.9 C 77 26 H 186/81 H 88 L 04/11/20 11:19 77 26 H 97 04/11/20 11:13 73 24 186/81 H 96 04/11/20 11:05 88 L Diagnostic Findings XR chest 1V portable CLINICAL HISTORY: SEPSIS COMPARISON STUDY: Chest CT March 17, 2020. Chest radiograph March 26, 2020 FINDINGS: Spine fusion hardware is partially imaged. There is severe osteoarthritis of the right glenohumeral joint. There is no pneumothorax. Pulmonary edema has slightly increased since exam of March 26, 2020. There are persistent small bilateral pleural effusions with bibasilar opacities. IMPRESSION: 1. Mild interval increase in pulmonary edema since prior exam. 2. Persistent small bilateral pleural effusions and bibasilar opacities which may reflect atelectasis or consolidation. ACT 112: Negative or not required by law. Electronically signed by: Stuart Haji M.D. 04/11/2020 11:55 AM Dictated: 04/11/20 1153 Transcribed: 04/11/20 1153 Code Status & VTE Plan VTE Prophylaxis Plan VTE Prophylaxis will be ordered: Yes
[2020-04-11] MEDS ORDERED: ENOXAPARIN INJ 40 MG/0.4 ML SYR SQ SCH (18:00)
[2020-04-11] MEDS ORDERED: HEPARIN IV BOLUS 5,000 UNITS in SYRINGE 0 ML IV STA (18:02)
[2020-04-11] MEDS: HEPARIN SODIUM/DEXTROSE 25,000 UNITS/500 ML BAG IV SCH (18:28)
[2020-04-11] MEDS: MAGNESIUM OXIDE 400 MG TAB PO SCH (18:28)
[2020-04-11] MEDS: INSULIN ASPART 100 UNITS/ML 3 ML PEN SC SCH ×2 (18:47→21:14)
[2020-04-11 19:44] LABS: Troponin I 0.064 ng/ml (0-0.045)
[2020-04-11] MEDS: cefTRIAXone SODIUM 1,000 MG in DEXTROSE 5% 50 ML IV SCH (20:30)
[2020-04-11] MEDS: FUROSEMIDE 40 MG in SYRINGE 0 ML IV SCH (20:31)
[2020-04-11] MEDS: METOPROLOL TARTRATE 25 MG TAB PO SCH (20:33)
[2020-04-11] MEDS: PANTOprazole 40 MG TAB PO SCH (20:34)
[2020-04-11] MEDS: GABAPENTIN 100 MG CAP PO SCH (20:35)
[2020-04-11] MEDS: MIRTAZAPINE SOLTAB 15 MG PO SCH (20:36)
[2020-04-11] MEDS: DOXYCYCLINE HYCLATE 100 MG CAP PO SCH (20:37)
[2020-04-11] MEDS ORDERED: FUROSEMIDE 40 MG/4 ML VIAL IV SCH (21:00)
[2020-04-12 01:23] LABS: Partial Thromboplastin Ratio 1.2; Partial Thromboplastin Time 34.2 Seconds (21.0-31.0)
[2020-04-12] MEDS ORDERED: HEPARIN IV BOLUS 5,000 UNITS in SYRINGE 0 ML IV ONE (02:15)
[2020-04-12] MEDS: INSULIN GLARGINE SOLOSTAR 100 UNITS/ML 3 ML PEN SC SCH ×2 (03:27→08:05)
[2020-04-12] MEDS: LEVOTHYROXINE SODIUM 125 MCG TABLET PO SCH (05:26)
[2020-04-12 06:09] LABS: Hematocrit (blood only) 35.9 % (37-47); Hemoglobin 11.4 g/dL (12.0-16.0); Mean Corpuscular Hemoglobin 29.9 pg (25-34); Mean Corpuscular Hgb Conc 31.8 g/dL (32-36); Mean Corpuscular Volume 94.2 fL (80-100); Mean Platelet Volume 8.9 fL (7.4-10.4); Platelet Count 247 K/uL (130-400); RDW Coefficient of Variation 15.1 % (11.5-14.5); RDW Standard Deviation 51.5 fL (36.4-46.3); Red Blood Count 3.81 M/uL (4.2-5.4); White Blood Count 5.65 K/uL (4.8-10.8)
[2020-04-12 06:39] LABS: BUN Creatinine Ratio 24.8 (10-20); Calcium 8.9 mg/dl (8.5-10.1); Creatinine Clr Calc Pharmacy 32.2 ml/min; Est GFR (African American) 56.5; Est GFR (Non-African American) 48.7
[2020-04-12 07:00] LABS: Partial Thromboplastin Ratio > 5.0
[2020-04-12 07:02] LABS: Partial Thromboplastin Time > 139.0 Seconds (21.0-31.0)
[2020-04-12 07:18] LABS: C Reactive Protein 0.71 mg/dl (0-0.29); Ferritin 155.4 ng/ml (8-388); Troponin I 0.091 ng/ml (0-0.045)
[2020-04-12] MEDS: MAGNESIUM OXIDE 400 MG TAB PO SCH ×2 (08:03→21:09)
[2020-04-12] MEDS: DOXYCYCLINE HYCLATE 100 MG CAP PO SCH ×2 (08:04→21:13)
[2020-04-12] MEDS: VENLAFAXINE HCL XR 75 MG CAPXR PO SCH (08:05)
[2020-04-12] MEDS: GABAPENTIN 100 MG CAP PO SCH ×3 (08:05→21:11)
[2020-04-12] MEDS: INSULIN ASPART 100 UNITS/ML 3 ML PEN SC SCH ×4 (08:05→22:09)
[2020-04-12] MEDS: ASPIRIN 81 MG CHEW PO SCH (08:06)
[2020-04-12] MEDS: dexAMETHasone 4 MG TAB PO SCH (08:06)
[2020-04-12] MEDS: METOPROLOL TARTRATE 25 MG TAB PO SCH ×2 (08:07→21:10)
[2020-04-12] MEDS: ENALAPRIL MALEATE 10 MG TAB PO SCH (08:07)
[2020-04-12] MEDS: DOCUSATE SODIUM 100 MG CAP PO SCH (08:08)
[2020-04-12] MEDS: PANTOprazole 40 MG TAB PO SCH ×2 (08:09→21:12)
[2020-04-12] MEDS: FUROSEMIDE 40 MG in SYRINGE 0 ML IV SCH ×2 (08:11→21:08)
[2020-04-12] MEDS: FLUTICASONE FUROATE 200MCG 14 PUFFS/INHALER INH SCH (08:11)
[2020-04-12 08:44] LABS: Partial Thromboplastin Ratio 4.9
[2020-04-12 08:48] LABS: Partial Thromboplastin Time 136.9 Seconds (21.0-31.0)
--- NOTE | 2020-04-12 09:27 | XRay Report ---
XR chest 1V portable CLINICAL HISTORY: Congestive heart failure. COMPARISON STUDY: Chest CT March 17, 2020. Chest radiograph April 11, 2020. FINDINGS: Incidental note is made of an old right humeral diaphyseal fracture and partially visualize d spine hardware. Interstitial pulmonary edema has improved since exam of April 11, 2020. There are persistent small bilateral pleural effusions with bibasilar opacities. No pneumothorax is present. C ardiomegaly is unchanged. IMPRESSION: 1. Interval improvement in pulmonary edema. 2. Persistent small bilateral pleural effusions with bibasilar opacities likely reflect atelectasis o r consolidation. ACT 112: Negative or not required by law. Electronically signed by: Stuart Haji M.D. 04/12/2020 9:25 AM
[2020-04-12] MEDS ORDERED: POLYETHYLENE (MIRALAX) 17 GM PACK PO PRN (10:09)
[2020-04-12] MEDS ORDERED: POLYETHYLENE (MIRALAX) 17 GM PACK PO ONE (10:25)
[2020-04-12 10:30] LABS: Partial Thromboplastin Ratio 1.9
[2020-04-12 10:44] LABS: Partial Thromboplastin Time 53.2 Seconds (21.0-31.0)
[2020-04-12] MEDS: SENNA 8.6 MG TAB PO SCH (11:55)
[2020-04-12] MEDS ORDERED: PHARMACY GLYCEMIC MGMT CONSULT SCH (13:54)
--- NOTE | 2020-04-12 14:30 | Pharmacy Report ---
Pharmacy Glycemic Short Note 2 - Date of Service April 12, 2020 - Glycemic Short BSG Results (Last 24 hours): 04/11/20 04/11/20 04/11/20 17:33 17:55 19:59 Glucose POC Glucose 59 L* 85 330 H* 04/12/20 04/12/20 04/12/20 05:22 07:26 11:44 Glucose 111 H POC Glucose 90 82 OUTPATIENT ANTIDIABETIC REGIMEN: * Lantus 26 units once daily * A1c = 6.3% 02/27/20 ASSESSMENT: * Type 2 diabetic admitted for ADHF, b/l pleural effusions, COVID19 viral pna * Patient was recently admitted to [facility] for pneumonia in March. During that admission, she required only 16-23 units of insulin per day to achieve glycemic targets. Of note, these were insulin needs when she was not receiving steroid therapy. She does seem to be sensitive to IV decadron 10mg doses however. * This admission patient pt is receiving PO dexamethasone 6mg daily which typically does not induce as large of a hyperglycemic response. * She has already received 20units Lantus x 2 this AM and BSGs are 82-90. Will hold HS Lantus this evening and scale back current Novolog doses as pt's BSGs are below goal. Effects of PO decadron may dissipate overnight placing her at risk for hypoglycemia * Will continue to dose Lantus BID however scale doses PLAN FOR INPATIENT GLYCEMIC CONTROL: * Hold outpatient oral diabetes medications * Basal insulin * Lantus - hold this PM's dose then give BID per scale: * 0 units if BSG less than 110 * 15 units if BSG above 110 * Bolus insulin * NovoLog per scale ACHS or Q6hrs while NPO * Goal Range: Low 110 mg/dL - High 140 mg/dL * Correction Factor: 40 mg/dL/unit - just for the remainder of the day today, will change to 25mg/dL/unit tomorrow AM * Nutritional / Prandial insulin per carb ratio of 1 unit per 18 grams CHO consumed - just for the remainder of the day today, will change to 1 unit per 8gm CHO tomorrow AM PLAN FOR DISCHARGE: * to be determined, will depend on whether decadron prescribed on discharge.
--- NOTE | 2020-04-12 15:34 | Cardiology Consultation ---
Date of Consultation April 12, 2020 Assessment & Plan (1) Acute respiratory failure with hypoxia: (2) COVID-19 virus infection: (3) Falls frequently: (4) Labyrinthine dysfunction, unspecified: (5) Transient cerebral ischemic attack, unspecified: (6) CKD (chronic kidney disease), stage III: (7) Chronic nonspecific lung disease: (8) WPW (Kbekg-Bhxjwjdme-Mmgfw syndrome): (9) Pulmonary embolism: (10) Pleural effusion, bilateral: Patient incidentally found to be in atrial fibrillation/flutter with controlled ventricular response in the setting of hypoxemia with acute decompensated diastolic heart failure and COVID-19 infection. No further cardiac testing necessary at this time. Chart history of reaction to warfarin along with frequent falls and chronic kidney disease. I do not believe the patient is a long-term anticoagulation candidate given the above. Can continue heparin while inpatient. Continue current dose of metoprolol. Okay to DC telemetry from a cardiac standpoint. History of Present Illness Reason for Consultation: atrial fibrillation/flutter Requesting Physician: Dr. Townsend Attending Physician: Peter Roblero MD History of Present Illness Due to the current Covid pandemic and the fact that the patient is Covid positive she was not seen by myself. Consult performed through chart review and discussion with primary team along with nursing staff. Patient presented on 04/11/2020 from [facility] with complaints of worsening shortness of breath and weight gain. Tested positive for COVID-19 in the ER and admitted to telemetry on isolation protocol. Found to be in atrial fibrillation, rate controlled without any reported symptoms. Allergies Allergy/AdvReac Type Severity Reaction Status Date / Time warfarin Allergy Mild "Itchy" Verified 04/11/20 12:16 clopidogrel Allergy Unknown ITCHY Verified 04/11/20 12:16 codeine Allergy Unknown Unknown Verified 04/11/20 12:16 meperidine Allergy Unknown Unknown Verified 04/11/20 12:16 Home Medications Home Medications Medication Instructions Recorded Confirmed Type Lantus U-100 Insulin 26 unit SUBCUT QAM MDD 40 units 06/16/18 04/11/20 History alendronate 70 mg PO WK 06/16/18 04/11/20 History benazepril [Lotensin] 40 mg PO QAM 06/16/18 04/11/20 History fluticasone propionate [Flonase 2 spray INTRANASAL QAM 06/16/18 04/11/20 History Allergy Relief] metoprolol tartrate 37.5 mg PO BID 06/16/18 04/11/20 History mirtazapine 45 mg PO HS 06/16/18 04/11/20 History omeprazole 20 mg PO BID 06/16/18 04/11/20 History Flovent HFA 2 puff INHALATION BID 01/07/19 04/11/20 History albuterol sulfate [Ventolin HFA] 2 puff INHALATION QID PRN 01/07/19 04/11/20 History levothyroxine 125 mcg tablet 62.5 mcg PO QAM tab 10/11/19 04/11/20 History Vision Formula(Z-C-W-Zn-Se-Cu) 1 tab PO QAM 02/15/20 04/11/20 History gabapentin 200 mg PO TID 02/15/20 04/11/20 History magnesium oxide 400 mg PO BID 02/15/20 04/11/20 History vitamin E 1,000 unit PO QAM 02/15/20 04/11/20 History aspirin 81 mg PO QAM 03/17/20 04/11/20 History docusate sodium 200 mg PO QAM 03/17/20 04/11/20 History ergocalciferol (vitamin D2) 1,250 mcg PO WK 03/17/20 04/11/20 History melatonin 2 mg PO HS 03/17/20 04/11/20 History venlafaxine 225 mg PO QAM 03/17/20 04/11/20 History cinacalcet 30 mg tablet 30 mg PO QAM 04/02/20 04/11/20 History omega-3 fatty acids 500 mg capsule 500 mg PO BID 04/02/20 04/11/20 History furosemide [Lasix] 40 mg PO QAM 04/11/20 04/11/20 History Patient History Medical History (Updated 04/12/20 @ 16:21 by Cain Garcia DO) Anxiety and depression CAD (coronary artery disease) Chronic back pain Chronic nonspecific lung disease Comminuted fracture of right humerus Diabetes mellitus, type II Dyslipidemia GERD (gastroesophageal reflux disease) Hx-TIA (transient ischemic attack) Hypertension Hypertensive urgency Hypothyroidism LVH (left ventricular hypertrophy) Osteoarthritis Renal cancer WPW (Pkqka-Ryjxtomkq-Alflg syndrome) Surgical History History of left nephrectomy History of lumbar surgery [facility] History of total knee arthroplasty bilateral - [facility] Family History Son Diabetes Other Family history of bone cancer Family history of cancer of larynx Family history of liver cancer Family history of rectal cancer Hypertension Social History Smoking Status: Never smoker Do You Dip or Chew Tobacco: No; Hx Alcohol Use: No Hx Substance Use: No Preferred Language: French Communication Ability: Effective Cashier Courtesy Booth Required: No Beliefs That Will Affect Care: None marital status: / Current Living Situation: Group Home current occupational status: retired How many Children do You have: 4 Other Information That Helps Us Care for You: No Feels Safe at Home: Yes Safety Concerns: Feels Safe At This Time Assistive Devices: Glasses, Hearing Aid - Right, Oxygen - Continuous and Walker Results & Data ([facility]) Vital Signs (Past 12 Hours) Vital Signs Temp Pulse Pulse Resp BP Pulse Ox 04/12/20 11:53 36.6 C 82 18 144/85 H 98 04/12/20 08:00 74 04/12/20 07:27 36.7 C 72 16 133/62 98 04/12/20 04:24 36.5 C 81 18 148/112 H 99 Laboratory Results Laboratory Results - last 24 hr 04/11/20 04/11/20 04/11/20 17:33 17:55 19:03 WBC RBC Hgb Hct MCV MCH MCHC RDW Std Deviation RDW Coeff of Mary Plt Count MPV ESR APTT PTT Ratio Sodium Potassium Chloride Carbon Dioxide Anion Gap BUN Creatinine Est Cr Clr Drug Dosing Est GFR ( Amer) Est GFR (Non-Af Amer) BUN/Creatinine Ratio Glucose POC Glucose 59 L* 85 Calcium Ferritin Troponin I 0.064 H* C-Reactive Protein NT-Pro-B Natriuret Pep 3803 H Nasal Screen MRSA (PCR) 04/11/20 04/12/20 04/12/20 19:59 00:47 00:47 WBC RBC Hgb Hct MCV MCH MCHC RDW Std Deviation RDW Coeff of Mary Plt Count MPV ESR APTT 34.2 H PTT Ratio 1.2 Sodium Potassium Chloride Carbon Dioxide Anion Gap BUN Creatinine Est Cr Clr Drug Dosing Est GFR ( Amer) Est GFR (Non-Af Amer) BUN/Creatinine Ratio Glucose POC Glucose 330 H* Calcium Ferritin Troponin I 0.078 H* C-Reactive Protein NT-Pro-B Natriuret Pep Nasal Screen MRSA (PCR) 04/12/20 04/12/20 04/12/20 05:22 05:22 05:22 WBC 5.65 RBC 3.81 L Hgb 11.4 L Hct 35.9 L MCV 94.2 MCH 29.9 MCHC 31.8 L RDW Std Deviation 51.5 H RDW Coeff of Mary 15.1 H Plt Count 247 MPV 8.9 ESR 34 H APTT PTT Ratio Sodium 142 Potassium 4.0 Chloride 104 Carbon Dioxide 35 H Anion Gap 3.0 BUN 25 H Creatinine 1.02 Est Cr Clr Drug Dosing 32.2 Est GFR ( Amer) 56.5 Est GFR (Non-Af Amer) 48.7 BUN/Creatinine Ratio 24.8 H Glucose 111 H POC Glucose Calcium 8.9 Ferritin 155.4 Troponin I 0.091 H* C-Reactive Protein 0.71 H NT-Pro-B Natriuret Pep Nasal Screen MRSA (PCR) 04/12/20 04/12/20 04/12/20 05:22 07:26 08:15 WBC RBC Hgb Hct MCV MCH MCHC RDW Std Deviation RDW Coeff of Mary Plt Count MPV ESR APTT > 139.0 H* 136.9 H* PTT Ratio > 5.0 4.9 Sodium Potassium Chloride Carbon Dioxide Anion Gap BUN Creatinine Est Cr Clr Drug Dosing Est GFR ( Amer) Est GFR (Non-Af Amer) BUN/Creatinine Ratio Glucose POC Glucose 90 Calcium Ferritin Troponin I C-Reactive Protein NT-Pro-B Natriuret Pep Nasal Screen MRSA (PCR) 04/12/20 04/12/20 04/12/20 09:53 11:44 12:39 WBC RBC Hgb Hct MCV MCH MCHC RDW Std Deviation RDW Coeff of Mary Plt Count MPV ESR APTT 53.2 H* PTT Ratio 1.9 Sodium Potassium Chloride Carbon Dioxide Anion Gap BUN Creatinine Est Cr Clr Drug Dosing Est GFR ( Amer) Est GFR (Non-Af Amer) BUN/Creatinine Ratio Glucose POC Glucose 82 Calcium Ferritin Troponin I C-Reactive Protein NT-Pro-B Natriuret Pep Nasal Screen MRSA (PCR) Negative 04/12/20 16:14 WBC RBC Hgb Hct MCV MCH MCHC RDW Std Deviation RDW Coeff of Mary Plt Count MPV ESR APTT PTT Ratio Sodium Potassium Chloride Carbon Dioxide Anion Gap BUN Creatinine Est Cr Clr Drug Dosing Est GFR ( Amer) Est GFR (Non-Af Amer) BUN/Creatinine Ratio Glucose POC Glucose Pending Calcium Ferritin Troponin I C-Reactive Protein NT-Pro-B Natriuret Pep Nasal Screen MRSA (PCR) Medications Administered Current Inpatient Medications Acetaminophen (Acetaminophen 325 Mg Tab) 650 mg PO Q4H PRN PRN Reason: Pain or Fever Stop: 05/11/20 17:35 Last Admin: 04/12/20 03:12 Dose: 650 mg Documented by: Aspirin (Aspirin 81 Mg Chew) [facility] Stop: 05/12/20 08:59 Last Admin: 04/12/20 08:06 Dose: 81 mg Documented by: Dexamethasone (Dexamethasone 4 Mg Tab) 6 mg PO DAILY [facility] Stop: 05/12/20 08:59 Last Admin: 04/12/20 08:06 Dose: 6 mg Documented by: Dextrose (Dextrose 50% 50 Ml Syringe) 25 - 50 ml IV UD PRN; Protocol PRN Reason: Hypoglycemia Protocol Stop: 05/11/20 17:35 Docusate Sodium (Docusate Sodium 100 Mg Cap) 200 [facility] Stop: 05/12/20 08:59 Last Admin: 04/12/20 08:08 Dose: 200 mg Documented by: Doxycycline Hyclate (Doxycycline Hyclate 100 Mg Cap) 100 mg PO BID [facility]; Protocol Stop: 04/18/20 20:59 Last Admin: 04/12/20 08:04 Dose: 100 mg Documented by: Enalapril Maleate (Enalapril Maleate 10 Mg Tab) 40 mg PO [facility]; Protocol Stop: 05/12/20 08:59 Last Admin: 04/12/20 08:07 Dose: 40 mg Documented by: Fluticasone Furoate (Fluticasone Furoate 200mcg 14 Puffs/Inhaler) 1 puffs [facility]H [facility]; Protocol Stop: 05/12/20 08:59 Last Admin: 04/12/20 08:11 Dose: 1 puffs Documented by: Gabapentin (Gabapentin 100 Mg Cap) 200 mg PO TID [facility] Stop: 05/11/20 20:59 Last Admin: 04/12/20 13:56 Dose: 200 mg Documented by: Glucagon (Glucagon For Inj 1 Mg Vial) 1 mg SQ UD PRN; Protocol PRN Reason: Hypoglycemia Protocol Stop: 05/11/20 17:35 Glucose (Glucose 10 Tabs/Tube) 4 - 8 tabs PO UD PRN; Protocol PRN Reason: Hypoglycemia Protocol Stop: 05/11/20 17:35 Glucose (Glucose 40% Gel 15 Gm Tube) 15 - 30 gm PO UD PRN; Protocol PRN Reason: Hypoglycemia Protocol Stop: 05/11/20 17:35 Ceftriaxone Sodium 1,000 mg/ (Dextrose) 50 mls @ 100 mls/hr IV Q24H [facility]; Protocol Stop: 04/18/20 17:59 Last Infusion: 04/11/20 21:09 Dose: Infused Documented by: Heparin Sodium/Dextrose (Heparin Sodium/Dextrose) 25,000 units in 500 mls @ 25 mls/hr IV .Q20H [facility]; Protocol Stop: 05/11/20 17:35 Last Titration: 04/12/20 15:48 Dose: 1,250 units/hr, 25 mls/hr Documented by: Furosemide 40 mg/ Syringe 4 mls @ 4 mls/min IV BID [facility] Stop: 05/11/20 20:59 Last Admin: 04/12/20 08:11 Dose: 4 mls/min Documented by: Insulin Aspart (Insulin Aspart 100 Units/Ml 3 Ml Pen) 0 units SC ACHS [facility] Stop: 05/11/20 17:59 Last Admin: 04/12/20 12:28 Dose: 1 units Documented by: Insulin Glargine (Insulin Glargine Solostar 100 Units/Ml 3 Ml Pen) 0 units SC BID [facility]; Protocol Stop: 05/13/20 08:59 Levothyroxine Sodium (Levothyroxine Sodium 125 Mcg Tablet) 62.5 mcg PO DAILYBB [facility] Stop: 05/12/20 06:29 Last Admin: 04/12/20 05:26 Dose: 62.5 mcg Documented by: Magnesium Oxide (Magnesium Oxide 400 Mg Tab) 400 mg PO BID@0700,1900 [facility] Stop: 05/11/20 18:59 Last Admin: 04/12/20 08:03 Dose: 400 mg Documented by: Metoprolol Tartrate (Metoprolol Tartrate 25 Mg Tab) 37.5 mg PO BID [facility] Stop: 05/11/20 20:59 Last Admin: 04/12/20 08:07 Dose: 37.5 mg Documented by: Mirtazapine (Mirtazapine Soltab 15 Mg) 45 mg PO HS [facility] Stop: 05/11/20 20:59 Last Admin: 04/11/20 20:36 Dose: 45 mg Documented by: Miscellaneous (*Sensipar*Order Awaiting Action) 1 ea N/A QS [facility]DA Stop: 05/12/20 00:00 Last Admin: 04/12/20 08:53 Dose: Not Given Documented by: Miscellaneous (Carbohydrates For Hypoglycemia ) 15 - 30 gm PO UD PRN PRN Reason: Hypoglycemia Protocol Stop: 05/11/20 17:35 Miscellaneous Information (Pharmacy Glycemic Mgmt Consult) 1 ea N/A UD [facility] Stop: 05/12/20 13:53 Pantoprazole Sodium (Pantoprazole 40 Mg Tab) 40 mg PO BID [facility]; Protocol Stop: 05/11/20 20:59 Last Admin: 04/12/20 08:09 Dose: 40 mg Documented by: Polyethylene Glycol (Polyethylene (Miralax) 17 Gm Pack) 17 gm PO DAILY PRN PRN Reason: Constipation Stop: 05/12/20 10:08 Sennosides (Senna 8.6 Mg Tab) 8.6 mg PO QAM [facility] Stop: 05/12/20 10:29 Last Admin: 04/12/20 11:55 Dose: 8.6 mg Documented by: Venlafaxine HCl (Venlafaxine Hcl Xr 75 Mg Capxr) 225 mg [facility] Stop: 05/12/20 08:59 Last Admin: 04/12/20 08:05 Dose: 225 mg Documented by:
--- NOTE | 2020-04-12 16:16 | Hospitalist Progress Note ---
Date of Service April 12, 2020 Assessment & Plan (1) Pleural effusion, bilateral: (2) SOB (shortness of breath): Acute on chronic respiratory failure with hypoxia Acute diastolic CHF exacerbation B/L Pleural effusion COVID 19 likely contributing as well CXR:Mild interval increase in pulmonary edema since prior exam. Persistent small bilateral pleural effusions and bibasilar opacities which may reflect atelectasis or consolidation. Continue IV Lasix Monitor I's and O's, daily weight, volume status Appreciate cardiology input Continue supplemental oxygen as needed COVID 19 CXR as above ESR:34 Negative procalcitonin Admitting hospitalist discussed with pulmonology regarding remdesivir Continue dexamethasone Continue oxygen support as needed No plan to start remdesivir currently given duration of symptoms, relatively poor renal function Rocephin, doxycycline empirically Elevated troponin Chronic elevated troponin Likely secondary to demand ischemia, type II IN due to CHF Denies chest pain ECHO on 03/27 showed left ventricular systolic function is normal. No regional wall motion abnormalities. Moderate concentric LVH hypertrophy with EF 65- 70% Continue aspirin and metoprolol Atrial fibrillation/Atrial Flutter H/O WPW [id number] -VASc score above 6 Continue metoprolol On IV heparin while inpatient Likely not a candidate for long-term anticoagulation Appreciate cardiology input Hypertension BP slightly elevated likely due to steroids Continue metoprolol, Enalapril Monitor CKD III: H/O left nephrectomy/Renal cell ca Monitor renal function Avoid nephrotoxic agents as able DM II Continue insulin therapy Monitor BGs Glycemic pharmacy consulted GERD Continue PPI Hypothyroidism Continue levothyroxine DVT Px: IV Heparin CODE STATUS DNR/DNI Disposition Anticipate return to [facility] when patient is medically stable Admission and Anticipated Discharge Date Admission Date: April 11, 2020 Subjective Patient is seen and examined at bedside States feeling better today He initially reported constipation, but had bowel movement later today Reports mild cough intermittently Denies any significant dyspnea Also denies chest pain, dizziness, nausea, abdominal pain Discussed with cardiology today Offers no other complaints Review of Systems Review of Systems: All systems reviewed & are unremarkable except as noted in HPI & below Physical Exam Physical Exam: Physical Exam: Vitals signs as noted above General Appearance:Moderately built and nourished, no apparent distress, elderly Head: normocephalic, Atraumatic, hearing impairment Eyes: normal inspection, EOMI Neck: supple, Trachea midline Respiratory/Chest: Decreased breath sounds, CTA Cardiovascular: S1, S2, No murmur Abdomen/GI:Soft, Non tender, Bowel sounds present Extremities/Musculoskelatal:normal inspection, B/L LE 1-2+ edema, Chronic venous stasis changes Neurologic/Psych:AAOX3, grossly no focal neurological deficits Skin: normal color, warm Results & Data Results & Data ([facility]) Vital Signs (Past 12 Hours) Vital Signs Temp Pulse Pulse Resp BP Pulse Ox 04/12/20 11:53 36.6 C 82 18 144/85 H 98 04/12/20 08:00 74 04/12/20 07:27 36.7 C 72 16 133/62 98 04/12/20 04:24 36.5 C 81 18 148/112 H 99 Laboratory Results Short CBC 04/12/20 Range/Units 05:22 WBC 5.65 (4.8-10.8) K/uL Hgb 11.4 L (12.0-16.0) g/dL Hct 35.9 L (37-47) % Plt Count 247 (130-400) K/uL BMP 04/12/20 05:22 Sodium 142 Potassium 4.0 Chloride 104 Carbon Dioxide 35 H BUN 25 H Creatinine 1.02 Glucose 111 H Calcium 8.9 Cardiac Enzymes 04/11/20 04/12/20 04/12/20 Range/Units 19:03 00:47 05:22 Troponin I 0.064 H* 0.078 H* 0.091 H* (0-0.045) ng/ml
--- NOTE | 2020-04-12 16:45 | Electrocardiogram Report ---
Test Reason : Blood Pressure : / mmHG Vent. Rate : 076 BPM Atrial Rate : 330 BPM P-R Int : 000 ms QRS Dur : 096 ms QT Int : 426 ms P-R-T Axes : 000 -24 050 degrees QTc Int : 479 ms Atrial fibrillation Abnormal ECG When compared with ECG of 11-APR-2020 12:01, no change Confirmed by Jose Nevarez ([id number]) on 04/12/2020 4:45:41 PM Referred By: REFERRED SELF Confirmed By:Neeraj Nevarez
[2020-04-12] MEDS: cefTRIAXone SODIUM 1,000 MG in DEXTROSE 5% 50 ML IV SCH (17:26)
[2020-04-12 18:36] LABS: Partial Thromboplastin Ratio 3.1
[2020-04-12 20:16] LABS: Partial Thromboplastin Time 87.2 Seconds (21.0-31.0)
[2020-04-12] MEDS ORDERED: INSULIN GLARGINE SOLOSTAR 100 UNITS/ML 3 ML PEN SC SCH (21:00)
[2020-04-12] MEDS: MIRTAZAPINE SOLTAB 15 MG PO SCH (21:13)
[2020-04-12] MEDS: HEPARIN SODIUM/DEXTROSE 25,000 UNITS/500 ML BAG IV SCH (22:19)
[2020-04-13] MEDS: LEVOTHYROXINE SODIUM 125 MCG TABLET PO SCH (05:14)
[2020-04-13] MEDS: MAGNESIUM OXIDE 400 MG TAB PO SCH ×2 (05:15→20:27)
[2020-04-13 05:46] LABS: Partial Thromboplastin Ratio 3.6
[2020-04-13 05:52] LABS: Partial Thromboplastin Time 99.4 Seconds (21.0-31.0)
[2020-04-13 05:59] LABS: BUN Creatinine Ratio 27.9 (10-20); Calcium 8.9 mg/dl (8.5-10.1); Creatinine Clr Calc Pharmacy 29.8 ml/min; Est GFR (African American) 51.5; Est GFR (Non-African American) 44.5; Magnesium 2.1 mg/dl (1.8-2.4); Potassium 3.6 mmol/L (3.5-5.1)
[2020-04-13] MEDS ORDERED: INSULIN GLARGINE SOLOSTAR 100 UNITS/ML 3 ML PEN SC SCH ×2 (09:00)
[2020-04-13] MEDS: amLODIPine BESYLATE 5 MG TAB PO SCH (09:06)
[2020-04-13] MEDS: VENLAFAXINE HCL XR 75 MG CAPXR PO SCH (09:07)
[2020-04-13] MEDS: DOCUSATE SODIUM 100 MG CAP PO SCH (09:08)
[2020-04-13] MEDS: METOPROLOL TARTRATE 25 MG TAB PO SCH ×2 (09:08→20:29)
[2020-04-13] MEDS: PANTOprazole 40 MG TAB PO SCH ×2 (09:10→20:28)
[2020-04-13] MEDS: ASPIRIN 81 MG CHEW PO SCH (09:10)
[2020-04-13] MEDS: FUROSEMIDE 40 MG in SYRINGE 0 ML IV SCH ×2 (09:11→20:27)
[2020-04-13] MEDS: SENNA 8.6 MG TAB PO SCH (09:11)
[2020-04-13] MEDS: FLUTICASONE FUROATE 200MCG 14 PUFFS/INHALER INH SCH (09:12)
--- NOTE | 2020-04-13 10:33 | Cardiology Progress Note ---
Date of Service April 13, 2020 Assessment & Plan (1) Acute respiratory failure with hypoxia: (2) COVID-19 virus infection: (3) Falls frequently: (4) Labyrinthine dysfunction, unspecified: (5) Transient cerebral ischemic attack, unspecified: (6) CKD (chronic kidney disease), stage III: (7) Chronic nonspecific lung disease: (8) WPW (Drxzc-Umowqbsim-Tmusi syndrome): (9) Pulmonary embolism: (10) Pleural effusion, bilateral: Patient incidentally found to be in atrial fibrillation/flutter with controlled ventricular response in the setting of hypoxemia with acute decompensated diastolic heart failure and COVID-19 infection. No further cardiac testing necessary at this time. Chart history of reaction to warfarin along with frequent falls and chronic kidney disease. I do not believe the patient is a long-term anticoagulation candidate given the above. Can continue heparin while inpatient. Continue current dose of metoprolol. Okay to DC telemetry from a cardiac standpoint. We will sign off, please call with questions or concerns. Admission and Anticipated Discharge Date Admission Date: April 11, 2020 Subjective Chart reviewed. Discussed with nursing. No events reported overnight. Telemetry reviewed: Atrial fibrillation rate controlled. Results & Data ([facility]) Vital Signs (Past 12 Hours) Vital Signs Temp Pulse Pulse Resp BP Pulse Ox 04/13/20 07:35 36.6 C 89 20 178/116 H 100 04/13/20 04:38 37 C 90 20 183/104 H 94 04/12/20 23:46 88 04/12/20 22:57 37.0 C 87 20 176/88 H 95
[2020-04-13] MEDS: INSULIN ASPART 100 UNITS/ML 3 ML PEN SC SCH ×4 (10:44→21:00)
[2020-04-13] MEDS: POTASSIUM CHLORIDE CRTAB 20 MEQ TABCR PO SCH ×2 (10:46→20:25)
[2020-04-13] MEDS: GABAPENTIN 100 MG CAP PO SCH ×3 (10:46→20:26)
--- NOTE | 2020-04-13 11:35 | Pharmacy Report ---
Pharmacy Glycemic Short Note 2 - Date of Service April 13, 2020 - Glycemic Short BSG Results (Last 24 hours): 04/12/20 04/12/20 04/12/20 11:44 16:14 20:09 Glucose POC Glucose 82 146 H 89 04/13/20 04/13/20 04:43 07:33 Glucose 96 POC Glucose 82 OUTPATIENT ANTIDIABETIC REGIMEN: * Lantus 26 units once daily * A1c = 6.3% 02/27/20 ASSESSMENT: 04/13 * 42 units SQ insulin administered over the last 24 hrs while eating poorly (per nursing documentation, only 29gm CHO consumed at lunch yesterday and none w/ breakfast or dinner). Patient did eat breakfast this AM however. * Fasting BSG 82-96 this AM with 40 units Lantus on board * Decadron 6mg PO daily continues * Will adjust basal dose to once daily dosing in the AM and give approx half the dose that was given yesterday. Novolog doses will be increased today as basal/bolus doses are being redistributed 04/12 * Type 2 diabetic admitted for ADHF, b/l pleural effusions, COVID19 viral pna * Patient was recently admitted to [facility] for pneumonia in March. During that admission, she required only 16-23 units of insulin per day to achieve glycemic targets. Of note, these were insulin needs when she was not receiving steroid therapy. She does seem to be sensitive to IV decadron 10mg doses however. * This admission patient pt is receiving PO dexamethasone 6mg daily which typically does not induce as large of a hyperglycemic response. * She has already received 20units Lantus x 2 this AM and BSGs are 82-90. Will hold HS Lantus this evening and scale back current Novolog doses as pt's BSGs are below goal. Effects of PO decadron may dissipate overnight placing her at risk for hypoglycemia * Will continue to dose Lantus BID however scale doses PLAN FOR INPATIENT GLYCEMIC CONTROL: * Hold outpatient oral diabetes medications * Basal insulin - decrease * Lantus 20 units Q AM * Bolus insulin - increase * NovoLog per scale ACHS or Q6hrs while NPO * Goal Range: Low 110 mg/dL - High 140 mg/dL * Correction Factor: 25 mg/dL/unit * Nutritional / Prandial insulin per carb ratio of 1 unit per 8 grams CHO consumed PLAN FOR DISCHARGE: * to be determined, will depend on whether decadron prescribed on discharge.
[2020-04-13] MEDS: dexAMETHasone 4 MG TAB PO SCH (12:28)
[2020-04-13] MEDS: ENALAPRIL MALEATE 10 MG TAB PO SCH (12:30)
[2020-04-13] MEDS: DOXYCYCLINE HYCLATE 100 MG CAP PO SCH ×2 (12:34→20:28)
[2020-04-13] MEDS: INSULIN GLARGINE SOLOSTAR 100 UNITS/ML 3 ML PEN SC SCH (12:59)
[2020-04-13 15:50] LABS: Partial Thromboplastin Ratio 2.2
[2020-04-13 15:54] LABS: Partial Thromboplastin Time 61.4 Seconds (21.0-31.0)
[2020-04-13] MEDS: cefUROXime axetil 250 MG TABLET PO SCH (16:04)
--- NOTE | 2020-04-13 16:31 | Hospitalist Progress Note ---
Date of Service April 13, 2020 Assessment & Plan (1) Pleural effusion, bilateral: (2) SOB (shortness of breath): Acute on chronic respiratory failure with hypoxia Acute diastolic CHF exacerbation B/L Pleural effusion COVID 19 likely contributing as well CXR:Mild interval increase in pulmonary edema since prior exam. Persistent small bilateral pleural effusions and bibasilar opacities which may reflect atelectasis or consolidation. Continue IV Lasix for now Monitor I's and O's, daily weight, volume status Appreciate cardiology input Wean off of supplemental oxygen to keep Sats > 92% Plan to transition to PO diuretics as able Will repeat CXR tomorrow COVID 19 CXR as above ESR:34 Negative procalcitonin Admitting hospitalist discussed with pulmonology regarding remdesivir No plan to start remdesivir currently given duration of symptoms, relatively poor renal function, H/O Nephrectomy Continue dexamethasone Continue oxygen support as needed Continue doxycycline, cefuroxime Elevated troponin Chronic elevated troponin Likely secondary to demand ischemia, type II [place] due to CHF Denies chest pain ECHO on 03/27 showed left ventricular systolic function is normal. No regional wall motion abnormalities. Moderate concentric LVH hypertrophy with EF 65- 70% Continue aspirin and metoprolol Atrial fibrillation/Atrial Flutter H/O WPW [id number] -VASc score above 6 Continue metoprolol On IV heparin while inpatient Not a candidate for long-term anticoagulation Appreciate cardiology input Hypertension BP Variable likely due to steroids Continue metoprolol, Enalapril Added Amlodipine Monitor CKD III: H/O left nephrectomy/Renal cell ca Monitor renal function Avoid nephrotoxic agents as able DM II Continue insulin therapy Monitor BGs Glycemic pharmacy consulted GERD Continue PPI Hypothyroidism Continue levothyroxine DVT Px: IV Heparin CODE STATUS DNR/DNI Disposition Anticipate return to [facility] when patient is medically stable Admission and Anticipated Discharge Date Admission Date: April 11, 2020 Subjective Patient is seen and examined at bedside Leg edema slowly improving States feel better today Still has cough with yellowish expectoration No new complaints Denies chest pain, dyspnea, dizziness, nausea, abdominal pain Saturating well on 1-2 Liters of supplemental oxygen Review of Systems Review of Systems: All systems reviewed & are unremarkable except as noted in HPI & below Physical Exam Physical Exam: Physical Exam: Vitals signs as noted above General Appearance:Moderately built and nourished, no apparent distress, elderly Head: normocephalic, Atraumatic, hearing impairment Eyes: normal inspection, EOMI Neck: supple, Trachea midline Respiratory/Chest: Decreased breath sounds, mild basal crackles/wheezes Cardiovascular: S1, S2, No murmur Abdomen/GI:Soft, Non tender, Bowel sounds present Extremities/Musculoskelatal:normal inspection, B/L LE 1+ edema, Chronic venous stasis changes Neurologic/Psych:AAOX3, grossly no focal neurological deficits Skin: normal color, warm Results & Data Results & Data ([facility]) Vital Signs (Past 12 Hours) Vital Signs Temp Pulse Resp BP Pulse Ox 04/13/20 15:25 36.8 C 83 18 135/65 95 04/13/20 12:03 36.8 C 84 16 159/76 H 95 04/13/20 07:35 36.6 C 89 20 178/116 H 100 04/13/20 04:38 37 C 90 20 183/104 H 94 Laboratory Results [facility] 04/13/20 04:43 Sodium 140 Potassium 3.6 Chloride 103 Carbon Dioxide 34 H BUN 31 H Creatinine 1.10 Glucose 96 Calcium 8.9
[2020-04-13] MEDS: MIRTAZAPINE SOLTAB 15 MG PO SCH (20:29)
[2020-04-13] MEDS ORDERED: FAMOTIDINE 10 MG TABLET PO SCH (21:00)
[2020-04-14 05:51] LABS: Hematocrit (blood only) 39.2 % (37-47); Mean Corpuscular Hemoglobin 29.4 pg (25-34); Mean Corpuscular Hgb Conc 30.6 g/dL (32-36); Mean Corpuscular Volume 96.1 fL (80-100); Mean Platelet Volume 9.2 fL (7.4-10.4); Platelet Count 228 K/uL (130-400); RDW Coefficient of Variation 15.3 % (11.5-14.5); Red Blood Count 4.08 M/uL (4.2-5.4); White Blood Count 4.63 K/uL (4.8-10.8)
[2020-04-14] MEDS: MAGNESIUM OXIDE 400 MG TAB PO SCH ×2 (06:06→09:29)
[2020-04-14] MEDS: LEVOTHYROXINE SODIUM 125 MCG TABLET PO SCH (06:06)
[2020-04-14 06:25] LABS: BUN Creatinine Ratio 28.6 (10-20); Calcium 9.6 mg/dl (8.5-10.1); Creatinine Clr Calc Pharmacy 34.2 ml/min; Est GFR (African American) 61.5; Est GFR (Non-African American) 53.1; Magnesium 2.1 mg/dl (1.8-2.4); Potassium 3.9 mmol/L (3.5-5.1)
[2020-04-14 06:35] LABS: Partial Thromboplastin Ratio > 5.0
[2020-04-14 06:39] LABS: Partial Thromboplastin Time > 139.0 Seconds (21.0-31.0)
[2020-04-14] MEDS: INSULIN ASPART 100 UNITS/ML 3 ML PEN SC SCH ×4 (08:00→22:35)
--- NOTE | 2020-04-14 08:16 | XRay Report ---
XR chest 1V portable CLINICAL HISTORY: CHF COMPARISON STUDY: Chest radiograph April 12, 2020. FINDINGS: Spine fusion hardware is partially imaged. There is no pneumothorax. Small bilateral pleura l effusions with bibasilar opacities persist. Pulmonary edema has resolved. Severe osteoarthritis of the right glenohumeral joint is incidentally noted. IMPRESSION: 1. Interval resolution of pulmonary edema. 2. Persistent small bilateral pleural effusions and associated bibasilar opacities which could reflec t pneumonia or atelectasis. ACT 112: Negative or not required by law. Electronically signed by: Stuart Haji M.D. 04/14/2020 8:15 AM
[2020-04-14] MEDS: dexAMETHasone 4 MG TAB PO SCH (09:23)
[2020-04-14] MEDS: POTASSIUM CHLORIDE CRTAB 20 MEQ TABCR PO SCH ×2 (09:26→18:13)
[2020-04-14] MEDS: PANTOprazole 40 MG TAB PO SCH ×2 (09:26→21:58)
[2020-04-14] MEDS: amLODIPine BESYLATE 5 MG TAB PO SCH (09:26)
[2020-04-14] MEDS: FLUTICASONE FUROATE 200MCG 14 PUFFS/INHALER INH SCH (09:27)
[2020-04-14] MEDS: DOCUSATE SODIUM 100 MG CAP PO SCH (09:28)
[2020-04-14] MEDS: ASPIRIN 81 MG CHEW PO SCH (09:29)
[2020-04-14] MEDS: VENLAFAXINE HCL XR 75 MG CAPXR PO SCH (09:29)
[2020-04-14] MEDS: METOPROLOL TARTRATE 25 MG TAB PO SCH ×2 (09:30→21:57)
[2020-04-14] MEDS: SENNA 8.6 MG TAB PO SCH (09:30)
[2020-04-14] MEDS: GABAPENTIN 100 MG CAP PO SCH ×3 (09:32→21:57)
[2020-04-14] MEDS: cefUROXime axetil 250 MG TABLET PO SCH (09:36)
[2020-04-14] MEDS: ENALAPRIL MALEATE 10 MG TAB PO SCH (09:41)
[2020-04-14] MEDS: INSULIN GLARGINE SOLOSTAR 100 UNITS/ML 3 ML PEN SC SCH (11:15)
[2020-04-14] MEDS: FUROSEMIDE 40 MG in SYRINGE 0 ML IV SCH ×2 (12:23→18:13)
[2020-04-14] MEDS: DOXYCYCLINE HYCLATE 100 MG CAP PO SCH ×2 (12:27→21:57)
[2020-04-14] MEDS: HEPARIN SODIUM/DEXTROSE 25,000 UNITS/500 ML BAG IV SCH ×2 (12:45→18:34)
[2020-04-14 16:00] LABS: Partial Thromboplastin Ratio 2.3
[2020-04-14 16:34] LABS: Partial Thromboplastin Time 64.8 Seconds (21.0-31.0)
--- NOTE | 2020-04-14 16:37 | Hospitalist Progress Note ---
Date of Service April 14, 2020 Assessment & Plan (1) Pleural effusion, bilateral: (2) SOB (shortness of breath): Acute on chronic respiratory failure with hypoxia Acute diastolic CHF exacerbation B/L Pleural effusion COVID 19 likely contributing as well CXR:Mild interval increase in pulmonary edema since prior exam. Persistent small bilateral pleural effusions and bibasilar opacities which may reflect atelectasis or consolidation. Repeat chest x-ray on improved condition Decrease IV Lasix--40mg daily Monitor I's and O's, daily weight, volume status Appreciate cardiology input Wean off of supplemental oxygen to keep Sats > 92% Transition to p.o. diuretics as able Clinically improving volume status COVID 19 CXR as above ESR:34 Negative procalcitonin Admitting hospitalist discussed with pulmonology regarding remdesivir No plan to start remdesivir currently given duration of symptoms, relatively poor renal function, H/O Nephrectomy Continue dexamethasone Day #4 Continue oxygen support as needed Continue doxycycline, cefuroxime Elevated troponin Chronic elevated troponin Likely secondary to demand ischemia, type II [place] due to CHF Denies chest pain ECHO on 03/27 showed left ventricular systolic function is normal. No regional wall motion abnormalities. Moderate concentric LVH hypertrophy with EF 65- 70% Continue aspirin and metoprolol Atrial fibrillation/Atrial Flutter H/O WPW [id number] -VASc score above 6 Continue metoprolol Continue IV heparin while inpatient Not a candidate for long-term anticoagulation Appreciate cardiology input Hypertension BP Variable likely due to steroids Continue metoprolol, Enalapril Added Amlodipine BP better Monitor CKD III: H/O left nephrectomy/Renal cell ca Monitor renal function Avoid nephrotoxic agents as able DM II Continue insulin therapy Monitor BGs Glycemic pharmacy consulted GERD Continue PPI Hypothyroidism Continue levothyroxine DVT Px: IV Heparin CODE STATUS DNR/DNI Disposition Patient prefers to return home PT/OT prior to discharge May need 2 step Admission and Anticipated Discharge Date Admission Date: April 11, 2020 Subjective Patient is seen and examined at bedside No new complaints CXR showed improved pulmonary edema Minimal cough Reports transient back pain Leg edema continues to improve Denies chest pain, dyspnea, dizziness, nausea, abdominal pain Updated patient's daughter over the phone in detail Review of Systems Review of Systems: All systems reviewed & are unremarkable except as noted in HPI & below Physical Exam Physical Exam: Physical Exam: Vitals signs as noted above General Appearance:Moderately built and nourished, no apparent distress, elderly Head: normocephalic, Atraumatic, hearing impairment Eyes: normal inspection, EOMI Neck: supple, Trachea midline Respiratory/Chest: Decreased breath sounds, CTA Cardiovascular: S1, S2, No murmur Abdomen/GI:Soft, Non tender, Bowel sounds present Extremities/Musculoskelatal:normal inspection, B/L LE Trace edema, Chronic venous stasis changes Neurologic/Psych:AAOX3, grossly no focal neurological deficits Skin: normal color, warm Results & Data Results & Data ([facility]) Vital Signs (Past 12 Hours) Vital Signs Temp Pulse Resp BP Pulse Ox 04/14/20 15:00 36.8 C 70 18 135/68 96 04/14/20 12:14 37.0 C 68 18 159/79 H 96 04/14/20 08:02 36.8 C 81 18 175/82 H 96 04/14/20 04:44 36.3 C L 82 19 180/92 H 99
[2020-04-14 21:18] LABS: Partial Thromboplastin Ratio 1.8
[2020-04-14] MEDS: MIRTAZAPINE SOLTAB 15 MG PO SCH (21:57)
[2020-04-15] MEDS: LEVOTHYROXINE SODIUM 125 MCG TABLET PO SCH (06:18)
[2020-04-15 06:36] LABS: BUN Creatinine Ratio 36.3 (10-20); Calcium 9.8 mg/dl (8.5-10.1); Creatinine Clr Calc Pharmacy 34.3 ml/min; Est GFR (African American) 62.3; Est GFR (Non-African American) 53.8; Magnesium 2.2 mg/dl (1.8-2.4); Potassium 3.9 mmol/L (3.5-5.1)
[2020-04-15 06:43] LABS: Partial Thromboplastin Ratio 2.6
[2020-04-15 06:52] LABS: Partial Thromboplastin Time 71.5 Seconds (21.0-31.0)
[2020-04-15] MEDS: INSULIN ASPART 100 UNITS/ML 3 ML PEN SC SCH ×4 (08:17→21:24)
[2020-04-15] MEDS: MAGNESIUM OXIDE 400 MG TAB PO SCH ×2 (08:18→17:18)
[2020-04-15] MEDS: ASPIRIN 81 MG CHEW PO SCH (08:18)
[2020-04-15] MEDS: FLUTICASONE FUROATE 200MCG 14 PUFFS/INHALER INH SCH (08:18)
[2020-04-15] MEDS: dexAMETHasone 4 MG TAB PO SCH (08:19)
[2020-04-15] MEDS: cefUROXime axetil 250 MG TABLET PO SCH (08:19)
[2020-04-15] MEDS: DOCUSATE SODIUM 100 MG CAP PO SCH (08:19)
[2020-04-15] MEDS: INSULIN GLARGINE SOLOSTAR 100 UNITS/ML 3 ML PEN SC SCH (08:20)
[2020-04-15] MEDS: VENLAFAXINE HCL XR 75 MG CAPXR PO SCH (08:20)
[2020-04-15] MEDS: POTASSIUM CHLORIDE CRTAB 20 MEQ TABCR PO SCH (08:20)
[2020-04-15] MEDS: FUROSEMIDE 40 MG in SYRINGE 0 ML IV SCH (08:20)
[2020-04-15] MEDS: PANTOprazole 40 MG TAB PO SCH ×2 (08:21→22:01)
[2020-04-15] MEDS: amLODIPine BESYLATE 5 MG TAB PO SCH (08:21)
[2020-04-15] MEDS: METOPROLOL TARTRATE 25 MG TAB PO SCH ×2 (08:21→21:58)
[2020-04-15] MEDS: GABAPENTIN 100 MG CAP PO SCH ×3 (08:21→22:00)
[2020-04-15] MEDS: SENNA 8.6 MG TAB PO SCH (08:22)
[2020-04-15] MEDS: ENALAPRIL MALEATE 10 MG TAB PO SCH (08:22)
[2020-04-15] MEDS: DOXYCYCLINE HYCLATE 100 MG CAP PO SCH ×2 (08:22→22:00)
[2020-04-15] MEDS: HEPARIN SODIUM/DEXTROSE 25,000 UNITS/500 ML BAG IV SCH ×2 (10:21→21:29)
[2020-04-15 13:45] LABS: Partial Thromboplastin Ratio 2.4
[2020-04-15 14:22] LABS: Partial Thromboplastin Time 67.3 Seconds (21.0-31.0)
--- NOTE | 2020-04-15 14:56 | Hospitalist Progress Note ---
Date of Service April 15, 2020 Assessment & Plan (1) Pleural effusion, bilateral: (2) SOB (shortness of breath): Acute on chronic respiratory failure with hypoxia Acute diastolic CHF exacerbation B/L Pleural effusion COVID 19 likely contributing as well CXR:Mild interval increase in pulmonary edema since prior exam. Persistent small bilateral pleural effusions and bibasilar opacities which may reflect atelectasis or consolidation. Repeat chest x-ray on improved condition Decrease IV Lasix--40mg daily Monitor I's and O's, daily weight, volume status Appreciate cardiology input Wean off of supplemental oxygen to keep Sats > 92% Transition to p.o. diuretics tomorrow Saturating well on 1 L supplemental oxygen Diuresing well COVID 19 CXR as above ESR:34 Negative procalcitonin Admitting hospitalist discussed with pulmonology regarding remdesivir No plan to start remdesivir currently given duration of symptoms, relatively poor renal function, H/O Nephrectomy Continue dexamethasone Day #5 Continue doxycycline, cefuroxime Wean off of oxygen as able Elevated troponin Chronic elevated troponin Likely secondary to demand ischemia, type II [place] due to CHF Denies chest pain ECHO on 03/27 showed left ventricular systolic function is normal. No regional wall motion abnormalities. Moderate concentric LVH hypertrophy with EF 65- 70% Continue aspirin and metoprolol Atrial fibrillation/Atrial Flutter H/O WPW [id number] -VASc score above 6 Continue metoprolol Continue IV heparin while inpatient Not a candidate for long-term anticoagulation Appreciate cardiology input Hypertension BP Variable likely due to steroids Continue metoprolol, Enalapril Added Amlodipine Monitor CKD III: H/O left nephrectomy/Renal cell ca Monitor renal function Avoid nephrotoxic agents as able DM II Continue insulin therapy Monitor BGs Glycemic pharmacy consulted GERD Continue PPI Hypothyroidism Continue levothyroxine DVT Px: IV Heparin CODE STATUS DNR/DNI Disposition Patient prefers to return home PT/OT prior to discharge May need 2 step Case management to help with discharge planning Admission and Anticipated Discharge Date Admission Date: April 11, 2020 Subjective Patient is seen and examined at bedside Only minimal cough Prefers to be discharged home No new complaints Denies dyspnea, chest pain, dizziness, nausea, abdominal pain Saturating well on 1 L supplemental oxygen Sitting in chair comfortably during my exam Review of Systems Review of Systems: All systems reviewed & are unremarkable except as noted in HPI & below Physical Exam Physical Exam: Physical Exam: Vitals signs as noted above General Appearance:Moderately built and nourished, no apparent distress, elderly Head: normocephalic, Atraumatic, hearing impairment Eyes: normal inspection, EOMI Neck: supple, Trachea midline Respiratory/Chest: Decreased breath sounds, CTA Cardiovascular: S1, S2, No murmur Abdomen/GI:Soft, Non tender, Bowel sounds present Extremities/Musculoskelatal:normal inspection, B/L LE Trace edema, Chronic venous stasis changes Neurologic/Psych:AAOX3, grossly no focal neurological deficits Skin: normal color, warm Results & Data Results & Data ([facility]) Vital Signs (Past 12 Hours) Vital Signs Temp Pulse Pulse Pulse Resp BP BP 04/15/20 11:58 36.3 C L 81 18 127/81 04/15/20 08:00 65 04/15/20 07:53 36.5 C 65 18 160/96 H 04/15/20 04:24 36.5 C 83 18 150/80 H Pulse Ox 04/15/20 11:58 99 04/15/20 08:00 04/15/20 07:53 96 04/15/20 04:24 97 Laboratory Results BMP 04/15/20 05:48 Sodium 143 Potassium 3.9 Chloride 106 Carbon Dioxide 33 H BUN 34 H Creatinine 0.94 Glucose 113 H Calcium 9.8
[2020-04-15 21:09] LABS: Partial Thromboplastin Ratio 2.2
[2020-04-15] MEDS: MIRTAZAPINE SOLTAB 15 MG PO SCH (21:59)
[2020-04-16] MEDS: LEVOTHYROXINE SODIUM 125 MCG TABLET PO SCH (06:02)
[2020-04-16] MEDS: MAGNESIUM OXIDE 400 MG TAB PO SCH (06:02)
[2020-04-16 06:14] LABS: Hematocrit (blood only) 38.5 % (37-47); Hemoglobin 12.1 g/dL (12.0-16.0); Mean Corpuscular Hgb Conc 31.4 g/dL (32-36); Mean Corpuscular Volume 95.5 fL (80-100); Platelet Count 226 K/uL (130-400); RDW Coefficient of Variation 15.3 % (11.5-14.5); RDW Standard Deviation 53.3 fL (36.4-46.3); Red Blood Count 4.03 M/uL (4.2-5.4); White Blood Count 5.92 K/uL (4.8-10.8)
[2020-04-16 06:49] LABS: BUN Creatinine Ratio 37.9 (10-20); Calcium 10.4 mg/dl (8.5-10.1); Creatinine Clr Calc Pharmacy 34.1 ml/min; Est GFR (African American) 62.3; Est GFR (Non-African American) 53.8; Potassium 4.3 mmol/L (3.5-5.1)
[2020-04-16] MEDS: GABAPENTIN 100 MG CAP PO SCH ×2 (07:57→13:19)
[2020-04-16] MEDS: amLODIPine BESYLATE 5 MG TAB PO SCH (07:58)
[2020-04-16] MEDS: dexAMETHasone 4 MG TAB PO SCH (07:58)
[2020-04-16] MEDS: SENNA 8.6 MG TAB PO SCH (07:58)
[2020-04-16] MEDS: ENALAPRIL MALEATE 10 MG TAB PO SCH (07:58)
[2020-04-16] MEDS: VENLAFAXINE HCL XR 75 MG CAPXR PO SCH (07:59)
[2020-04-16] MEDS: cefUROXime axetil 250 MG TABLET PO SCH (07:59)
[2020-04-16] MEDS: DOCUSATE SODIUM 100 MG CAP PO SCH (07:59)
[2020-04-16] MEDS: DOXYCYCLINE HYCLATE 100 MG CAP PO SCH (08:00)
[2020-04-16] MEDS: METOPROLOL TARTRATE 25 MG TAB PO SCH (08:00)
[2020-04-16] MEDS: PANTOprazole 40 MG TAB PO SCH (08:00)
[2020-04-16] MEDS: ASPIRIN 81 MG CHEW PO SCH (08:01)
[2020-04-16] MEDS: FLUTICASONE FUROATE 200MCG 14 PUFFS/INHALER INH SCH (08:01)
[2020-04-16] MEDS: POTASSIUM CHLORIDE CRTAB 20 MEQ TABCR PO SCH (08:01)
[2020-04-16] MEDS: INSULIN ASPART 100 UNITS/ML 3 ML PEN SC SCH ×3 (08:05→17:09)
[2020-04-16] MEDS: FUROSEMIDE 40 MG in SYRINGE 0 ML IV SCH (08:12)
[2020-04-16] MEDS: INSULIN GLARGINE SOLOSTAR 100 UNITS/ML 3 ML PEN SC SCH (08:50)
[2020-04-16] MEDS ORDERED: INSULIN GLARGINE SOLOSTAR 100 UNITS/ML 3 ML PEN SC SCH (09:00)
[2020-04-16 09:02] LABS: Partial Thromboplastin Ratio 1.3; Partial Thromboplastin Time 35.5 Seconds (21.0-31.0)
[2020-04-16 11:31] LABS: Partial Thromboplastin Ratio 0.9; Partial Thromboplastin Time 24.4 Seconds (21.0-31.0)
--- NOTE | 2020-04-16 13:30 | Pharmacy Report ---
Glycemic Control Progress Note - Date of Service April 16, 2020 - Scope Glycemic Pharmacist consulted for glycemic control to write orders per [facility] inpatient glycemic control protocol. - Objective Accuchecks BSG(last 24 hours):: 04/15/20 04/15/20 04/16/20 16:52 21:20 05:41 Glucose 92 POC Glucose 178 H 76 - Recent Pertinent Medications The patient is currently receiving: * Basal insulin: Lantus 10 units every 24 hours * Correctional Insulin: Novolog Correction per scale ACHS Goal Range: Low 110 mg/dL - High 140 mg/dL Correction Factor: 30 mg/dL/unit * Prandial insulin: Per carb ratio of 1 unit per 8 grams CHO consumed - Outpatient Anti-Diabetic Meds Lantus 26 units in the morning - Assessment & Plan ASSESSMENT: * See progress note from 04/12/20 for more background info, in short: * Pt receiving SQ basal bolus insulin regimen for hyperglycemia secondary to baseline DM (outpatient regimen on hold). Patient is receiving dexamethasone 6 mg PO daily. * Patient is currently receiving an average of 25 units of insulin per day * 10 units of basal insulin * 15 units of prandial/correctional insulin * BSGs ranging 76 - 178 mg/dl over the past 24hrs * Changes needed to insulin regimen: * AM Fasting BSG = 92 mg/dl. This is below goal range for patient based on inpatient targets and co-morbidities. Plan to reduce basal by 20% tomorrow to 8 units. * Post-prandial BSGs trend upwards. Plan to loosen CF as it appears too aggressive for patient. Tomorrow will tighten carbohydrate coverage. * Total daily dose = 20-25 units. PLAN FOR INPATIENT GLYCEMIC CONTROL: * DECREASING Lantus 8 units SQ qAM * LOOSENING correction factor to 35 mg/dl/unit * Continuing carb ratio to 1 unit per 8 grams CHO consumed (plan to tighten tomorrow) * Continuing goal range of Low 110 mg/dL - High 140 mg/dL * Please note that the plan above was derived based on current level of insulin resistance and hospital stress. These recommendations are appropriate for inpatient admission only. Plan of care upon discharge will need to be reassessed to avoid potential outpatient hypo/hyperglycemia. Thank you.
[2020-04-16] MEDS ORDERED: HEPARIN SOD 5,000 UNIT/0.5 ML VIAL SQ SCH (14:00)
--- NOTE | 2020-04-16 14:45 | Hospitalist Progress Note ---
Date of Service April 16, 2020 Assessment & Plan (1) Pleural effusion, bilateral: (2) SOB (shortness of breath): Acute on chronic respiratory failure with hypoxia Acute diastolic CHF exacerbation B/L Pleural effusion COVID 19 likely contributing as well CXR:Mild interval increase in pulmonary edema since prior exam. Persistent small bilateral pleural effusions and bibasilar opacities which may reflect atelectasis or consolidation. Repeat chest x-ray on improved condition Received IV Lasix Monitor I's and O's, daily weight, volume status Appreciate cardiology input Wean off of supplemental oxygen to keep Sats > 92% Saturating well--99% on 1 L supplemental oxygen Diuresed well Resume PO Lasix COVID 19 CXR as above ESR:34 Negative procalcitonin Admitting hospitalist discussed with pulmonology regarding remdesivir No plan to start remdesivir currently given duration of symptoms, relatively poor renal function, H/O Nephrectomy Continue dexamethasone Day #6 Received doxycycline, cefuroxime-- will discontinue as bacterial infection less likely Wean off of oxygen as able Saturating well on 1 L supplemental oxygen Elevated troponin Chronic elevated troponin Likely secondary to demand ischemia, type II [place] due to CHF Denies chest pain ECHO on 03/27 showed left ventricular systolic function is normal. No regional wall motion abnormalities. Moderate concentric LVH hypertrophy with EF 65- 70% Continue aspirin and metoprolol Atrial fibrillation/Atrial Flutter H/O WPW [id number] -VASc score above 6 Continue metoprolol Continue IV heparin while inpatient Not a candidate for long-term anticoagulation Appreciate cardiology input Hypertension BP variable likely due to steroids Continue metoprolol, Enalapril Added Amlodipine Monitor CKD III: H/O left nephrectomy/Renal cell ca Monitor renal function Avoid nephrotoxic agents as able DM II Continue insulin therapy Monitor BGs Glycemic pharmacy consulted GERD Continue PPI Hypothyroidism Continue levothyroxine DVT Px: IV Heparin CODE STATUS DNR/DNI Disposition Patient prefers to return home PT/OT recommends SNF Case management to help with discharge planning Admission and Anticipated Discharge Date Admission Date: April 11, 2020 Subjective Patient is seen and examined at bedside No new complaints Clinically doing well Saturating well on 1 liter supplemental oxygen cough continues to improve Prefers to be discharged home Denies dyspnea, chest pain, dizziness, nausea, abdominal pain Review of Systems Review of Systems: All systems reviewed & are unremarkable except as noted in HPI & below Physical Exam Physical Exam: Physical Exam: Vitals signs as noted above General Appearance:Moderately built and nourished, no apparent distress, elderly Head: normocephalic, Atraumatic, hearing impairment Eyes: normal inspection, EOMI Neck: supple, Trachea midline Respiratory/Chest: Decreased breath sounds, CTA Cardiovascular: S1, S2, No murmur Abdomen/GI:Soft, Non tender, Bowel sounds present Extremities/Musculoskelatal:normal inspection, B/L LE Trace edema, Chronic venous stasis changes Neurologic/Psych:AAOX3, grossly no focal neurological deficits Skin: normal color, warm Results & Data Results & Data ([facility]) Vital Signs (Past 12 Hours) Vital Signs Temp Pulse Resp BP Pulse Ox Pulse Ox Pulse Ox 04/16/20 11:55 36.4 C L 75 18 117/70 99 04/16/20 11:48 93 99 04/16/20 07:54 36.4 C L 75 18 172/96 H 91 04/16/20 06:24 36.6 C 81 19 173/90 H 96 Laboratory Results Short CBC 04/16/20 Range/Units 05:41 WBC 5.92 (4.8-10.8) K/uL Hgb 12.1 (12.0-16.0) g/dL Hct 38.5 (37-47) % Plt Count 226 (130-400) K/uL BMP 04/16/20 05:41 Sodium 140 Potassium 4.3 Chloride 102 Carbon Dioxide 35 H BUN 36 H Creatinine 0.94 Glucose 92 Calcium 10.4 H
--- NOTE | 2020-04-16 15:38 | Discharge Summary ---
Date of Service April 16, 2020 Admission HPI Per Admitting Provider 89-year-old female with PMH with PMH of CKD stage 3, Dyslipidemia, Diabetes type 2, WPW , Hypothyroidism, CHF was sent from [facility] due to worsening SOB. She was admitted few weeks ago for Acute respiratory failure with hypoxia secondary to bilateral pleural effusion/acute decompensation of CHF with diastolic dysfunction. She has been on oxygen supplement since discharged. Pt said that this morning she felt her breathing was worsening with exertion. as per ER document staff at the detention noted an increased of 5 lbs in her weight from yesterday and today. She said that she does not have any cough, pa lpitation, fever, chills and chest pain. Last week she was testing negative for COVID 19 at the detention. She just completed a course of Zithromax today at the detention. In the ER she tested positive for COVID 19. Lasix 40mg IV given in the ER. Currently pt said that her breathing feels much better and denies any symptoms now. Admission Exam Per Admitting Provider Physical Exam Physical Exam: General- No acute distress Head- atraumatic Eyes- PERRL, EOMI, ENT- Hearing aid, decreased hearing function Neck- supple, no JVD Lungs- No wheezing Heart- no murmur Abdomen- normal bowel sounds, soft, nontender Extremities- no calf tenderness, +trace edema Neuro- alert, oriented x 3; PERRL, EOMI; no facial palsy; no dysarthria Skin- warm & dry Principal Diagnosis Acute on chronic respiratory failure with hypoxia Acute diastolic CHF exacerbation COVID 19 Discharge Data Allergies Allergy/AdvReac Type Severity Reaction Status Date / Time warfarin Allergy Mild "Itchy" Verified 04/11/20 12:16 clopidogrel Allergy Unknown ITCHY Verified 04/11/20 12:16 codeine Allergy Unknown Unknown Verified 04/11/20 12:16 meperidine Allergy Unknown Unknown Verified 04/11/20 12:16 Consultations 04/11/20 15:00 ED Decision to Admit Stat 04/11/20 17:36 Consult Cardiology Routine Consult Case Management - Discharge Planning Routine Procedures Performed CXR:Mild interval increase in pulmonary edema since prior exam. Persistent small bilateral pleural effusions and bibasilar opacities which may reflect atelectasis or consolidation. Hospital Course (1) Pleural effusion, bilateral: (2) SOB (shortness of breath): Acute on chronic respiratory failure with hypoxia Acute diastolic CHF exacerbation B/L Pleural effusion COVID 19 likely contributing as well CXR:Mild interval increase in pulmonary edema since prior exam. Persistent small bilateral pleural effusions and bibasilar opacities which may reflect atelectasis or consolidation. Repeat chest x-ray on improved condition Received IV Lasix Monitor I's and O's, daily weight, volume status Appreciate cardiology input Wean off of supplemental oxygen to keep Sats > 92% Saturating well--99% on 1 L supplemental oxygen Diuresed well Resume PO Lasix COVID 19 CXR as above ESR:34 Negative procalcitonin Admitting hospitalist discussed with pulmonology regarding remdesivir No plan to start remdesivir currently given duration of symptoms, relatively poor renal function, H/O Nephrectomy Continue dexamethasone Day #6 Received doxycycline, cefuroxime-- will discontinue as bacterial infection less likely Wean off of oxygen as able Saturating well on 1 L supplemental oxygen Elevated troponin Chronic elevated troponin Likely secondary to demand ischemia, type II AR due to CHF Denies chest pain ECHO on 03/27 showed left ventricular systolic function is normal. No regional wall motion abnormalities. Moderate concentric LVH hypertrophy with EF 65- 70% Continue aspirin and metoprolol Atrial fibrillation/Atrial Flutter H/O WPW [id number] -VASc score above 6 Continue metoprolol Continue IV heparin while inpatient Not a candidate for long-term anticoagulation Appreciate cardiology input Hypertension BP variable likely due to steroids Continue metoprolol, Enalapril Added Amlodipine Monitor CKD III: H/O left nephrectomy/Renal cell ca Monitor renal function Avoid nephrotoxic agents as able DM II Continue insulin therapy Monitor BGs Glycemic pharmacy consulted GERD Continue PPI Hypothyroidism Continue levothyroxine DVT Px: IV Heparin CODE STATUS DNR/DNI Disposition Patient prefers to return home PT/OT recommends SNF Case management to help with discharge planning Total Time Total Time Spent Total Time Spent (In Minutes): 46 minutes Total Time Includes: Examination of the Patient, Discharge Planning, Medication Reconciliation, Communication With Other Providers and Other Discharge Plan Discharge Items Patient Disposition: Transfer [facility] Reason For Visit: Covid Discharge Diagnosis: Acute on chronic respiratory failure with hypoxia Acute diastolic CHF exacerbation COVID 19 Activity: Per Instructions section Exercise/Sports: Gradually increase as tolerated Non-emergency contact: Primary Care Provider and [employer] Swimmer Call non-emergency contact if: you have any medication questions, your symptoms worsen, your pain is not controlled, your pain is worsening, your pain is unusual for you, your pain is concerning for you and you have a fever Follow-up/Referrals: Griselda Mauricio [Primary Care Provider] - Diet: Heart Healthy and Low Sodium (2gm) Addtl Attending Provider Instructions: Follow-up with your primary care physician in 1 week upon discharge Follow-up with 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 Garcia in 4 weeks Your Lantus dose is decreased to 12 units daily. Discuss with your Physician for further adjustment of your Insulin dose as per your Blood glucose levels Your are started on Amlodipine 2.5 mg daily for better control of your blood pressure Complete the doxycycline course as prescribed to complete the course Seek immediate medical attention if your symptoms reoccur or worsen Call your Primary Care doctor if any of the following symptoms or problems start or get worse: * Shortness of breath or difficulty breathing * Wake up at night short of breath * Chest pain * Cough * Swelling of your hands, feet, or legs * More fatigued or tired with your normal activity * Palpitations - sudden fast heart beats WEIGHT * Weigh yourself every morning after using the bathroom. * Use the same scale. * Wear the same amount of clothing. * Write your weight down on a chart. * Call your Primary Care doctor if you gain more than 2-3 pounds in 1-2 days. MEDICATIONS * Use this discharge instruction sheet for medication instructions. * Take your medications at the time your doctor ordered. * Do not skip a dose of your medicines. * If you miss a dose of medicine, take it as soon as possible, but DO NOT DOUBLE A DOSE. * Read your medicine information when you get home. * Know all of the side effects of your medicine. If in doubt, ask your pharmacist * Call your Primary Care doctor's office if you have any side effects. * Be sure all of your doctors know what medicine and herbs you take (including cold, flu, and herbal medicine). Take the following with you to your follow-up doctor appointments: * Weight Chart * Medication List * List of questions Do not drink excessive alcohol, beer or wine. Home Isolation COVID-19 Instructions The following information about Home Isolation is from the CDC Website: https://www.cdc.gov/coronavirus/2019-ncov/hcp/fkkbzsvb-svslifl-cpazah.html Stay home except to get medical care People who are mildly ill with COVID-19 are able to isolate at home during their illness. You should restrict activities outside your home, except for getting medical care. Do not go to work, school, or public areas. Avoid using public transportation, ride-sharing, or taxis. Separate yourself from other people and animals in your home People: As much as possible, you should stay in a specific room and away from other people in your home. Also, you should use a separate bathroom, if available. Animals: You should restrict contact with pets and other animals while you are sick with COVID-19, just like you would around other people. Although there have not been reports of pets or other animals becoming sick with COVID-19, it is still recommended that people sick with COVID-19 limit contact with animals until more information is known about the virus. When possible, have another member of your household care for your animals while you are sick. If you are sick with COVID-19, avoid contact with your pet, including petting, snuggling, being kissed or licked, and sharing food. If you must care for your pet or be around animals while you are sick, wash your hands before and after you interact with pets and wear a face mask. Call ahead before visiting your doctor If you have a medical appointment, call the healthcare provider and tell them that you have or may have COVID-19. This will help the healthcare providers office take steps to keep other people from getting infected or exposed. Wear a face mask You should wear a face mask when you are around other people (e.g., sharing a room or vehicle) or pets and before you enter a healthcare providers office. If you are not able to wear a face mask (for example, because it causes trouble breathing), then people who live with you should not stay in the same room with you, or they should wear a face mask if they enter your room. Cover your coughs and sneezes Cover your mouth and nose with a tissue when you cough or sneeze. Throw used tissues in a lined trash can. Immediately wash your hands with soap and water for at least 20 seconds or, if soap and water are not available, clean your hands with an alcohol-based hand director correction[employer] agency that contains at least 60% alcohol. Clean your hands often Wash your hands often with soap and water for at least 20 seconds, especially after blowing your nose, coughing, or sneezing; going to the bathroom; and before eating or preparing food. If soap and water are not readily available, use an alcohol-based hand director [employer] with at least 60% alcohol, covering all surfaces of your hands and rubbing them together until they feel dry. Soap and water are the best option if hands are visibly dirty. Avoid touching your eyes, nose, and mouth with unwashed hands. Avoid sharing personal household items You should not share dishes, drinking glasses, cups, eating utensils, towels, or bedding with other people or pets in your home. After using these items, they should be washed thoroughly with soap and water. Clean all high-touch surfaces everyday High touch surfaces include counters, tabletops, doorknobs, bathroom fixtures, toilets, phones, keyboards, tablets, and bedside tables. Also, clean any surfaces that may have blood, stool, or body fluids on them. Use a household cleaning spray or wipe, according to the label instructions. Labels contain instructions for safe and effective use of the cleaning product including precautions you should take when applying the product, such as wearing gloves and making sure you have good ventilation during use of the product. Monitor your symptoms Seek prompt medical attention if your illness is worsening (e.g., difficulty breathing).Beforeseeking care, call your healthcare provider and tell them that you have, or are being evaluated for, COVID-19. Put on a face mask before you enter the facility. These steps will help the healthcare providers office to keep other people in the office or waiting room from getting infected or exposed. Ask your healthcare provider to call the local or state health department. Persons who are placed under active monitoring or facilitated self- monitoring should follow instructions provided by their local health department or occupational health professionals, as appropriate. When working with your local health department check their available hours. If you have a medical emergency and need to call 911, notify the dispatch personnel that you have, or are being evaluated for COVID-19. If possible, put on a face mask before emergency medical services arrive. Discontinuing home isolation Patients with confirmed COVID-19 should remain under home isolation precautions until the risk of secondary transmission to others is thought to be low. The decision to discontinue home isolation precautions should be made on a case-by- case basis, in consultation with healthcare providers and state and local health departments. Pending Studies at Discharge: No Stand-Alone Forms: My [facility] Skilled Items Patient informed of condition?: Yes DNR: Yes Discharge Level of Care: Skilled Communicable Disease: Yes Discharge Prognosis: Improving Lines: None Urinary Catheter: No Medications and DC Order Prescriptions: New doxycycline hyclate 100 mg Capsule 100 mg PO BID Qty: 4 RF: 0 amlodipine [Norvasc] 5 mg Tablet 2.5 mg PO QAM Qty: 15 RF: 0 Continued cinacalcet 30 mg tablet 30 mg PO QAM RF: 0 omega-3 fatty acids 500 mg capsule 500 mg PO BID RF: 0 omeprazole 20 mg capsule,delayed release(DR/EC) 20 mg PO BID RF: 0 mirtazapine 45 mg tablet 45 mg PO HS RF: 0 benazepril [Lotensin] 40 mg tablet 40 mg PO QAM RF: 0 fluticasone propionate [Flonase Allergy Relief] 50 mcg/actuation [place],Suspension 2 spray INTRANASAL QAM RF: 0 metoprolol tartrate 25 mg tablet 37.5 mg PO BID RF: 0 alendronate 70 mg Tablet, Effervescent 70 mg PO WK RF: 0 levothyroxine [Synthroid] 125 mcg tablet 62.5 mcg PO QAM RF: 0 albuterol sulfate [Ventolin HFA] 90 mcg/actuation Hfa Aerosol Inhaler 2 puff inhalation QID PRN (Reason: Shortness Of Breath Or Wheezing) RF: 0 Flovent HFA 110 mcg/actuation Hfa Aerosol Inhaler 2 puff inhalation BID RF: 0 vitamin E 1,000 unit Capsule 1,000 unit PO QAM RF: 0 gabapentin 100 mg capsule 200 mg PO TID RF: 0 Vision Formula(Q-[id number]) 1,000 unit-60 mg-30 unit Tablet 1 tab PO QAM RF: 0 magnesium oxide 400 mg magnesium Tablet 400 mg PO BID RF: 0 aspirin 81 mg Tablet,Chewable 81 mg PO QAM RF: 0 docusate sodium 100 mg Capsule 200 mg PO QAM RF: 0 ergocalciferol (vitamin D2) 1,250 mcg (50,000 unit) Capsule 1,250 mcg PO WK RF: 0 melatonin 1 mg Tablet 2 mg PO HS RF: 0 venlafaxine 225 mg Tablet Extended Release 24hr 225 mg PO QAM RF: 0 furosemide [Lasix] 20 mg tablet 40 mg PO QAM RF: 0 Changed Lantus U-100 Insulin 100 unit/mL Solution 12 unit SUBCUT QAM MDD 40 units Qty: 0 RF: 0 Discharge Orders: Discharge Order (Routine); Ordered 04/16/20 Ordered By: Peter Roblero Admission Data Admit Date/Time: 04/11/20 15:19 Attending Provider: Peter Roblero Admit Provider: Carolynn Townsend Primary Care Provider: Griselda Mauricio Other Providers: Carolynn Townsend ; Cain Garcia ; Griselda Mauricio
[2020-04-16 16:32] VITALS: O2SAT 93
[2020-04-16 16:36] VITALS: TEMP 97.3
[2020-04-16 18:38] VITALS: BP 127/81; PULSE 83
[2020-04-17] MEDS ORDERED: FUROSEMIDE 40 MG TAB PO SCH (09:00)
--- NOTE | 2020-05-01 10:30 | Coding Query ---
To promote full compliance with coding requirements relating to patient care, provider participation is requested in all cases of hcc coders uncertainty. Please assist us with the question(s) below: Coding Question(s): The diagnosis(es) below was documented in the Cardiology Consultation and Cardiology Progress Note, then subsequently fell off all further documentation. Please indicate if it is still a possible diagnosis or ruled out. Physician's Response(s): TRANSIENT CEREBRAL ISCHEMIC ATTACK ( ) Diagnosed and POA ( ) Diagnosed and not POA ( ) Ruled out ( x ) History of TIA, not an acute diagnosis on this admission ( ) Other (please specify) PULMONARY EMBOLISM ( ) Diagnosed and POA ( ) Diagnosed and not POA ( x ) Ruled out ( ) History of Pulmonary Embolism, not an acute diagnosis on this admission ( ) Other (please specify) MTDD
== END 2020-04-16 18:38 | DRG 177 ==
LOC: ED 11:06 → 2S 15:19 → SUATTDRO 15:19 → 2S 16:50